=== PATIENT | male | born 1965 | race Hispanic/Latino ===

== ENCOUNTER 2019-01-16 21:56 | Emergency (ER) | payer OTHER, SELFPAY ==
[2019-01-16] MEDS ORDERED: SUCCINYLCHOLINE 20 MG/ML (10 ML) IV ONE (21:57)
[2019-01-16] MEDS ORDERED: ETOMIDATE 20 MG/10 ML VIAL IV ONE (21:57)
[2019-01-16] MEDS ORDERED: LIDOCAINE 1% MPF 5 ML VIAL IJ ONE (21:57)
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
--- OUTSIDE RECORDS SUMMARY | 2019-01-16 22:00 | XMS REPORT ---
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
--- OUTSIDE RECORDS SUMMARY | 2019-01-16 22:00 | XMS REPORT | Summary of Care ---
:1965 Author Organization [facility] Address [address] [place] [address]- Encounter HQ Encntr_alias(FIN) [id number] Date(s): 10/31/16 - 11/29/16 [facility] [address] [place] [address]. [address] [place] [address]- [phone] Discharge Disposition: Home or Self Care Attending Physician: Sergei Duke MD Referring Physician: Sergei Duke MD Vital Signs No data available for this section Problem List Condition Effective Dates Status Health Status Informant Chronic Drug Abuse(Confirmed) Active Dysphagia(Confirmed) Active Impaired cognition(Confirmed) Active Impaired mobility(Confirmed) Active Leukoencephalopathy(Confirmed) Active Allergies, Adverse Reactions, Alerts Substance Reaction Severity Status NKDA Active Medications No data available for this section Results No data available for this section Immunizations Not Given Vaccine Date Status Refusal Reason pneumococcal 23-valent vaccine1 08/28/16 Not Given Patient Refuses 1Result Comment: Family states patient received both flu and pneumococcal vaccine at previous facility. Procedures Procedure Date Related Diagnosis Body Site Hernia repair 11/27/01 Biopsy of vocal cord 11/27/97 Social History Social History Type Response Smoking Status Smoker, current status unknown; Type: Cigarettes; Number of years: 17; Started at age: 35.0; Previous treatment: None; Ready to change: No; Concerns about tobacco use in household: No; Exposure to Tobacco Smoke Unable to obtain; Cigarette Smoking Last 365 Days Yes; Reg Smoking Cessation Counseling No Assessment and Plan No data available for this section
--- OUTSIDE RECORDS SUMMARY | 2019-01-16 22:00 | XMS REPORT ---
:1965 [facility] Team Providers Name Role Phone MARMOLEJO, KAYY Provider Role Unavailable Allergies, Adverse Reactions, Alerts Substance Reaction Event Type N.K.D.A. 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 Active Medications Medication Code Code Instructions Start End Status Dosage System Date Date Carvedilol ND 33922910991 25 MG Orally Active 1 tablet twice a day (bid) Aspirin ND 21107967625 81 MG Orally Nov 08, Active 1 tablet Once a day 2015 Simvastatin ND 51328791662 10 MG Orally Active 1 tablet Once a day in the evening Senna NDC 0 8.6 MG Orally April Active 2 tablets Concentrate Once a day , at 2017 bedtime as needed Ritalin ND 31225141554 10 MG Orally January Active 1 tablet three times a , day (tid) 2016 ASA NDC 0 Oral Inactive 1 tab Docusate Sodium ND 07596938773 100 MG Orally April Active 1 capsule twice a day 11, as needed (bid) 2016 Thiamine HCl ND 84605581413 100 MG Orally April Active 1 tablet Once a day 2016 Fenofibrate ND 79205480944 48 MG Orally Active 1 tablet Once a day Clopidogrel ND 03423574538 75 MG Orally Active 1 tablet Bisulfate Once a day Donepezil ND 25474666711 5 MG Orally Active 1 tablet Hydrochloride Once a day at bedtime Vital Signs Date/Time: Nov 08, 2016 Blood Pressure Diastolic 80 mm Hg Blood Pressure Systolic 120 mm Hg Temperature 98.5 F BMI 23.49 Index Weight 150 lbs Height 67 in Results No Known Results Summary Purpose eClinicalWorks Submission
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
--- OUTSIDE RECORDS SUMMARY | 2019-01-16 22:00 | XMS REPORT ---
:1965 Author Organization [facility] Address [address] [place] [address] Care Team Providers Name Role Phone UNKNOWN, REFFERING Primary Care Provider Unavailable MARIA DOLORES GUILLEN M.D. Unavailable Unavailable Problems This patient has no known problems. Allergies, Adverse Reactions, Alerts This patient has no known allergies or adverse reactions. Medications This patient has no known medications. Encounters Start End Encounter Admission Attending Care Care Encounter Date/Time Date/Time Type Type Clinicians Facility Department ID 2018-01-03 2018-01-07 Inpatient C MARIA DOLORES GUILLEN [facility] [id number] 14:29:00 09:32:00 Daniel 2018-01-01 2018-01-01 Inpatient MARIA DOLORES GUILLEN [facility] [id number] 11:16:00 11:16:00 Daniel Results Test Description Test Time Test Comments Text Results Atomic Results Result Comments POC Glucose, Blood 2018-01-07 08:58:00 Test Item Value Reference Range Comments POC Glucose (test code=POCGLUC) 146 mg/dL 70-115 If you consider your patient critically ill, the [facility] Accu-Chek InformII metershould not be used for Glucose determinations.Draw a venous Glucose and send to the Main Lab for Analysis. POC Glucose, [id number] 20:29:00 Test Item Value Reference Range Comments POC Glucose (test 146 mg/dL 70-115 If you consider your patient code=POCGLUC) critically ill, the [facility] Accu-Chek InformII metershould not be used for Glucose determinations.Draw a venous Glucose and send to the Main Lab for Analysis. POC Glucose, [id number] 15:23:00 Test Item Value Reference Range Comments POC Glucose (test 135 mg/dL 70-115 If you consider your patient code=POCGLUC) critically ill, the [facility] Accu-Chek InformII metershould not be used for Glucose determinations.Draw a venous Glucose and send to the Main Lab for Analysis. POC Glucose, [id number] 11:52:00 Test Item Value Reference Range Comments POC Glucose (test 123 mg/dL 70-115 If you consider your patient code=POCGLUC) critically ill, the [facility] Accu-Chek InformII metershould not be used for Glucose determinations.Draw a venous Glucose and send to the Main Lab for Analysis. POC Glucose, [id number] 08:01:00 Test Item Value Reference Range Comments POC Glucose (test 121 mg/dL 70-115 If you consider your patient code=POCGLUC) critically ill, the [facility] Accu-Chek InformII metershould not be used for Glucose determinations.Draw a venous Glucose and send to the Main Lab for Analysis. POC Glucose, [id number] 21:22:00 Test Item Value Reference Range Comments POC Glucose (test 112 mg/dL 70-115 If you consider your patient code=POCGLUC) critically ill, the [facility] Accu-Chek InformII metershould not be used for Glucose determinations.Draw a venous Glucose and send to the Main Lab for Analysis. POC Glucose, [id number] 17:06:00 Test Item Value Reference Range Comments POC Glucose (test 148 mg/dL 70-115 If you consider your patient code=POCGLUC) critically ill, the [facility] Accu-Chek InformII metershould not be used for Glucose determinations.Draw a venous Glucose and send to the Main Lab for Analysis. POC Glucose, [id number] 11:21:00 Test Item Value Reference Range Comments POC Glucose (test 108 mg/dL 70-115 If you consider your patient code=POCGLUC) critically ill, the [facility] Accu-Chek InformII metershould not be used for Glucose determinations.Draw a venous Glucose and send to the Main Lab for Analysis. POC Glucose, [id number] 08:13:00 Test Item Value Reference Range Comments POC Glucose (test 170 mg/dL 70-115 If you consider your patient code=POCGLUC) critically ill, the [facility] Accu-Chek InformII metershould not be used for Glucose determinations.Draw a venous Glucose and send to the Main Lab for Analysis. POC Glucose, [id number] 21:10:00 Test Item Value Reference Range Comments POC Glucose (test 169 mg/dL 70-115 If you consider your patient code=POCGLUC) critically ill, the [facility] Accu-Chek InformII metershould not be used for Glucose determinations.Draw a venous Glucose and send to the Main Lab for Analysis. POC Glucose, [id number] 16:25:00 Test Item Value Reference Range Comments POC Glucose (test 115 mg/dL 70-115 If you consider your patient code=POCGLUC) critically ill, the [facility] Accu-Chek InformII metershould not be used for Glucose determinations.Draw a venous Glucose and send to the Main Lab for Analysis. POC Glucose, [id number] 12:41:00 Test Item Value Reference Range Comments POC Glucose (test 117 mg/dL 70-115 If you consider your patient code=POCGLUC) critically ill, the [facility] Accu-Chek InformII metershould not be used for Glucose determinations.Draw a venous Glucose and send to the Main Lab for Analysis. POC Glucose, [id number] 09:32:00 Test Item Value Reference Range Comments POC Glucose (test 115 mg/dL 70-115 If you consider your patient code=POCGLUC) critically ill, the [facility] Accu-Chek InformII metershould not be used for Glucose determinations.Draw a venous Glucose and send to the Main Lab for Analysis. POC Glucose, [id number] 05:20:00 Test Item Value Reference Range Comments POC Glucose (test 106 mg/dL 70-115 If you consider your patient code=POCGLUC) critically ill, the [facility] Accu-Chek InformII metershould not be used for Glucose determinations.Draw a venous Glucose and send to the Main Lab for Analysis. POC Glucose, [id number] 15:32:00 Test Item Value Reference Range Comments POC Glucose (test 83 mg/dL 70-115 If you consider your patient code=POCGLUC) critically ill, the [facility] Accu-Chek InformII metershould not be used for Glucose determinations.Draw a venous Glucose and send to the Main Lab for Analysis.
[2019-01-16] MEDS ORDERED: LORazepam 2 MG/ML VIAL ONE (22:11)
[2019-01-16 22:42] LABS: Protime INR 1.03
[2019-01-16] MEDS ORDERED: PROPOFOL 1,000 MG/100 ML VIAL IV ONE (22:48)
[2019-01-16] MEDS ORDERED: RSI MEDICATION KIT IV ONE (22:48)
[2019-01-16] MEDS ORDERED: NA CHLORIDE 0.9% 1,000 ML ONE (22:48)
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
[2019-01-16] MEDS ORDERED: ALTEPLASE 100 ML IV ONE (22:50)
[2019-01-16] MEDS ORDERED: HEPARIN 5000 UNIT/ML 1 ML VIAL ONE (22:51)
[2019-01-16] MEDS ORDERED: HEPARIN/D5W 25,000 UNIT/500 ML BAG IV ONE (22:51)
[2019-01-16 22:52] LABS: Absolute Lymphocytes (CBC) 5.2 K/uL (0.7-4.9); Absolute Monocytes 0.8 K/uL (0.1-1.3); Absolute Neutrophil 13.3 K/uL (1.8-8.0); Basophils % 0.4 % (0-1.3); Eosinophils % 1.6 % (0-4.4); Hematocrit 46.5 % (39.6-49.0); Lymphocytes % 26.4 % (15.3-44.8); MPV 9.6 fL (7.6-11.3); Monocytes % 4.3 % (3.3-12.3); RBC Red Blood Cell Count 5.06 M/uL (4.33-5.43)
[2019-01-16] MEDS ORDERED: LABETALOL 20 MG/4ML SYRINGE IV ONE (23:04)
[2019-01-16 23:05] LABS: Albumin 3.8 g/dL (3.4-5.0); Bilirubin Direct 0.2 mg/dL (0-0.2); Bilirubin Total 0.5 mg/dL (0.2-1.0); Potassium 3.6 mmol/L (3.5-5.1); Protein, Total 6.7 g/dL (6.4-8.2); Troponin (Emerg Dept Use Only) 0.12 ng/mL (0.0-0.045)
[2019-01-16] MEDS ORDERED: MIDAZOLAM HCL 2 MG/2 ML INJ ONE ×2 (23:09→23:10)
[2019-01-16 23:35] LABS: Urine Blood 2+ (NEG); Urine Glucose 1+ (NEG); Urine Protein 3+ (NEG); Urine Specific Gravity >1.030 (1.005-1.030); Urine pH 5.5 (5.0-7.0)
--- NOTE | 2019-01-17 08:16 | RAD REPORT ---
EXAM DESCRIPTION: RAD - Chest Single View - 01/16/2019 10:34 pm CLINICAL HISTORY: post CPR Chest pain. COMPARISON: Chest Single View dated 07/17/2016; CHEST SINGLE VIEW dated 09/24/2015; CHEST PA AND LAT 2 VIEW dated 04/08/2015; CHEST PA AND LAT 2 VIEW dated 09/20/2013 FINDINGS: Portable technique limits examination quality. Tip of the ET tube is above the bud. Nasogastric tube descends into the stomach. Lungs are grossly clear. Heart is normal in size.
--- NOTE | 2019-01-17 14:04 | RAD REPORT ---
EXAM DESCRIPTION: Head brain Wo Cont CLINICAL HISTORY: Unresponsive. COMPARISON: None. TECHNIQUE: Axial scans of the brain without contrast including multiplanar computer-generated reform ations. Total Dose Length Product 928. This exam was performed using one or more of the following dos e reduction techniques: automated exposure control, adjustment of the mA and/or kV according to patie nt size and/or less of iterative reconstruction technique. FINDINGS: Scalp: Cutaneous calcifications noted mainly in the frontal scalp. Intracranial mass: None. Intracranial density: There are low density areas in the cerebral white matter without mass effect. M ost pronounced in the frontal lobes. Nonspecific. Possible microvascular ischemia but recommend MRI a nd diffusion Weighting for further evaluation and to exclude acute infarct. Intracranial hemorrhage: No intracranial hemorrhage. Extra-axial fluid collection: None. Midline shift: None Ventricles:, subarachnoid spaces and sulci: Within normal limits. Calvarium: Unremarkable. Orbits: Unremarkable. Paranasal sinuses: Aerated. IMPRESSION: 1. White matter hypoattenuating densities as discussed. Correlate with MRI as indicated. Electronically signed by Regino Chen MD 01/16/2019 10:37 PM [employer]PATCH SUPERVISOR Due to temporary technical issues with the PACS/Fluency reporting system, reports are being signed by the in house radiologist as a courtesy to ensure prompt reporting. The interpreting radiologist is f ully responsible for the content of the report.
== END 2019-01-16 23:35 | disposition short-term general hospital (02) ==
LOC: ER 21:56
PROC: 0BH17EZ Insertion of Endotracheal Airway into Trachea, Via Natural or Artificial Opening (ICD-10-PCS; principal; 2019-01-16)
PROC: 3E03317 Introduction of Other Thrombolytic into Peripheral Vein, Percutaneous Approach (ICD-10-PCS; 2019-01-16)
DX: I21.09 ST elevation (STEMI) myocardial infarction involving other coronary artery of anterior wall (principal); I10 Essential (primary) hypertension; Z87.820 Personal history of traumatic brain injury
CPT/HCPCS: 31500; 36415; 51702; 70450; 71045; 80048; 80076; 81003; 82962; 83735; 83880; 84484; 85025; 85610; 92977; 94002; 99291; J0330; J1644; J2250; J2704; J2997; J7030

== ENCOUNTER 2019-05-16 09:56 | Emergency (ER) | payer SELFPAY ==
--- OUTSIDE RECORDS SUMMARY | 2019-05-16 09:59 | XMS REPORT | Continuity of Care Document ---
[...] unspecified Constipation, Active Problem 10/19/2018 2.16.840 unspecified .1.21791 constipation type 3.4.391. 11.82856 History of myocardial Active Problem 10/19/2018 2.16.840 infarction .1.39348 3.4.391. 11.54672 Mixed hyperlipidemia Active Problem 10/19/2018 2.16.840 .1.86575 3.4.391. 11.84235 Brain damage Active Problem 10/19/2018 2.16.840 .1.36151 3.4.391. 11.48591 Thiamine deficiency, Active Diagnosis 10/10/2018 2.16.840 unspecified .1.89410 3.4.391. 11.73908 ENCEPHALOPATHY, Active [facility] UNSPECIFIED Medications Medication Details Route Status Patient Ordering Order Source Instructions Provider Date Senna Concentrate 2 tablets at Orally Active 8.6 MG Orally MARMOLEJO 01.12. bedtime as Once a day 2016 0.1.113 [...] carvedilol 25 mg 25 mg=1 tab, Active [facility] oral tablet PO, BID, # 60 2016 tab, 1 Refill(s) Aspirin 81 MG 81 mg=1 tab, Active [facility] Chewable Tablet PO, Daily, # [...] [facility] Oral Tablet PO, Dinner, # 2015 30 tab, 1 Refill(s) donepezil 5 mg [...] day, Stop date: 10/04/16 12:33:00 CSTNotes: Chloraseptic [place] (Same as: Chloraseptic, Sore Throat [place]) WASTE: F/P - Black; E - Municipal Trash [employer] Ativan 1 mg, 1 tab, [...] Duration: 30 day, Stop date: 10/03/16 8:01:00 MANAGER KNOWLEDGE, SBP > 170Notes: (Same as: Apresoline) May [...] Stop date: 08/27/16 17:00:00 CDTNotes: (Same as: Prinivsarah, Sammyril) sennosides, [facility] 17.2 mg, 2 No Longer [facility] tab, [...] Duration: 60 day, Stop date: 10/25/16 21:00:00 MANAGER KNOWLEDGE Tylenol 650 mg, 2 tab, No Longer [...] mg, 1 supp, No Longer [facility] Route: [place], Active 2015 Drug form: SUPP, Bedtime, Dosing [...] mg, PO, No Longer [facility] Q6H, 0 Active 2015 Refill(s) Aspirin 81 mg, PO, No [...] 46 second(s). 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 views of the neck demonstrate a normal [...] wo EXAM: CT HEAD WITHOUT CONTRAST 08/[address] [facility] contrast CT /2015 - [...] [facility] STOOL mg/dL mg/dL URINE AND UA pH 5.5 5.0 - 8.0 08/27 [facility] STOOL URINE AND UA Turbidity Clear Clear 08/27 [facility] STOOL (08/27/16 5:16 PM) URINE AND UA Color Yellow Yellow 08/27 [facility] STOOL *NA* (08/27/16 5:16 PM) URINE AND UA Spec Grav 1.022 <=1.030 08/27 [facility] STOOL Abdomen AP Abdomen AP DX EXAM: XR ABDOMEN 1 VIEW 08/27 - [facility] DX - DATE: 08/27/2016 at 1043 [...] CHEST 1 VIEW 08/27 - [facility] DX - DATE: 08/26/2016 11:29 PM CDT [...] A/G Ratio 1.1 0.7 - 1.6 08/27 [facility] CHEM PANEL B/C Ratio 20 6 - [...] eGFR of 60-89 may be normal in [facility] mL/min/1.73 /2015 some populations, particularly the elderly, [...] Phos 92 unit/L 39 - 136 08/27 [facility] CHEM PANEL Bili Total 0.5 mg/dL 0.2 - 1.3 08/27 [facility] CHEM PANEL Creatinine 1.20 mg/dL 0.50 - 08/27 [facility] Lvl 1.40 CHEM PANEL BUN 24 mg/dL 7 - 22 08/27 [facility] CHEM PANEL Glucose Lvl 105 mg/dL 70 - 99 08/27 [facility] CHEM PANEL Potassium Lvl 3.7 meq/L 3.5 - 5.1 08/27 CHEM PANEL Sodium Lvl 142 meq/L 135 - 145 08/27 [facility] CHEM PANEL Chloride Lvl 106 meq/L 95 - 109 08/27 [facility] CHEM PANEL CO2 26 meq/L 24 - 32 08/27 CHEM PANEL ALT 32 unit/L 0 - 65 08/27 [facility] CHEM PANEL Albumin Lvl 3.9 g/dL 3.5 - 5.0 08/27 [facility] CHEM PANEL Total Protein 7.5 g/dL 6.4 - 8.4 08/27 [facility] CHEM PANEL Calcium Lvl 8.9 mg/dL 8.5 [...] Basophils 0.7 % 0.0 - 1.0 08/27 [facility] HEMATOLOGY Eosinophils 2.4 % 0.0 - 4.0 08/27 [facility] HEMATOLOGY Monocytes 5.8 % 2.0 - 12.0 [...] /2015 HEMATOLOGY RDW 13.6 % 11.5 - 10 [facility] 14.5 HEMATOLOGY Platelet 322 K/CMM 133 [...] 12.4 g/dL 14.0 - 08/27 [facility] 18.0 /2015 IMMUNOLOGY Prealbumin 35.6 mg/dL 18.0 - 08/27 [...] Comments Source Diastolic (mm Hg) 80 11/08/2016 2.16.840.1.39804 3.4.391.11.87799 Systolic (mm Hg) 120 11/08/2016 2.16.840.1.10437 3.4.391.11.72045 Temperature Oral (F) 98.5 F 11/08/2016 2.16.840.1.05233 3.4.391.11.23757 Weight 150 11/08/2016 2.16.840.1.87505 3.4.391.11.53331 Height 67 11/08/2016 2.16.840.1.71042 3.4.391.11.13859 Heart Rate 57 09/08/2016 [facility] Respitory Rate [...] For Provider Date Date Visit [facility] Inpatient [id number] Ethan Noyola 08/27 09/08 [facility] /2015 [facility] OP Therapy [id number] Sergei 10/31 11/30 [facility] Procedures Procedure Code Date Perfomer Comments Source Hernia repair [id number] 11/27/2001 [facility] Hernia repair [id number] 11/27/2001 [facility] Biopsy of vocal [id number] 11/27/1997 [facility] Biopsy of vocal [id number] 11/27/1997 [facility]
--- OUTSIDE RECORDS SUMMARY | 2019-05-16 10:00 | XMS REPORT ---
:1965 [facility] Providers Name Role Phone [...] Status Dosage System Date Date Carvedilol ND 03678755763 25 MG Orally Active 1 tablet twice a day (bid) Aspirin ND 37626521052 81 MG Orally Nov 08, Active 1 tablet Once a day 2015 Simvastatin ND 72271662699 10 MG Orally Active 1 tablet Once a day in the evening Senna NDC 0 8.6 MG Orally April Active 2 tablets Concentrate Once a day , at 2016 bedtime as needed Ritalin ND 29611792725 10 MG Orally January Active 1 tablet three times a , day (tid) 2016 ASA NDC 0 Oral Inactive 1 tab Docusate Sodium NDC 39129110499 100 MG Orally April Active 1 capsule twice a day 11, as needed (bid) 2016 Thiamine HCl ND 39219824475 100 MG Orally April Active 1 tablet Once a day 2016 Fenofibrate ND 54557301980 48 MG Orally Active 1 tablet Once a day Clopidogrel ND 73172532646 75 MG Orally Active 1 tablet Bisulfate Once a day Donepezil ND 66890522028 5 MG Orally Active 1 tablet Hydrochloride Once a day at bedtime Vital Signs Date/Time: Nov 08, 2016 Blood Pressure Diastolic 80 mm Hg Blood Pressure Systolic 120 mm Hg Temperature 98.5 F BMI 23.49 Index Weight 150 lbs Height 67 in Results No Known Results Summary Purpose eClinicalWorks Submission
--- NOTE | 2019-05-16 11:00 | RAD REPORT ---
EXAM DESCRIPTION: RAD - Foot Right 3 View - 05/16/2019 10:45 am CLINICAL HISTORY: PAIN Trauma COMPARISON: No comparisons FINDINGS: Comminuted fracture involves the distal phalanx of the fifth toe with surrounding soft tis raman swelling. A large plantar calcaneal spur seen.
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
== END 2019-05-16 11:29 | disposition home or self-care (01) ==
LOC: ER 09:56
DX: S92.531A Displaced fracture of distal phalanx of right lesser toe(s), initial encounter for closed fracture (principal); X58.XXXA Exposure to other specified factors, initial encounter; Y93.89 Activity, other specified; Y92.89 Other specified places as the place of occurrence of the external cause; Y99.8 Other external cause status; I10 Essential (primary) hypertension; I25.2 Old myocardial infarction; F17.210 Nicotine dependence, cigarettes, uncomplicated
CPT/HCPCS: 99283

== ENCOUNTER 2020-10-23 16:59 | Emergency (ER) | payer OTHER ==
--- OUTSIDE RECORDS SUMMARY | 2020-10-23 17:01 | XMS REPORT | Clinical Summary ---
:1965 Author Organization [facility] Address [address] [place] [address] Care Team Providers Name Role Phone Unavailable Primary Care Provider Unavailable Allergies No Known Allergies Medications Medication Sig Dispensed Refills Start Date End Date Status aspirin 81 MG Take 1 tablet 90 tablet 3 01/23/2019 01/23/2020 chewable tablet (81 mg total) by mouth daily. atorvastatin Take 1 tablet 90 tablet 3 01/23/2019 01/23/2020 E xpired (LIPITOR) 80 MG (80 mg total) tablet by mouth daily. clopidogrel (PLAVIX) Take 1 tablet 90 tablet 3 01/23/201912/29 75 mg tablet (75 mg total) by mouth daily. lisinopril Take 1 tablet 90 tablet 3 01/23/2019 01/23/2020 Exp ired (PRINIVIL,ZESTRIL) (2.5 mg total) 2.5 MG tablet by mouth daily. metoprolol Take 1 tablet 180 tablet 3 01/22/2019 01/22/2020 Ex pired (LOPRESSOR) 25 MG (25 mg total) tablet by mouth 2 (two) times daily. Active Problems Problem Noted Date STEMI (ST elevation myocardial infarction) 01/17/2019 Cardiac arrest 01/17/2019 Social History Tobacco Use Types Packs/Day Years Used Date Never Assessed Sex Assigned at Date Recorded Not on file Last Filed Vital Signs Not on file Plan of Treatment Health Maintenance Due Date Last Done Comments COLON CANCER SCREENING COLONOSCOPY 1965 INFLUENZA VACCINE (#1) 2020 08/26/2016 LIPID PANEL 01/17/2022 01/17/2019 Implants Implanted Type Area Labor Representative Device Shelf Model / Identifier Expiration Serial / Date Lot Device Angio-Seal Evolu 6fr - [id number] Cardiovascular Right: ST RENETTA 09/26/2019 [id number] / Implanted: Qty: 1 on 01/17/2019 by Joshua Billy MD at [facility] / [id number] Synergy Rx Everolimus Eluting Coronary Stent Stents-Coronary Left: [place] 10/21/2020 [id number] / Implanted: Qty: 1 on 01/17/2019 by Joshua Billy MD at [facility] Coronary [employer] / [id number] Results Not on fileafter 10/23/2019 Advance Directives For more information, please contact: [phone] Code Status Date Activated Date Inactivated Comments Full Code 01/17/2019 1:13 AM 01/22/2019 7:41 PM This code status was determined by: Patient
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
--- OUTSIDE RECORDS SUMMARY | 2020-10-23 17:05 | XMS REPORT | Continuity of Care Document ---
:1965 Author Organization [facility] t Address [address] [place] [address] Care Team Providers Name Role Phone Lab, Covid Attending Clinician Unavailable Lab, Fam Pob I Attending Clinician Unavailable Brandon KURTZ Attending Clinician Doctor Unassigned, Name Attending Clinician Unavailable Jose Eduardo JARVIS Attending Clinician Unavailable Amalia Duke Attending Clinician [phone] Gilbert Wellington Attending Clinician Jose Eduardo JARVIS Admitting Clinician Unavailable Gilbert Wellington Admitting Clinician Problems Condition Condition Condition Status Onset Resolution Last Treating Co mments Source Name Details Category Date Date Treatment Clinician Date STEMI (ST STEMI (ST Disease Active [facility]- [facility] - myocardial myocardial 00:00: Me dical infarction infarction 00 Ce nter ) ) Cardiac Cardiac Disease Active [facility] ENCEPHALOP Diagnosis Active 2015-112016-11-02 Memoria ATHY 2- 12:35:00 l 00:00: [place] ENCEPHALOP 00 ATHY Active 10/28/2016 [facility] D/C FOLLOW Diagnosis Active 2015-112016-10-28 Memoria UP 0-12 10:29:00 l D/C 00:00: [place] FOLLOW UP 00 Active 09/07/2016 [facility] LEUKOENCEP Diagnosis Active 2016-08-26 Memoria HALOPATHY 9-28 20:06:00 l 00:00: Chase LEUKOENCEP 00 HALOPATHY Active 08/24/2016 [facility] Final: Problem 2016-09-11 Memor ia Encephalop 00:40:18 l athy, Final: Chase unspecifie Encephalop d athy, unspecifie d 09/11/2016 [facility] Constipati Problem Active 2018-10-19 M emoria on, 05:37:01 l unspecifie Tommy n d Constipati constipati on, on type unspecifie d constipati on type Active Problem 10/19/2018 eCW: Denise Birch MD, PA History of Problem Active 2018-10-19 M emoria myocardial 05:37:01 l infarction History Her zhu of myocardial infarction Active Problem 10/19/2018 eCW: Denise Birch MD, PA Mixed Problem Active 2018-10-19 Memor ia hyperlipid 05:37:01 l emia Mixed Chase hyperlipid emia Active Problem 10/19/2018 eCW: Denise Birch MD, PA Brain Problem Active 2018-10-19 Memor ia damage 05:37:01 l Brain Cheng damage Active Problem 10/19/2018 eCW: Denise Birch MD, PA Thiamine Diagnosis Active 2018-10-10 M emoria deficiency 05:11:04 l , Thiamine Tommy n unspecifie deficiency d , unspecifie d Active Diagnosis 10/10/2018 eCW: Denise Birch MD, PA Chronic Problem Active 2016-12-02 Hasmukh shereen drug abuse 01:26:03 l (disorder) Chronic Her zhu drug abuse (disorder) Active Problem 12/02/2016 [facility] Dysphagia Problem Active 2016-12-02 Me moria (disorder) 01:26:03 l Chase Dysphagia (disorder) Active Problem 12/02/2016 [facility] Impaired Problem Active 2016-12-02 Mem oria cognition 01:26:03 l (finding) Impaired Her zhu cognition (finding) Active Problem 12/02/2016 [facility] Impaired Problem Active 2016-12-02 Mem oria mobility 01:26:03 l (finding) Impaired Her zhu mobility (finding) Active Problem 12/02/2016 [facility] Leukoencep Problem Active 2016-12-02 M emoria halopathy 01:26:03 l (disorder) Tommy n Leukoencep halopathy (disorder) Active Problem 12/02/2016 [facility] ENCEPHALOP Diagnosis Active 2016-08-26 Memoria ATHY, 20:06:00 l UNSPECIFIE Tommy n D ENCEPHALOP ATHY, UNSPECIFIE D Active [facility] Allergies, Adverse Reactions, Alerts Allergy Allergy Status Severity Reaction(s) Onset Inactive Treating Comm ents Source Name Type Date Date Clinician N.KReginoA. N.KReginoA. Active Info Not 2015-11 Hasmukh shereen Available 2-13 l 00:00: Chase 00 Social History Social Habit Start Date Stop Date Quantity Comments Source Sex Assigned At [facility] Smoking Status Start Date Stop Date Source Social History 2016-08-27 02:08:37 [facility] Medications Ordered Filled Start Stop Current Ordering Indication Dosage Frequency Signature Comments Components Source Medication Medication Date Date Medication? Clinician (SIG) Name Name aspirin 81 2020- No 81mg QD Take [address] [facility] MG chewable -23 01- tablet (81 L ukes - tablet 00:00: 23:59 mg total) Medic al 00 :00 by mouth Center daily. atorvastati 2020- No 80mg QD Take [address] [facility] n (LIPITOR) 2-23 01- tablet (80 L ukes - 80 MG 00:00: 23:59 mg total) Medica l tablet 00 :00 by mouth Center daily. clopidogrel 2020- No 75mg QD Take [address] [facility] (PLAVIX) 75 -23 01- tablet (75 L ukes - mg tablet 00:00: 23:59 mg total) Me dical 00 :00 by mouth Center daily. lisinopril 2020- No 2.5mg QD Take [address] [facility] (PRINIVIL,Z -23 01- tablet [facility] - ESTRIL) 2.5 00:00: 23:59 (2.5 mg Me dical MG tablet 00 :00 total) by Cente r mouth daily. metoprolol 2020- No 25mg Q.5D Take [address] [facility] (LOPRESSOR) 2-26 -26 tablet (25 L ukes - 25 MG 00:00: 23:59 mg total) Medica l tablet 00 :00 by mouth 2 Center (two) times daily. Carvedilol 2017-11 Yes KAYY 1 tablet Memoria 1-14 MARMOLEJO l 05:11: Simvastatin 2017-11 Yes KAYY 1 tablet Memoria 1-14 MARMOLEJO in the l 05:11: evening ASA 2017-11 Yes KAYY 1 tab Memoria 1-14 MARMOLEJO l 05:11: Fenofibrate 2017-11 Yes KAYY 1 tablet Memoria 1-14 MARMOLEJO l 05:11: Clopidogrel 2017-11 Yes KAYY 1 tablet Memoria Bisulfate 1-14 MARMOLEJO l 05:11: Donepezil 2017-11 Yes KAYY 1 tablet M emoria Hydrochlori 1-14 MARMOLEJO at bedtime l de 05:11: Senna 20170 Yes KAYY 2 tablets Hasmukh shereen Concentrate 6-11 MARMOLEJO at bedtime l 00:00: as needed Docusate 20170 Yes KAYY 1 capsule M emoria Sodium 6-11 MARMOLEJO as needed l 00:00: Thiamine 0 Yes KAYY 1 tablet Me moria HCl 6-11 MARMOLEJO l 00:00: Ritalin 0 Yes KAYY 1 tablet Mem oria 3-13 MARMOLEJO l 00:00: Aspirin 2015-11 Yes KAYY 1 tablet Mem oria 2-13 MARMOLEJO l 00:00: thiamine 2015-11 Yes 100 mg = 1 Mem oria 100 mg oral 0-12 tab, PO, l tablet 21:26: Daily, X Cheng 00 30 day, # 30 tab, 1 Refill(s) clopidogrel 2015-11 Yes 75 mg = 1 M emoria 75 mg oral 0-12 tab, PO, l tablet 21:26: Daily, # Chase 00 30 tab, 1 Refill(s) carvedilol 2015-11 Yes 25 mg = 1 Me moria 25 mg oral 0-12 tab, PO, l tablet 21:26: BID, # 60 Tommy n 00 tab, 1 Refill(s) Aspirin 81 2015-11 Yes 81 mg = 1 Me moria MG Chewable 0-12 tab, PO, l Tablet 21:26: Daily, # Chase 00 30 tab, 1 Refill(s) simvastatin 2015-11 Yes 10 mg = 1 M emoria 10 mg oral 0-12 tab, PO, l tablet 21:26: Bedtime, # Kirstin nn 00 30 tab, 1 Refill(s) senna 8.6 2015-11 Yes 17.2 mg = Mem oria mg oral 0-12 2 tab, PO, l tablet 21:26: QNoon, X Cheng 00 30 day, # 60 tab, 1 Refill(s) methylpheni 2015-11 Yes 15 mg = 3 M emoria date 5 mg 0-12 tab, PO, l oral tablet 21:26: BID-07-09, # 180 tab, 0 Refill(s) melatonin 3 2015-11 Yes 3 mg = 1 Me moria mg oral 0-12 tab, PO, l tablet 21:26: After Dinner, X 14 day, # 14 tab, 1 Refill(s) Fenofibrate 2015-11 Yes 48 mg = 1 M emoria 48 MG Oral 0-12 tab, PO, l Tablet 21:26: Dinner, # Tommy n 00 30 tab, 1 Refill(s) donepezil 5 2015-11 Yes 5 mg = 1 Me moria mg oral 0-12 tab, PO, l tablet 21:26: Daily, # Cheng 00 30 tab, 1 Refill(s) Docusate 2015-11 Yes 100 mg = 1 Mem oria Sodium 100 0-12 cap, PO, l MG Oral 21:26: BID, # 60 Kirstin nn Capsule 00 cap, 1 Refill(s) donepezil 2015-11 No Notes: Memori a 0-11 (Same as: l 13:30: Aricept) phenol 2015-11 No Notes: Memoria 0-09 Chlorasept l 17:34: ic [place] (Same as: Chlorasept ic, Sore Throat [place]) WASTE: F/P - Black; E - [employer] Ativan 2015-11 No Notes: Memoria 0-08 (Same as: l 14:00: Ativan) Hydralazine 2015-11 No Notes: Hasmukh shereen Hydrochlori 0-08 (Same as: l de 10 MG 13:02: Apresoline Her zhu Oral Tablet 00 ) May interfere w/enteral feedings. Take With Food Ativan 2015-11 No Notes: Memoria 0-08 (Same as: l 13:00: Ativan) Methylpheni 2015-11 No Notes: Hasmukh shereen date 0-07 (Same l 13:00: as:Ritalin ) Flonase 2015-11 No Notes: Memoria 0.05 mg/inh 0-06 (Same as: l nasal spray 20:55: Flonase) He rm Flonase 2015-11 No 2 spray, Memori a 0.05 mg/inh 0-06 Route: l nasal spray 20:45: Each Tommy n 00 Affected Nostril, Drug Form: SPRY, Dosing Weight 60.227, kg, Daily, PRN Secretions , Start date: 09/01/16 15:45:00 CDT, Duration: 30 day, Stop date: 10/01/16 15:44:00 CDT Thiamine 2015-11 No Notes: Memoria 0-05 (Same As: l 13:30: Vitamin Chase 00 B1) Lovenox 2015-11 No Notes: Memoria 0-05 (Same as: l 02:00: Lovenox) Zocor 2015-11 No Notes: Memoria 0-05 (Same as: l 02:00: Zocor) Melatonin 2015-11 No Notes: Memori a 0-04 (Same as: l 22:00: Melatonin) Tylenol 2015-11 No Notes: Do Memor ia 0-04 not exceed l 14:19: 4 gm/day. Cheng (Same as: Tylenol) Methylpheni 2015-11 No Notes: Hasmukh shereen date 0-04 (Same l 13:00: as:Ritalin ) Tricor 2015-11 No Notes: Memoria 0-03 (Same as: l 22:00: Tricor) Prinivil 2015-11 No Notes: Memoria 0-02 (Same as: l 02:00: Prinivil, Zestril) Lisinopril 2015-11 No Notes: Memor ia 0-01 (Same as: l 22:00: Prinivil, Cheng 00 Zestril) sennosides, 2015-11 No Notes: Hasmukh shereen HALF-WAY 0-01 (Same as: l 17:00: Senokot) Cheng 00 Furosemide 2015-11 No 80 mg = 1 Me moria 80 MG Oral 0-01 tab, PO, l Tablet 14:15: Daily, 0 Cheng [Lasix] 00 Refill(s) heparin 2015-11 No 5,000 Memoria 0-01 unit, l 14:00: Route: Cheng 00 SUB-Q, Q12H, Dosing Weight 60.227, kg, Start date: 08/27/16 9:00:00 CDT, Duration: 30 day, Stop date: 09/25/16 21:00:00 CDT clopidogrel 2015-11 No 75 mg = 1 M emoria 75 MG Oral 0-01 tab, PO, l Tablet 14:00: Daily, 0 Chase [Plavix] 00 Refill(s) Thiamine 2015-11 No Notes: Memoria 0-01 (Same As: l 13:30: Vitamin Cheng 00 B1) Docusate 2015-11 No Notes: Memoria 0-01 (Same as: l 13:30: Colace) Chase 00 (Do Not Crush) SENOKOT-S 2015-11 No Notes: Memori a 0-01 (Same as l 13:30: Senokot-S) Chase 00 Equiv. to Deepika-Colac e. Plavix 2015-11 No Notes: Memoria 0-01 (Same As: l 13:30: Plavix) Chase 00 Aspirin 2015-11 No Notes: Memoria 0-01 Take with l 13:30: food. Chase 00 Coreg 2015-11 No Notes: Memoria 0-01 Give with l 13:30: food. Chase 00 (Same As: Coreg) Bacitracin 2015-11 No Route: Memor ia 0-01 TOP, BID, l 13:30: Dosing Cheng 00 Weight 60.227, kg, Start date: 08/27/16 8:30:00 CDT, Duration: 30 day, Stop date: 09/25/16 21:00:00 CDT bacitracin 2015-11 No 1 appl, Hasmukh shereen topical 0-01 Route: l 13:30: TOP, BID, Cheng 00 Drug form: OINT, Start date: 08/27/16 8:30:00 CDT, Duration: 60 day, Stop date: 10/25/16 21:00:00 [employer] Tylenol 2015-11 No Notes: Do Memor ia 0- not exceed l 05:00: 4 gm/day. (Same as: Tylenol) Midazolam 2015-11 No 40 kg Memori a 0-01 l 04:29: Cheng 00 Levetiracet 2015-11 No Notes: Hasmukh shereen am 0-01 Same as l 04:29: Keppra Mix with 100 mL NS, LR or D5W MEDICATION WASTE Product Size: 500 mg Product Wasted: __0_ mg Bisacodyl 2015-11 No Notes: Memori a 0-01 (Same As: l 04:29: Dulcolax, Bisco-Lax) Milk of 2015-11 No Notes: Memoria Magnesia 0- (Same as: l 04:29: Milk of Magnesia, MOM) Saline 2015-11 No Notes: Memoria Flush 0.9% 0- (Same as: l 04:29: BD Posiflush) carvedilol No 25 mg = 1 Me moria 25 MG Oral 9-30 tab, PO, l Tablet 21:08: BID, # 60 Tommy n [Coreg] 00 tab, 0 Refill(s) Bacitracin No 500 units, M emoria 9-30 TOP, BID, l 21:08: 0 Refill(s) SENOKOT-S No 1 tab, PO, Me moria 9-30 Daily, 0 l 21:08: Refill(s) Chase 00 heparin No 5,000 Memoria 9-30 unit, l 21:08: SUB-Q, Chase Q12H, 0 Refill(s) Tylenol No 650 mg, Memoria 9-30 PO, Q6H, 0 l 21:08: Refill(s) Chase 00 Aspirin No 81 mg, PO, Hasmukh shereen 9-30 Daily, 0 l 21:08: Refill(s) Chase 00 Thiamine No 250 mg, Memori a 9-30 IV, Daily, l 21:08: 0 Cheng 00 Refill(s) Vital Signs Vital Name Observation Time Observation Value Comments Source Diastolic (mm Hg) 2016-11-08 20:30:00 Mem orial [place] Systolic (mm Hg) 2016-11-08 20:30:00 Hasmukh rial Cheng Temperature Oral (F) 2016-11-08 20:30:00 98.5 F [facility] Weight 2016-11-08 20:30:00 [facility] Height 2016-11-08 20:30:00 [facility] Heart Rate 2016-09-08 12:30:00 [facility] Respitory Rate 2016-09-08 12:30:00 Memori al [place] Diastolic (mm Hg) 2016-09-08 12:30:00 Mem orial Cheng Systolic (mm Hg) 2016-09-08 12:30:00 Hasmukh rial Cheng Systolic (mm Hg) 2016-09-08 00:30:00 Hasmukh rial [place] Diastolic (mm Hg) 2016-09-08 00:30:00 Mem orial Cheng Respitory Rate 2016-09-08 00:30:00 Memori al Cheng Heart Rate 2016-09-08 00:30:00 [facility] Heart Rate 2016-09-07 18:30:00 [facility] Systolic (mm Hg) 2016-09-07 18:30:00 Hasmukh rial [place] Diastolic (mm Hg) 2016-09-07 18:30:00 Mem orial Cheng Respitory Rate 2016-09-07 18:30:00 Memori al Cheng Weight 2016-09-02 20:37:00 [facility] Cheng Height 2016-08-27 05:00:[address] [facility] BMI Calculated 2016-08-27 01:16:00 Memori al [place] Weight 2016-08-27 01:16:00 [facility] Height 2016-08-27 01:16:[address] [facility] Procedures Procedure Date / Time Performed Performing Clinician [facility] Hernia repair 2001-11-27 06:00:00 [facility] Biopsy of vocal cord 1997-11-27 06:00:00 Susan Anand Plan of Care Planned Activity Planned Date Details Comments Source Future Scheduled 2022-01-[address] [facility] Test 00:00:00 (procedure) [code = [facility] 26513194] Future Scheduled 2020-07-[address] [facility] - Test 00:00:00 (#1) [code = [facility] INFLUENZA VACCINE (#1)] Future Scheduled [address] [facility] malignant neoplasm Medical C enter of colon (procedure) [code = 217230910] Encounters Start End Encounter Admission Attending Care Care Encounter Source Date/Time Date/Time Type Type Clinicians Facility Department ID 2020-06-08 2020-06-08 Letter Lab, Pcp [facility] [id number] 00:00:00 00:00:00 (Out) Covid Health [id number] Bud [id number] Professio [phone] nal [address] 2020-06-04 2020-06-04 Laboratory Lab, Adc [facility] [id number] 11:06:05 11:26:05 Only Fam Pob I Health [id number] Bud [id number] Professio [id number] nal 044 [address] 2020-02-17 2020-02-17 Telemedici Brandon, [facility] [id number] 09:00:00 09:20:00 ne Visit Lolis Bud [id number] [place] [id number] Professio [phone] nal 059 [facility] 2019-08-16 2019-08-16 Orders Doctor FILIBERTO [id number] 00:00:00 00:00:00 Only Unassigned, JENNIFER [id number] [place] [facility] [id number] 2018-01-04 2018-01-04 Outpatient Denise Denise [id number] eClinic 14:10:00 14:10:00 Queta Villasenor MD 2016-12-07 2016-12-07 Outpatient Denise Denise [id number] eClinic 14:15:00 14:15:00 Queta Villasenor MD 2016-10-31 2016-11-29 Outpatient Leilani, [id number] 13:03:00 23:59:00 Sergei Holland [id number] 2016-11-08 2016-11-08 Outpatient Denise Denise [id number] eClinic 14:30:00 14:30:00 Queta Villasenor MD 2016-08-26 2016-09-08 Outpatient Mas [facility] [id number] 20:04:00 10:44:00 Christian Saez Results Test Description Test Time Test Comments Results Result Comments Source POCT-GLUCOSE METER 2019-01-22 11:26:00 Test Item Value Reference Range Interpretation Comme nts POC-GLUCOSE METER (BEAKER) (test 127 mg/dL 70-110 H TESTED AT [facility] [address] [facility] code = 1538) [facility] 7703 0 BLOOD [id number] 11:01:00 Test Item Value Reference Range Interpretation Comments CULTURE (BEAKER) (test No growth in 5 days code = 1095) BLOOD [id number] 11:01:00 Test Item Value Reference Range Interpretation Comments CULTURE (BEAKER) (test No growth in 5 days code = 1095) RAD, CHEST, 1 VIEW, NON [id number] 09:30:00Reason for exam:- >vetned/stemiShould this be performed at the bedside?->YesFINAL REPORT Clinical History: vetned/stemi Comparison Study: January 21, 2019 Findings: The heart and lungs are within normal limits. The pleural spaces are clear. No significant bony or soft tissue abnormalities are seen. Impression: No active cardiopulmonary disease. Signed: Endy Wlison Verified Date/Time: 01/22/2019 09:30:48 Reading Location: [facility] Radiology Reading Room POCT-GLUCOSE [id number] 08:44:00 Test Item Value Reference Range Interpretation Comments POC-GLUCOSE METER 157 mg/dL 70-110 H TESTED AT [facility] [address] (BEAKER) (test code = [place] 1534) [id number] BASIC METABOLIC [id number] 05:27:00 Test Item Value Reference Range Interpretation Comments SODIUM (BEAKER) 141 meq/L 136-145 (test code = 381) POTASSIUM (BEAKER) 3.8 meq/L 3.5-5.1 (test code = 379) CHLORIDE (BEAKER) 107 meq/L 98-107 (test code = 382) CO2 (BEAKER) (test 23 meq/L 22-29 code = 355) BLOOD UREA NITROGEN 10 mg/dL 7-21 (BEAKER) (test code = 354) CREATININE (BEAKER) 0.73 mg/dL 0.57-1.25 (test code = 358) GLUCOSE RANDOM 115 mg/dL 70-105 H (BEAKER) (test code = 652) CALCIUM (BEAKER) 9.0 mg/dL 8.4-10.2 (test code = 697) EGFR (BEAKER) (test mL/min/1.73 INSUFFIC IENT CLINICAL code = 1092) sq m DATA TO CALCULA TE ESTIMATED GFR. [id number] 05:24:00 Test Item Value Reference Range Interpretation Comments MAGNESIUM (BEAKER) (test code = 1.7 mg/dL 1.6-2.6 627) CBC W/PLT COUNT & AUTO [id number] 04:53:00 Test Item Value Reference Range Interpretation Comments WHITE BLOOD CELL COUNT (BEAKER) 6.5 K/ L 3.5-10.5 (test code = 775) RED BLOOD CELL COUNT (BEAKER) 4.43 M/ L 4.63-6.08 L (test code = 761) HEMOGLOBIN (BEAKER) (test code = 13.5 GM/DL 13.7-17.5 L 410) HEMATOCRIT (BEAKER) (test code = 40.3 % 40.1-51.0 411) MEAN CORPUSCULAR VOLUME (BEAKER) 91.0 fL 79.0-92.2 (test code = 753) MEAN CORPUSCULAR HEMOGLOBIN 30.5 pg 25.7-32.2 (BEAKER) (test code = 751) MEAN CORPUSCULAR HEMOGLOBIN CONC 33.5 GM/DL 32.3-36.5 (BEAKER) (test code = 752) RED CELL DISTRIBUTION WIDTH 13.0 % 11.6-14.4 (BEAKER) (test code = 412) PLATELET COUNT (BEAKER) (test 243 K/CU MM 150-450 code = 756) MEAN PLATELET VOLUME (BEAKER) 10.6 fL 9.4-12.4 (test code = 754) NUCLEATED RED BLOOD CELLS 0 /100 WBC 0-0 (BEAKER) (test code = 413) NEUTROPHILS RELATIVE PERCENT 52 % (BEAKER) (test code = 429) LYMPHOCYTES RELATIVE PERCENT 34 % (BEAKER) (test code = 430) MONOCYTES RELATIVE PERCENT 6 % (BEAKER) (test code = 431) EOSINOPHILS RELATIVE PERCENT 7 % (BEAKER) (test code = 432) BASOPHILS RELATIVE PERCENT 1 % (BEAKER) (test code = 437) NEUTROPHILS ABSOLUTE COUNT 3.36 K/ L 1.78-5.38 (BEAKER) (test code = 670) LYMPHOCYTES ABSOLUTE COUNT 2.22 K/ L 1.32-3.57 (BEAKER) (test code = 414) MONOCYTES ABSOLUTE COUNT (BEAKER) 0.41 K/ L 0.30-0.82 (test code = 415) EOSINOPHILS ABSOLUTE COUNT 0.47 K/ L 0.04-0.54 (BEAKER) (test code = 416) BASOPHILS ABSOLUTE COUNT (BEAKER) 0.03 K/ L 0.01-0.08 (test code = 417) IMMATURE GRANULOCYTES-RELATIVE 1 % 0-1 PERCENT (BEAKER) (test code = 2801) POCT-GLUCOSE [id number] 21:23:00 Test Item Value Reference Range Interpretation Comments POC-GLUCOSE METER 172 mg/dL 70-110 H TESTED AT [facility] [address] (BEBANNER) (test code = [address] [place] 1538) [id number] POCT-GLUCOSE [id number] 17:36:00 Test Item Value Reference Range Interpretation Comments POC-GLUCOSE METER 124 mg/dL 70-110 H TESTED AT [facility] [address] (BEAKER) (test code = MARCEL [address] [place] 1538) [id number] POCT-GLUCOSE [id number] 11:45:00 Test Item Value Reference Range Interpretation Comments POC-GLUCOSE METER 137 mg/dL 70-110 H TESTED AT [facility] [address] ([facility]) (test code = MARCEL Marcial [facility] 1538) [address] RAD, CHEST, 1 VIEW, NON [id number] 08:00:00Reason for exam:- >vetned/stemiShould this be performed at the bedside?->YesFINAL REPORT TECHNIQUE: Frontal view of the chest. INDICATION: 53-year-old man with ST elevation myocardial infarction. COMPARISON: 01/20/2019. FINDINGS: LINES/TUBES: None. LUNGS: Mild linear atelectasis in the left upper and lower lung zones. PLEURA: No pneumothorax or significant pleural effusion. HEART AND MEDIASTINUM: The cardiomediastinal silhouette is within normal limits. Coronary artery stent. SOFT TISSUES AND BONES: Unremarkable. IMPRESSION:No acute cardiopulmonary abnormalities. Signed: Leigh Lars[place]port Verified Date/Time: 01/21/2019 08:00:55 Reading Location: [facility] Radiology Reading Room POCT-GLUCOSE [id number] 07:12:00 Test Item Value Reference Range Interpretation Comments POC-GLUCOSE METER 142 mg/dL 70-110 H TESTED AT [facility] [address] ([facility]) (test code = MARCEL Marcial [facility] 1538) [id number] BASIC METABOLIC [id number] 06:18:00 Test Item Value Reference Range Interpretation Comments SODIUM (BEAKER) 139 meq/L 136-145 (test code = 381) POTASSIUM (BEAKER) 3.4 meq/L 3.5-5.1 L (test code = 379) CHLORIDE (BEAKER) 105 meq/L 98-107 (test code = 382) CO2 (BEAKER) (test 24 meq/L 22-29 code = 355) BLOOD UREA NITROGEN 12 mg/dL 7-21 (BEAKER) (test code = 354) CREATININE (BEAKER) 0.72 mg/dL 0.57-1.25 (test code = 358) GLUCOSE RANDOM 129 mg/dL 70-105 H (BEAKER) (test code = 652) CALCIUM (BEAKER) 8.2 mg/dL 8.4-10.2 L (test code = 697) EGFR (BEAKER) (test mL/min/1.73 INSUFFIC IENT CLINICAL code = 1092) sq m DATA TO CALCULA TE ESTIMATED GFR. [id number] 06:14:00 Test Item Value Reference Range Interpretation Comments MAGNESIUM (BEAKER) (test code = 1.5 mg/dL 1.6-2.6 L 627) CBC W/PLT COUNT & AUTO [id number] 05:24:00 Test Item Value Reference Range Interpretation Comments WHITE BLOOD CELL COUNT (BEAKER) 8.0 K/ L 3.5-10.5 (test code = 775) RED BLOOD CELL COUNT (BEAKER) 4.51 M/ L 4.63-6.08 L (test code = 761) HEMOGLOBIN (BEAKER) (test code = 13.6 GM/DL 13.7-17.5 L 410) HEMATOCRIT (BEAKER) (test code = 41.3 % 40.1-51.0 411) MEAN CORPUSCULAR VOLUME (BEAKER) 91.6 fL 79.0-92.2 (test code = 753) MEAN CORPUSCULAR HEMOGLOBIN 30.2 pg 25.7-32.2 (BEAKER) (test code = 751) MEAN CORPUSCULAR HEMOGLOBIN CONC 32.9 GM/DL 32.3-36.5 (BEAKER) (test code = 752) RED CELL DISTRIBUTION WIDTH 13.3 % 11.6-14.4 (BEAKER) (test code = 412) PLATELET COUNT (BEAKER) (test 244 K/CU MM 150-450 code = 756) MEAN PLATELET VOLUME (BEAKER) 10.7 fL 9.4-12.4 (test code = 754) NUCLEATED RED BLOOD CELLS 0 /100 WBC 0-0 (BEAKER) (test code = 413) NEUTROPHILS RELATIVE PERCENT 61 % (BEAKER) (test code = 429) LYMPHOCYTES RELATIVE PERCENT 26 % (BEAKER) (test code = 430) MONOCYTES RELATIVE PERCENT 6 % (BEAKER) (test code = 431) EOSINOPHILS RELATIVE PERCENT 6 % (BEAKER) (test code = 432) BASOPHILS RELATIVE PERCENT 1 % (BEAKER) (test code = 437) NEUTROPHILS ABSOLUTE COUNT 4.86 K/ L 1.78-5.38 (BEAKER) (test code = 670) LYMPHOCYTES ABSOLUTE COUNT 2.05 K/ L 1.32-3.57 (BEAKER) (test code = 414) MONOCYTES ABSOLUTE COUNT (BEAKER) 0.48 K/ L 0.30-0.82 (test code = 415) EOSINOPHILS ABSOLUTE COUNT 0.47 K/ L 0.04-0.54 (BEAKER) (test code = 416) BASOPHILS ABSOLUTE COUNT (BEAKER) 0.05 K/ L 0.01-0.08 (test code = 417) IMMATURE GRANULOCYTES-RELATIVE 1 % 0-1 PERCENT (BEAKER) (test code = 2801) POCT-GLUCOSE [id number] 22:46:00 Test Item Value Reference Range Interpretation Comments POC-GLUCOSE METER 123 mg/dL 70-110 H TESTED AT [place] [address] ([facility]) (test code = [facility] 1538) [id number] SPUTUM CULTURE + GRAM [id number] 20:40:00 Test Item Value Reference Range Interpretation Comments CULTURE (BEAKER) 4+ Normal respiratory (test code = 1095) stevie present GRAM STAIN RESULT 4+ WBCs (BEAKER) (test code = 1123) GRAM STAIN RESULT 0-5 epithelial cells (BEAKER) (test code = 02609) GRAM STAIN RESULT 1+ gram positive cocci (BEAKER) (test code = in pairs 27816) GRAM STAIN RESULT 4+ gram positive cocci (BEAKER) (test code = in chains [id number]) GRAM STAIN RESULT 2+ gram positive cocci (BEAKER) (test code = in clusters [id number]) POCT-GLUCOSE [id number] 18:11:00 Test Item Value Reference Range Interpretation Comments POC-GLUCOSE METER 217 mg/dL 70-110 H TESTED AT [place] [address] ([facility]) (test code = [facility] 1538) [id number] POCT-GLUCOSE [id number] 13:04:00 Test Item Value Reference Range Interpretation Comments POC-GLUCOSE METER 140 mg/dL 70-110 H TESTED AT [place] [address] ([facility]) (test code = [facility] 1538) [id number] POCT-GLUCOSE [id number] 08:23:00 Test Item Value Reference Range Interpretation Comments POC-GLUCOSE METER 176 mg/dL 70-110 H TESTED AT [place] [address] (BEBANNER) (test code = [facility] 1538) [address] BASIC METABOLIC [id number] 05:41:00 Test Item Value Reference Range Interpretation Comments SODIUM (BEAKER) 141 meq/L 136-145 (test code = 381) POTASSIUM (BEAKER) 3.4 meq/L 3.5-5.1 L (test code = 379) CHLORIDE (BEAKER) 108 meq/L 98-107 H (test code = 382) CO2 (BEAKER) (test 26 meq/L 22-29 code = 355) BLOOD UREA NITROGEN 12 mg/dL 7-21 (BEAKER) (test code = 354) CREATININE (BEAKER) 0.76 mg/dL 0.57-1.25 (test code = 358) GLUCOSE RANDOM 150 mg/dL 70-105 H (BEAKER) (test code = 652) CALCIUM (BEAKER) 9.2 mg/dL 8.4-10.2 (test code = 697) EGFR (BEAKER) (test mL/min/1.73 INSUFFIC IENT CLINICAL code = 1092) sq m DATA TO CALCULA TE ESTIMATED GFR. [id number] 05:40:00 Test Item Value Reference Range Interpretation Comments MAGNESIUM (BEAKER) (test code = 1.7 mg/dL 1.6-2.6 627) HEPATIC FUNCTION [id number] 05:40:00 Test Item Value Reference Range Interpretation Comments TOTAL PROTEIN (BEAKER) (test code = 6.3 gm/dL 6.0-8.3 770) ALBUMIN (BEAKER) (test code = 1145) 3.7 g/dL 3.5-5.0 BILIRUBIN TOTAL (BEAKER) (test code 0.8 mg/dL 0.2-1.2 = 377) BILIRUBIN DIRECT (BEAKER) (test 0.3 mg/dL 0.1-0.5 code = 706) ALKALINE PHOSPHATASE (BEAKER) (test 78 U/L 40-150 code = 346) AST (SGOT) (BEAKER) (test code = 69 U/L 5-34 H 353) ALT (SGPT) (BEAKER) (test code = 130 U/L 6-55 H 347) RAD, CHEST, 1 VIEW, NON [id number] 05:37:00Reason for exam:- >vetned/stemiShould this be performed at the bedside?->YesFINAL REPORT RAD, CHEST, 1 VIEW, NON DEPT INDICATION: vetned/stemi COMPARISON: Prior day's exam FINDINGS: Portable frontal view of the chest. IMPRESSION: Lungs and pleura: Unchanged airspace and pleural opacities. No pneumothorax.Heart and mediastinum: Stable contours. Additional findings: None. Signed: Beck Odonnell Verified Date/Time: 01/20/2019 05:37:46 Reading Location: [address] Transitional Reading Room CBC W/PLT COUNT & AUTO [id number] 05:06:00 Test Item Value Reference Range Interpretation Comments WHITE BLOOD CELL COUNT (BEAKER) 9.3 K/ L 3.5-10.5 (test code = 775) RED BLOOD CELL COUNT (BEAKER) 4.56 M/ L 4.63-6.08 L (test code = 761) HEMOGLOBIN (BEAKER) (test code = 13.6 GM/DL 13.7-17.5 L 410) HEMATOCRIT (BEAKER) (test code = 42.4 % 40.1-51.0 411) MEAN CORPUSCULAR VOLUME (BEAKER) 93.0 fL 79.0-92.2 H (test code = 753) MEAN CORPUSCULAR HEMOGLOBIN 29.8 pg 25.7-32.2 (BEAKER) (test code = 751) MEAN CORPUSCULAR HEMOGLOBIN CONC 32.1 GM/DL 32.3-36.5 L (BEAKER) (test code = 752) RED CELL DISTRIBUTION WIDTH 13.4 % 11.6-14.4 (BEAKER) (test code = 412) PLATELET COUNT (BEAKER) (test 210 K/CU MM 150-450 code = 756) MEAN PLATELET VOLUME (BEAKER) 10.8 fL 9.4-12.4 (test code = 754) NUCLEATED RED BLOOD CELLS 0 /100 WBC 0-0 (BEAKER) (test code = 413) NEUTROPHILS RELATIVE PERCENT 74 % (BEAKER) (test code = 429) LYMPHOCYTES RELATIVE PERCENT 16 % (BEAKER) (test code = 430) MONOCYTES RELATIVE PERCENT 7 % (BEAKER) (test code = 431) EOSINOPHILS RELATIVE PERCENT 3 % (BEAKER) (test code = 432) BASOPHILS RELATIVE PERCENT 1 % (BEAKER) (test code = 437) NEUTROPHILS ABSOLUTE COUNT 6.85 K/ L 1.78-5.38 H (BEAKER) (test code = 670) LYMPHOCYTES ABSOLUTE COUNT 1.45 K/ L 1.32-3.57 (BEAKER) (test code = 414) MONOCYTES ABSOLUTE COUNT (BEAKER) 0.63 K/ L 0.30-0.82 (test code = 415) EOSINOPHILS ABSOLUTE COUNT 0.25 K/ L 0.04-0.54 (BEAKER) (test code = 416) BASOPHILS ABSOLUTE COUNT (BEAKER) 0.05 K/ L 0.01-0.08 (test code = 417) IMMATURE GRANULOCYTES-RELATIVE 1 % 0-1 PERCENT (BEAKER) (test code = 2801) POCT-GLUCOSE [id number] 22:24:00 Test Item Value Reference Range Interpretation Comments POC-GLUCOSE METER 127 mg/dL 70-110 H TESTED AT [place] [address] ([facility]) (test code = MARCEL Marcial [facility] 1538) [address] POCT-GLUCOSE [id number] 16:58:00 Test Item Value Reference Range Interpretation Comments POC-GLUCOSE METER 130 mg/dL 70-110 H TESTED AT [place] [address] ([facility]) (test code = [facility] Aggie [facility] 1538) [address] [id number] 15:24:00 Test Item Value Reference Range Interpretation Comments MAGNESIUM (BEBANNER) 1.7 mg/dL 1.6-2.6 Specimen slightly (test code = 627) hemolyzed RAD, CHEST, 1 VIEW, NON [id number] 12:40:00Reason for exam:- >vetned/stemiShould this be performed at the bedside?->YesFINAL REPORT Comparison: 01/18/2019 TECHNIQUE: Single view of the chest FINDINGS: Lung volumes are low. Cardiac silhouette is prominent. Soft tissues and bones are unremarkable. Signed: Kelby Ball Verified Date/Time: 01/19/2019 12:40:50 Reading Location: [address] Reading Room POCT-GLUCOSE [id number] 12:33:00 Test Item Value Reference Range Interpretation Comments POC-GLUCOSE METER 120 mg/dL 70-110 H TESTED AT [facility] 6720 (BEAKER) (test code = [place] 1538) [address] EEG MONITORING WITH VIDEO RECORDING EACH 24 [id number] 10:46:00morning read for REPORT: [facility] Date of EEDate of report: start time: 09:33EEG end time: 20:55EEG #: [id number] No: [id number] ICD Code: #: R41.82 Altered mental status, unspecified (ICD 9: 780.97)CPT Code: #: 41107: Monitoring for localization of seizure focPROCEDURE: EEG HISTORY: unresponsive s/p arrestTECHNICAL SUMMARY: This is a digital EEG performed using disc electrodes placed according to the International 10-20 system of electrode placement. Scalp to scalp and scalp to ear montages were used. DESCRIPTION OF RECORD: In the best awake state, a Posterior Dominant Rhythm (PDR) was present at 6 cycles/ second.Excessive amounts of bilateral 5-6 cycles/second theta activity was present intermixed with the background rhythm. There was no focal asymmetry in the background. No epileptiform discharges were noted.No clinical or electrographic seizures were noted. SLEEP Stage II sleep was not recorded. IMPRESSION: The EEG was abnormal due to mild diffuse slowing of the background rhythm. No seizures or epileptiform discharges were seen. COMMENT: Mild diffuse slowing is a nonspecific finding indicative of mild global cerebral dysfunction of metabolic, toxic, drug-induced or other etiology. Please correlate clini kd.Clinical Fellow: Alan Milnerurophysiologist: Melinda Tan BASIC METABOLIC [id number] 05:51:00 Test Item Value Reference Range Interpretation Comments SODIUM (BEAKER) 143 meq/L 136-145 (test code = 381) POTASSIUM (BEAKER) 3.8 meq/L 3.5-5.1 Specimen slightly (test code = 379) hemolyzed CHLORIDE (BEAKER) 111 meq/L 98-107 H (test code = 382) CO2 (BEAKER) (test 18 meq/L 22-29 L code = 355) BLOOD UREA NITROGEN 13 mg/dL 7-21 (BEAKER) (test code = 354) CREATININE (BEAKER) 0.94 mg/dL 0.57-1.25 Specimen slightly (test code = 358) hemolyzed GLUCOSE RANDOM 122 mg/dL 70-105 H (BEAKER) (test code = 652) CALCIUM (BEAKER) 8.9 mg/dL 8.4-10.2 (test code = 697) EGFR (BEAKER) (test mL/min/1.73 INSUFFIC IENT CLINICAL code = 1092) sq m DATA TO CALCULA TE ESTIMATED GFR. CBC (HEMOGRAM ONLY)2019-01-19 04:59:00 Test Item Value Reference Range Interpretation Comments WHITE BLOOD CELL COUNT (BEAKER) 12.1 K/ L 3.5-10.5 H (test code = 775) RED BLOOD CELL COUNT (BEAKER) 4.35 M/ L 4.63-6.08 L (test code = 761) HEMOGLOBIN (BEAKER) (test code = 12.8 GM/DL 13.7-17.5 L 410) HEMATOCRIT (BEAKER) (test code = 41.2 % 40.1-51.0 411) MEAN CORPUSCULAR VOLUME (BEAKER) 94.7 fL 79.0-92.2 H (test code = 753) MEAN CORPUSCULAR HEMOGLOBIN 29.4 pg 25.7-32.2 (BEAKER) (test code = 751) MEAN CORPUSCULAR HEMOGLOBIN CONC 31.1 GM/DL 32.3-36.5 L (BEAKER) (test code = 752) RED CELL DISTRIBUTION WIDTH 13.8 % 11.6-14.4 (BEAKER) (test code = 412) PLATELET COUNT (BEAKER) (test 248 K/CU MM 150-450 code = 756) MEAN PLATELET VOLUME (BEAKER) 10.8 fL 9.4-12.4 (test code = 754) NUCLEATED RED BLOOD CELLS 0 /100 WBC 0-0 (BEAKER) (test code = 413) POCT-GLUCOSE [id number] 23:44:00 Test Item Value Reference Range Interpretation Comments POC-GLUCOSE METER 119 mg/dL 70-110 H TESTED AT [facility] 6720 ([facility]) (test code = MARCEL Marcial [facility] 1538) [address] POCT-GLUCOSE [id number] 16:16:00 Test Item Value Reference Range Interpretation Comments POC-GLUCOSE METER 123 mg/dL 70-110 H TESTED AT [facility] 6720 ([facility]) (test code = MARCEL Marcial [facility] 1538) [address] EEG MONITORING WITH VIDEO RECORDING EACH 24 [id number] 11:47:00For STAT EEG- after 5 PM weekdays, weekends and holidays, 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 Reason for exam:->for 24 hrs while on euthermia protocol, unjresponsive post arrestEEG REPORT: Melita Lopez, [facility] Date of EEDate of report: Test location: Inpatient - ICUEEG start time: 01/17 at 9:33amEEG end time:01/18 at 9:33amEEG #: [id number] No: [id number] ICD Code: #: R41.82 Altered mental status, unsp ecified (ICD 9: 780.97)CPT Code: #: 45484: Monitoring for localization of seizure focPROCEDURE: EEG HISTORY: unresponsive s/p arrestMEDICATIONS AFFECTING EEG: MidazolamTECHNICAL SUMMARY: This is a digital EEG performed using disc electrodes placed according to the International 10-20 system of electrode placement. Scalp to scalp and scalp to ear montages were used. DESCRIPTION OF RECORD: In the best awake state, a Posterior Dominant Rhythm (PDR) was present at 6 cycles/ second. Excessive amounts of bilateral 5-6 cycles/second theta activity was present intermixed with the background rhythm. There was no focal asymmetry in the background. No epileptiform discharges were noted. No clinical or electrographic seizures were noted. SLEEP Stage II sleep was indicated by the presence of sleep spindles. IMPRESSION: The EEG was abnormal due to mild diffuse slowing of the background rhythm. No seizures or epileptiform discharges were seen. COMMENT: Mild diffuse slowing is a nonspecific finding indicative of mild global cerebral dysfunction of metabolic, toxic, drug-induced or other etiology. Please correlate clinically.Clinical Fellow: Nilsa Vargasrophysiologist: Melinda Tan RIDE, RANDOM [id number] 11:39:00 Test Item Value Reference Range Interpretation Comments CHLORIDE URINE (BEAKER) (test code = 49 meq/L 682) Reference Range: No NormalsPOTASSIUM, RANDOM [id number] 11:39:00 Test Item Value Reference Range Interpretation Comments POTASSIUM URINE (BEAKER) (test 43.9 meq/L code = 195) Reference Range: No NormalsSODIUM, RANDOM [id number] 11:39:00 Test Item Value Reference Range Interpretation Comments SODIUM URINE (BEAKER) (test code = 141 meq/L 243) Reference Range: No NormalsLACTIC ACID, ARTERIAL, WHOLE [id number] 11:08:00 Test Item Value Reference Range Interpretation Comments LACTATE BLOOD ARTERIAL (2) 0.8 mmol/L 0.5-2.2 (BEAKER) (test code = 2874) KETONE, [id number] 10:50:00 Test Item Value Reference Range Interpretation Comments KETONES, BLOOD (BEAKER) (test code 4.4 mmol/L <0.4 H = 1103) RAD, CHEST, 1 VIEW, NON [id number] 10:41:00Reason for exam:- >vented/stemiShould this be performed at the bedside?->YesFINAL REPORT Chest one view. Clinical history: vented/stemi Comparison: 01/17/2019 Discussion: A frontal chest is provided. Cardiomediastinal contours are unchanged. Lines and tubes are in stable position. Low lung volume. No definite consolidation is identified. There is stable blunting of the left costophrenic angle. No pneumothorax. Question mild interstitial edema. Signed: Tianna Chaneport Verified Date/Time: 01/18/2019 10:41:02 Reading Location: [facility] Radiology Reading Room POCT-GLUCOSE [id number] 10:11:00 Test Item Value Reference Range Interpretation Comments POC-GLUCOSE METER 80 mg/dL 70-110 TESTED AT [facility] 6720 (BEAKER) (test code = [place] [address] 1538) [id number] 07:36:00 Test Item Value Reference Range Interpretation Comments MAGNESIUM (BEAKER) 2.0 mg/dL 1.6-2.6 Specimen slightly (test code = 627) hemolyzed BLOOD GAS, [id number] 04:48:00 Test Item Value Reference Range Interpretation Comments PH ARTERIAL (BEAKER) (test code = 7.35 7.35-7.45 383) PCO2 ARTERIAL (BEAKER) (test code 35 mmHg 35-45 = 384) PO2 ARTERIAL (BEAKER) (test code 114 mmHg 80-90 H = 385) O2 SATURATION ARTERIAL (BEAKER) 97.9 % 96.0-97.0 H (test code = 386) HCO3 ARTERIAL (BEAKER) (test code 19 mmol/L 21-29 L = 388) BASE EXCESS ARTERIAL (BEAKER) -5.7 mmol/L -2.0-3.0 L (test code = 387) PATIENT TEMPERATURE (BEAKER) 37.7 C (test code = 1818) FIO2 (BEAKER) (test code = 1819) 40.0 % TROPONIN [id number] 04:32:00 Test Item Value Reference Range Interpretation Comments TROPONIN I (BEAKER) (test code = 34.31 ng/mL 0.00-0.03 HH 397) Troponin I (TnI) levels must be interpreted in the context of the presenting symptoms and the clinical findings. Elevated TnI levels indicate myocardial damage, but are not specific for ischemic heart disease. Elevated TnI levels are seen in patients with other cardiac conditions (including myocarditis and congestive heart failure), and slight TnI elevations occur in patients with other conditions, including sepsis, renal failure, acidosis, acute neurological disease, and persistent tachyarrhythmia.BASIC METABOLIC [id number] 04:31:00 Test Item Value Reference Range Interpretation Comments SODIUM (BEAKER) 142 meq/L 136-145 (test code = 381) POTASSIUM (BEAKER) 4.1 meq/L 3.5-5.1 Specimen slightly (test code = 379) hemolyzed CHLORIDE (BEAKER) 111 meq/L 98-107 H (test code = 382) CO2 (BEAKER) (test 18 meq/L 22-29 L code = 355) BLOOD UREA NITROGEN 15 mg/dL 7-21 (BEAKER) (test code = 354) CREATININE (BEAKER) 0.79 mg/dL 0.57-1.25 Specimen slightly (test code = 358) hemolyzed GLUCOSE RANDOM 98 mg/dL 70-105 (BEAKER) (test code = 652) CALCIUM (BEAKER) 8.7 mg/dL 8.4-10.2 (test code = 697) EGFR (BEAKER) (test mL/min/1.73 INSUFFIC IENT CLINICAL code = 1092) sq m DATA TO CALCULA TE ESTIMATED GFR. CBC (HEMOGRAM ONLY)2019-01-18 03:59:00 Test Item Value Reference Range Interpretation Comments WHITE BLOOD CELL COUNT (BEAKER) 14.6 K/ L 3.5-10.5 H (test code = 775) RED BLOOD CELL COUNT (BEAKER) 4.70 M/ L 4.63-6.08 (test code = 761) HEMOGLOBIN (BEAKER) (test code = 14.1 GM/DL 13.7-17.5 410) HEMATOCRIT (BEAKER) (test code = 43.3 % 40.1-51.0 411) MEAN CORPUSCULAR VOLUME (BEAKER) 92.1 fL 79.0-92.2 (test code = 753) MEAN CORPUSCULAR HEMOGLOBIN 30.0 pg 25.7-32.2 (BEAKER) (test code = 751) MEAN CORPUSCULAR HEMOGLOBIN CONC 32.6 GM/DL 32.3-36.5 (BEAKER) (test code = 752) RED CELL DISTRIBUTION WIDTH 13.9 % 11.6-14.4 (BEAKER) (test code = 412) PLATELET COUNT (BEAKER) (test 215 K/CU MM 150-450 code = 756) MEAN PLATELET VOLUME (BEAKER) 10.7 fL 9.4-12.4 (test code = 754) NUCLEATED RED BLOOD CELLS 0 /100 WBC 0-0 (BEAKER) (test code = 413) POCT-GLUCOSE [id number] 00:18:00 Test Item Value Reference Range Interpretation Comments POC-GLUCOSE METER 117 mg/dL 70-110 H TESTED AT [facility] 6720 ([facility]) (test code = MARCEL [place] 1538) [id number] POCT-GLUCOSE [id number] 21:48:00 Test Item Value Reference Range Interpretation Comments POC-GLUCOSE METER 89 mg/dL 70-110 TESTED AT [facility] 6720 (BEAKER) ([facility] [address] 1538) [id number] 21:02:00 Test Item Value Reference Range Interpretation Comments POTASSIUM (BEAKER) (test code = 4.5 meq/L 3.5-5.1 379) [id number] 21:02:00 Test Item Value Reference Range Interpretation Comments MAGNESIUM (BEAKER) (test code = 2.1 mg/dL 1.6-2.6 627) POCT-GLUCOSE [id number] 15:54:00 Test Item Value Reference Range Interpretation Comments POC-GLUCOSE METER 107 mg/dL 70-110 TESTED AT [place] [address] (BEAKER) (test code = [facility] 1538) [id number] COMPREHENSIVE METABOLIC [id number] 15:24:00 Test Item Value Reference Range Interpretation Comments TOTAL PROTEIN 6.6 gm/dL 6.0-8.3 (BEAKER) (test code = 770) ALBUMIN (BEAKER) 4.0 g/dL 3.5-5.0 (test code = 1145) ALKALINE PHOSPHATASE 87 U/L 40-150 (BEAKER) (test code = 346) BILIRUBIN TOTAL 0.8 mg/dL 0.2-1.2 (BEAKER) (test code = 377) SODIUM (BEAKER) 142 meq/L 136-145 (test code = 381) POTASSIUM (BEAKER) 4.6 meq/L 3.5-5.1 (test code = 379) CHLORIDE (BEAKER) 112 meq/L 98-107 H (test code = 382) CO2 (BEAKER) (test 20 meq/L 22-29 L code = 355) BLOOD UREA NITROGEN 14 mg/dL 7-21 (BEAKER) (test code = 354) CREATININE (BEAKER) 0.80 mg/dL 0.57-1.25 (test code = 358) GLUCOSE RANDOM 112 mg/dL 70-105 H (BEAKER) (test code = 652) CALCIUM (BEAKER) 8.5 mg/dL 8.4-10.2 (test code = 697) AST (SGOT) (BEAKER) 353 U/L 5-34 H (test code = 353) ALT (SGPT) (BEAKER) 408 U/L 6-55 H (test code = 347) EGFR (BEAKER) (test mL/min/1.73 INSUFFIC IENT code = 1092) sq m CLINICAL DATA T O CALCULATE ESTIM ATED GFR. EEG AWAKE AND [id number] 14:53:00Reason for exam:->unresponsive post arrestEEG REPORT: [facility] Date of EEDate of report: Test location: Inpatient - ICUEEG start time: 8:46EEG end time: 9:08EEG #: [id number] No: [id number] ICD Code: #: R41.82 Altered mental status, unspecified (ICD 9: 780.97)CPT Code: #: 17219: 01. EEG awake and drowsy; 20-40 minPROCEDURE: EEG HISTORY: unresponsive s/p arrestMEDICATIONS AFFECTING EEG: MidazolamTECHNICAL SUMMARY: This is a digital EEG performed using disc electrodes placed according to the International 10-20 system of electrode placement. Scalp to scalp and scalp to ear montages were used. DESCRIPTION OF RECORD: In the best awake state, a Posterior Dominant Rhythm (PDR) was present at 6 cycles/ second. Excessive amounts of bilateral 5-6 cycles/second theta activity was present intermixed with the background rhythm. There was no focal asymmetry in the background. No epileptiform discharges were noted. No clinical or electrographic seizures werenoted. SLEEP Sleep stages were not seen.HYPERVENTILATION: Hyperventilation was not performed.PHOTIC STIMULATION: Photic stimulation did not result in any photoparoxysmal responses. EKG: The heart rate was 90/ min.IMPRESSION: The EEG was abnormal due to mild diffuse slowing of the background rhythm. Noseizures or epileptiform discharges were seen. COMMENT: Mild diffuse slowing is a nonspecific finding indicative of mild global cerebral dysfunction of metabolic, toxic, drug-induced or other etiology.Please correlate clinically.Clinical Fellow: Nilsa Vargasrophysiologist: Melinda Tan CBC W/PLT COUNT & AUTO [id number] 14:52:00 Test Item Value Reference Range Interpretation Comments WHITE BLOOD CELL COUNT (BEAKER) 16.2 K/ L 3.5-10.5 H (test code = 775) RED BLOOD CELL COUNT (BEAKER) 5.09 M/ L 4.63-6.08 (test code = 761) HEMOGLOBIN (BEAKER) (test code = 15.3 GM/DL 13.7-17.5 410) HEMATOCRIT (BEAKER) (test code = 47.0 % 40.1-51.0 411) MEAN CORPUSCULAR VOLUME (BEAKER) 92.3 fL 79.0-92.2 H (test code = 753) MEAN CORPUSCULAR HEMOGLOBIN 30.1 pg 25.7-32.2 (BEAKER) (test code = 751) MEAN CORPUSCULAR HEMOGLOBIN CONC 32.6 GM/DL 32.3-36.5 (BEAKER) (test code = 752) RED CELL DISTRIBUTION WIDTH 13.9 % 11.6-14.4 (BEAKER) (test code = 412) PLATELET COUNT (BEAKER) (test 262 K/CU MM 150-450 code = 756) MEAN PLATELET VOLUME (BEAKER) 10.6 fL 9.4-12.4 (test code = 754) NUCLEATED RED BLOOD CELLS 0 /100 WBC 0-0 (BEAKER) (test code = 413) NEUTROPHILS RELATIVE PERCENT 85 % (BEAKER) (test code = 429) LYMPHOCYTES RELATIVE PERCENT 8 % (BEAKER) (test code = 430) MONOCYTES RELATIVE PERCENT 6 % (BEAKER) (test code = 431) EOSINOPHILS RELATIVE PERCENT 0 % (BEAKER) (test code = 432) BASOPHILS RELATIVE PERCENT 0 % (BEAKER) (test code = 437) NEUTROPHILS ABSOLUTE COUNT 13.79 K/ L 1.78-5.38 H (BEAKER) (test code = 670) LYMPHOCYTES ABSOLUTE COUNT 1.21 K/ L 1.32-3.57 L (BEAKER) (test code = 414) MONOCYTES ABSOLUTE COUNT (BEAKER) 1.04 K/ L 0.30-0.82 H (test code = 415) EOSINOPHILS ABSOLUTE COUNT 0.01 K/ L 0.04-0.54 L (BEAKER) (test code = 416) BASOPHILS ABSOLUTE COUNT (BEAKER) 0.02 K/ L 0.01-0.08 (test code = 417) IMMATURE GRANULOCYTES-RELATIVE 1 % 0-1 PERCENT (BEAKER) (test code = 2801) URINALYSIS W/ REFLEX URINE [id number] 10:28:00 Test Item Value Reference Range Interpretation Comments COLOR (BEAKER) (test code = 470) Light Yellow CLARITY (BEAKER) (test code = Clear 469) SPECIFIC GRAVITY UA (BEAKER) 1.024 1.001-1.035 (test code = 468) PH UA (BEAKER) (test code = 467) 5.0 5.0-8.0 PROTEIN UA (BEAKER) (test code = Negative Negative 464) GLUCOSE UA (BEAKER) (test code = Negative Negative 365) KETONES UA (BEAKER) (test code = Trace Negative A 371) BILIRUBIN UA (BEAKER) (test code Negative Negative = 462) BLOOD UA (BEAKER) (test code = Trace Negative A 461) NITRITE UA (BEAKER) (test code = Negative Negative 465) LEUKOCYTE ESTERASE UA (BEAKER) Negative Negative (test code = 466) UROBILINOGEN UA (BEAKER) (test 0.2 mg/dL 0.2-1.0 code = 463) RBC UA (BEAKER) (test code = 1 /HPF 519) WBC UA (BEAKER) (test code = 2 /HPF 520) MUCUS (BEAKER) (test code = Few 1574) GRANULAR CASTS (BEAKER) (test 24 /LPF code = 515) AMORPHOUS CRYSTALS (BEAKER) Rare (test code = 1584) SOURCE(BEAKER) (test code = 2794) [id number] 10:23:00 Test Item Value Reference Range Interpretation Comments PROTIME (BEAKER) (test code = 16.1 seconds 11.7-14.7 H 759) INR (BEAKER) (test code = 370) 1.3 <=5.9 PARTIAL THROMBOPLASTIN TIME 31.3 seconds 22.5-36.0 (BEAKER) (test code = 760) RECOMMENDED COUMADIN/WARFARIN INR THERAPY RANGESSTANDARD DOSE: 2.0 - 3.0 Includes: PROPHYLAXIS forvenous thrombosis, systemic embolization; TREATMENT for venous thrombosis and/or pulmonary embolus.HIGH RISK: Target INR is 2.5-3.5 for patients with mechanical heart valves.HEMOGLOBIN [id number] 10:12:00 Test Item Value Reference Range Interpretation Comments HEMOGLOBIN A1C (RYANNE) (test code = 6.6 % 4.3-6.1 H 368) POCT-GLUCOSE [id number] 09:01:00 Test Item Value Reference Range Interpretation Comments POC-GLUCOSE METER 141 mg/dL 70-110 H TESTED AT [facility] 6720 (RYANNE) (test code = [place] 1538) [id number] TROPONIN [id number] 08:57:00 Test Item Value Reference Range Interpretation Comments TROPONIN I (RYANNE) (test code = 165.28 ng/mL 0.00-0.03 397) Troponin I (TnI) levels must be interpreted in the context of the presenting symptoms and the clinical findings. Elevated TnI levels indicate myocardial damage, but are not specific for ischemic heart disease. Elevated TnI levels are seen in patients with other cardiac conditions (including myocarditis and congestive heart failure), and slight TnI elevations occur in patients with other conditions, including sepsis, renal failure, acidosis, acute neurological disease, and persistent tachyarrhythmia.CT BRAIN WITHOUT IV CONTRAST - PORTABLE 2019-01-17 07:03:00Reason for exam:->ams s/p tPAFINAL REPORT CT Head without contrast CLINICAL HISTORY: ams s/p tPA TECHNIQUE: Contiguous axial images through the head without contrast on the portable CT unit. This exam was performed according to the departmental dose optimization program which includes automated exposure control, adjustment of the mA and/or kV according to the patient size, and/or use of an iterative reconstruction technique. COMPARISON: None FINDINGS:Examination limited by motion and streak artifact.The portable head CT technique does not reveal definitive evidence of large territory infarct or intracranial hemorrhage. Age indeterminate lucency within the right thalamus and bilateral periventricular frontal lobes. Limited evaluation of the posterior fossa given aforementioned artifact. There is no hydrocephalus, midline shift, or apparent mass effect. There is generalized parenchymal volume loss . There are no extra-axial fluid collections. The skull is intact. The visualized paranasal sinuses are well-aerated. Endotracheal and enteric tubes are seen coursing inferiorly. Esophageal temperature probe is seen coiling within the oropharynx. IMPRESSION: Extremely limited examination secondary to patient motion. No definitive evidence of large territory infarct or intracranial hemorrhage. Age indeterminate lucencies within the right thalamus and bilateral periventricular frontal lobes possibly related to chronic microvascular ischemic changes. Recommend repeat examination is MRI brain when patient better able to tolerate for further evaluation.. Signed: Beck Odonnellort Verified Date/Time: 01/17/2019 07:03:53 Reading Location: [address] Reading Room RAD, CHEST, 1 VIEW, NON [id number] 03:53:00Reason for exam:->s/p intubationShould this be performed at the bedside?->YesFINAL REPORT EXAMINATION: AP PORTABLE CHEST RADIOGRAPH CLINICAL INDICATION: Intubation IMPRESSION: No comparison studies are available. The tip of the endotracheal tube projectsover the midline approximately 5 cm superior to the bud. The tip of the nasogastric tube extends below the level of the diaphragm and the inferior margin of today's study. A temperature probe is suspected with the tip projecting just superior to the thoracic inlet. Lung volumes are relatively low. Curvilinear and more confluent patchy opacities are noted in both lungs. Although a component may reflect atelectasis, pulmonary edema, pneumonia and/or sequela from aspiration should also be considered. Bilateral pleural effusions are also suspected, small to moderate size. The heart is enlarged. No definite evidence of a pneumothorax or acute osseous abnormality. There is nonspecific gaseous distention of the visualized stomach and segments of bowel in the upper abdomen. Dedicated abdominal imaging could be performed for further evaluation if clinically warranted. Signed: Josias Wilson Verified Date/Time: 01/17/2019 03:53:21 Reading Location: [address] Reading Room Julia ctronically signed by: JOSIAS WILSON M.D. on 01/17/2019 03:53 AMBLOOD GAS, [id number] 03:13:00 Test Item Value Reference Range Interpretation Comments PH ARTERIAL (BEAKER) (test code = 7.38 7.35-7.45 383) PCO2 ARTERIAL (BEAKER) (test code 33 mmHg 35-45 L = 384) PO2 ARTERIAL (BEAKER) (test code 236 mmHg 80-90 H = 385) O2 SATURATION ARTERIAL (BEAKER) 99.5 % 96.0-97.0 H (test code = 386) HCO3 ARTERIAL (BEAKER) (test code 19 mmol/L 21-29 L = 388) BASE EXCESS ARTERIAL (BEAKER) -5.0 mmol/L -2.0-3.0 L (test code = 387) PATIENT TEMPERATURE (BEAKER) 37.8 C (test code = 1818) FIO2 (BEAKER) (test code = 1819) 60.0 % TROPONIN [id number] 03:13:00 Test Item Value Reference Range Interpretation Comments TROPONIN I (BEAKER) (test code = 272.87 ng/mL 0.00-0.03 HH 397) Troponin I (TnI) levels must be interpreted in the context of the presenting symptoms and the clinical findings. Elevated TnI levels indicate myocardial damage, but are not specific for ischemic heart disease. Elevated TnI levels are seen in patients with other cardiac conditions (including myocarditis and congestive heart failure), and slight TnI elevations occur in patients with other conditions, including sepsis, renal failure, acidosis, acute neurological disease, and persistent tachyarrhythmia.[id number] 02:59:00 Test Item Value Reference Range Interpretation Comments PROTIME (BEAKER) (test code = 17.7 seconds 11.7-14.7 H 759) INR (BEAKER) (test code = 370) 1.5 <=5.9 PARTIAL THROMBOPLASTIN TIME > seconds 22.5-36.0 HH (BEAKER) (test code = 760) RECOMMENDED COUMADIN/WARFARIN INR THERAPY RANGESSTANDARD DOSE: 2.0 - 3.0 Includes: PROPHYLAXIS forvenous thrombosis, systemic embolization; TREATMENT for venous thrombosis and/or pulmonary embolus.HIGH RISK: Target INR is 2.5-3.5 for patients with mechanical heart valves.BASIC METABOLIC [id number] 02:52:00 Test Item Value Reference Range Interpretation Comments SODIUM (BEAKER) 141 meq/L 136-145 (test code = 381) POTASSIUM (BEAKER) 4.1 meq/L 3.5-5.1 Specimen slightly (test code = 379) hemolyzed CHLORIDE (BEAKER) 108 meq/L 98-107 H (test code = 382) CO2 (BEAKER) (test 21 meq/L 22-29 L code = 355) BLOOD UREA NITROGEN 17 mg/dL 7-21 (BEAKER) (test code = 354) CREATININE (BEAKER) 1.19 mg/dL 0.57-1.25 Specimen slightly (test code = 358) hemolyzed GLUCOSE RANDOM 251 mg/dL 70-105 H (BEAKER) (test code = 652) CALCIUM (BEAKER) 8.7 mg/dL 8.4-10.2 (test code = 697) EGFR (BEAKER) (test mL/min/1.73 INSUFFIC IENT CLINICAL code = 1092) sq m DATA TO CALCULA TE ESTIMATED GFR. COMPREHENSIVE METABOLIC [id number] 02:52:00 Test Item Value Reference Range Interpretation Comments TOTAL PROTEIN 6.6 gm/dL 6.0-8.3 Specimen sligh tly (BEAKER) (test code hemolyze d = 770) ALBUMIN (BEAKER) 4.0 g/dL 3.5-5.0 Specimen sl ightly (test code = 1145) hemolyzed ALKALINE PHOSPHATASE 96 U/L 40-150 (BEAKER) (test code = 346) BILIRUBIN TOTAL 0.7 mg/dL 0.2-1.2 Specimen sli ghtly (BEAKER) (test code hemolyze d = 377) SODIUM (BEAKER) 141 meq/L 136-145 (test code = 381) POTASSIUM (BEAKER) 4.1 meq/L 3.5-5.1 Specimen slightly (test code = 379) hemolyzed CHLORIDE (BEAKER) 108 meq/L 98-107 H (test code = 382) CO2 (BEAKER) (test 21 meq/L 22-29 L code = 355) BLOOD UREA NITROGEN 17 mg/dL 7-21 (BEAKER) (test code = 354) CREATININE (BEAKER) 1.19 mg/dL 0.57-1.25 Specimen slightly (test code = 358) hemolyzed GLUCOSE RANDOM 251 mg/dL 70-105 H (BEAKER) (test code = 652) CALCIUM (BEAKER) 8.7 mg/dL 8.4-10.2 (test code = 697) AST (SGOT) (BEAKER) 631 U/L 5-34 H Specimen slightly (test code = 353) hemolyzed ALT (SGPT) (BEAKER) 539 U/L 6-55 H Specimen slightly (test code = 347) hemolyzed EGFR (BEAKER) (test mL/min/1.73 INSUFFIC IENT code = 1092) sq m CLINICAL DATA T O CALCULATE ESTIM ATED GFR. B-TYPE NATRIURETIC FACTOR (BNP)2019-01-17 02:52:00 Test Item Value Reference Range Interpretation Comments B-TYPE NATRIURETIC PEPTIDE (BEAKER) < pg/mL 0-100 (test code = 700) [id number] 02:45:00 Test Item Value Reference Range Interpretation Comments MAGNESIUM (BEAKER) 2.0 mg/dL 1.6-2.6 Specimen slightly (test code = 627) hemolyzed LIPID [id number] 02:45:00 Test Item Value Reference Range Interpretation Comments TRIGLYCERIDES (BEAKER) 154 mg/dL Speci men slightly (test code = 540) hemolyzed CHOLESTEROL (BEAKER) 204 mg/dL Specime n slightly (test code = 631) hemolyzed HDL CHOLESTEROL (BEAKER) 38 mg/dL (test code = 976) LDL CHOLESTEROL 135 mg/dL CALCULATED (BEAKER) (test code = 633) Triglyceride Reference Range: Low Risk <150 Borderline 150-199 High Risk 200-499 Very High Risk >=500Cholesterol Reference Range: Low Risk <200 Borderline 200-239 High Risk >240HDL Cholesterol Reference Range: Low Risk >=60 High Risk <40LDL Cholesterol Reference Range: Optimal <100 Near Optimal 100-129 Borderline 130-159 High 160-189 Very High >=190PROTHROMBIN [id number] 02:40:00 Test Item Value Reference Range Interpretation Comments PROTIME (BEAKER) (test code = 17.7 seconds 11.7-14.7 H 759) INR (BEAKER) (test code = 370) 1.5 <=5.9 RECOMMENDED COUMADIN/WARFARIN INR THERAPY RANGESSTANDARD DOSE: 2.0 - 3.0 Includes: PROPHYLAXIS forvenous thrombosis, systemic embolization; TREATMENT for venous thrombosis and/or pulmonary embolus.HIGH RISK: Target INR is 2.5-3.5 for patients with mechanical heart valves.CBC W/PLT COUNT & AUTO DIFFERENTIAL 2019-01-17 02:32:00 Test Item Value Reference Range Interpretation Comments WHITE BLOOD CELL COUNT (BEAKER) 18.5 K/ L 3.5-10.5 H (test code = 775) RED BLOOD CELL COUNT (BEAKER) 4.82 M/ L 4.63-6.08 (test code = 761) HEMOGLOBIN (BEAKER) (test code = 14.7 GM/DL 13.7-17.5 410) HEMATOCRIT (BEAKER) (test code = 44.6 % 40.1-51.0 411) MEAN CORPUSCULAR VOLUME (BEAKER) 92.5 fL 79.0-92.2 H (test code = 753) MEAN CORPUSCULAR HEMOGLOBIN 30.5 pg 25.7-32.2 (BEAKER) (test code = 751) MEAN CORPUSCULAR HEMOGLOBIN CONC 33.0 GM/DL 32.3-36.5 (BEAKER) (test code = 752) RED CELL DISTRIBUTION WIDTH 13.4 % 11.6-14.4 (BEAKER) (test code = 412) PLATELET COUNT (BEAKER) (test 272 K/CU MM 150-450 code = 756) MEAN PLATELET VOLUME (BEAKER) 10.4 fL 9.4-12.4 (test code = 754) NUCLEATED RED BLOOD CELLS 0 /100 WBC 0-0 (BEAKER) (test code = 413) NEUTROPHILS RELATIVE PERCENT 87 % (BEAKER) (test code = 429) LYMPHOCYTES RELATIVE PERCENT 5 % (BEAKER) (test code = 430) MONOCYTES RELATIVE PERCENT 6 % (BEAKER) (test code = 431) EOSINOPHILS RELATIVE PERCENT 0 % (BEAKER) (test code = 432) BASOPHILS RELATIVE PERCENT 0 % (BEAKER) (test code = 437) NEUTROPHILS ABSOLUTE COUNT 16.17 K/ L 1.78-5.38 H (BEAKER) (test code = 670) LYMPHOCYTES ABSOLUTE COUNT 1.00 K/ L 1.32-3.57 L (BEAKER) (test code = 414) MONOCYTES ABSOLUTE COUNT (BEAKER) 1.10 K/ L 0.30-0.82 H (test code = 415) EOSINOPHILS ABSOLUTE COUNT 0.02 K/ L 0.04-0.54 L (BEAKER) (test code = 416) BASOPHILS ABSOLUTE COUNT (BEAKER) 0.03 K/ L 0.01-0.08 (test code = 417) IMMATURE GRANULOCYTES-RELATIVE 1 % 0-1 PERCENT (BEAKER) (test code = 2801) CBC (HEMOGRAM ONLY)2019-01-17 02:28:00 Test Item Value Reference Range Interpretation Comments WHITE BLOOD CELL COUNT (BEAKER) 18.5 K/ L 3.5-10.5 H (test code = 775) RED BLOOD CELL COUNT (BEAKER) 4.82 M/ L 4.63-6.08 (test code = 761) HEMOGLOBIN (BEAKER) (test code = 14.7 GM/DL 13.7-17.5 410) HEMATOCRIT (BEAKER) (test code = 44.6 % 40.1-51.0 411) MEAN CORPUSCULAR VOLUME (BEAKER) 92.5 fL 79.0-92.2 H (test code = 753) MEAN CORPUSCULAR HEMOGLOBIN 30.5 pg 25.7-32.2 (BEAKER) (test code = 751) MEAN CORPUSCULAR HEMOGLOBIN CONC 33.0 GM/DL 32.3-36.5 (BEAKER) (test code = 752) RED CELL DISTRIBUTION WIDTH 13.4 % 11.6-14.4 (BEAKER) (test code = 412) PLATELET COUNT (BEAKER) (test 272 K/CU MM 150-450 code = 756) MEAN PLATELET VOLUME (BEAKER) 10.4 fL 9.4-12.4 (test code = 754) NUCLEATED RED BLOOD CELLS 0 /100 WBC 0-0 (BEAKER) (test code = 413) [id number] 01:16:00 Test Item Value Reference Range Interpretation Comments ACTIVATED CLOTTING TIME 301 sec TEST ED AT [place] [address] ([facility]) (test code = MARCEL Marcial [place] [address]) [id number] 01:16:00 Test Item Value Reference Range Interpretation Comments ACTIVATED CLOTTING TIME 131 sec TEST ED AT [place] [address] ([facility]) (test code = MARCEL Marcial [place] [address]) [address] BLOOD GAS, [id number] 00:54:00 Test Item Value Reference Range Interpretation Comments PH ARTERIAL (BEAKER) (test code 7.24 7.35-7.45 L = 383) PCO2 ARTERIAL (BEAKER) (test 37 mmHg 35-45 code = 384) PO2 ARTERIAL (BEAKER) (test code 395 mmHg 80-90 H = 385) O2 SATURATION ARTERIAL (BEAKER) 99.8 % 96.0-97.0 H (test code = 386) HCO3 ARTERIAL (BEAKER) (test 16 mmol/L 21-29 L code = 388) BASE EXCESS ARTERIAL (BEAKER) -10.8 mmol/L -2.0-3.0 L (test code = 387) PATIENT TEMPERATURE (BEAKER) 37.0 C (test code = 1818) FIO2 (BEAKER) (test code = 1819) 100.0 % URINE AND [id number] [facility]002[facility] [id number] 22:16:00Negative (08/27/16 5:16 PM)[facility] [id number] 22:16:00Negative (08/27/16 5:16 PM)[facility] [id number] 22:16:00Negative (08/27/16 5:16 PM)[facility] [id number] 22:16:00Negative *NA*(08/27/16 5:16 PM)[facility] [id number] 22:16:005.5[facility] [id number] 22:16:00Clear (08/27/16 5:16 PM)[facility] [id number] 22:16:00Yellow *NA*(08/27/16 5:16 PM)[facility] [id number] 22:16:001.022[facility]annCHEM [id number] 09:53:001.1[facility]annCHE[facility] WHHJU8967-07-16 09:53:0020 [facility] [id number] 09:53:0013.7[facility]annCHE[facility] PANEL 2016-08-27 09:53:003.6[facility] GWPYJ2862-03-18 09:53:0071[facility] [id number] 09:53:0092[facility] [id number] 09:53:000.5[facility] [id number] 09:53:001.20[facility]ann[facility] DFZUV7022-21-23 09:53:0024[facility]annCHE[facility] MYOCY1397-21-03 09:53:26042 [facility] KWWZY0243-86-45 09:53:003.7[facility]annCHEM PANEL 2016-08-27 09:53:68268Dlplichv HermannCHEM [id number] 09:53:86741Wnspwueb HermannCHEM KPPWF4400-59-62 09:53:0026[facility] [id number] 09:53:0032[facility] [id number] 09:53:003.9[facility] [id number] 09:53:007.5[facility]CHE[facility] [id number] 09:53:008.9 [facility] [id number] 09:53:0012[facility]annCHE[facility] PANEL 2016-08-27 09:53:002.0[facility]annCHE[facility] [id number] 09:53:003.7[facility] JurbqwkQYAFNHCSNP8365-36-54 09:53:000.1[facility] KbpdxzqDQWEEOORJS6457-64-16 09:53:000.2[facility] JsgwlydKBSGPAPVZS5807-23-82 09:53:000.5[facility] DUTCCPWHNS8384-78-46 09:53:002.2[facility] VpvgzbaLXZPCFGHYL3120-81-11 09:53:005.4 [facility] AqnqzsuTUXRRWHZIK2673-49-88 09:53:000.7[facility]annHEMATOLOGY 2016-08-27 09:53:002.4[facility] QhccoesJNSQGGLEGZ9544-58-59 09:53:005.8[facility] JwrdateWKLYCTNZUW7229-78-67 09:53:0026.0[facility] RozfgksZVQWSLAXHG0297-85-30 09:53:0065.1[facility] WgymaxaBQGBILSBHH9437-86-17 09:53:001.04[facility] [id number] 09:53:00 Test Item Value Reference Range Interpretation Comments PTT (test code = PTT) 27.3 s 22.9-35.8 [facility] VgrkuyeSRWSZORJLP4108-66-79 09:53:00 Test Item Value Reference Range Interpretation Comments PT (test code = PT) 13.8 s 12.0-14.7 [facility] NmedqaoLWSJTSGFOE0530-03-81 09:53:0034.2[facility]annHEMATOLOGY 2016-08-27 09:53:0013.6[facility] DwudxumHIZAGCESHI3783-05-55 09:53:98557Vdthdvsq FkrstsqAXUORWTHYU7466-94-08 09:53:009.1[facility] ZjtcvgbXZAYSOWRXA4284-70-88 09:53:00 Test Item Value Reference Range Interpretation Comments MCH (test code = MCH) 30.3 pg 27.0-31.0 [facility] UgtrhvyLNVORVHFBI1431-36-54 09:53:008.3[facility]annHEMATOLOGY 2016-08-27 09:53:0036.3[facility] QhbhmigGZDWZYMKTL8484-03-36 09:53:0088.8[facility] HsrjziqVQLWLXWNXH1717-71-30 09:53:004.09[facility] LduhdpbOZDEAVJUDR8388-11-69 09:53:0012.4[facility] GrhhcidORZFKKAVIV2697-49-17 09:53:0035.6[facility] PGLSNV0484-90-22 09:53:0055[facility] TzzbmsaUWFEZY9803-28-80 09:53:0035[facility] SrvqbvdLQEGRQ9160-69-46 09:53:83254Sapremey DtnxzliPDMLKK3759-21-38 09:53:58701 [facility] RydfztgKUMTAW0154-62-51 09:53:0033[facility] ZplgkokJESPVT5046-40-38 09:53:003.73[facility] HermannSPECIAL TQZQHJMNQ0928-33-79 09:53:005.3[facility]
[2020-10-23] MEDS ORDERED: HYDROCODONE/APAP 10/325 TAB ONE (17:52)
--- NOTE | 2020-10-23 18:57 | RAD REPORT ---
EXAM DESCRIPTION: US - Scrotum Testicles - 10/23/2020 6:21 pm CLINICAL HISTORY: Testicular pain and swelling COMPARISON: None FINDINGS: Right testicle measures 4.2 x 2.9 x 3 centimeters. Echotexture is homogeneous. Normal bloo d flow Left testicle measures 4.5 x 2 x 3 centimeters. Echotexture is homogeneous. Normal blood flow The epididymides are normal in size and echotexture. Normal blood flow is seen. Mild left varicocele Mild soft tissue prominence within the upper scrotum bilaterally. Patient has had prior inguinal ashly ia repair which may account for this IMPRESSION: Mild left varicocele
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
[2020-10-23 21:57] VITALS: TEMP 98.9
[2020-10-23 21:59] VITALS: BP 125/89; O2SAT 99
== END 2020-10-23 19:23 | disposition home or self-care (01) ==
LOC: ER 16:59
DX: I86.1 Scrotal varices (principal); I10 Essential (primary) hypertension; Z87.820 Personal history of traumatic brain injury
CPT/HCPCS: 76870; 99284

== ENCOUNTER 2021-05-04 15:12 | Emergency (ER) | payer OTHER ==
--- OUTSIDE RECORDS SUMMARY | 2021-05-04 15:17 | XMS REPORT | Continuity of Care Document ---
:1965 Author Organization [facility] t Address [address] [place] [address] Care Team Providers Name Role Phone UNKNOWN Primary Care Physician Unavailable Lab, Fam Pob I Attending Clinician Unavailable Doctor Unassigned, Name Attending Clinician Unavailable Lab, Covid Attending Clinician Unavailable Brandon KURTZ Attending Clinician Jose Eduardo JARVIS Attending Clinician Unavailable MARIA DOLORES GUILLEN M.D. Attending Clinician Unavailable Amalia Duke Attending Clinician [phone] Gilbert Wellington Attending Clinician Jose Eduardo JARVIS Admitting Clinician Unavailable MARIA DOLORES GUILLEN M.D. Admitting Clinician Unavailable Gilbert Wellington Admitting Clinician Problems Condition Condition Condition Status Onset Resolution Last Treating Co mments Source Name Details Category Date Date Treatment Clinician Date STEMI (ST STEMI (ST Disease Active [facility] elevation elevation 01-17 Luke s - myocardial myocardial 00:00: Me dical infarction infarction 00 Ce nter ) ) Cardiac Cardiac Disease Active [facility] arrest arrest 01-17 Lu - 00:00: [address] ENCEPHALOP Diagnosis Active 2015-112016-11-02 Memoria ATHY 2 12:35:00 l 00:00: Cheng ENCEPHALOP 00 ATHY Active 10/28/2016 [facility] D/C FOLLOW Diagnosis Active 2015-112016-10-28 Memoria UP 012 10:29:00 l D/C 00:00: Cheng FOLLOW UP 00 Active 09/07/2016 [facility] LEUKOENCEP Diagnosis Active 2016-08-26 Memoria HALOPATHY 08-24 20:06:00 l 00:00: [place] LEUKOENCEP 00 HALOPATHY Active 08/24/2016 [facility] Constipati Problem Active 2018-10-19 M [...] Memor ia hyperlipid 05:37:01 l emia Mixed Cheng hyperlipid emia Active Problem 10/19/2018 eCW: Denise [...] zhu drug abuse (disorder) Active Problem 12/02/2016 [facility] Dysphagia Problem Active 2016-12-02 Me moria (disorder) 01:26:03 l Cheng Dysphagia (disorder) Active Problem 12/02/2016 [facility] Impaired Problem Active 2016-12-02 Mem oria cognition 01:26:03 l (finding) Impaired Her zhu cognition (finding) Active Problem 12/02/2016 [facility], [...] D ENCEPHALOP ATHY, UNSPECIFIE D Active [facility] Final: Problem 2016-09-11 Memor ia Encephalop 00:40:18 l athy, Final: [place] unspecifie Encephalop d athy, unspecifie d 09/11/2016 [facility] Allergies, Adverse Reactions, Alerts Allergy Allergy Status Severity Reaction(s) Onset Inactive Treating Comm ents Source Name Type Date Date Clinician Yari Greenberg Active Info Not 2015-11 Hasmukh shereen Available 2-13 l 00:00: Social History Social Habit Start Date Stop Date Quantity Comments Source Sex Assigned At [facility] Smoking Status Start Date Stop Date Source Social History 2016-08-27 02:08:37 [facility] Medications Ordered Filled Start Stop Current Ordering Indication Dosage Frequency Signature Comments Components Source Medication Medication Date Date Medication? Clinician (SIG) Name Name Carvedilol 2017-11 Yes KAYY 1 tablet Memoria 1-14 MARMOLEJO l 05:11: Simvastatin 2017-11 Yes KAYY 1 tablet Memoria 1-14 MARMOLEJO in the l 05:11: evening ASA 2017- Yes KAYY 1 tab Memoria 1-14 MARMOLEJO l 05:11: Fenofibrate 2017-11 Yes KAYY 1 tablet Memoria 1-14 MARMOLEJO l 05:11: Clopidogrel 2017- Yes KAYY 1 tablet Memoria Bisulfate 1-14 MARMOLEJO l 05:11: Donepezil 2017-11 Yes KAYY 1 tablet M emoria Hydrochlori 1-14 MARMOLEJO at bedtime l de 05:11: Senna Yes KAYY 2 tablets Hasmukh shereen Concentrate 6-11 MARMOLEJO at bedtime l 00:00: as needed Docusate Yes KAYY 1 capsule M emoria Sodium 6-11 MARMOLEJO as needed l 00:00: Thiamine 2017-0 Yes KAYY 1 tablet Me moria HCl 6-11 MARMOLEJO l 00:00: Ritalin 2016- Yes KAYY 1 tablet Mem oria 3-13 MARMOLEJO l 00:00: Aspirin 2015-11 Yes KAYY 1 tablet Mem oria 2-13 MARMOLEJO l 00:00: thiamine 2015-11 Yes 100 mg = 1 Mem oria 100 mg oral 0-12 tab, PO, l tablet 21:26: Daily, X 30 day, # 30 tab, 1 Refill(s) clopidogrel 2015-11 Yes 75 mg = 1 M emoria 75 mg oral 0-12 tab, PO, l tablet 21:26: Daily, # 30 tab, 1 Refill(s) carvedilol 2015-11 Yes 25 mg = 1 Me moria 25 mg oral 0-12 tab, PO, l tablet 21:26: BID, # 60 Tommy n 00 tab, 1 Refill(s) Aspirin 81 2015-11 Yes 81 mg = 1 Me moria MG Chewable 0-12 tab, PO, l Tablet 21:26: Daily, # Cheng 00 30 tab, 1 Refill(s) simvastatin 2015-11 Yes 10 mg = 1 M emoria 10 mg oral 0-12 tab, PO, l tablet 21:26: Bedtime, # Kirstin nn 00 30 tab, 1 Refill(s) senna 8.6 2015-11 Yes 17.2 mg = Mem oria mg oral 0-12 2 tab, PO, l tablet 21:26: QNoon, X 30 day, # 60 tab, [...] tab, PO, l tablet 21:26: Daily, # [place] 00 30 tab, 1 Refill(s) Docusate 2015-11 Yes 100 mg = 1 Mem oria Sodium 100 0-12 cap, PO, l MG Oral 21:26: BID, # 60 Kirstin nn Capsule 00 cap, 1 Refill(s) donepezil 2015-11 No Notes: Memori a 0-11 (Same as: l 13:30: Aricept) [place] 00 phenol 2015-11 No Notes: Memoria 0-09 Chlorasept l 17:34: ic [place] (Same as: Chlorasept ic, Sore Throat [place]) WASTE: F/P - Black; E - Municipal [...] shereen date 0-07 (Same l 13:00: as:Ritalin Cheng 00 ) Flonase 2015-11 No Notes: Memoria 0.05 [...] Memoria 0-05 (Same As: l 13:30: Vitamin Cheng 00 B1) Lovenox 2015-11 No Notes: Memoria 0-05 (Same as: l 02:00: Lovenox) [place] 00 Zocor 2015-11 No Notes: Memoria 0-05 (Same as: l 02:00: Zocor) Cheng Melatonin 2015-11 No Notes: Memori a 0-04 (Same as: l 22:00: Melatonin) [place] 00 Tylenol 2015-11 No Notes: Do Memor ia 0-04 not exceed l 14:19: 4 gm/day. [place] 00 (Same as: Tylenol) Methylpheni 2015-11 No Notes: Hasmukh shereen date 0-04 (Same l 13:00: as:Ritalin [place] 00 ) Tricor 2015-11 No Notes: Memoria 0-03 (Same as: l 22:00: Tricor) [place] 00 Prinivil 2015-11 No Notes: Memoria 0-02 (Same as: l 02:00: Prinivil, [place] 00 Zestril) Lisinopril 2015-11 No Notes: Memor ia 0-01 (Same as: l 22:00: Prinivil, [place] 00 Zestril) sennosides, 2015-11 No Notes: Hasmukh shereen FDC 0-01 (Same as: l 17:00: Senokot) Cheng [...] tab, PO, l Tablet 14:00: Daily, 0 [place] [Plavix] 00 Refill(s) Thiamine 2015-11 No Notes: Memoria 0-01 (Same As: l 13:30: Vitamin Cheng 00 B1) Docusate 2015-11 No Notes: Memoria 0-01 (Same as: l 13:30: Colace) (Do Not Crush) SENOKOT-S 2015-11 No Notes: Memori a 0-01 (Same as l 13:30: Senokot-S) Equiv. to Deepika-Colac e. Plavix 2015-11 No Notes: Memoria 0-01 (Same As: l 13:30: Plavix) Aspirin 2015-11 No Notes: Memoria 0-01 Take with l 13:30: food. Coreg 2015-11 No Notes: Memoria 0-01 Give with l 13:30: food. (Same As: Coreg) Bacitracin 2015-11 No Route: Memor ia 0-01 TOP, BID, l 13:30: Dosing Weight 60.227, kg, Start date: 08/27/16 8:30:00 CDT, Duration: 30 day, Stop date: 09/25/16 21:00:00 CDT bacitracin 2015-11 No 1 appl, Hasmukh shereen topical 0-01 Route: l 13:30: TOP, BID, Drug form: OINT, Start date: 08/27/16 8:30:00 CDT, Duration: 60 day, Stop date: 10/25/16 21:00:00 [employer] Tylenol 2015-11 No Notes: Do Memor ia 0-01 not exceed l 05:00: 4 gm/day. (Same as: Tylenol) Midazolam 2015-11 No 40 kg Memori a 0-01 l 04:29: Levetiracet 2015-11 No Notes: Hasmukh shereen am 0-01 Same as l 04:29: Keppra Mix with 100 mL NS, LR or D5W MEDICATION WASTE Product Size: 500 mg Product Wasted: __0_ mg Bisacodyl 2015-11 No Notes: Memori a 0-01 (Same As: l 04:29: Dulcolax, Bisco-Lax) Milk of 2015-11 No Notes: Memoria Magnesia 0-01 (Same as: l 04:29: Milk of Magnesia, MOM) Saline 2015-11 No Notes: Memoria Flush 0.9% 0-01 (Same as: l 04:29: BD [place] 00 Posiflush) carvedilol No 25 mg = 1 Me moria 25 MG Oral 30 tab, PO, l Tablet 21:08: BID, # 60 Tommy n [Coreg] 00 tab, 0 Refill(s) Bacitracin No 500 units, M emoria 30 TOP, BID, l 21:08: 0 Cheng 00 Refill(s) SENOKOT-S No 1 tab, PO, Me moria 30 Daily, 0 l 21:08: Refill(s) Cheng heparin No 5,000 Memoria 08-26 unit, l 21:08: SUB-Q, [place] 00 Q12H, 0 Refill(s) Tylenol No 650 mg, Memoria 08-26 PO, Q6H, 0 l 21:08: Refill(s) [place] Aspirin No 81 mg, PO, Hasmukh shereen 30 Daily, 0 l 21:08: Refill(s) [place] Thiamine No 250 mg, Memori a 08-26 IV, Daily, l 21:08: 0 Cheng 00 Refill(s) Vital Signs Vital Name Observation Time Observation Value Comments Source Diastolic (mm Hg) 2016-11-08 20:30:00 Mem orial [place] Systolic (mm Hg) 2016-11-08 20:30:00 Hasmukh rial Cheng Temperature Oral (F) 2016-11-08 20:30:00 98.5 F [facility] [place] Weight 2016-11-08 20:30:00 [facility] [place] Height 2016-11-08 20:30:00 [facility] [place] Heart Rate 2016-09-08 12:30:00 [facility] Cheng Respitory Rate 2016-09-08 12:30:00 Memori al [place] Diastolic (mm Hg) 2016-09-08 12:30:00 Mem orial [place] Systolic (mm Hg) 2016-09-08 12:30:00 Hasmukh rial [place] Systolic (mm Hg) 2016-09-08 00:30:00 Hasmukh rial [place] Diastolic (mm Hg) 2016-09-08 00:30:00 Mem orial Cheng Respitory Rate 2016-09-08 00:30:00 Memori al Cheng Heart Rate 2016-09-08 00:30:00 [facility] Cheng Heart Rate 2016-09-07 18:30:00 Denise [place] Systolic (mm Hg) 2016-09-07 18:30:00 Hasmukh judge Cheng Diastolic (mm Hg) 2016-09-07 18:30:00 Jose Daniel dejesus [place] Respitory Rate 2016-09-07 18:30:00 Vadim coffman Cheng Weight 2016-09-02 20:37:00 [facility] Cheng Height 2016-08-27 05:00:00 170.18 cm [facility] [place] BMI Calculated 2016-08-27 01:16:00 Vadim coffman [place] Weight 2016-08-27 01:16:00 [facility] [place] Height 2016-08-27 01:16:00 170.18 cm [facility] [place] Procedures Procedure Date / Time Performed Performing Clinician Travon abdi Hernia repair 2001-11-27 06:00:00 Denise zhu Biopsy of vocal cord 1997-11-27 06:00:00 Susan Anand Plan of Care Planned Activity Planned Date Details Comments Source Future Scheduled 2022-01-[address] [facility] - Test 00:00:00 (procedure) [code = [facility] 42885123] Future Scheduled 2020-07-[address] [facility] - Test 00:00:00 (#1) [code = [facility] INFLUENZA VACCINE (#1)] Future Scheduled [address] [facility] 00:[facility]:00 malignant neoplasm Medical C enter of colon (procedure) [code = 001488101] Encounters Start End Encounter Admission Attending Care Care Encounter Source Date/Time Date/Time Type Type Clinicians Facility Department ID 2021-01-01 2021-01-01 Laboratory Lab, Adc [facility] [id number] 14:02:43 14:22:43 Only Fam Pob I Health [id number] [place] [id number] Professio [phone] nal 044 [address] One 2021-01-01 2021-01-01 Letter Doctor FILIBERTO [id number] 00:00:00 00:00:00 (Out) Unassigned, JENNIFER [id number] [place] [facility] [id number] 2021-01-01 2021-01-01 Letter Lab, Pcp [facility] [id number] 00:00:00 00:00:00 (Out) Covid Health [id number] [place] [id number] Professio [phone] nal 044 [address] [facility] 2020-06-08 2020-06-08 Letter Lab, Pcp [facility] [id number] 00:00:00 00:00:00 (Out) Covid Health [id number] [place] [id number] Professio [phone] nal 044 [facility] 2020-06-04 2020-06-04 Laboratory Lab, Adc [facility] [id number] 11:06:05 11:26:05 Only Fam Pob I Health [id number] [place] [id number] Professio [phone] nal [facility] 2020-02-17 2020-02-17 Telemedici Brandon, [facility] [id number] 09:00:00 09:20:00 ne Visit Lolis Courtney [id number] [place] [id number] Professio [phone] nal 059 [facility] 2019-08-16 2019-08-16 Orders Doctor FILIBERTO [id number] 00:00:00 00:00:00 Only Unassigned, JENNIFER [id number] [facility] [id number] 2018-01-03 2018-01-07 Inpatient MARIA DOLORES BARRERA [facility] [id number] 14:29:00 09:32:00 Daniel [facility] 2018-01-04 2018-01-04 Outpatient Denise Walker [id number] eClinic 14:10:00 14:10:00 Queta Villasenor MD 2018-01-01 2018-01-01 Inpatient MARIA DOLORES GUILLEN [facility] [id number] 11:16:00 11:16:00 aDniel [facility] 2016-12-07 2016-12-07 Outpatient Denise Denise [id number] eClinic 14:15:00 14:15:00 Queta Villasenor MD 2016-10-31 2016-11-29 Outpatient Leilani, [id number]. [id number] 13:03:00 23:59:00 Sergei Amalia [id number] 5.15 2016-11-08 2016-11-08 Outpatient Denise Denise [id number] eClinic 14:30:00 14:30:00 Queta Villasenor MD 2016-08-26 2016-09-08 Outpatient Mas [facility] [id number] 20:04:00 10:44:00 Christian Saez Results Test Description Test Time Test Comments Results Result Comments Source POCT-GLUCOSE METER 2019-01-22 11:26:00 Test Item Value Reference Range Interpretation Comme nts POC-GLUCOSE METER (BEAKER) (test 127 mg/dL 70-110 H TESTED AT [facility] [address] [facility] code = 1538) [facility] 7703 0 BLOOD [id number] 11:01:00 Test Item Value Reference Range Interpretation Comments CULTURE (BEAKER) (test No growth in 5 days code = 1095) BLOOD [id number] 11:01:00 Test Item Value Reference Range Interpretation Comments CULTURE (BEAKER) (test No growth in 5 days code = 1095) RAD, CHEST, 1 VIEW, NON [id number] 09:30:00Reason for exam:- >vetned/stemiShould this be performed at the bedside?->YesFINAL REPORT Clinical History: vetned/stemi Comparison Study: January 21, 2019 Findings: The heart and lungs are within normal limits. The pleural spaces are clear. No significant bony or soft tissue abnormalities are seen. Impression: No active cardiopulmonary disease. Signed: Endy Wilson Verified Date/Time: 01/22/2019 09:30:48 Reading Location: [facility] Reading Room POCT-GLUCOSE [id number] 08:44:00 Test Item Value Reference Range Interpretation Comments POC-GLUCOSE METER 157 mg/dL 70-110 H TESTED AT [facility] 67[address] (BEAKER) (test code = [place] 1538) [address] BASIC METABOLIC [id number] 05:27:00 Test Item Value Reference Range Interpretation [...] m DATA TO CALCULA TE ESTIMATED GFR. [id number] 05:24:00 Test Item Value Reference Range Interpretation Comments MAGNESIUM (BEAKER) (test code = 1.7 mg/dL 1.6-2.6 627) CBC W/PLT COUNT & AUTO [id number] 04:53:00 Test Item Value Reference Range Interpretation [...] PERCENT (BEAKER) (test code = 2801) POCT-GLUCOSE [id number] 21:23:00 Test Item Value Reference Range Interpretation Comments POC-GLUCOSE METER 172 mg/dL 70-110 H TESTED AT [facility] (test code = [place]EL [place] 1538) [address] POCT-GLUCOSE [id number] 17:36:00 Test Item Value Reference Range Interpretation Comments POC-GLUCOSE METER 124 mg/dL 70-110 H TESTED AT [place] [address] (BEAKER) (test code = MARCEL Marcial [facility] 1538) [address] POCT-GLUCOSE [id number] 11:45:00 Test Item Value Reference Range Interpretation Comments POC-GLUCOSE METER 137 mg/dL 70-110 H TESTED AT [place] [id number] ([facility]) (test code = MARCEL Marcial [facility] 1538) [address] RAD, CHEST, 1 VIEW, NON [id number] 08:00:00Reason for exam:- >vetned/stemiShould this be performed [...] Unremarkable. IMPRESSION:No acute cardiopulmonary abnormalities. Signed: Leigh Larson MDReport Verified Date/Time: 01/21/2019 08:00:55 Reading Location: [facility] Radiology Reading Room POCT-GLUCOSE [id number] 07:12:00 Test Item Value Reference Range Interpretation Comments POC-GLUCOSE METER 142 mg/dL 70-110 H TESTED AT [place] [address] ([facility]) (test code = MARCEL Marcial [facility] 1538) [address] BASIC METABOLIC [id number] 06:18:00 Test Item Value Reference Range Interpretation [...] m DATA TO CALCULA TE ESTIMATED GFR. [id number] 06:14:00 Test Item Value Reference Range Interpretation Comments MAGNESIUM (BEAKER) (test code = 1.5 mg/dL 1.6-2.6 L 627) CBC W/PLT COUNT & AUTO [id number] 05:24:00 Test Item Value Reference Range Interpretation [...] PERCENT (BEAKER) (test code = 2801) POCT-GLUCOSE [id number] 22:46:00 Test Item Value Reference Range Interpretation Comments POC-GLUCOSE METER 123 mg/dL 70-110 H TESTED AT [facility] 67 (BEAKER) (test code = [facility] 1538) [address] SPUTUM CULTURE + GRAM [id number] 20:40:00 Test Item Value Reference Range Interpretation Comments CULTURE (BEAKER) 4+ Normal respiratory (test code = 1095) stevie present GRAM STAIN RESULT 4+ WBCs (BEAKER) (test code = 1123) GRAM STAIN RESULT 0-5 epithelial cells (BEAKER) (test code = 70713) GRAM STAIN RESULT 1+ gram positive cocci (BEAKER) (test code = in pairs 54002) GRAM STAIN RESULT 4+ gram positive cocci (BEAKER) (test code = in chains 226637) GRAM STAIN RESULT 2+ gram positive cocci (BEAKER) (test code = in clusters 254294) POCT-GLUCOSE [id number] 18:11:00 Test Item Value Reference Range Interpretation Comments POC-GLUCOSE METER 217 mg/dL 70-110 H TESTED AT [facility] 6720 (BEAKER) (test code = [facility] 1538) [address] POCT-GLUCOSE [id number] 13:04:00 Test Item Value Reference Range Interpretation Comments POC-GLUCOSE METER 140 mg/dL 70-110 H TESTED AT [place] [address] [facility] (test code = [facility] 1538) [address] POCT-GLUCOSE [id number] 08:23:00 Test Item Value Reference Range Interpretation Comments POC-GLUCOSE METER 176 mg/dL 70-110 H TESTED AT [facility] 6720 (BEAKER) (test code = [place] 1538) [address] BASIC METABOLIC [id number] 05:41:00 Test Item Value Reference Range Interpretation [...] m DATA TO CALCULA TE ESTIMATED GFR. [id number] 05:40:00 Test Item Value Reference Range Interpretation Comments MAGNESIUM (BEAKER) (test code = 1.7 mg/dL 1.6-2.6 627) HEPATIC FUNCTION [id number] 05:40:00 Test Item Value Reference Range Interpretation [...] H 347) RAD, CHEST, 1 VIEW, NON [id number] 05:37:00Reason for exam:- >vetned/stemiShould this be performed at the bedside?->YesFINAL REPORT RAD, CHEST, 1 VIEW, NON DEPT INDICATION: vetned/stemi COMPARISON: Prior day's exam FINDINGS: Portable frontal view of the chest. IMPRESSION: Lungs and pleura: Unchanged airspace and pleural opacities. No pneumothorax.Heart and mediastinum: Stable contours. Additional findings: None. Signed: Beck Odonnell Verified Date/Time: 01/20/2019 05:37:46 Reading Location: [address] Transitional Reading Room CBC W/PLT COUNT & AUTO [id number] 05:06:00 Test Item Value Reference Range Interpretation [...] PERCENT (BEAKER) (test code = 2801) POCT-GLUCOSE [id number] 22:24:00 Test Item Value Reference Range Interpretation Comments POC-GLUCOSE METER 127 mg/dL 70-110 H TESTED AT [facility] 67 ([facility]) (test code = [facility] 1538) [address] POCT-GLUCOSE [id number] 16:58:00 Test Item Value Reference Range Interpretation Comments POC-GLUCOSE METER 130 mg/dL 70-110 H TESTED AT [facility] 6720 ([facility]) (test code = [facility] 1538) [address] [id number] 15:24:00 Test Item Value Reference Range Interpretation Comments MAGNESIUM (BEAKER) 1.7 mg/dL 1.6-2.6 Specimen slightly (test code = 627) hemolyzed RAD, CHEST, 1 VIEW, NON [id number] 12:40:00Reason for exam:- >vetned/stemiShould this be performed at the bedside?->YesFINAL REPORT Comparison: 01/18/2019 TECHNIQUE: Single view of the chest FINDINGS: Lung volumes are low. Cardiac silhouette is prominent. Soft tissues and bones are unremarkable. Signed: Delmy, Kelby MDReport Verified Date/Time: 01/19/2019 12:40:50 Reading Location: [address] Reading Room POCT-GLUCOSE [id number] 12:33:00 Test Item Value Reference Range Interpretation Comments POC-GLUCOSE METER 120 mg/dL 70-110 H TESTED AT [place] [address] [facility] (test code = [place] 1538) [address] EEG MONITORING WITH VIDEO RECORDING EACH 24 [id number] 10:46:00morning read for REPORT: [facility] Date of EEDate of report: EEG start time: 09:33EEG end time: 20:55EEG #: [id number] No: [id number] ICD Code: #: R41.82 Altered mental status, unspecified (ICD 9: 780.97)CPT Code: #: 79210: Monitoring for localization of seizure focPROCEDURE: EEG [...] etiology. Please correlate clini kd.Clinical Fellow: Alan RojoaNeurophysiologist: Melinda Tan BASIC METABOLIC [id number] 05:51:00 Test Item Value Reference Range Interpretation [...] RED BLOOD CELLS 0 /100 WBC 0-0 ([facility]) (test code = 413) POCT-GLUCOSE [id number] 23:44:00 Test Item Value Reference Range Interpretation Comments POC-GLUCOSE METER 119 mg/dL 70-110 H TESTED AT [facility] 6720 ([facility]) (test code = MARCEL Marcial [place] 1538) [address] POCT-GLUCOSE [id number] 16:16:00 Test Item Value Reference Range Interpretation Comments POC-GLUCOSE METER 123 mg/dL 70-110 H TESTED AT [facility] 6720 ([facility]) (test code = MARCEL Marcial [facility] 1538) [address] EEG MONITORING WITH VIDEO RECORDING EACH 24 [id number] 11:47:00For STAT EEG- after 5 PM weekdays, weekends and holidays, page the on-call bobbin presser Reason for exam:->for 24 hrs while on euthermia protocol, unjresponsive post arrestEEG REPORT: Melita Lopez[facility] Date of EEDate of report: Test location: Inpatient - ICUEEG start time: 01/17 at 9:33amEEG end time:01/18 at 9:33amEEG #: [id number] No: [id number] ICD Code: #: R41.82 Altered mental status, unsp ecified (ICD 9: 780.97)CPT Code: #: 28879: Monitoring for localization of seizure focPROCEDURE: EEG [...] Fellow: Nilsa Vargasrophysiologist: Melinda Tan RIDE, RANDOM [id number] 11:39:00 Test Item Value Reference Range Interpretation Comments CHLORIDE URINE (BEAKER) (test code = 49 meq/L 682) Reference Range: No NormalsPOTASSIUM, RANDOM [id number] 11:39:00 Test Item Value Reference Range Interpretation Comments POTASSIUM URINE (BEAKER) (test 43.9 meq/L code = 195) Reference Range: No NormalsSODIUM, RANDOM [id number] 11:39:00 Test Item Value Reference Range Interpretation Comments SODIUM URINE (BEAKER) (test code = 141 meq/L 243) Reference Range: No NormalsLACTIC ACID, ARTERIAL, WHOLE [id number] 11:08:00 Test Item Value Reference Range Interpretation Comments LACTATE BLOOD ARTERIAL (2) 0.8 mmol/L 0.5-2.2 (BEAKER) (test code = 2874) KETONE, [id number] 10:50:00 Test Item Value Reference Range Interpretation Comments KETONES, BLOOD (BEAKER) (test code 4.4 mmol/L <0.4 H = 1103) RAD, CHEST, 1 VIEW, NON [id number] 10:41:00Reason for exam:- >vented/stemiShould this be performed at the bedside?->YesFINAL REPORT Chest one view. Clinical history: vented/stemi Comparison: 01/17/2019 Discussion: A frontal chest is provided. Cardiomediastinal contours are unchanged. Lines and tubes are in stable position. Low lung volume. No definite consolidation is identified. There is stable blunting of the left costophrenic angle. No pneumothorax. Question mild interstitial edema. Signed: Tianna Chan Verified Date/Time: 01/18/2019 10:41:02 Reading Location: [facility] Radiology Reading Room POCT-GLUCOSE [id number] 10:11:00 Test Item Value Reference Range Interpretation Comments POC-GLUCOSE METER 80 mg/dL 70-110 TESTED AT [facility] 6720 (BEAKER) (test code = [place] [address] 1538) [id number] 07:36:00 Test Item Value Reference Range Interpretation Comments MAGNESIUM (BEAKER) 2.0 mg/dL 1.6-2.6 Specimen slightly (test code = 627) hemolyzed BLOOD GAS, [id number] 04:48:00 Test Item Value Reference Range Interpretation [...] (test code = 1819) 40.0 % TROPONIN [id number] 04:32:00 Test Item Value Reference Range Interpretation Comments TROPONIN I (BEAKER) (test code = 34.31 ng/mL 0.00-0.03 397) Troponin I (TnI) levels [...] acute neurological disease, and persistent tachyarrhythmia.BASIC METABOLIC [id number] 04:31:00 Test Item Value Reference Range Interpretation [...] 0-0 (BEAKER) (test code = 413) POCT-GLUCOSE [id number] 00:18:00 Test Item Value Reference Range Interpretation Comments POC-GLUCOSE METER 117 mg/dL 70-110 H TESTED AT [place] [address] (BEAKER) (test code = MARCEL Marcial [facility] 1538) [address] POCT-GLUCOSE [id number] 21:48:00 Test Item Value Reference Range Interpretation Comments POC-GLUCOSE METER 89 mg/dL 70-110 TESTED AT [place] [address] [facility] (test code = BANNER Aggie [facility] [address] 1538) [id number] 21:02:00 Test Item Value Reference Range Interpretation Comments POTASSIUM (BEAKER) (test code = 4.5 meq/L 3.5-5.1 379) [id number] 21:02:00 Test Item Value Reference Range Interpretation Comments MAGNESIUM (BEAKER) (test code = 2.1 mg/dL 1.6-2.6 627) POCT-GLUCOSE [id number] 15:54:00 Test Item Value Reference Range Interpretation Comments POC-GLUCOSE METER 107 mg/dL 70-110 TESTED AT [place] [address] (BEAKER) (test code = [facility] 1538) [address] COMPREHENSIVE METABOLIC [id number] 15:24:00 Test Item Value Reference Range Interpretation [...] CALCULATE ESTIM ATED GFR. EEG AWAKE AND [id number] 14:53:00Reason for exam:->unresponsive post arrestEEG REPORT: [facility] Date of EEDate of report: Test location: Inpatient - ICUEEG start time: 8:46EEG end time: 9:08EEG #: [id number] No: [id number] ICD Code: #: R41.82 Altered mental status, unspecified (ICD 9: 780.97)CPT Code: #: 99189: 01. EEG awake and drowsy; 20-40 minPROCEDURE: [...] other etiology.Please correlate clinically.Clinical Fellow: Nilsa Vargasrophysiologist: eMlinda Tan CBC W/PLT COUNT & AUTO [id number] 14:52:00 Test Item Value Reference Range Interpretation [...] code = 2801) URINALYSIS W/ REFLEX URINE [id number] 10:28:00 Test Item Value Reference Range Interpretation [...] code = 1584) SOURCE(BEAKER) (test code = 6045) [id number] 10:23:00 Test Item Value Reference Range Interpretation Comments PROTIME (BEAKER) (test code = 16.1 seconds 11.7-14.7 H 759) INR (BEAKER) (test code = 370) 1.3 <=5.9 PARTIAL THROMBOPLASTIN TIME 31.3 seconds 22.5-36.0 (RYANNE) (test code = 760) RECOMMENDED COUMADIN/WARFARIN INR THERAPY RANGESSTANDARD DOSE: 2.0 - 3.0 Includes: PROPHYLAXIS forvenous thrombosis, systemic embolization; TREATMENT for venous thrombosis and/or pulmonary embolus.HIGH RISK: Target INR is 2.5-3.5 for patients with mechanical heart valves.HEMOGLOBIN [id number] 10:12:00 Test Item Value Reference Range Interpretation Comments HEMOGLOBIN A1C (RYANNE) (test code = 6.6 % 4.3-6.1 H 368) POCT-GLUCOSE [id number] 09:01:00 Test Item Value Reference Range Interpretation Comments POC-GLUCOSE METER 141 mg/dL 70-110 H TESTED AT [facility] 6720 (RYANNE) (test code = MARCEL Marcial [facility] 1538) [address] TROPONIN [id number] 08:57:00 Test Item Value Reference Range Interpretation [...] to tolerate for further evaluation.. Signed: Beck Odonnell Verified Date/Time: 01/17/2019 07:03:53 Reading Location: [address] Reading Room RAD, CHEST, 1 VIEW, NON [id number] 03:53:00Reason for exam:->s/p intubationShould this be performed [...] Wilson Verified Date/Time: 01/17/2019 03:53:21 Reading Location: [address] Reading Room Julia ctronically signed by: JOSIAS WILSON M.D. on 01/17/2019 03:53 AMBLOOD GAS, [id number] 03:13:00 Test Item Value Reference Range Interpretation [...] (test code = 1819) 60.0 % TROPONIN [id number] 03:13:00 Test Item Value Reference Range Interpretation [...] failure, acidosis, acute neurological disease, and persistent tachyarrhythmia.[id number] 02:59:00 Test Item Value Reference Range Interpretation [...] for patients with mechanical heart valves.BASIC METABOLIC [id number] 02:52:00 Test Item Value Reference Range Interpretation [...] TO CALCULA TE ESTIMATED GFR. COMPREHENSIVE METABOLIC [id number] 02:52:00 Test Item Value Reference Range Interpretation [...] < pg/mL 0-100 (test code = 700) [id number] 02:45:00 Test Item Value Reference Range Interpretation Comments MAGNESIUM (BEAKER) 2.0 mg/dL 1.6-2.6 Specimen slightly (test code = 627) hemolyzed LIPID [id number] 02:45:00 Test Item Value Reference Range Interpretation [...] Borderline 130-159 High 160-189 Very High >=190PROTHROMBIN [id number] 02:40:00 Test Item Value Reference Range Interpretation [...] WBC 0-0 (BEAKER) (test code = 413) [id number] 01:16:00 Test Item Value Reference Range Interpretation Comments ACTIVATED CLOTTING TIME 301 sec TEST ED AT [place] [address] ([facility]) (test code = [place]ARCEL [place] [address]) [address] [id number] 01:16:00 Test Item Value Reference Range Interpretation Comments ACTIVATED CLOTTING TIME 131 sec TEST ED AT [place] [address] ([facility]) (test code = MARCEL [place] [address]) [address] BLOOD GAS, [id number] 00:54:00 Test Item Value Reference Range Interpretation [...] (BEAKER) (test code = 1819) 100.0 % POC Glucose, [id number] 08:58:00 Test Item Value Reference Range Interpretation Comments POC Glucose (test 146 mg/dL 70-115 H If you con land mobile radio technician your code = POCGLUC) patient crit ically ill, the Magdalene Accu- Chek InformII meters hould not be used for Glu cose determinations. Draw a venous Glucose and send to the Main Lab for Analysis. POC Glucose, [id number] 20:29:00 Test Item Value Reference Range Interpretation Comments POC Glucose (test 146 mg/dL 70-115 H If you con land mobile radio technician your code = POCGLUC) patient crit ically ill, the Magdalene Accu- Chek InformII meters hould not be used for Glu cose determinations. Draw a venous Glucose and send to the Main Lab for Analysis. POC Glucose, [id number] 15:23:00 Test Item Value Reference Range Interpretation Comments POC Glucose (test 135 mg/dL 70-115 H If you con land mobile radio technician your code = POCGLUC) patient crit ically ill, the Magdalene Accu- Chek InformII meters hould not be used for Glu cose determinations. Draw a venous Glucose and send to the Main Lab for Analysis. POC Glucose, [id number] 11:52:00 Test Item Value Reference Range Interpretation Comments POC Glucose (test 123 mg/dL 70-115 H If you con land mobile radio technician your code = POCGLUC) patient crit ically ill, the Mag[place]en Accu- Chek InformII meters hould not be used for Glu cose determinations. Draw a venous Glucose and send to the Main Lab for Analysis. POC Glucose, [id number] 08:01:00 Test Item Value Reference Range Interpretation Comments POC Glucose (test 121 mg/dL 70-115 H If you con land mobile radio technician your code = POCGLUC) patient crit ically ill, the Magdalene Accu- Chek InformII meters hould not be used for Glu cose determinations. Draw a venous Glucose and send to the Main Lab for Analysis. POC Glucose, [id number] 21:22:00 Test Item Value Reference Range Interpretation Comments POC Glucose (test 112 mg/dL 70-115 N If you con land mobile radio technician your code = POCGLUC) patient crit ically ill, the Magdalene Accu- Chek InformII meters hould not be used for Glu cose determinations. Draw a venous Glucose and send to the Main Lab for Analysis. POC Glucose, [id number] 17:06:00 Test Item Value Reference Range Interpretation Comments POC Glucose (test 148 mg/dL 70-115 H If you con land mobile radio technician your code = POCGLUC) patient crit ically ill, the Magdalene Accu- Chek InformII meters hould not be used for Glu cose determinations. Draw a venous Glucose and send to the Main Lab for Analysis. POC Glucose, [id number] 11:21:00 Test Item Value Reference Range Interpretation Comments POC Glucose (test 108 mg/dL 70-115 N If you con land mobile radio technician your code = POCGLUC) patient crit ically ill, the Magdalene Accu- Chek InformII meters hould not be used for Glu cose determinations. Draw a venous Glucose and send to the Main Lab for Analysis. POC Glucose, [id number] 08:13:00 Test Item Value Reference Range Interpretation Comments POC Glucose (test 170 mg/dL 70-115 H If you con land mobile radio technician your code = POCGLUC) patient crit ically ill, the Magdalene Accu- Chek InformII meters hould not be used for Glu cose determinations. Draw a venous Glucose and send to the Main Lab for Analysis. POC Glucose, [id number] 21:10:00 Test Item Value Reference Range Interpretation Comments POC Glucose (test 169 mg/dL 70-115 H If you con land mobile radio technician your code = POCGLUC) patient crit ically ill, the Magdalene Accu- Chek InformII meters hould not be used for Glu cose determinations. Draw a venous Glucose and send to the Main Lab for Analysis. POC Glucose, [id number] 16:25:00 Test Item Value Reference Range Interpretation Comments POC Glucose (test 115 mg/dL 70-115 N If you con land mobile radio technician your code = POCGLUC) patient crit ically ill, the Magdalene Accu- Chek InformII meters hould not be used for Glu cose determinations. Draw a venous Glucose and send to the Main Lab for Analysis. POC Glucose, [id number] 12:41:00 Test Item Value Reference Range Interpretation Comments POC Glucose (test 117 mg/dL 70-115 H If you con land mobile radio technician your code = POCGLUC) patient crit ically ill, the Magdalene Accu- Chek InformII meters hould not be used for Glu cose determinations. Draw a venous Glucose and send to the Main Lab for Analysis. POC Glucose, [id number] 09:32:00 Test Item Value Reference Range Interpretation Comments POC Glucose (test 115 mg/dL 70-115 N If you con land mobile radio technician your code = POCGLUC) patient crit ically ill, the Magdalene Accu- Chek InformII meters hould not be used for Glu cose determinations. Draw a venous Glucose and send to the Main Lab for Analysis. POC Glucose, [id number] 05:20:00 Test Item Value Reference Range Interpretation Comments POC Glucose (test 106 mg/dL 70-115 N If you con land mobile radio technician your code = POCGLUC) patient crit ically ill, the Magdalene Accu- Chek InformII meters hould not be used for Glu cose determinations. Draw a venous Glucose and send to the Main Lab for Analysis. POC Glucose, [id number] 15:32:00 Test Item Value Reference Range Interpretation Comments POC Glucose (test 83 mg/dL 70-115 N If you con land mobile radio technician your code = POCGLUC) patient crit ically ill, the Magdalene Accu- Chek InformII meters hould not be used for Glu cose determinations. Draw a venous Glucose and send to the Main Lab for Analysis. URINE AND [id number] 22:16:001.022[facility] [id number] 22:16:002[facility] [id number] 22:16:00Negative (08/27/16 5:16 PM)[facility] [id number] 22:16:00Negative (08/27/16 5:16 PM)[facility] [id number] 22:16:00Negative (08/27/16 5:16 PM) [facility] [id number] 22:16:00Negative *NA*(08/27/16 5:16 PM) [facility] [id number] 22:16:005.5[facility] [id number] 22:16:00Clear (08/27/16 5:16 PM)[facility] STOOL 2016-08-27 22:16:00Yellow *NA*(08/27/16 5:16 PM)[facility]ann[facility]M PANEL 2016-08-27 09:53:001.1[facility]annCHEM [id number] 09:53:0020[facility]annCHE[facility] [id number] 09:53:0013.7[facility]annCHEM [id number] 09:53:003.6[facility]annCHEM [id number] 09:53:0071[facility]annCHE[facility] [id number] 09:53:0092[facility]annCHE[facility] [id number] 09:53:000.5 [facility] [id number] 09:53:001.20[facility]annCHEM PANEL 2016-08-27 09:53:0024[facility]annCHEM [id number] 09:53:27553Hzyqggwv HermannCHEM [id number] 09:53:003.7[facility]annCHEM [id number] 09:53:29973Iawhnbri HermannCHEM [id number] 09:53:24692Azmrtjcu HermannCHEM [id number] 09:53:0026[facility]annCHEM [id number] 09:53:0032 [facility]CHE[facility] [id number] 09:53:003.9[facility]annCHEM PANEL 2016-08-27 09:53:007.5[facility]annCHEM [id number] 09:53:008.9[facility]annCHEM [id number] 09:53:0012[facility]annCHEM [id number] 09:53:002.0[facility]annCHEM [id number] 09:53:003.7[facility] [place] MQVXQEPGKF0931-18-68 09:53:000.1[facility] ChgvdsgFMTGCIIVKR7170-52-42 09:53:000.2 [facility] UhvzmbzCSOEOXJQPJ7283-10-22 09:53:000.5[facility]annHEMATOLOGY 2016-08-27 09:53:002.2[facility] XilnhovKIOCNNJTAW9428-14-86 09:53:005.4[facility] QxcaageHCSAUJLQSA2720-27-86 09:53:000.7[facility] ZrtjrfjCQISUTVHNO9488-10-26 09:53:002.4[facility] RurbiusTQSDIVCWDW6599-70-07 09:53:005.8[facility] [place] IFUKWGPWDV0317-09-91 09:53:0026.0[facility] YmnavmbASGCABWYAN9460-04-02 09:53:00 65.1[facility] LczjkhgIMIOJYFWEM8154-30-66 09:53:001.04[facility]annHEMATOLOGY 2016-08-27 09:53:00 Test Item Value Reference Range Interpretation Comments PTT (test code = PTT) 27.3 s 22.9-35.8 [facility] [id number] 09:53:00 Test Item Value Reference Range Interpretation Comments PT (test code = PT) 13.8 s 12.0-14.7 [facility] TzdugkySQMHKNTEKO6452-51-72 09:53:0034.2[facility]annHEMATOLOGY 2016-08-27 09:53:0013.6[facility] ZkonpnkNRBODOKSAX9801-48-88 09:53:75921Yvpjqrku VqxnieyCPMBGGIWFV9464-40-91 09:53:009.1[facility] WadkjvjBTTZDYFZPJ7450-63-19 09:53:00 Test Item Value Reference Range Interpretation Comments MCH (test code = MCH) 30.3 pg 27.0-31.0 [facility] [id number] 09:53:008.3[facility]annHEMATOLOGY 2016-08-27 09:53:0036.3[facility] GpxvgupVTQANRAQCS8483-59-37 09:53:0088.8[facility]orial IjwwlbpIRGFBWISZW9176-28-01 09:53:004.09[facility] SdelofpKXLGCGGGFV1474-50-27 09:53:0012.4[facility] MapdjelWAQLARXNMJ1707-05-34 09:53:0035.6[facility] [place] [id number] 09:53:0055[facility] RnuqhjvHTNKUT4406-08-76 09:53:0035[facility] NanwcmcMMAMHL4614-39-24 09:53:89235Olcaqdsc MtgozkmJFPUSF0675-85-62 09:53:96728 [facility] QimniqfYFMAKJ0540-14-74 09:53:0033[facility] XzwzadfVVNTGZ2443-93-92 09:53:003.73[facility] HermannSPECIAL [id number] 09:53:005.3[facility] [place]
[2021-05-04 17:28] LABS: Absolute Lymphocytes (CBC) 2.6 K/uL (0.7-4.9); Basophils % 1.3 % (0-1.3); Hematocrit 48.1 % (39.6-49.0); Lymphocytes % 25.8 % (15.3-44.8); MPV 9.5 fL (7.6-11.3)
[2021-05-04 17:47] LABS: BUN Blood Urea Nitrogen 16 mg/dL (7-18); Bicarbonate 27 mmol/L (21-32); Glucose Level 150 mg/dL (74-106); Sodium Level 141 mmol/L (136-145)
--- NOTE | 2021-05-04 18:31 | RAD REPORT ---
EXAM DESCRIPTION: CT - Chest Abdomen Pelvis W Cont - 05/04/2021 6:09 pm CLINICAL HISTORY: Chest and abdominal pain status post fall COMPARISON: CT abdomen 2014 TECHNIQUE: Computed axial tomography of the chest, abdomen and pelvis was obtained. 100 cc Isovue-30 0 was administered intravenously. Oral contrast was not requested. This limits evaluation of bowel. All CT scans are performed using dose optimization technique as appropriate and may include automated exposure control or mA/KV adjustment according to patient size. FINDINGS: A pleural effusion is not present. No pericardial effusion A pulmonary contusion is not seen. A mediastinal hematoma is not present. The liver, spleen, pancreas, adrenals, kidneys and bladder do not demonstrate a traumatic injury. Cholelithiasis Spondylolysis L5 IMPRESSION: No traumatic injury involving the chest, abdomen nor pelvis is seen.
[2021-05-04] MEDS ORDERED: KETOROLAC 30 MG/ML INJ ONE (19:18)
[2021-05-04] MEDS ORDERED: HYDROCODONE/APAP 5/325 MG TAB ONE (19:18)
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
[2021-05-04 19:50] VITALS: TEMP 97.8
[2021-05-04 19:53] VITALS: BP 126/95; O2SAT 100
== END 2021-05-04 19:42 | disposition home or self-care (01) ==
LOC: ER 15:12
DX: S20.221A Contusion of right back wall of thorax, initial encounter (principal); W10.9XXA Fall (on) (from) unspecified stairs and steps, initial encounter; I10 Essential (primary) hypertension; F41.9 Anxiety disorder, unspecified; Z87.820 Personal history of traumatic brain injury
CPT/HCPCS: 85025; 80048; 36415; 71260; 74177; Q9967; 96374; 99284

== ENCOUNTER 2022-03-12 14:05 | Emergency (ER) | payer OTHER ==
--- OUTSIDE RECORDS SUMMARY | 2022-03-12 14:11 | XMS REPORT | Continuity of Care Document ---
:1965 Author Organization [facility] t Address [address] [place] [address] Dr. [address] [place] [address] Care Team Providers Name Role Phone UNKNOWN Primary Care Physician Unavailable Hector LO, Cherrie Attending Clinician Unavailable Pcp, Does Not Have A Attending Clinician BERE Attending Clinician Unavailable Doctor Unassigned, Name Attending Clinician Unavailable Lab, Fam Pob I Attending Clinician Unavailable Anene WINDOWS SUPPORT ENGINEER Attending Clinician ANENE Attending Clinician Unavailable Lab, Covid Attending Clinician Unavailable Darron KURTZ Attending Clinician DARRON Attending Clinician Unavailable Jose Eduardo JARVIS Attending Clinician Unavailable MARIA DOLORES GUILLEN M.D. Attending Clinician Unavailable Jose Eduardo JARVIS Admitting Clinician Unavailable MARIA DOLORES GUILLEN M.D. Admitting Clinician Unavailable Payers Payer Name Policy Type Policy Number Effective Date Expiration Date S ource Problems Condition Condition Condition Status Onset Resolution Last Treating Co mments Source Name Details Category Date Date Treatment Clinician Date S/P flap S/P flap Disease Active Unive rs graft graft 3-08 ity of 00:00: [place] 00 Medical Branch Decreased Decreased Disease Active Uni vers range of range of 3-08 [place] of motion of [place] of [place] finger 00 [place] Decreased Decreased Disease Active Uni vers range of range of 3-08 [place] of motion of [place] thumb thumb 00 [place] Edema, Edema, Disease Active Univers unspecifie unspecifie 3-08 it y of d type d type 00:00: [place] 00 Medical Branch Hand pain, Hand pain, Disease Active U nivers left left 3-08 ity of 00:00: [place] [facility] Altered Altered Disease Active Univers mental mental 9-26 ity of state state 00:00: Medical Branch Confusion Confusion Disease Active Uni vers 9-23 ity of 00:00: Medical Branch Obesity Obesity Disease Active Univers 9-02 ity of 00:00: Medical Branch Acute Acute Disease Active Univers kidney kidney 8-26 ity of injury injury 00:00: [place] 00 Medical Branch Non-trauma Non-trauma Disease Active U nivers tic tic 8-26 ity of rhabdomyol rhabdomyol [place] y[place] 00 [place] NSTEMI NSTEMI Disease Active Univers (non-ST (non-ST 8-26 ity of elevated elevated 00:00: [place] myocardial myocardial 00 Me dical infarction infarction Br anch ) ) Leukocytos Leukocytos Disease Active U nivers is is 8-26 ity of 00:00: [place] [facility] Hyponatrem Hyponatrem Disease Active U nivers ia ia 8-26 ity of 00:00: Medical Branch NSTEMI NSTEMI Disease Active Univers (non-ST (non-ST 8-26 ity of elevated elevated 00:00: [place] myocardial myocardial 00 Me dical infarction infarction Br anch ) ) Winter Winter Disease Active Univers classified classified 8-21 it y of according according 00:[place] to extent to extent 00 Medi bettye of body of body Branch surface surface involved involved Allergies, Adverse Reactions, Alerts Allergy Allergy Status Severity Reaction(s) Onset Inactive Treating Comm ents Source Name Type Date Date Clinician NO KNOWN Allergy Active [facility] NO KNOWN Drug Active [facility] ALLERGIE Class ity of S [facility] Social History Social Habit Start Date Stop Date Quantity Comments Source Exposure to Yes [facility] SARS-CoV-2 (event) [facility] Cigarettes smoked 2019-08-16 2019-08-16 Univers ity of current (pack per 00:00:00 00:00:00 ) - Reported Branch Alcohol intake 2019-08-16 2019-08-16 Current drinker Sadia rsity of 00:00:00 00:00:00 of alcohol [facility] (finding) [place] Tobacco use and 2019-08-16 2019-08-16 Never used Universit y of exposure 00:00:00 00:00:00 [facility] Tobacco Comment 2016-10-11 2016-10-11 ex states Sadia rsity of 00:00:00 00:00:00 pt is not [facility] smoking Branch Sex [birth year] At [birth year] Universit y of 00:00:00 00:00:00 [facility] Smoking Status Start Date Stop Date Source Current every day smoker 2019-08-16 00:00:00 Uni versity of [facility] Medications Ordered Filled Start Stop Current Ordering Indication Dosage Frequency Signature Comments Components Source Medication Medication Date Date Medication? Clinician (SIG) Name Name metoprolol Yes 25mg Take 25 mg U nivers succinate 9-20 by mouth ity of XL 25 mg 24 18:51: [place]. [place] tablet [address] [place] [address] Branch lisinopril Yes 2.5mg Take 2.5 Un rg 2.5 mg 9-20 mg by ity of tablet 18:51: mouth [place] daily. Medical Branch clopidogrel Yes 75mg Take 75 mg Univers 75 mg 9-20 by mouth ity of tablet 18:51: daily. [address] Branch metoprolol Yes 25mg Take 25 mg U nivers succinate 9-20 by mouth ity of XL 25 mg 24 18:51: [place]. [place] 41 Medical Branch lisinopril Yes 2.5mg Take 2.5 Un rg 2.5 mg 9-20 mg by ity of tablet 18:51: mouth [place] 41 daily. Medical Branch clopidogrel Yes 75mg Take 75 mg Univers 75 mg 9-20 by mouth ity of tablet 18:51: daily. [address] metoprolol 0 Yes 25mg Take 25 mg U nivers succinate 9-20 by mouth ity of XL 25 mg 24 18:51: [place]. [place] 41 Medical Branch lisinopril Yes 2.5mg Take 2.5 Un rg 2.5 mg 9-20 mg by ity of tablet 18:51: mouth [place] 41 daily. Medical Branch clopidogrel 20190 Yes 75mg Take 75 mg Univers 75 mg 9-20 by mouth ity of tablet 18:51: daily. [place] [address] Medical Branch metoprolol 2018-0 Yes 25mg Take 25 mg U nivers succinate 9-20 by mouth ity of XL 25 mg 24 18:51: [place]. [place] 41 [facility] lisinopril 0 Yes 2.5mg Take 2.5 Un rg 2.5 mg 9-20 mg by ity of tablet 18:51: mouth [place] 41 daily. Medical Branch clopidogrel 0 Yes 75mg Take 75 mg Univers 75 mg 9-20 by mouth ity of tablet 18:51: daily. [place] [address] Medical Branch metoprolol 0 Yes 25mg Take 25 mg U nivers succinate 9-20 by mouth ity of XL 25 mg 24 18:51: [place]. [place] 41 [facility] Branch lisinopril 0 Yes 2.5mg Take 2.5 Un rg 2.5 mg 9-20 mg by ity of tablet 18:51: mouth [place] 41 daily. Medical Branch clopidogrel 0 Yes 75mg Take 75 mg Univers 75 mg 9-20 by mouth ity of tablet 18:51: daily. [place] [address] Medical Branch metoprolol 0 Yes 25mg Take 25 mg U nivers succinate 9-20 by mouth ity of XL 25 mg 24 18:51: [place]. [place] 41 [facility] lisinopril 0 Yes 2.5mg Take 2.5 Un rg 2.5 mg 9-20 mg by ity of tablet 18:51: mouth [place] 41 daily. Medical Branch clopidogrel 0 Yes 75mg Take 75 mg Univers 75 mg 9-20 by mouth ity of tablet 18:51: daily. [place] [address] Medical Branch metoprolol 0 Yes 25mg Take 25 mg U nivers succinate 9-20 by mouth ity of XL 25 mg 24 18:51: [place]. [place] 41 [facility] lisinopril 0 Yes 2.5mg Take 2.5 Un rg 2.5 mg 9-20 mg by ity of tablet 18:51: mouth [place] 41 daily. Medical Branch clopidogrel 2018-0 Yes 75mg Take 75 mg Univers 75 mg 9-20 by mouth ity of tablet 18:51: daily. [place] [address] Medical Branch metoprolol Yes 25mg Take 25 mg U nivers succinate 9-20 by mouth ity of XL 25 mg 24 18:51: [place]. [place] 41 [place] Branch lisinopril Yes 2.5mg Take 2.5 Un rg 2.5 mg 9-20 mg by ity of tablet 18:51: mouth [place] [address] daily. Medical Branch clopidogrel Yes 75mg Take 75 mg Univers 75 mg 9-20 by mouth ity of tablet 18:51: daily. [place] [address] Medical Branch metoprolol Yes 25mg Take 25 mg U nivers succinate 9-20 by mouth ity of XL 25 mg 24 18:51: [place]. [place] 41 [facility] lisinopril Yes 2.5mg Take 2.5 Un rg 2.5 mg 9-20 mg by ity of tablet 18:51: mouth [place] [address] daily. Medical Branch clopidogrel Yes 75mg Take 75 mg Univers 75 mg 9-20 by mouth ity of tablet 18:51: daily. [place] [address] Medical Branch atorvastati Yes [id number] 80mg Take 1 Univers n 80 mg 9-20 tablet by ity of tablet 00:00: mouth at [place] [address] bedtime. Medical Branch atorvastati Yes [id number] 80mg Take 1 Univers n 80 mg 9-20 tablet by ity of tablet 00:00: mouth at [place] [address] bedtime. Medical Branch atorvastati Yes [id number] 80mg Take 1 Univers n 80 mg 9-20 tablet by ity of tablet 00:00: mouth at [place] [address] bedtime. Medical Branch atorvastati Yes [id number] 80mg Take 1 Univers n 80 mg 9-20 tablet by ity of tablet 00:00: mouth at [place] [address] bedtime. Medical Branch atorvastati Yes [id number] 80mg Take 1 Univers n 80 mg 9-20 07 tablet by ity of tablet 00:00: mouth at [place] [address] bedtime. Medical Branch atorvastati Yes [id number] 80mg Take 1 Univers n 80 mg 9-20 tablet by ity of tablet 00:00: mouth at [place] [address] bedtime. Medical Branch atorvastati Yes [id number] 80mg Take 1 Univers n 80 mg 9-20 tablet by ity of tablet 00:00: mouth at [place] [address] bedtime. Medical Branch atorvastati 2018-0 Yes [id number] 80mg Take 1 Univers n 80 mg 9-20 tablet by ity of tablet 00:00: mouth at [place] [address] bedtime. Medical Branch atorvastati Yes [id number] 80mg Take 1 Univers n 80 mg 9-20 tablet by ity of tablet 00:00: mouth at [place] [address] bedtime. Medical Branch metoprolol 2019-0 Yes 25mg Take 25 mg U nivers succinate 7-18 by mouth ity of XL 25 mg 24 13:33: [place]. [place] 12 [facility] lisinopril 2018- Yes 2.5mg Take 2.5 Un rg 2.5 mg 7-18 mg by ity of tablet 13:33: mouth [place] 12 daily. Medical Branch clopidogrel 2018- Yes 75mg Take 75 mg Univers 75 mg 7-18 by mouth ity of tablet 13:33: daily. [place] [address] Medical Branch atorvastati Yes 80mg Take 80 mg Univers n 80 mg 7-18 by mouth ity of tablet 13:33: at [place] [address] bedtime. Medical Branch metFORMIN Yes [id number] 500mg Take 1 U nivers 500 mg 7-02 tablet by ity of tablet 00:00: mouth 2 [place] [facility] Medical times Branch daily with meals. metFORMIN Yes [id number] 500mg Take 1 U nivers 500 mg 7-02 tablet by ity of tablet 00:00: mouth 2 [place] (two) Medical times Branch daily with meals. metFORMIN Yes [id number] 500mg Take 1 U nivers 500 mg 7-02 tablet by ity of tablet 00:00: mouth 2 [place] (two) Medical times Branch daily with meals. metFORMIN 2018-0 Yes [id number] 500mg Take 1 U nivers 500 mg 7-02 tablet by ity of tablet 00:00: mouth 2 [place] (two) Medical times Branch daily with meals. metFORMIN 2018-0 Yes [id number] 500mg Take 1 U nivers 500 mg 7-02 tablet by ity of tablet 00:00: mouth 2 [place] (two) Medical times Branch daily with meals. metFORMIN 2018-0 Yes [id number] 500mg Take 1 U nivers 500 mg 7-02 tablet by ity of tablet 00:00: mouth 2 [place] 00 (two) Medical times Branch daily with meals. metFORMIN Yes [id number] 500mg Take 1 U nivers 500 mg 7-02 tablet by ity of tablet 00:00: mouth 2 [place] 00 (two) Medical times Branch daily with meals. metFORMIN 2018- Yes [id number] 500mg Take 1 U nivers 500 mg 7-02 tablet by ity of tablet 00:00: mouth 2 [place] 00 (two) Medical times Branch daily with meals. metFORMIN Yes [id number] 500mg Take 1 U nivers 500 mg 7-02 tablet by ity of tablet 00:00: mouth 2 [place] 00 (two) Medical times Branch daily with meals. metFORMIN Yes [id number] 500mg Take 1 U nivers 500 mg 7-02 tablet by ity of tablet 00:00: mouth 2 [place] 00 (two) Medical times Branch daily with meals. thiamine 2015-11 Yes 100mg Take 1 Univer s (VITAMIN 0-01 tablet by ity of B1) 100 mg 00:00: mouth [place] tablet 00 daily. Medical Branch thiamine 2015-11 Yes 100mg Take 1 Univer s (VITAMIN 0-01 tablet by ity of B1) 100 mg 00:00: mouth [place] tablet 00 daily. Medical Branch thiamine 2015-11 Yes 100mg Take 1 Univer s (VITAMIN 0-01 tablet by ity of B1) 100 mg 00:00: mouth [place] tablet 00 daily. Medical Branch thiamine 2015-11 Yes 100mg Take 1 Univer s (VITAMIN 0-01 tablet by ity of B1) 100 mg 00:00: mouth [place] tablet 00 daily. Medical Branch thiamine 2015-11 Yes 100mg Take 1 Univer s (VITAMIN 0-01 tablet by ity of B1) 100 mg 00:00: mouth [place] tablet 00 daily. Medical Branch thiamine 2015-11 Yes 100mg Take 1 Univer s (VITAMIN 0-01 tablet by ity of B1) 100 mg 00:00: mouth [place] tablet 00 daily. Medical Branch thiamine 2015-11 Yes 100mg Take 1 Univer s (VITAMIN 0-01 tablet by ity of B1) 100 mg 00:00: mouth [place] tablet 00 daily. Medical Branch thiamine 2015-11 Yes 100mg Take 1 Univer s (VITAMIN 0-01 tablet by ity of B1) 100 mg 00:00: mouth [place] tablet 00 daily. Medical Branch thiamine 2015-11 Yes 100mg Take 1 Univer s (VITAMIN 0-01 tablet by ity of B1) 100 mg 00:00: mouth [place] tablet 00 daily. Medical Branch thiamine 2015-11 Yes 100mg Take 1 Univer s (VITAMIN 0-01 tablet by ity of B1) 100 mg 00:00: mouth [place] tablet 00 daily. [facility] Immunizations Ordered Filled Immunization Date Status Comments [facility] Immunization Name Name Pneumococcal 2016-08-26 Completed University o f Polysaccharide, 00:00:00 [place] Med ical PPSV23 (PNEUMOVAX) Branch Influenza Virus 2016-08-26 Completed Universit y of Vaccine Quad IM 3+ 00:00:00 [facility] Pneumococcal 2016-08-26 Completed University o f Polysaccharide, 00:00:00 [place] Med ical PPSV23 (PNEUMOVAX) Branch Influenza Virus 2016-08-26 Completed Universit y of Vaccine Quad IM 3+ 00:00:00 [facility] Pneumococcal 2016-08-26 Completed University o f Polysaccharide, 00:00:00 [place] Med ical PPSV23 (PNEUMOVAX) Branch Influenza Virus 2016-08-26 Completed Universit y of Vaccine Quad IM 3+ 00:00:00 [facility] Pneumococcal 2016-08-26 Completed University o f Polysaccharide, 00:00:00 [place] Med ical PPSV23 (PNEUMOVAX) Branch Influenza Virus 2016-08-26 Completed Universit y of Vaccine Quad IM 3+ 00:00:00 [facility] Pneumococcal 2016-08-26 Completed University o f Polysaccharide, 00:00:00 [place] Med ical PPSV23 (PNEUMOVAX) Branch Influenza Virus 2016-08-26 Completed Universit y of Vaccine Quad IM 3+ 00:00:00 [facility] Pneumococcal 2016-08-26 Completed University o f Polysaccharide, 00:00:00 [place] Med ical PPSV23 (PNEUMOVAX) Branch Influenza Virus 2016-08-26 Completed Universit y of Vaccine Quad IM 3+ 00:00:00 [facility] Pneumococcal 2016-08-26 Completed University o f Polysaccharide, 00:00:00 [place] Med ical PPSV23 (PNEUMOVAX) Branch Influenza Virus 2016-08-26 Completed Universit y of Vaccine Quad IM 3+ 00:00:00 [facility] Pneumococcal 2016-08-26 Completed University o f Polysaccharide, 00:00:00 [place] Med ical PPSV23 (PNEUMOVAX) Branch Influenza Virus 2016-08-26 Completed Universit y of Vaccine Quad IM 3+ 00:00:00 [facility] Pneumococcal 2016-08-26 Completed University o f Polysaccharide, 00:00:00 [place] Med ical PPSV23 (PNEUMOVAX) Branch Influenza Virus 2016-08-26 Completed Universit y of Vaccine Quad IM 3+ 00:00:00 [facility] Pneumococcal 2016-08-26 Completed University o f Polysaccharide, 00:00:00 [place] Med ical PPSV23 (PNEUMOVAX) [place] Influenza Virus 2016-08-26 Completed Universit y of Vaccine Quad IM 3+ 00:00:00 [facility] Procedures Procedure Date / Time Performing Clinician Source Performed ASSIGNMENT OF BENEFITS 2021-07-13 21:04:28 [facility] [place] NO SHOW OR MISSED 2019-08-16 18:25:32 Doctor Unassigned, [facility] APPOINTMENT POLICY [facility] h ACKNOWLEDGEMENT Encounters Start End Encounter Admission Attending Care Care Encounter Source Date/Time Date/Time Type Type Clinicians Facility Department ID 2021-07-15 2021-07-15 Telephone FILIBERTO Young [id number] [facility] 00:00:00 00:00:00 Cecille RODRIGUEZ [id number] i ty of [facility] 4.2.7.2.686 Manish as [phone] [address] 2021-07-15 2021-07-15 Telephone Pcp, [facility] [id number] Univers 00:00:00 00:00:00 Patient Health [id number] it y of Does Not Surgical 4.2.7.2.686 [place] Have A Specialti [phone] Va dical es [address] [facility] 2021-07-13 2021-07-13 Outpatient R [facility] [id number] Univers 16:00:00 16:00:00 [id number] ity [facility] 2021-07-13 2021-07-13 Outpatient R BERE [facility] [id number] Univers 16:00:00 16:00:00 CHAY ity [facility] 2021-07-13 2021-07-13 Orders Doctor FILIBERTO [id number] Univers 00:00:00 00:00:00 Only Unassigned, JENNIFER [id number] ity of [facility] 4.2.7.2.686 Manish as [phone] [address] 2021-07-12 2021-07-12 Outpatient [facility] [id number] Univers 12:00:00 12:00:00 [id number] ity [facility] 2021-07-09 2021-07-09 Outpatient [facility] [id number] Univers 12:00:00 12:00:00 [id number] [facility] 2021-01-01 2021-01-01 Laboratory Lab, [facility] [id number] 14:02:43 14:22:43 Only Fam Pob I Health 350.1.13.10 [place] 4.2.7.2.686 Professio [phone] [address] One 2021-01-01 2021-01-01 Laboratory Lab, [facility] Fam Pob I [facility] 1.2. [id number] Univers 14:02:43 14:22:43 Only Shalonda Cormier 350.1.13.10 ity [facility] 4.2.7.2.686 Manish as Professio [phone] Va dical [address] Office Building One 2021-01-01 2021-01-01 Outpatient [facility] [id number] Univers 13:20:00 13:20:00 [id number] y [facility] 2021-01-01 2021-01-01 Outpatient R ARLEEN [facility] [id number] Univers 13:20:00 13:20:00 SHALONDA ity [facility] 2021-01-01 2021-01-01 Letter Doctor FILIBERTO [id number] 00:00:00 00:00:00 (Out) Unassigned, JENNIFER [id number] [facility] 4.2.7.2.686 [id number] [facility] 2021-01-01 2021-01-01 Letter Lab, Pcp [facility] [id number] 00:00:00 00:00:00 (Out) Covid Health 350.1.13.10 [place] 4.2.7.2.686 Professio [phone] [place] [address] Office [address] One 2021-01-01 2021-01-01 Letter Lab, Pcp [facility] [id number] Univers 00:00:00 00:00:00 (Out) Covid Health 350.1.13.10 it y of [place] 4.2.7.2.686 Manish as Professio [phone] Va dical [address] Office Building One 2021-01-01 2021-01-01 Letter Doctor FILIBERTO [id number] Univers 00:00:00 00:00:00 (Out) Unassigned, JENNIFER 350.1.13.10 ity of [place] 4.2.7.2.686 Manish as [phone] [address] 2020-06-08 2020-06-08 Letter Lab, Pcp [facility] 1.2.840.114 [id number] 00:00:00 00:00:00 (Out) [facility] Health 350.1.13.10 [place] 4.2.7.2.686 Professio [phone] [place] [address] Office [address] One 2020-06-08 2020-06-08 Letter Lab, Pcp [facility] [id number] Univers 00:00:00 00:00:00 (Out) Covid Health 350.1.13.10 it y of [place] 4.2.7.2.686 Manish as Professio [phone] Va dical nal [address] [place] [address] Office Building One 2020-06-04 2020-06-04 Laboratory Lab, Adc [facility] 1.2.840.114 [id number] 11:06:05 11:26:05 Only Fam Pob I Health 350.1.13.10 [place] 4.2.7.2.686 Professio [phone] [place] [address] Office [address] One 2020-06-04 2020-06-04 Laboratory Lab, Adc Fam Pob I [facility] 1.2. 840.114 [id number] Univers 11:06:05 11:26:05 Only Shalonda Cormier 350.1.13.10 ity [facility] 4.2.7.2.686 Manish as Professio [phone] Va dical [address] [facility] One 2020-06-04 2020-06-04 Outpatient R [facility] [id number] Univers 11:00:00 11:00:00 [id number] ity [facility] 2020-06-04 2020-06-04 Outpatient R [facility] [id number] Univers 11:00:00 [facility]:00[facility] 2020[facility] [facility] [id number] 09:00:00 09:20:00 ne Visit [facility] 350.1.13.10 [place] 4.2.7.2.686 Professio [phone] [address] 2020-02-17 2020-02-17 [facility] 1.2.840.114 [id number] Univers 09:00:00 09:20:00 ne Visit [facility] 350.1.13.10 [facility] 4.2.7.2.686 [place] Profess[place] [phone] Va dical [address] 2020-02-17 2020-02-17 [facility] [id number] Univers 09:00:00 09:00:00 MIKAYLA [id number] cierra o f [facility] 2020-02-17 2020-02-17 [facility] [id number] Univers 09:00:00 09:00:00 MIKAYLA norotn o f [facility] 2019-08-16 2019-08-16 Orders Doctor DE [place] 1.2.840.114 [id number] 00:00:00 00:00:00 Only Unassigned, JENNIFER 350.1.13.10 [facility] 4.2.7.2.686 [id number] [id number] 2019-08-16 2019-08-16 Orders Doctor FILIBERTO 1.2.840.114 [id number] Univers 00:00:00 00:00:00 Only Unassigned, JENNIFER 350.1.13.10 ity of [facility] 4.2.7.2.686 [facility] as [phone] [place] [address] Branch 2018-01-03 2018-01-07 Inpatient MARIA DOLORES BARRERA [facility] [id number] 14:29:00 09:32:00 , Daniel [facility] 2018-01-01 2018-01-01 Inpatient MARIA DOLORES GUILLEN [facility] [id number] 11:16:00 11:16:00 , Regino [facility] Results Test Description Test Time Test Comments Results Result Comments Source POCT-GLUCOSE METER 2019-01-22 11:26:00 Test Item Value Reference Range Interpretation Comme nts POC-GLUCOSE METER (BEAKER) (test 127 mg/dL 70-110 H TESTED AT [facility] [address] [facility] code = 1538) [facility] 7703 0 BLOOD [id number] 11:01:00 Test Item Value Reference Range Interpretation Comments CULTURE (BEAKER) (test No growth in 5 days code = 1095) BLOOD [id number] 11:01:00 Test Item Value Reference Range Interpretation Comments CULTURE (BEAKER) (test No growth in 5 days code = 1095) RAD, CHEST, 1 VIEW, NON [id number] 09:30:00Reason for exam:- >vetned/stemiShould this be performed at the bedside?->YesFINAL REPORT Clinical History: vetned/stemi Comparison Study: January 21, 2019 Findings: The heart and lungs are within normal limits. The pleural spaces are clear. No significant bony or soft tissue abnormalities are seen. Impression: No active cardiopulmonary disease. Signed: Endy Wilson Verified Date/Time: 01/22/2019 09:30:48 Reading Location: [facility] Radiology Reading Room POCT-GLUCOSE [id number] 08:44:00 Test Item Value Reference Range Interpretation Comments POC-GLUCOSE METER 157 mg/dL 70-110 H TESTED AT [facility] 6720 (BEAKER) (test code = [place] 1538) [address] BASIC METABOLIC [id number] 05:27:00 Test Item Value Reference Range Interpretation [...] m DATA TO CALCULA TE ESTIMATED GFR. [id number] 05:24:00 Test Item Value Reference Range Interpretation Comments MAGNESIUM (BEAKER) (test code = 1.7 mg/dL 1.6-2.6 627) CBC W/PLT COUNT & AUTO [id number] 04:53:00 Test Item Value Reference Range Interpretation [...] PERCENT (BEAKER) (test code = 2801) POCT-GLUCOSE [id number] 21:23:00 Test Item Value Reference Range Interpretation Comments POC-GLUCOSE METER 172 mg/dL 70-110 H TESTED AT [place] [address] [facility] (test code = [place] 1538) [id number] POCT-GLUCOSE [id number] 17:36:00 Test Item Value Reference Range Interpretation Comments POC-GLUCOSE METER 124 mg/dL 70-110 H TESTED AT [place] [address] ([facility]) (test code = [place] 1538) [id number] POCT-GLUCOSE [id number] 11:45:00 Test Item Value Reference Range Interpretation Comments POC-GLUCOSE METER 137 mg/dL 70-110 H TESTED AT [place] [address] (BEAKER) (test code = MARCEL [place] [facility] 1538) [address] RAD, CHEST, 1 VIEW, NON [id number] 08:00:00Reason for exam:- >vetned/stemiShould this be performed [...] MDReport Verified Date/Time: 01/21/2019 08:00:55 Reading Location: [facility] Radiology Reading Room POCT-GLUCOSE [id number] 07:12:00 Test Item Value Reference Range Interpretation Comments POC-GLUCOSE METER 142 mg/dL 70-110 H TESTED AT [facility] 6720 ([facility]) (test code = [place] [facility] 1538) [address] BASIC METABOLIC [id number] 06:18:00 Test Item Value Reference Range Interpretation [...] m DATA TO CALCULA TE ESTIMATED GFR. [id number] 06:14:00 Test Item Value Reference Range Interpretation Comments MAGNESIUM (BEAKER) (test code = 1.5 mg/dL 1.6-2.6 L 627) CBC W/PLT COUNT & AUTO [id number] 05:24:00 Test Item Value Reference Range Interpretation [...] PERCENT (BEAKER) (test code = 2801) POCT-GLUCOSE [id number] 22:46:00 Test Item Value Reference Range Interpretation Comments POC-GLUCOSE METER 123 mg/dL 70-110 H TESTED AT [place] [address] (BEAKER) (test code = MARCEL Marcial [place] 1538) [address] SPUTUM CULTURE + GRAM [id number] 20:40:00 Test Item Value Reference Range Interpretation Comments CULTURE (BEAKER) 4+ Normal respiratory (test code = 1095) stevie present GRAM STAIN RESULT 4+ WBCs (BEAKER) (test code = 1123) GRAM STAIN RESULT 0-5 epithelial cells (BEAKER) (test code = 85070) GRAM STAIN RESULT 1+ gram positive cocci (BEAKER) (test code = in pairs 27986) GRAM STAIN RESULT 4+ gram positive cocci (BEAKER) (test code = in chains [id number]) GRAM STAIN RESULT 2+ gram positive cocci (BEAKER) (test code = in clusters [id number]) POCT-GLUCOSE [id number] 18:11:00 Test Item Value Reference Range Interpretation Comments POC-GLUCOSE METER 217 mg/dL 70-110 H TESTED AT [place] [id number] (BEAKER) ([facility] = [facility] [place] [address]) [address] POCT-GLUCOSE [id number] 13:04:00 Test Item Value Reference Range Interpretation Comments POC-GLUCOSE METER 140 mg/dL 70-110 H TESTED AT [place] [address] (BEAKER) (test code = [facility] [place] 1538) [address] POCT-GLUCOSE [id number] 08:23:00 Test Item Value Reference Range Interpretation Comments POC-GLUCOSE METER 176 mg/dL 70-110 H TESTED AT [place] [address] (BEAKER) (test code = MARCEL Marcial [place] 1538) [address] BASIC METABOLIC [id number] 05:41:00 Test Item Value Reference Range Interpretation [...] m DATA TO CALCULA TE ESTIMATED GFR. [id number] 05:40:00 Test Item Value Reference Range Interpretation Comments MAGNESIUM (BEAKER) (test code = 1.7 mg/dL 1.6-2.6 627) HEPATIC FUNCTION [id number] 05:40:00 Test Item Value Reference Range Interpretation [...] H 347) RAD, CHEST, 1 VIEW, NON [id number] 05:37:00Reason for exam:- >vetned/stemiShould this be performed at the bedside?->YesFINAL REPORT RAD, CHEST, 1 VIEW, NON DEPT INDICATION: vetned/stemi COMPARISON: Prior day's exam FINDINGS: Portable frontal view of the chest. IMPRESSION: Lungs and pleura: Unchanged airspace and pleural opacities. No pneumothorax.Heart and mediastinum: Stable contours. Additional findings: None. Signed: Beck Odonnell Verified Date/Time: 01/20/2019 05:37:46 Reading Location: [address] Transitional Reading Room CBC W/PLT COUNT & AUTO [id number] 05:06:00 Test Item Value Reference Range Interpretation [...] PERCENT (BEAKER) (test code = 2801) POCT-GLUCOSE [id number] 22:24:00 Test Item Value Reference Range Interpretation Comments POC-GLUCOSE METER 127 mg/dL 70-110 H TESTED AT [place] [address] ([facility]) (test code = [facility] 1538) [address] POCT-GLUCOSE [id number] 16:58:00 Test Item Value Reference Range Interpretation Comments POC-GLUCOSE METER 130 mg/dL 70-110 H TESTED AT [place] [address] ([facility]) (test code = [facility] 1538) [address] [id number] 15:24:00 Test Item Value Reference Range Interpretation Comments MAGNESIUM (BEAKER) 1.7 mg/dL 1.6-2.6 Specimen slightly (test code = 627) hemolyzed RAD, CHEST, 1 VIEW, NON [id number] 12:40:00Reason for exam:- >vetned/stemiShould this be performed at the bedside?->YesFINAL REPORT Comparison: 01/18/2019 TECHNIQUE: Single view of the chest FINDINGS: Lung volumes are low. Cardiac silhouette is prominent. Soft tissues and bones are unremarkable. Signed: Kelby Ball Verified Date/Time: 01/19/2019 12:40:50 Reading Location: [address] Reading Room POCT-GLUCOSE [id number] 12:33:00 Test Item Value Reference Range Interpretation Comments POC-GLUCOSE METER 120 mg/dL 70-110 H TESTED AT [facility] 67[address] (BEAKER) (test code = [place] 1538) [address] EEG MONITORING WITH VIDEO RECORDING EACH 24 [id number] 10:46:00morning read for REPORT: [facility] Date of EEDate of report: start time: 09:33EEG end time: 20:55EEG #: [id number] No: [id number] ICD Code: #: R41.82 Altered mental status, unspecified (ICD 9: 780.97)CPT Code: #: 80244: Monitoring for localization of seizure focPROCEDURE: EEG [...] Fellow: Alan RojoaNeurophysiologist: Melinda Tan BASIC METABOLIC [id number] 05:51:00 Test Item Value Reference Range Interpretation [...] 0-0 (BEAKER) (test code = 413) POCT-GLUCOSE [id number] 23:44:00 Test Item Value Reference Range Interpretation Comments POC-GLUCOSE METER 119 mg/dL 70-110 H TESTED AT [facility] 67[address] [facility] (test code = MARCEL Marcial [place] 1538) [address] POCT-GLUCOSE [id number] 16:16:00 Test Item Value Reference Range Interpretation Comments POC-GLUCOSE METER 123 mg/dL 70-110 H TESTED AT [facility] 67[address] ([facility]) (test code = MARCEL Marcial [place] 1538) [address] EEG MONITORING WITH VIDEO RECORDING EACH 24 [id number] 11:47:00For STAT EEG- after 5 PM weekdays, weekends and holidays, page 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 Please correlate clinically.Clinical Fellow: Nilsa Mercedessiologist: Melinda Tan RIDE, RANDOM [id number] 11:39:00 Test Item Value Reference Range Interpretation Comments CHLORIDE URINE (BEAKER) (test code = 49 meq/L 682) Reference Range: No NormalsPOTASSIUM, RANDOM [id number] 11:39:00 Test Item Value Reference Range Interpretation Comments POTASSIUM URINE (BEAKER) (test 43.9 meq/L code = 195) Reference Range: No NormalsSODIUM, RANDOM [id number] 11:39:00 Test Item Value Reference Range Interpretation Comments SODIUM URINE (BEAKER) (test code = 141 meq/L 243) Reference Range: No NormalsLACTIC ACID, ARTERIAL, WHOLE [id number] 11:08:00 Test Item Value Reference Range Interpretation Comments LACTATE BLOOD ARTERIAL (2) 0.8 mmol/L 0.5-2.2 (BEAKER) (test code = 2874) KETONE, [id number] 10:50:00 Test Item Value Reference Range Interpretation Comments KETONES, BLOOD (BEAKER) (test code 4.4 mmol/L <0.4 H = 1103) RAD, CHEST, 1 VIEW, NON [id number] 10:41:00Reason for exam:- >vented/stemiShould this be performed [...] Chan Verified Date/Time: 01/18/2019 10:41:02 Reading Location: [facility] Radiology Reading Room POCT-GLUCOSE [id number] 10:11:00 Test Item Value Reference Range Interpretation Comments POC-GLUCOSE METER 80 mg/dL 70-110 TESTED AT [facility] 6720 (BEAKER) (test code = [place] [address]38) [id number] 07:36:00 Test Item Value Reference Range Interpretation Comments MAGNESIUM (BEAKER) 2.0 mg/dL 1.6-2.6 Specimen slightly (test code = 627) hemolyzed BLOOD GAS, [id number] 04:48:00 Test Item Value Reference Range Interpretation [...] (test code = 1819) 40.0 % TROPONIN [id number] 04:32:00 Test Item Value Reference Range Interpretation [...] acute neurological disease, and persistent tachyarrhythmia.BASIC METABOLIC [id number] 04:31:00 Test Item Value Reference Range Interpretation [...] 0-0 (BEAKER) (test code = 413) POCT-GLUCOSE [id number] 00:18:00 Test Item Value Reference Range Interpretation Comments POC-GLUCOSE METER 117 mg/dL 70-110 H TESTED AT [facility] 67[address] ([facility]) (test code = [place] 1538) [address] POCT-GLUCOSE [id number] 21:48:00 Test Item Value Reference Range Interpretation Comments POC-GLUCOSE METER 89 mg/dL 70-110 TESTED AT [facility] 6720 (BEAKER) (test code = [facility] [address]38) [id number] 21:02:00 Test Item Value Reference Range Interpretation Comments POTASSIUM (BEAKER) (test code = 4.5 meq/L 3.5-5.1 379) [id number] 21:02:00 Test Item Value Reference Range Interpretation Comments MAGNESIUM (BEAKER) (test code = 2.1 mg/dL 1.6-2.6 627) POCT-GLUCOSE [id number] 15:54:00 Test Item Value Reference Range Interpretation Comments POC-GLUCOSE METER 107 mg/dL 70-110 TESTED AT [place] [address] (BEAKER) (test code = [facility] 1538) [address] COMPREHENSIVE METABOLIC [id number] 15:24:00 Test Item Value Reference Range Interpretation [...] CALCULATE ESTIM ATED GFR. EEG AWAKE AND [id number] 14:53:00Reason for exam:->unresponsive post arrestEEG REPORT: [facility]ita [facility] Date of EEDate of report: Test location: Inpatient - ICUEEG start time: 8:46EEG end time: 9:08EEG #: [id number] No: [id number] ICD Code: #: R41.82 Altered mental status, unspecified (ICD 9: 780.97)CPT Code: #: 36294: 01. EEG awake and drowsy; 20-40 minPROCEDURE: [...] Melinda Tan CBC W/PLT COUNT & AUTO [id number] 14:52:00 Test Item Value Reference Range Interpretation [...] code = 2801) URINALYSIS W/ REFLEX URINE [id number] 10:28:00 Test Item Value Reference Range Interpretation [...] code = 1584) SOURCE(BEAKER) (test code = 2795) [id number] 10:23:00 Test Item Value Reference Range Interpretation [...] 2.5-3.5 for patients with mechanical heart valves.HEMOGLOBIN [id number] 10:12:00 Test Item Value Reference Range Interpretation Comments HEMOGLOBIN A1C (RYANNE) (test code = 6.6 % 4.3-6.1 H 368) POCT-GLUCOSE [id number] 09:01:00 Test Item Value Reference Range Interpretation Comments POC-GLUCOSE METER 141 mg/dL 70-110 H TESTED AT [facility] 67[address] (RYANNE) (test code = [place] 1538) [address] TROPONIN [id number] 08:57:00 Test Item Value Reference Range Interpretation [...] Odonnellort Verified Date/Time: 01/17/2019 07:03:53 Reading Location: [address] Reading Room RAD, CHEST, 1 VIEW, NON [id number] 03:53:00Reason for exam:->s/p intubationShould this be performed [...] Wilson Verified Date/Time: 01/17/2019 03:53:21 Reading Location: [address] Reading Room Julia ctronically signed by: JOSIAS WILSON M.D. on 01/17/2019 03:53 AMBLOOD GAS, [id number] 03:13:00 Test Item Value Reference Range Interpretation [...] (test code = 1819) 60.0 % TROPONIN [id number] 03:13:00 Test Item Value Reference Range Interpretation [...] failure, acidosis, acute neurological disease, and persistent tachyarrhythmia.[id number] 02:59:00 Test Item Value Reference Range Interpretation [...] for patients with mechanical heart valves.BASIC METABOLIC [id number] 02:52:00 Test Item Value Reference Range Interpretation [...] TO CALCULA TE ESTIMATED GFR. COMPREHENSIVE METABOLIC [id number] 02:52:00 Test Item Value Reference Range Interpretation [...] < pg/mL 0-100 (test code = 700) [id number] 02:45:00 Test Item Value Reference Range Interpretation Comments MAGNESIUM (BEAKER) 2.0 mg/dL 1.6-2.6 Specimen slightly (test code = 627) hemolyzed LIPID [id number] 02:45:00 Test Item Value Reference Range Interpretation [...] Borderline 130-159 High 160-189 Very High >=190PROTHROMBIN [id number] 02:40:00 Test Item Value Reference Range Interpretation [...] WBC 0-0 (BEAKER) (test code = 413) [id number] 01:16:00 Test Item Value Reference Range Interpretation Comments ACTIVATED CLOTTING TIME 301 sec TEST ED AT [place] [address] (BEAKER) (test code = [place] 441) [address] [id number] 01:16:00 Test Item Value Reference Range Interpretation Comments ACTIVATED CLOTTING TIME 131 sec TEST ED AT [place] [address] ([facility]) (test code = [place] 441) [address] BLOOD GAS, [id number] 00:54:00 Test Item Value Reference Range Interpretation [...] code = 1819) 100.0 % POC Glucose, [id number] 08:58:00 Test Item Value Reference Range Interpretation Comments POC Glucose (test 146 mg/dL 70-115 H If you con organic section technical lead your code = POCGLUC) patient crit ically ill, the Magdalene Accu- Chek InformII meters hould not be used for Glu cose determinations. Draw a venous Glucose and send to the Main Lab for Analysis. POC Glucose, [id number] 20:29:00 Test Item Value Reference Range Interpretation Comments POC Glucose (test 146 mg/dL 70-115 H If you con organic section technical lead your code = POCGLUC) patient crit ically ill, the Magdalene Accu- Chek InformII meters hould not be used for Glu cose determinations. Draw a venous Glucose and send to the Main Lab for Analysis. POC Glucose, [id number] 15:23:00 Test Item Value Reference Range Interpretation Comments POC Glucose (test 135 mg/dL 70-115 H If you con organic section technical lead your code = POCGLUC) patient crit ically ill, the Magdalene Accu- Chek InformII meters hould not be used for Glu cose determinations. Draw a venous Glucose and send to the Main Lab for Analysis. POC Glucose, [id number] 11:52:00 Test Item Value Reference Range Interpretation Comments POC Glucose (test 123 mg/dL 70-115 H If you con organic section technical lead your code = POCGLUC) patient crit ically ill, the Magdalene Accu- Chek InformII meters hould not be used for Glu cose determinations. Draw a venous Glucose and send to the Main Lab for Analysis. POC Glucose, [id number] 08:01:00 Test Item Value Reference Range Interpretation Comments POC Glucose (test 121 mg/dL 70-115 H If you con organic section technical lead your code = POCGLUC) patient crit ically ill, the Magdalene Accu- Chek InformII meters hould not be used for Glu cose determinations. Draw a venous Glucose and send to the Main Lab for Analysis. POC Glucose, [id number] 21:22:00 Test Item Value Reference Range Interpretation Comments POC Glucose (test 112 mg/dL 70-115 N If you con organic section technical lead your code = POCGLUC) patient crit ically ill, the Magdalene Accu- Chek InformII meters hould not be used for Glu cose determinations. Draw a venous Glucose and send to the Main Lab for Analysis. POC Glucose, [id number] 17:06:00 Test Item Value Reference Range Interpretation Comments POC Glucose (test 148 mg/dL 70-115 H If you con organic section technical lead your code = POCGLUC) patient crit ically ill, the Magdalene Accu- Chek InformII meters hould not be used for Glu cose determinations. Draw a venous Glucose and send to the Main Lab for Analysis. POC Glucose, [id number] 11:21:00 Test Item Value Reference Range Interpretation Comments POC Glucose (test 108 mg/dL 70-115 N If you con organic section technical lead your code = POCGLUC) patient crit ically ill, the Magdalene Accu- Chek InformII meters hould not be used for Glu cose determinations. Draw a venous Glucose and send to the Main Lab for Analysis. POC Glucose, [id number] 08:13:00 Test Item Value Reference Range Interpretation Comments POC Glucose (test 170 mg/dL 70-115 H If you con organic section technical lead your code = POCGLUC) patient crit ically ill, the Magdalene Accu- Chek InformII meters hould not be used for Glu cose determinations. Draw a venous Glucose and send to the Main Lab for Analysis. POC Glucose, [id number] 21:10:00 Test Item Value Reference Range Interpretation Comments POC Glucose (test 169 mg/dL 70-115 H If you con organic section technical lead your code = POCGLUC) patient crit ically ill, the Magdalene Accu- Chek InformII meters hould not be used for Glu cose determinations. Draw a venous Glucose and send to the Main Lab for Analysis. POC Glucose, [id number] 16:25:00 Test Item Value Reference Range Interpretation Comments POC Glucose (test 115 mg/dL 70-115 N If you con organic section technical lead your code = POCGLUC) patient crit ically ill, the Magdalene Accu- Chek InformII meters hould not be used for Glu cose determinations. Draw a venous Glucose and send to the Main Lab for Analysis. POC Glucose, [id number] 12:41:00 Test Item Value Reference Range Interpretation Comments POC Glucose (test 117 mg/dL 70-115 H If you con organic section technical lead your code = POCGLUC) patient crit ically ill, the Magdalene Accu- Chek InformII meters hould not be used for Glu cose determinations. Draw a venous Glucose and send to the Main Lab for Analysis. POC Glucose, [id number] 09:32:00 Test Item Value Reference Range Interpretation Comments POC Glucose (test 115 mg/dL 70-115 N If you con organic section technical lead your code = POCGLUC) patient crit ically ill, the Magdalene Accu- Chek InformII meters hould not be used for Glu cose determinations. Draw a venous Glucose and send to the Main Lab for Analysis. POC Glucose, [id number] 05:20:00 Test Item Value Reference Range Interpretation Comments POC Glucose (test 106 mg/dL 70-115 N If you con organic section technical lead your code = POCGLUC) patient crit ically ill, the Magdalene Accu- Chek InformII meters hould not be used for Glu cose determinations. Draw a venous Glucose and send to the Main Lab for Analysis. POC Glucose, [id number] 15:32:00 Test Item Value Reference Range Interpretation Comments POC Glucose (test 83 mg/dL 70-115 N If you con organic section technical lead your code = POCGLUC) patient crit ically ill, the Magdalene Accu- Chek InformII meters hould not be used for Glu cose determinations. Draw a venous Glucose and send to the Main Lab for Analysis.
[2022-03-12] MEDS ORDERED: BUPIVACAINE 0.5% PF 10 ML VIAL ONE (15:22)
[2022-03-12] MEDS ORDERED: LIDOCAINE 1% 20 ML MDV ONE (15:23)
--- NOTE | 2022-03-12 16:38 | RAD REPORT ---
EXAM DESCRIPTION: CT - C Spine Wo Con - 03/12/2022 4:09 pm CLINICAL HISTORY: PAIN COMPARISON: <Comparisons> TECHNIQUE: CT Scan was obtained of the cervical spine without contrast. Reformats were provided in t he sagittal and coronal plane. FINDINGS: No acute fracture of the cervical spine. No traumatic malalignment. No prevertebral edema. Mild multilevel cervical spondylosis. No suspicious thyroid nodules or lymphadenopathy. The lung api gris are clear. IMPRESSION: No fracture or traumatic malalignment of the cervical spine.
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
[2022-03-12 18:02] VITALS: TEMP 98
[2022-03-12 18:03] VITALS: BP 130/90; O2SAT 97
== END 2022-03-12 17:40 | disposition home or self-care (01) ==
LOC: ER 14:05
DX: S01.312A Laceration without foreign body of left ear, initial encounter (principal); S09.90XA Unspecified injury of head, initial encounter; W22.8XXA Striking against or struck by other objects, initial encounter; Z87.820 Personal history of traumatic brain injury; I10 Essential (primary) hypertension; F41.9 Anxiety disorder, unspecified; Z72.0 Tobacco use
CPT/HCPCS: 70450; 72125; 99284

== ENCOUNTER 2022-07-20 13:51 | Emergency (ER) | payer OTHER ==
--- OUTSIDE RECORDS SUMMARY | 2022-07-20 13:57 | XMS REPORT | Continuity of Care Document ---
:1965 Author Organization [facility] t Address [address] [place] [address] Care Team Providers Name Role Phone UNKNOWN, REFFERING Primary Care Physician Unavailable Hector LO, Cecille Grier Attending Clinician Unavailable Pcp, Patient Does Not Have A Attending Clinician [phone] CHAY BLACKBURN Attending Clinician Unavailable Doctor Unassigned, [place] Attending Clinician Unavailable Lab, Adc Fam Pob I Attending Clinician Unavailable Shalonda Carter Attending Clinician SHALONDA CORMIER Attending Clinician Unavailable Lab, Pcp Covid Attending Clinician Unavailable Lolis Rob MD Attending Clinician LOLIS ROB Attending Clinician Unavailable ANNE JARVIS Attending Clinician Unavailable MARIA DOLORES GUILLEN M.D., Daniel WHITTEN Attending Clinician UnavailANNE Qiu Admitting Clinician Unavailable MARIA DOLORES GUILLEN M.D., MARIA DOLORES Admitting Clinician Unavailable Payers Payer Name Policy Type Policy Number Effective Date Expiration Date S [facility] [place]ICARE PART A [id number] 2021 \T\ B 00:00:00 Problems Condition Condition Condition Status Onset Resolution Last Treating Co mments Source Name Details Category Date Date Treatment Clinician Date S/P flap S/P flap Disease Active Unive rs graft graft 3-08 ity of 00:00: [address] Decreased Decreased Disease Active Uni vers range [...] y of d type d type 00:00: [place] [facility] Hand pain, Hand pain, Disease Active U nivers left left 3-08 ity of 00:00: [place] [facility] ENCEPHALOP ENCEPHALO Diagnosis Active 2015-112016-11-02 Memoria ATHY JEREMIAH 2 12:35:00 l Active 00:00: Cheng 10/28/2016 00 [facility] D/C FOLLOW D/C Diagnosis Active 2015-112016-10-28 Memoria UP FOLLOW UP 0-12 10:29:00 l Active 00:00: Cheng 09/07/2016 00 [facility] LEUKOENCEP LEUKOENCE Diagnosis Active 2016-08-26 Memoria HALOPATHY PHALOPATHY 08-24 20:06:00 l Active 00:00: Cheng 08/24/2016 00 [facility] Altered Altered Disease Active Univers mental mental 9-26 ity of state state 00:00: [place] [facility] Confusion Confusion Disease Active Uni vers 9-23 ity of 00:00: [place] [facility] Obesity Obesity Disease Active Univers 9-02 ity of 00:00: [place] [facility] Acute Acute Disease Active Univers kidney kidney 8-26 ity of injury injury 00:00: [place] [facility] Non-trauma Non-trauma Disease Active U nivers tic tic 8-26 ity of rhabdomyol [place]hab[place]yol [place] NSTEMI NSTEMI Disease Active Univers (non-ST (non-ST 8-26 ity of elevated elevated 00:00: [place] myocardial myocardial 00 Me dical infarction infarction Br anch ) ) Leukocytos Leukocytos Disease Active U nivers is is 8-26 ity of 00:00: [place] [facility] Hyponatrem Hyponatrem Disease Active U nivers ia ia 8-26 ity of 00:00: [place] 00 Medical Branch NSTEMI NSTEMI Disease Active Univers (non-ST (non-ST 8- ity of elevated elevated 00:00: [place] myocardial myocardial 00 Me dical infarction infarction Br anch ) ) Winter Winter Disease Active Univers classified classified - it y of according according 00:[place] 00 Medi bettye of body of body Branch surface surface involved involved Mixed Mixed Problem Active 2018-10-19 Memor ia hyperlipid hyperlipid 05:37:01 l emia emia Cheng Active Problem 10/19/2018 eCW: Denise Birch MD, PA Brain Brain Problem Active 2018-10-19 Memor ia damage damage 05:37:01 l Active Cheng Problem 10/19/2018 eCW: Denise Birch MD, PA 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 05:11:04 l , , [facility] unspecifie unspecifie d d Active Diagnosis 10/10/2018 eCW: Denise Birch MD, PA Chronic Chronic Problem Active 2016-12-02 Me moria drug abuse drug abuse 01:26:03 l (disorder) (disorder) He rmann Active Problem 12/02/2016 [facility], [facility] Dysphagia Dysphagia Problem Active 2016-12-02 Memoria (disorder) (disorder) 01:26:03 l Active Cheng Problem 12/02/2016 [facility], [facility] Impaired Impaired Problem Active 2016-12-02 Memoria cognition cognition 01:26:03 l (finding) (finding) Herm tianna Active Problem 12/02/2016 [facility], [facility] Impaired Impaired Problem Active 2016-12-02 Memoria mobility mobility 01:26:03 l (finding) (finding) Herm tianna Active Problem 12/02/2016 [facility], [facility] Leukoencep Leukoence Problem Active 2016-12-02 Memoria halopathy phalopathy 01:26:03 l (disorder) (disorder) He rmann Active Problem 12/02/2016 [facility], [facility] ENCEPHALOP ENCEPHALO Diagnosis Active 2016-08-26 Memoria ATHY, JEREMIAH, 20:06:00 l UNSPECIFIE UNSPECIFIE He rmann D D Active [facility] Final: Final: Problem 2016-09-11 Hasmukh shereen Encephalop Encephalop 00:40:18 l torres, Cheng macdonald unspecifie unspecifie d d 09/11/2016 [facility] Constipati Constipat Problem Active 2018-10-19 Memoria on, ion, 05:37:01 l unspecifie unspecifie He rmann d d constipati constipati on type on type Active Problem 10/19/2018 eCW: Denise Birch MD, PA History of History Problem Active 2018-10-19 Memoria myocardial of 05:37:01 l infarction myocardial He rmann infarction Active Problem 10/19/2018 eCW: Denise Birch MD, PA Allergies, Adverse Reactions, Alerts Allergy Allergy Status Severity Reaction(s) Onset Inactive Treating Comm ents Source Name Type Date Date Clinician NO KNOWN Allergy Active [facility] NO KNOWN Drug Active [facility] ALLERG Class ity of S [facility] Social History Social Habit Start Date Stop Date Quantity Comments Source Exposure to Yes [place] of SARS-CoV-2 (event) [facility] Cigarettes smoked 2019-08-16 2019-08-16 Univers ity of current (pack per 00:00:00 00:00:00 ) - Reported Branch Alcohol intake 2019-08-16 2019-08-16 Current drinker Unive rsity of 00:00:00 00:00:00 of alcohol [facility] (finding) Branch Tobacco use and 2019-08-16 2019-08-16 Never used Universit y of exposure 00:00:00 00:00:00 [facility] Tobacco Comment 2016-10-11 2016-10-11 ex states Unive rsity of 00:00:00 00:00:00 pt is not [facility] smoking [place] Sex Ass[birth year] At [birth year] Universit y of 00:00:00 00:00:00 [facility] Smoking Status Start Date Stop Date Source Current every day smoker 2019-08-16 00:00:00 Uni versity of [facility] Social History 2016-08-27 02:08:37 [facility] Medications Ordered Filled Start Stop [...] by mouth ity of tablet 18:51: daily. [place] [address] Medical Branch metoprolol 0 Yes 25mg Take [...] by mouth ity of tablet 18:51: daily. [place] [address] Medical Branch metoprolol 0 Yes 25mg Take [...] by mouth ity of tablet 18:51: daily. [place] [address] Medical Branch metoprolol 0 Yes 25mg Take [...] by mouth ity of tablet 18:51: daily. [place] [address] Medical Branch metoprolol 0 Yes 25mg Take 25 mg U nivers succinate 9-20 by mouth ity of XL 25 mg 24 18:51: [place]. [place] [facility] lisinopril 2019-0 Yes 2.5mg Take 2.5 Un rg 2.5 mg 9-20 mg by ity of tablet 18:51: mouth [place] 41 daily. Medical Branch clopidogrel 2019-0 Yes 75mg Take 75 mg Univers 75 mg 9-20 by mouth ity of tablet 18:51: daily. [place] [address] Medical Branch metoprolol 2018-0 Yes 25mg Take [...] by mouth ity of tablet 18:51: daily. [place] [address] Medical Branch metoprolol 2018-0 Yes 25mg Take [...] by mouth ity of tablet 18:51: daily. [place] [address] Medical Branch metoprolol 2018-0 Yes 25mg Take 25 mg U nivers succinate 9-20 by mouth ity of XL 25 mg 24 18:51: [place]. [place] 41 [facility] lisinopril 0 Yes 2.5mg Take 2.5 Un rg 2.5 mg 9-20 mg by ity of tablet 18:51: mouth [place] 41 daily. Medical Branch clopidogrel 2019-0 Yes 75mg Take 75 mg Univers 75 mg 9-20 by mouth ity of tablet 18:51: daily. [place] [address] Medical Branch metoprolol 2018-0 Yes 25mg Take 25 mg U nivers succinate 9-20 by mouth ity of XL 25 mg 24 18:51: [place]. [place] 41 [facility] lisinopril 0 Yes 2.5mg Take 2.5 Un rg 2.5 mg 9-20 mg by ity of tablet 18:51: mouth [place] [address] daily. Medical Branch clopidogrel Yes 75mg Take 75 mg Univers 75 mg 9-20 by mouth ity of tablet 18:51: daily. [place] 41 Medical Branch atorvastati Yes [id number] 80mg Take 1 Univers n 80 mg 9-20 tablet by ity of tablet 00:00: mouth at [place] 00 bedtime. Medical Branch atorvastati Yes [id number] 80mg Take 1 Univers n 80 mg 9-20 tablet by ity of tablet 00:00: mouth at [place] 00 bedtime. Medical Branch atorvastati Yes [id number] 80mg Take 1 Univers n 80 mg 9-20 tablet by ity of tablet 00:00: mouth at [place] [address] bedtime. Medical Branch atorvastati Yes [id number] 80mg Take 1 Univers n 80 mg 9-20 tablet by ity of tablet 00:00: mouth at [place] [address] bedtime. Medical Branch atorvastati Yes [id number] 80mg Take 1 Univers n 80 mg 9-20 07 tablet by ity of tablet 00:00: mouth at [place] [address] bedtime. Medical Branch atorvastati Yes [id number] 80mg Take 1 Univers n 80 mg 9-20 tablet by ity of tablet 00:00: mouth at [place] [address] bedtime. Medical Branch atorvastati Yes [id number] 80mg Take 1 Univers n 80 mg 9-20 tablet by ity of tablet 00:00: mouth at [place] [address] bedtime. Medical Branch atorvastati Yes [id number] 80mg Take 1 Univers n 80 mg 9-20 tablet by ity of tablet 00:00: mouth at [place] [address] bedtime. Medical Branch atorvastati Yes [id number] 80mg Take 1 Univers n 80 mg 9-20 tablet by ity of tablet 00:00: mouth at [place] [address] bedtime. Medical Branch metoprolol Yes 25mg Take 25 mg U nivers succinate 7-18 by mouth ity of XL 25 mg 24 13:33: [place]. [place] 12 [facility] Branch lisinopril Yes 2.5mg Take 2.5 Un rg 2.5 mg 7-18 mg by ity of tablet 13:33: mouth [place] [address] daily. Medical Branch clopidogrel 2019-0 Yes 75mg Take 75 mg Univers 75 mg 7-18 by mouth ity of tablet 13:33: daily. [place] [address] Medical Branch atorvastati 2019-0 Yes 80mg Take 80 mg Univers n 80 mg 7-18 by mouth ity of tablet 13:33: at [place] [address] bedtime. Medical Branch metFORMIN 2019-0 Yes [id number] 500mg Take 1 U nivers 500 mg 7-02 tablet by ity of tablet 00:00: mouth [address] [place] [address] (two) Medical times Branch daily with meals. metFORMIN 2019-0 Yes [id number] 500mg Take 1 U nivers 500 mg 7-02 tablet by ity of tablet 00:00: mouth [address] [place] [address] ([facility]) Medical times Branch daily with meals. metFORMIN 2019-0 Yes [id number] 500mg Take 1 U nivers 500 mg 7-02 tablet by ity of tablet 00:00: mouth [address] [place] [address] ([facility]) Medical times Branch daily with meals. metFORMIN 2019-0 Yes [id number] 500mg Take 1 U nivers 500 mg 7-02 tablet by ity of tablet 00:00: mouth [address] [place] [address] ([facility]) Medical times Branch daily with meals. metFORMIN 2019-0 Yes [id number] 500mg Take 1 U nivers 500 mg 7-02 tablet by ity of tablet 00:00: mouth [address] [place] [address] ([facility]) Medical times Branch daily with meals. metFORMIN 2019-0 Yes [id number] 500mg Take 1 U nivers 500 mg 7-02 tablet by ity of tablet 00:00: mouth [address] [place] [address] ([facility]) Medical times Branch daily with meals. metFORMIN 2019-0 Yes [id number] 500mg Take 1 U nivers 500 mg 7-02 tablet by ity of tablet 00:00: mouth [place] (two) Medical times Branch daily with meals. metFORMIN 2019-0 Yes [id number] 500mg Take 1 U nivers 500 mg 7-02 tablet by ity of tablet 00:00: mouth [address] [place] [address] ([facility]) Medical times Branch daily with meals. metFORMIN 2019-0 Yes [id number] 500mg Take 1 U nivers 500 mg 7-02 tablet by ity of tablet 00:00: mouth [address] [place] [address] ([facility]) Medical times Branch daily with meals. metFORMIN 2019-0 Yes [id number] 500mg Take 1 U nivers 500 mg 7-02 tablet by ity of tablet 00:00: mouth 2 [place] 00 (two) Medical times Branch daily with meals. Carvedilol 2017-11 Yes KAYY 1 tablet Memoria 1-14 MARMOLEJO l 05:11: Simvastatin 2017- Yes KAYY 1 tablet Memoria 1-14 MARMOLEJO in the l 05:11: evening ASA 2017- Yes KAYY 1 tab Memoria 1-14 MARMOLEJO l 05:11: Fenofibrate 2017- Yes KAYY 1 tablet Memoria 1-14 MARMOLEJO l 05:11: Clopidogrel 2017- Yes KAYY 1 tablet Memoria Bisulfate 1-14 MARMOLEJO l 05:11: Donepezil 2017- Yes KAYY 1 tablet M emoria Hydrochlori 1-14 MARMOLEJO at bedtime l de 05:11: Senna 2017-0 Yes KAYY 2 tablets Hasmukh shereen Concentrate 6-11 MARMOLEJO at bedtime l 00:00: as needed Docusate 2017-0 Yes KAYY 1 capsule M emoria Sodium 6-11 MARMOLEJO as needed l 00:00: Thiamine 2017-0 Yes KAYY 1 tablet Me moria HCl 6-11 MARMOLEJO l 00:00: Ritalin 2017-0 Yes KAYY 1 tablet Mem oria 3-13 [...] tab, PO, l tablet 21:26: Daily, # 00 30 tab, 1 Refill(s) carvedilol 2015-11 [...] tab, PO, l tablet 21:26: Daily, # [facility] 00 30 tab, 1 Refill(s) Docusate 2015-11 Yes 100 mg = 1 Mem oria Sodium 100 0-12 cap, PO, l MG Oral 21:26: BID, # 60 Kirstin nn Capsule 00 cap, 1 Refill(s) donepezil 2015-11 No Notes: Memori a 0-11 (Same as: l 13:30: Aricept) phenol 2015-11 No Notes: Memoria 0-09 Chlorasept l 17:34: ic [place] (Same as: Chlorasept ic, Sore Throat [place]) WASTE: F/P - Black; E - [employer] Ativan 2015-11 No Notes: Memoria 0-08 (Same as: l 14:00: Ativan) Hydralazine 2015-11 No Notes: Hasmukh shereen Hydrochlori 0-08 (Same as: l de 10 MG 13:02: Apresoline Her zhu Oral Tablet ) March interfere w/enteral feedings. Take With Food Ativan 2015-11 No Notes: Memoria 0-08 (Same as: l 13:00: Ativan) [facility] 00 Methylpheni 2015-11 No Notes: Hasmukh shereen date 0-07 (Same l 13:00: as:Ritalin Cheng ) Flonase 2015-11 No Notes: Memoria 0.05 mg/inh 0-06 (Same as: l nasal spray 20:55: Flonase) He rmann Flonase 2015-11 No 2 spray, Memori a 0.05 mg/inh 0-06 Route: l nasal spray 20:45: Each Tommy n 00 Affected Nostril, Drug Form: SPRY, Dosing Weight 60.227, kg, Daily, PRN Secretions , Start date: 09/01/16 15:45:00 CDT, Duration: 30 day, Stop date: 10/01/16 15:44:00 CDT Thiamine 2015-11 No Notes: Memoria 0-05 (Same As: l 13:30: Vitamin Cheng B1) Lovenox 2015-11 No Notes: Memoria 0-05 (Same as: l 02:00: Lovenox) Cheng 00 Zocor 2015-11 No Notes: Memoria 0-05 (Same as: l 02:00: Zocor) [facility] 00 Melatonin 2015-11 No Notes: Memori a 0-04 (Same as: l 22:00: Melatonin) Tylenol 2015-11 No Notes: Do Memor ia 0-04 not exceed l 14:19: 4 gm/day. Cheng (Same as: Tylenol) Methylpheni 2015-11 No Notes: Hasmukh shereen date 0-04 (Same l 13:00: as:Ritalin Cheng 00 ) Tricor 2015-11 No Notes: Memoria 0-03 (Same as: l 22:00: Tricor) Cheng 00 Prinivil 2015-11 No Notes: Memoria 0-02 (Same as: l 02:00: Prinivil, Cheng 00 Zestril) Lisinopril 2015-11 No Notes: Memor ia 0-01 (Same as: l 22:00: Prinivil, [facility] 00 Zestril) sennosides, 2015-11 No Notes: Hasmukh shereen JAIL 0-01 (Same as: l 17:00: Senokot) Cheng 00 Furosemide 2015-11 No 80 mg = 1 Me moria 80 MG Oral 0-01 tab, PO, l Tablet 14:15: Daily, 0 Cheng [Lasix] 00 Refill(s) heparin 2015-11 No 5,000 Memoria 0-01 unit, l 14:00: Route: [facility] 00 SUB-Q, Q12H, Dosing Weight 60.227, kg, Start date: 08/27/16 9:00:00 CDT, Duration: 30 day, Stop date: 09/25/16 21:00:00 CDT clopidogrel 2015-11 No 75 mg = 1 M emoria 75 MG Oral 0-01 tab, PO, l Tablet 14:00: Daily, 0 Cheng [Plavix] 00 Refill(s) Thiamine 2015-11 No Notes: Memoria 0-01 (Same As: l 13:30: Vitamin [facility] 00 B1) Docusate 2015-11 No Notes: Memoria 0-01 (Same as: l 13:30: Colace) Cheng 00 (Do Not Crush) SENOKOT-S 2015-11 No Notes: Memori a 0-01 (Same as l 13:30: Senokot-S) [facility] 00 Equiv. to Deepika-Colac e. Plavix 2015-11 No Notes: Memoria 0-01 (Same As: l 13:30: Plavix) Cheng Aspirin 2015-11 No Notes: Memoria 0-01 Take with l 13:30: food. Cheng Coreg 2015-11 No Notes: Memoria 0-01 Give with l 13:30: food. [facility] 00 (Same As: Coreg) Bacitracin 2015-11 No Route: Memor ia 0-01 TOP, BID, l 13:30: Dosing Weight 60.227, kg, Start date: 08/27/16 8:30:00 CDT, Duration: 30 day, Stop date: 09/25/16 21:00:00 CDT bacitracin 2015-11 No 1 appl, Hasmukh shereen topical 0-01 Route: l 13:30: TOP, BID, Drug form: OINT, Start date: 08/27/16 8:30:00 CDT, Duration: 60 day, Stop date: 10/25/16 21:00:00 [employer] Tylenol 2015-11 No Notes: Do Memor ia 0-01 not exceed l 05:00: 4 gm/day. Cheng 00 (Same as: Tylenol) Midazolam 2015-11 No 40 kg Memori a 0-01 l 04:29: Cheng 00 Levetiracet 2015-11 No Notes: Hasmukh shereen am 0-01 Same as l 04:29: Keppra Mix [facility] 00 with 100 mL NS, LR or D5W MEDICATION WASTE Product Size: 500 mg Product Wasted: __0_ mg Bisacodyl 2015-11 No Notes: Memori a 0-01 (Same As: l 04:29: Dulcolax, [facility] Bisco-Lax) Milk of 2015-11 No Notes: Memoria Magnesia 0-01 (Same as: l 04:29: Milk of Magnesia, MOM) Saline 2015-11 No Notes: Memoria Flush 0.9% 0-01 (Same as: l 04:29: BD Posiflush) thiamine 2015-11 Yes 100mg Take 1 Univer s (VITAMIN 0-01 tablet by ity of B1) 100 mg 00:00: mouth [place] tablet 00 daily. Medical Branch thiamine 2015-11 Yes 100mg Take 1 Univer s (VITAMIN 0-01 tablet by ity of B1) 100 mg 00:00: mouth [place] tablet 00 daily. [facility] Branch thiamine 2015-11 Yes 100mg Take 1 Univer s (VITAMIN 0-01 tablet by ity of B1) 100 mg 00:00: mouth [place] tablet 00 daily. [facility] Branch thiamine 2015-11 Yes 100mg Take 1 Univer s (VITAMIN 0-01 tablet by ity of B1) 100 mg 00:00: mouth [place] tablet 00 daily. [facility] Branch thiamine 2015-11 Yes 100mg Take 1 Univer s (VITAMIN 0-01 tablet by ity of B1) 100 mg 00:00: mouth [place] tablet 00 daily. [facility] Branch thiamine 2015-11 Yes 100mg Take 1 Univer s (VITAMIN 0-01 tablet by ity of B1) 100 mg 00:00: mouth [place] tablet 00 daily. [facility] Branch thiamine 2015-11 Yes 100mg Take 1 [...] mouth [place] tablet 00 daily. Medical Branch carvedilol No 25 mg = 1 Me moria 25 MG Oral 30 tab, PO, l Tablet 21:08: BID, # 60 Tommy n [Coreg] 00 tab, 0 Refill(s) Bacitracin No 500 units, M emoria 30 TOP, BID, l 21:08: 0 Cheng 00 Refill(s) SENOKOT-S No 1 tab, PO, Me moria 30 Daily, 0 l 21:08: Refill(s) Cheng heparin No 5,000 Memoria 9-30 unit, l 21:08: SUB-Q, [facility] 00 Q12H, 0 Refill(s) Tylenol No 650 mg, Memoria -30 PO, Q6H, 0 l 21:08: Refill(s) [facility] 00 Aspirin No 81 mg, PO, Hasmukh shereen 930 Daily, 0 l 21:08: Refill(s) Cheng 00 Thiamine No 250 mg, Memori a 30 IV, Daily, l 21:08: 0 [facility] 00 Refill(s) Immunizations Ordered Filled Immunization Date Status Comments [facility] e Immunization Name Name Pneumococcal 2016-08-26 Completed [place] o f Polysaccharide, 00:00:00 [place] Med ical PPSV23 (PNEUMOVAX) Branch Influenza Virus 2016-08-26 Completed Universit y of Vaccine Quad IM 3+ 00:00:00 [facility] Branch Pneumococcal 2016-08-26 Completed [place] o f Polysaccharide, 00:00:00 [place] Med ical PPSV23 (PNEUMOVAX) Branch Influenza Virus 2016-08-26 Completed Universit y of Vaccine Quad IM 3+ 00:00:00 [facility] Pneumococcal 2016-08-26 Completed University o f Polysaccharide, 00:00:00 [place] Med ical PPSV23 (PNEUMOVAX) Branch Influenza Virus 2016-08-26 Completed Universit y of Vaccine Quad IM 3+ 00:00:00 [facility] Pneumococcal 2016-08-26 Completed University o f Polysaccharide, 00:00:00 [place] Med ical PPSV23 (PNEUMOVAX) Branch Influenza Virus 2016-08-26 Completed Universit y of Vaccine Quad IM 3+ 00:00:00 [facility] Pneumococcal 2016-08-26 Completed University o f Polysaccharide, 00:00:00 [place] Med ical PPSV23 (PNEUMOVAX) Branch Influenza Virus 2016-08-26 Completed Universit y of Vaccine Quad IM 3+ 00:00:00 [facility] Pneumococcal 2016-08-26 Completed University o f Polysaccharide, 00:00:00 [place] Med ical PPSV23 (PNEUMOVAX) Branch Influenza Virus 2016-08-26 Completed Universit y of Vaccine Quad IM 3+ 00:00:00 [facility] Pneumococcal 2016-08-26 Completed University o f Polysaccharide, 00:00:00 [place] Med ical PPSV23 (PNEUMOVAX) Branch Influenza Virus 2016-08-26 Completed Universit y of Vaccine Quad IM 3+ 00:00:00 [facility] Pneumococcal 2016-08-26 Completed University o f Polysaccharide, 00:00:00 [place] Med ical PPSV23 (PNEUMOVAX) Branch Influenza Virus 2016-08-26 Completed Universit y of Vaccine Quad IM 3+ 00:00:00 [facility] Pneumococcal 2016-08-26 Completed University o f Polysaccharide, 00:00:00 [place] Med ical PPSV23 (PNEUMOVAX) Branch Influenza Virus 2016-08-26 Completed Universit y of Vaccine Quad IM 3+ 00:00:00 [facility] Pneumococcal 2016-08-26 Completed University o f Polysaccharide, 00:00:00 [place] Med ical PPSV23 (PNEUMOVAX) Branch Influenza Virus 2016-08-26 Completed Universit y of Vaccine Quad IM 3+ 00:00:00 [facility] Vital Signs Vital Name Observation Time Observation Value Comments Source Diastolic (mm Hg) 2016-11-08 20:30:00 Mem orimeghna [facility] Systolic (mm Hg) 2016-11-08 20:30:00 Hasmukh rial [facility] Temperature Oral (F) 2016-11-08 20:30:00 98.5 F [facility] Weight 2016-11-08 20:30:00 [facility] Height 2016-11-08 20:30:00 [facility] Heart Rate 2016-09-08 12:30:00 [facility] Cheng Respitory Rate 2016-09-08 12:30:00 Memori al Cheng Diastolic (mm Hg) 2016-09-08 12:30:00 Mem orial [facility] Systolic (mm Hg) 2016-09-08 12:30:00 Hasmukh rial Cheng Systolic (mm Hg) 2016-09-08 00:30:00 Hasmukh rial [facility] Diastolic (mm Hg) 2016-09-08 00:30:00 Mem orial Cheng Respitory Rate 2016-09-08 00:30:00 Memori al [facility] Heart Rate 2016-09-08 00:30:00 Memorial Cheng Heart Rate 2016-09-07 18:30:00 [facility] Systolic (mm Hg) 2016-09-07 18:30:00 Hasmukh rial Cheng Diastolic (mm Hg) 2016-09-07 18:30:00 Mem orial [facility] Respitory Rate 2016-09-07 18:30:00 Memori al [facility] Weight 2016-09-02 20:37:00 [facility] Height 2016-08-27 05:00:00 170.18 cm [facility] BMI Calculated 2016-08-27 01:16:00 Memori al Cheng Weight 2016-08-27 01:16:00 [facility] Height 2016-08-27 01:16:00 [facility]18 [facility] Procedure Date / Time Performing Clinician Source Performed ASSIGNMENT OF BENEFITS 2021-07-13 21:04:28 Doctor Unassigned, [facility] [place] [facility] NO SHOW OR MISSED 2019-08-16 18:25:32 Doctor Unassigned, [facility] APPOINTMENT POLICY [place] Medical [facility] ACKNOWLEDGEMENT Hernia repair 2001-11-27 06:00:00 Denise zhu Biopsy of vocal cord 1997-11-27 06:00:00 Susan Anand Encounters Start End Encounter Admission Attending Care Care Encounter Source Date/Time Date/Time Type Type Clinicians Facility Department ID 2021-07-15 2021-07-15 Evie Young FILIBERTO [id number] Univers 00:00:00 00:00:00 Cecillecorinne CASTILLOY [id number] i ty of [facility] [id number] Manish as [id number] [facility] 019 [place] 2021-07-15 2021-07-15 Telephone [facility], [facility] [id number] Univers 00:00:00 00:00:00 Patient Health [id number] it y of Does Not Surgical [id number] [place] Specialti [id number] [place] dical es 370 Branch [place] 2021-07-13 2021-07-13 Outpatient R BERE [facility] [id number] Univers 16:00:00 16:28:38 CHAY [facility] 2021-07-13 2021-07-13 Outpatient R [facility] [id number] Univers 16:00:00 16:00:00 [id number] ity [facility] 2021-07-13 2021-07-13 Orders Doctor FILIBERTO [id number] Univers 00:00:00 00:00:00 Only Unassigned, JENNIFER [id number] ity of [place] [facility] [id number] Manish as [id number] [facility] 009 [place] 2021-07-12 2021-07-12 Outpatient [facility] [id number] Univers 12:00:00 12:00:00 [id number] ity [facility] 2021-07-09 2021-07-09 Outpatient [facility] [id number] -20 Univers 12:00:00 12:00:00 [id number] ity [facility] 2021-01-01 2021-01-01 Laboratory Lab, [facility] 1.2.840.114 [id number] 14:02:43 14:22:43 Only Fam Pob I Health [id number] [place] 42.7.2.686 Professio [phone] nal [address] One 2021-01-01 2021-01-01 Laboratory Lab, Adc Fam Pob I [facility] 1.2. 840.114 [id number] Univers 14:02:43 14:22:43 Only Shalonda Corm[facility] Health 350.1.13.10 ity of [place] 4.2.7.2.686 Manish as Professio [phone] [address] Office [facility] One 2021-01-01 2021-01-01 Outpatient [facility] [id number] Univers 13:20:00 13:20:00 [id number] ity of [facility] 2021-01-01 2021-01-01 Outpatient R ARLEEN, [facility] [id number] Univers 13:20:00 13:20:00 SHALONDA ity [facility] 2021-01-01 2021-01-01 Letter Doctor FILIBERTO 1.2.840.114 [id number] 00:00:00 00:00:00 (Out) Unassigned, JENNIFER 350.1.13.10 [place] [facility] 4.2.7.2.686 [phone] [facility] 2021-01-01 2021-01-01 Letter Lab, Pcp [facility] 1.2.840.114 [id number] 00:00:00 00:00:00 (Out) Covid Health 350.1.13.10 [place] 4.2.7.2.686 Professio [phone] [address] One 2021-01-01 2021-01-01 Letter Lab, Pcp [facility] 1.2.840.114 [id number] Univers 00:00:00 00:00:00 (Out) Covid Health 350.1.13.10 it y of [place] 4.2.7.2.686 Manish as Professio [phone] [address] Office Building One 2021-01-01 2021-01-01 Letter Doctor FILIBERTO 1.2.840.114 [id number] Univers 00:00:00 00:00:00 (Out) Unassigned, JENNIFER 350.1.13.10 ity of [place] [facility] 4.2.7.2.686 Manish as [phone] [address] 2020-06-08 2020-06-08 Letter Lab, Pcp [facility] 1.2.840.114 [id number] 00:00:00 00:00:00 (Out) Covid Health 350.1.13.10 [place] 4.2.7.2.686 Professio [phone] [place] [address] Office [address] One 2020-06-08 2020-06-08 Letter Lab, Pcp [facility] 1.2.840.114 [id number] Univers 00:00:00 00:00:00 (Out) Covid Health 350.1.13.10 it y of [place] 4.2.7.2.686 Manish as Professio [phone] [place] [address] Office [facility] 2020-06-04 2020-06-04 Laboratory Lab, [facility] 1.2.840.114 [id number] 11:06:05 11:26:05 Only Fam Pob I Health 350.1.13.10 [place] 4.2.7.2.686 Professio [phone] [place] [address] Office [address] One 2020-06-04 2020-06-04 Laboratory Lab, [facility] Fam Pob I [facility] 1.2. 840.114 [id number] [facility] 11:06:05 11:26:05 Only Anene, Shalonda Health 350.1.13.10 ity of [place] 4.2.7.2.686 Manish as Professio [phone] [address] 2020-06-04 2020-06-04 Outpatient R [facility] [id number] -[id number] Univers 11:00:00 11:00:00 ity [facility] 2020-06-04 2020-06-04 Outpatient R [facility] [id number] Univers 11:00:00 11:00:00 ity [facility] 2020-02-17 2020-02-17 Mahas Rob [facility] 1.2.840.114 [id number] 09:00:00 09:20:00 ne Visit Lolis Sherwin 350.1.13.10 [place] 4.2.7.2.686 Professio [phone] nal 9 [facility] 2020-02-17 2020-02-17 Telemrigo Rob [facility] 1..840.114 [id number] Univers 09:00:00 09:20:00 ne Visit Lolis Simps[place]on 350.1.13.10 ity of [place] 4.2.7.2.686 Elmer s essio [phone] Ks dical nal 059 [facility] 2020-02-17 2020-02-17 Outpatient Aggie ROB [facility] [id number] -[id number] Univers 09:00:00 09:00:00 JTTHOMAS [id number] ity o khadijah [facility] 2020-02-17 2020-02-17 [facility] [id number] [facility] 09:00:00 09:00:00 LOLIS guerreroy o f [facility] 2019-08-16 2019-08-16 Orders Doctor FILIBERTO 1.2.840.114 [id number] 00:00:00 00:00:00 Only Unassigned, JENNIFER 350.1.13.10 [place] [facility] 4.2.7.2.[phone] [facility] 2019-08-16 2019-08-16 Orders Doctor FILIBERTO 1.2.840.114 [id number] [facility] 00:00:00 00:00:00 Only Unassigned, JENNIFER 350.1.13.10 ity of [place] [facility] 4.2.7.2.686 Manish as [phone] [address] 2018-01-03 2018-01-07 Inpatient MARIA DOLORES [facility] [id number] 14:29:00 09:32:00 , [facility] 2018-01-01 2018-01-01 Inpatient MARIA DOLORES GUILLEN [facility] [id number] 11:16:00 11:16:00 , [facility] 2016-10-31 2016-11-30 OP Therapy [facility] [id number] Memoria 19:03:00 05:59:00 Patients aggie Anand [facility] 2016-08-27 2016-09-08 Inpatient nullFlavo TIRR [id number] Memoria 01:04:00 15:44:00 Rehab [facility] 00 adonay Anand Results Test Description Test Time Test Comments Results Result Comments Source POCT-GLUCOSE METER 2019-01-22 11:26:00 Test Item Value Reference Range Interpretation Comme nts POC-GLUCOSE METER (BEAKER) (test 127 mg/dL 70-[address] [facility] [address] [employer] [facility] [employer] [facility] code = 1538) [facility] 7703 0 BLOOD [id number] 11:01:00 Test Item Value Reference Range Interpretation Comments CULTURE (BEAKER) (test No growth in 5 days code = 1095) BLOOD [id number] 11:01:00 Test Item Value Reference Range Interpretation Comments CULTURE (BEAKER) (test No growth in 5 days code = 1095) RAD, CHEST, 1 VIEW, NON [id number] 09:30:00Reason for exam:- >vetned/stemiShould this be performed at the bedside?->YesFINAL REPORT Clinical History: vetned/stemi Comparison Study: January 21, 2019Findings: The heart and lungs are within normal limits. The pleural spaces are clear. No significantbony or soft tissue abnormalities are seen. Impression: No active cardiopulmonary disease. Signed: Endy Wilson MDReport Verified Date/Time: 01/22/2019 09:30:48 Reading Location: [facility] Reading Room POCT-GLUCOSE [id number] 08:44:00 Test Item Value Reference Range Interpretation Comments POC-GLUCOSE METER 157 mg/dL 70-[address] [facility] 6720 (BEAKER) (test code = MARCEL Marcial [facility] 1538) [address] BASIC METABOLIC [id number] 05:27:00 Test Item Value Reference Range Interpretation [...] m DATA TO CALCULA TE ESTIMATED GFR. [id number] 05:24:00 Test Item Value Reference Range Interpretation Comments MAGNESIUM (BEAKER) (test code = 1.7 mg/dL 1.6-2.6 627) CBC W/PLT COUNT & AUTO [id number] 04:53:00 Test Item Value Reference Range Interpretation [...] NEUTROPHILS ABSOLUTE COUNT 3.36 K/ L 1.78-5.38 (AKER) (test code = 670) LYMPHOCYTES ABSOLUTE COUNT 2.22 K/ L 1.32-3.57 (BEAKER) (test code = 414) MONOCYTES ABSOLUTE COUNT (BEAKER) 0.41 K/ L 0.30-0.82 (test code = 415) EOSINOPHILS ABSOLUTE COUNT 0.47 K/ L 0.04-0.54 (BEAKER) (test code = 416) BASOPHILS ABSOLUTE COUNT (BEAKER) 0.03 K/ L 0.01-0.08 (test code = 417) IMMATURE GRANULOCYTES-RELATIVE 1 % 0-1 PERCENT ([facility]) (test code = 2801) POCT-GLUCOSE [id number] 21:23:00 Test Item Value Reference Range Interpretation Comments POC-GLUCOSE METER 172 mg/dL 70-110 H TESTED AT [place] [address] ([facility]) (test code = [facility] Aggie [facility] 1538) [address] POCT-GLUCOSE [id number] 17:36:00 Test Item Value Reference Range Interpretation Comments POC-GLUCOSE METER 124 mg/dL 70-110 H TESTED AT [place] [address] ([facility]) (test code = [facility] Pristones [facility] 1538) [address] POCT-GLUCOSE [id number] 11:45:00 Test Item Value Reference Range Interpretation Comments POC-GLUCOSE METER 137 mg/dL 70-110 H TESTED AT [place] [address] ([facility]) (test code = [facility] Aggie [facility] 1538) [address]99 RAD, CHEST, 1 VIEW, NON [id number] 08:00:00Reason for exam:- >vetned/stemiShould this be performed at the bedside?->YesFINAL REPORT TECHNIQUE: Frontal view of the chest. INDICATION: 53-year-old man with ST elevation myocardial infarction. COMPARISON: 01/20/2019. FINDINGS: LINES/TUBES: None. LUNGS: Mild linear atelectasis in the left upper and lower lung zones. PLEURA: No pneumothorax or significantpleural effusion. HEART AND MEDIASTINUM: The cardiomediastinal silhouette is within normal limits. Coronary artery stent. SOFT TISSUES AND BONES: Unremarkable. IMPRESSION:No acute cardiopulmonary abnormalities. Signed: Leigh Larson MDReport Verified Date/Time: 01/21/2019 08:00:55 Reading Location: [facility] Radiology Reading Room 08:00 AM POCT-GLUCOSE [id number] 07:12:00 Test Item Value Reference Range Interpretation Comments POC-GLUCOSE METER 142 mg/dL 70-[address] [facility] 6720 (BEAKER) (test code = [facility] [place] 1538) [address] BASIC METABOLIC [id number] 06:18:00 Test Item Value Reference Range Interpretation [...] m DATA TO CALCULA TE ESTIMATED GFR. [id number] 06:14:00 Test Item Value Reference Range Interpretation Comments MAGNESIUM (BEAKER) (test code = 1.5 mg/dL 1.6-2.6 L 627) CBC W/PLT COUNT & AUTO [id number] 05:24:00 Test Item Value Reference Range Interpretation [...] PERCENT (BEAKER) (test code = 2801) POCT-GLUCOSE [id number] 22:46:00 Test Item Value Reference Range Interpretation Comments POC-GLUCOSE METER 123 mg/dL 70-[address] [facility] 6720 ([facility]) (test code = MARCEL CUBA 1538) [address]58[address] SPUTUM CULTURE + GRAM [id number] 20:40:00 Test Item Value Reference Range Interpretation Comments CULTURE (BEAKER) 4+ Normal respiratory (test code = 1095) stevie present GRAM STAIN RESULT 4+ WBCs (BEAKER) (test code = 1123) GRAM STAIN RESULT 0-5 epithelial cells (BEAKER) (test code = 34675) GRAM STAIN RESULT 1+ gram positive cocci (BEAKER) (test code = in pairs 30309) GRAM STAIN RESULT 4+ gram positive cocci (BEAKER) (test code = in chains 479270) GRAM STAIN RESULT 2+ gram positive cocci (BEAKER) (test code = in clusters 573906) POCT-GLUCOSE [id number] 18:11:00 Test Item Value Reference Range Interpretation Comments POC-GLUCOSE METER 217 mg/dL 70-110 H TESTED AT [place] [address] (BEAKER) (test code = [facility] 1538) [address] POCT-GLUCOSE [id number] 13:04:00 Test Item Value Reference Range Interpretation Comments POC-GLUCOSE METER 140 mg/dL 70-110 H TESTED AT [place] [address] ([facility] (test code = [facility] 1538) [address] POCT-GLUCOSE [id number] 08:23:00 Test Item Value Reference Range Interpretation Comments POC-GLUCOSE METER 176 mg/dL 70-110 H TESTED AT [place] [address] ([facility]) (test code = [facility] 1538) [address] BASIC METABOLIC [id number] 05:41:00 Test Item Value Reference Range Interpretation [...] m DATA TO CALCULA TE ESTIMATED GFR. [id number] 05:40:00 Test Item Value Reference Range Interpretation Comments MAGNESIUM (BEAKER) (test code = 1.7 mg/dL 1.6-2.6 627) HEPATIC FUNCTION [id number] 05:40:00 Test Item Value Reference Range Interpretation [...] H 347) RAD, CHEST, 1 VIEW, NON [id number] 05:37:00Reason for exam:- >vetned/stemiShould this be performed at the bedside?->YesFINAL REPORT RAD, CHEST, 1 VIEW, NON DEPT INDICATION: vetned/stemi COMPARISON: Prior day's exam FINDINGS: Portable frontal view of the chest. IMPRESSION: Lungs and pleura: Unchanged airspace and pleural opacities. No pneumothorax.Heart and mediastinum: Stable contours. Additional findings: None. Signed: Beck Odonnell Verified Date/Time: 01/20/2019 05:37:46 ReadingLocation: [facility] B1 C013T Transitional Reading Room CBC W/PLT COUNT & AUTO [id number] 05:06:00 Test Item Value Reference Range Interpretation [...] % 0-1 PERCENT (BEAKER) (test code = 4051) POCT-GLUCOSE [id number] 22:24:00 Test Item Value Reference Range Interpretation Comments POC-GLUCOSE METER 127 mg/dL 70-110 H TESTED AT [place] [address] ([facility]) (test code = MARCEL Marcial [facility] 1538) [address] POCT-GLUCOSE [id number] 16:58:00 Test Item Value Reference Range Interpretation Comments POC-GLUCOSE METER 130 mg/dL 70-110 H TESTED AT [place] [address] ([facility]) (test code = CARMENOR Aggie [facility] 1538) [address] [id number] 15:24:00 Test Item Value Reference Range Interpretation Comments MAGNESIUM ([facility]) 1.7 mg/dL 1.6-2.6 Specimen slightly (test code = 627) hemolyzed RAD, CHEST, 1 VIEW, NON [id number] 12:40:00Reason for exam:- >vetned/stemiShould this be performed at the bedside?->YesFINAL REPORT Comparison: 01/18/2019 TECHNIQUE: Single view of the chest FINDINGS: Lung volumes are low. Cardiac silhouette is prominent. Soft tissues and bones are unremarkable. Signed: Kelby Balleport Verified Date/Time: 01/19/2019 12:40:50 Reading Location: [address] Transitional Reading Room POCT-GLUCOSE [id number] 12:33:00 Test Item Value Reference Range Interpretation Comments POC-GLUCOSE METER 120 mg/dL 70-110 H TESTED AT [place] [address] ([facility]) (test code = CARMEN[facility] Aggie [facility] 1538) 6[address]99 EEG MONITORING WITH VIDEO RECORDING EACH 24 [id number] 10:46:00morning read for REPORT: [facility] Date of EEDate of report: start time: 09:33EEG end time: 20:55EEG #: [id number] No: [id number] ICD Code: #: R41.82 Altered mental status, unspecified (ICD 9: 780.97)CPT Code: #: 47603: Monitori ng for localization of seizure focPROCEDURE: EEG HISTORY: [...] or other etiology. Please correlate clinically.Clinical Fellow: Alan Milnerurophysiologist: Melinda Tan BASIC METABOLIC [id number] 05:51:00 Test Item Value Reference Range Interpretation [...] 0-0 (BEAKER) (test code = 413) POCT-GLUCOSE [id number] 23:44:00 Test Item Value Reference Range Interpretation Comments POC-GLUCOSE METER 119 mg/dL 70-[address] [facility] 6720 ([facility]) (test code = [facility] 1538) [address] POCT-GLUCOSE [id number] 16:16:00 Test Item Value Reference Range Interpretation Comments POC-GLUCOSE METER 123 mg/dL 70-[address] 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 Reason for exam:->for 24 hrs while on euthermia protocol, unjresponsive post arrestEEG REPORT: [facility] Date of EEDate of report: Test location: Inpatient - ICUEEG start time: 01/17 at 9:33amEEG end time:01/18 at 9:33amEEG #: [id number] No: [id number] ICD Code: #: R41.82 Altered mental status, unspeci fied (ICD 9: 780.97)CPT Code: #: 56488: Monitoring for localization of seizure focPROCEDURE: EEG HISTORY: unresponsive s/p arrestMEDICATIONS AFFECTING EEG: MidazolamTECHNICAL SUMMARY: This is a digitalEEG performed using disc electrodes placed according to [...] epileptiform discharges were noted. No clinical or electrogra phic seizures were noted. SLEEP Stage II sleep [...] correlate clinically.Clinical Fellow: Nilsa Vargasrophysiologist: Melinda Tan CHLORIDE, RANDOM [id number] 11:39:00 Test Item Value Reference Range Interpretation Comments CHLORIDE URINE (BEAKER) (test code = 49 meq/L 682) Reference Range: No NormalsPOTASSIUM, RANDOM [id number] 11:39:00 Test Item Value Reference Range Interpretation Comments POTASSIUM URINE (BEAKER) (test 43.9 meq/L code = 195) Reference Range: No NormalsSODIUM, RANDOM [id number] 11:39:00 Test Item Value Reference Range Interpretation Comments SODIUM URINE (BEAKER) (test code = 141 meq/L 243) Reference Range: No NormalsLACTIC ACID, ARTERIAL, WHOLE [id number] 11:08:00 Test Item Value Reference Range Interpretation Comments LACTATE BLOOD ARTERIAL (2) 0.8 mmol/L 0.5-2.2 (BEAKER) (test code = 2874) KETONE, [id number] 10:50:00 Test Item Value Reference Range Interpretation Comments KETONES, BLOOD (BEAKER) (test code 4.4 mmol/L <0.4 H = 1103) RAD, CHEST, 1 VIEW, NON [id number] 10:41:00Reason for exam:- >vented/stemiShould this be performed at the bedside?->YesFINAL REPORT Chest one view. Clinical history: vented/stemi Comparison: 01/17/2019 Discussion: A frontal chest is provided. Cardiomediastinal contours are unchanged. Lines and tubesare in stable position. Low lung volume. No definite consolidation is identified. There is stable blunting of the left costophrenic angle. No pneumothorax. Question mild interstitial edema. Signed: Tianna Chanort Verified Date/Time: 01/18/2019 10:41:02 Reading Location: [facility] Radiology Reading Room POCT-GLUCOSE [id number] 10:11:00 Test Item Value Reference Range Interpretation Comments POC-GLUCOSE METER 80 mg/dL 70-[address] [facility] 6720 (BEAKER) (test code = MARCEL Marcial [facility] [address] 1538) [id number] 07:36:00 Test Item Value Reference Range Interpretation Comments MAGNESIUM (BEAKER) 2.0 mg/dL 1.6-2.6 Specimen slightly (test code = 627) hemolyzed BLOOD GAS, [id number] 04:48:00 Test Item Value Reference Range Interpretation [...] (test code = 1819) 40.0 % TROPONIN [id number] 04:32:00 Test Item Value Reference Range Interpretation [...] acute neurological disease, and persistent tachyarrhythmia.BASIC METABOLIC [id number] 04:31:00 Test Item Value Reference Range Interpretation [...] 0-0 (BEAKER) (test code = 413) POCT-GLUCOSE [id number] 00:18:00 Test Item Value Reference Range Interpretation Comments POC-GLUCOSE METER 117 mg/dL 70-110 H TESTED AT [place] [address] ([facility]) (test code = [facility] Aggie [facility] 1538) [address] POCT-GLUCOSE [id number] 21:48:00 Test Item Value Reference Range Interpretation Comments POC-GLUCOSE METER 89 mg/dL 70-110 TESTED AT [place] [address] ([facility]) (test code = [facility] [address] 1538) [id number] 21:02:00 Test Item Value Reference Range Interpretation Comments POTASSIUM (BEAKER) (test code = 4.5 meq/L 3.5-5.1 379) [id number] 21:02:00 Test Item Value Reference Range Interpretation Comments MAGNESIUM (BEAKER) (test code = 2.1 mg/dL 1.6-2.6 627) POCT-GLUCOSE [id number] 15:54:00 Test Item Value Reference Range Interpretation Comments POC-GLUCOSE METER 107 mg/dL 70-[address] [facility] 6720 (BEAKER) (test code = MARCEL [place] 1538) [address] COMPREHENSIVE METABOLIC [id number] 15:24:00 Test Item Value Reference Range Interpretation [...] CALCULATE ESTIM ATED GFR. EEG AWAKE AND [id number] 14:53:00Reason for exam:->unresponsive post arrestEEG REPORT: Melita Lopez[facility] Date of EEDate of report: Test location: Inpatient - ICUEEG start time: 8:46EEG end time: 9:08EEG #: [id number] No: [id number] ICD Code: #: R41.82 Altered mental status, unspecified (ICD 9: 780.97) CPT Code: #: 28668: 01. EEG awake and drowsy; 20-40 minPROCEDURE: [...] clinical or electrographic seizures were noted. SLEEP Sleep stages were not seen.HYPERVENTILATION: Hyperventilation [...] Melinda Tan CBC W/PLT COUNT & AUTO DIFFERENTIAL 2019-01-17 14:52:00 Test Item Value Reference Range Interpretation [...] code = 2801) URINALYSIS W/ REFLEX URINE [id number] 10:28:00 Test Item Value Reference Range Interpretation [...] code = 1584) SOURCE(BEAKER) (test code = 0595) [id number] 10:23:00 Test Item Value Reference Range Interpretation Comments PROTIME (BEAKER) (test code = 16.1 seconds 11.7-14.7 H 759) INR (BEAKER) (test code = 370) 1.3 <=5.9 PARTIAL THROMBOPLASTIN TIME 31.3 seconds 22.5-36.0 (BEAKER) (test code = 760) RECOMMENDED COUMADIN/WARFARIN INR THERAPY RANGESSTANDARD DOSE: 2.0 - 3.0 Includes: PROPHYLAXIS for venous thrombosis, systemic embolization; TREATMENT for venous thrombosis and/or pulmonary embolus.HIGH RISK: Target INR is 2.5-3.5 for patients with mechanical heart valves.HEMOGLOBIN [id number] 10:12:00 Test Item Value Reference Range Interpretation Comments HEMOGLOBIN A1C (BEAKER) (test code = 6.6 % 4.3-6.1 H 368) POCT-GLUCOSE [id number] 09:01:00 Test Item Value Reference Range Interpretation Comments POC-GLUCOSE METER 141 mg/dL 70-[address] [facility] 6720 (BEAKER) (test code = [facility]EL [place] 1538) [address] TROPONIN [id number] 08:57:00 Test Item Value Reference Range Interpretation Comments TROPONIN I (BEAKER) (test code = 165.28 ng/mL 0.00-0.03 397) [...] contrast CLINICAL HISTORY: ams s/p tPA TECHNIQUE: C ontiguous axial images through the head without contrast [...] There is generalized parenchymal volume loss . Thereare no extra-axial fluid collections. The skull is [...] tolerate for further evaluation.. Signed: Beck Odonnell MDRkimi Verified Date/Time:01/17/2019 07:03:53 Reading Location: [address] Transitional Reading Room RAD, CHEST, 1 VIEW, NON [id number] 03:53:00Reason for exam:->s/p intubationShould this be performed at the bedside?->YesFINAL REPORT EXAMINATION: AP PORTABLE CHEST RADIOGRAPH CLINICAL INDICATION: Intubation IMPRESSION: No comparison studies are available. The tip of the endotracheal tube projects over the midline approximately 5 cm superior to [...] evaluation if clinically warranted. Signed: Josias Wilson MDReport Verified Date/Time: 01/17/2019 03:53:21 Reading Location: [address] Reading Room BLOOD GAS, [id number] 03:13:00 Test Item Value Reference Range Interpretation [...] (test code = 1819) 60.0 % TROPONIN [id number] 03:13:00 Test Item Value Reference Range Interpretation [...] failure, acidosis, acute neurological disease, and persistent tachyarrhythmia.[id number] 02:59:00 Test Item Value Reference Range Interpretation Comments PROTIME (BEAKER) (test code = 17.7 seconds 11.7-14.7 H 759) INR (BEAKER) (test code = 370) 1.5 <=5.9 PARTIAL THROMBOPLASTIN TIME > seconds 22.5-36.0 HH (BEAKER) (test code = 760) RECOMMENDED COUMADIN/WARFARIN INR THERAPY RANGESSTANDARD DOSE: 2.0 - 3.0 Includes: PROPHYLAXIS for venous thrombosis, systemic embolization; TREATMENT for venous thrombosis and/or pulmonary embolus.HIGH RISK: Target INR is 2.5-3.5 for patients with mechanical heart valves.BASIC METABOLIC [id number] 02:52:00 Test Item Value Reference Range Interpretation [...] TO CALCULA TE ESTIMATED GFR. COMPREHENSIVE METABOLIC [id number] 02:52:00 Test Item Value Reference Range Interpretation [...] < pg/mL 0-100 (test code = 700) [id number] 02:45:00 Test Item Value Reference Range Interpretation Comments MAGNESIUM (BEAKER) 2.0 mg/dL 1.6-2.6 Specimen slightly (test code = 627) hemolyzed LIPID [id number] 02:45:00 Test Item Value Reference Range Interpretation Comments TRIGLYCERIDES (BEAKER) 154 mg/dL Speci men slightly (test code = 540) hemolyzed CHOLESTEROL (BEAKER) 204 mg/dL Specime n slightly (test code = 631) hemolyzed HDL CHOLESTEROL (BEAKER) 38 mg/dL (test code = 976) LDL CHOLESTEROL 135 mg/dL CALCULATED (BEAKER) (test code = 633) Triglyceride Reference Range: Low Risk <150 Borderline 150-199 High Risk 200- 499 Very High Risk >=500Cholesterol Reference Range: Low Risk <200 Borderline 200-239 High Risk >240HDL Cholesterol Reference Range: Low Risk >=60 High Risk <40LDL Cholesterol Reference Range: Optimal <100 Near Optimal 100-129 Borderline 130-159 High 160-189 Very High >=190PROTHROMBIN TIME/[id number] 02:40:00 Test Item Value Reference Range Interpretation Comments PROTIME (BEAKER) (test code = 17.7 seconds 11.7-14.7 H 759) INR (BEAKER) (test code = 370) 1.5 <=5.9 RECOMMENDED COUMADIN/WARFARIN INR THERAPY RANGESSTANDARD DOSE: 2.0 - 3.0 Includes: PROPHYLAXIS for venous thrombosis, systemic embolization; TREATMENT for venous thrombosis and/or pulmonary embolus.HIGH RISK: Target INR is 2.5-3.5 for patients with mechanical heart valves.CBC W/PLT COUNT & AUTO [id number] 02:32:00 Test Item Value Reference Range Interpretation [...] WBC 0-0 (BEAKER) (test code = 413) [id number] 01:16:00 Test Item Value Reference Range Interpretation Comments ACTIVATED CLOTTING TIME 301 sec TEST ED AT [place] [address] ([facility]) (test code = [place] [address]) [id number] 01:16:00 Test Item Value Reference Range Interpretation Comments ACTIVATED CLOTTING TIME 131 sec TEST ED AT [place] [address] ([facility]) (test code = [place] [address]) [address] BLOOD GAS, [id number] 00:54:00 Test Item Value Reference Range Interpretation [...] code = 1819) 100.0 % POC Glucose, [id number] 08:58:00 Test Item Value Reference Range Interpretation Comments POC Glucose (test 146 mg/dL 70-115 H If you con filter washer your code = POCGLUC) patient crit ically ill, the [facility] Accu- Chek InformII meters hould not be used for Glu cose determinations. Draw a venous Glucose and send to the Main Lab for Analysis. POC Glucose, [id number] 20:29:00 Test Item Value Reference Range Interpretation Comments POC Glucose (test 146 mg/dL 70-115 H If you con filter washer your code = POCGLUC) patient crit ically ill, the [place] Accu- Chek InformII meters hould not be used for Glu cose determinations. Draw a venous Glucose and send to the Main Lab for Analysis. POC Glucose, [id number] 15:23:00 Test Item Value Reference Range Interpretation Comments POC Glucose (test 135 mg/dL 70-115 H If you con filter washer your code = POCGLUC) patient crit ically ill, the [place] Accu- Chek InformII meters hould not be used for Glu cose determinations. Draw a venous Glucose and send to the Main Lab for Analysis. POC Glucose, [id number] 11:52:00 Test Item Value Reference Range Interpretation Comments POC Glucose (test 123 mg/dL 70-115 H If you con filter washer your code = POCGLUC) patient crit ically ill, the [place] Accu- Chek InformII meters hould not be used for Glu cose determinations. Draw a venous Glucose and send to the Main Lab for Analysis. POC Glucose, [id number] 08:01:00 Test Item Value Reference Range Interpretation Comments POC Glucose (test 121 mg/dL 70-115 H If you con filter washer your code = POCGLUC) patient crit ically ill, the [place] Accu- Chek InformII meters hould not be used for Glu cose determinations. Draw a venous Glucose and send to the Main Lab for Analysis. POC Glucose, [id number] 21:22:00 Test Item Value Reference Range Interpretation Comments POC Glucose (test 112 mg/dL 70-115 N If you con filter washer your code = POCGLUC) patient crit ically ill, the [place] Accu- Chek InformII meters hould not be used for Glu cose determinations. Draw a venous Glucose and send to the Main Lab for Analysis. POC Glucose, [id number] 17:06:00 Test Item Value Reference Range Interpretation Comments POC Glucose (test 148 mg/dL 70-115 H If you con filter washer your code = POCGLUC) patient crit ically ill, the [place] Accu- Chek InformII meters hould not be used for Glu cose determinations. Draw a venous Glucose and send to the Main Lab for Analysis. POC Glucose, [id number] 11:21:00 Test Item Value Reference Range Interpretation Comments POC Glucose (test 108 mg/dL 70-115 N If you con filter washer your code = POCGLUC) patient crit ically ill, the [place] Accu- Chek InformII meters hould not be used for Glu cose determinations. Draw a venous Glucose and send to the Main Lab for Analysis. POC Glucose, [id number] 08:13:00 Test Item Value Reference Range Interpretation Comments POC Glucose (test 170 mg/dL 70-115 H If you con filter washer your code = POCGLUC) patient crit ically ill, the [place] Accu- Chek InformII meters hould not be used for Glu cose determinations. Draw a venous Glucose and send to the Main Lab for Analysis. POC Glucose, [id number] 21:10:00 Test Item Value Reference Range Interpretation Comments POC Glucose (test 169 mg/dL 70-115 H If you con filter washer your code = POCGLUC) patient crit ically ill, the [place] Accu- Chek InformII meters hould not be used for Glu cose determinations. Draw a venous Glucose and send to the Main Lab for Analysis. POC Glucose, [id number] 16:25:00 Test Item Value Reference Range Interpretation Comments POC Glucose (test 115 mg/dL 70-115 N If you con filter washer your code = POCGLUC) patient crit ically ill, the [place] Accu- Chek InformII meters hould not be used for Glu cose determinations. Draw a venous Glucose and send to the Main Lab for Analysis. POC Glucose, [id number] 12:41:00 Test Item Value Reference Range Interpretation Comments POC Glucose (test 117 mg/dL 70-115 H If you con filter washer your code = POCGLUC) patient crit ically ill, the [place] Accu- Chek InformII meters hould not be used for Glu cose determinations. Draw a venous Glucose and send to the Main Lab for Analysis. POC Glucose, [id number] 09:32:00 Test Item Value Reference Range Interpretation Comments POC Glucose (test 115 mg/dL 70-115 N If you con filter washer your code = POCGLUC) patient crit ically ill, the [place] Accu- Chek InformII meters hould not be used for Glu cose determinations. Draw a venous Glucose and send to the Main Lab for Analysis. POC Glucose, [id number] 05:20:00 Test Item Value Reference Range Interpretation Comments POC Glucose (test 106 mg/dL 70-115 N If you con filter washer your code = POCGLUC) patient crit ically ill, the [facility] Accu- Chek InformII meters hould not be used for Glu cose determinations. Draw a venous Glucose and send to the Main Lab for Analysis. POC Glucose, [id number] 15:32:00 Test Item Value Reference Range Interpretation Comments POC Glucose (test 83 mg/dL 70-115 N If you con filter washer your code = POCGLUC) patient crit ically ill, the [facility] Accu- Chek InformII meters hould not be used for Glu cose determinations. Draw a venous Glucose and send to the Main Lab for Analysis. URINE AND [id number] 22:16:00 Test Item Value Reference Range Interpretation Comments UA Blood (test code = Negative (08/27/16 5:16 UA Blood) PM) [facility] AND [id number] 22:16:00 Test Item Value Reference Range Interpretation Comments UA Ketones (test code = UA Negative mg/dL Ketones) [facility] AND [id number] 22:16:00 Test Item Value Reference Range Interpretation Comments UA Bili (test code = Negative *NA*(08/27/16 UA Bili) 5:16 PM) [facility] AND [id number] 22:16:00 Test Item Value Reference Range Interpretation Comments UA Protein (test code = UA Protein) 20 mg/dL [facility] AND [id number] 22:16:00 Test Item Value Reference Range Interpretation Comments UA Glucose (test code = UA Negative mg/dL Glucose) [facility] AND [id number] 22:16:00 Test Item Value Reference Range Interpretation Comments UA pH (test code = UA pH) 5.5 5.0-8.0 [facility] AND [id number] 22:16:00 Test Item Value Reference Range Interpretation Comments UA Turbidity (test code = Clear (08/27/16 5:16 UA Turbidity) PM) [facility] AND [id number] 22:16:00 Test Item Value Reference Range Interpretation Comments UA Color (test code = Yellow *NA*(08/27/16 UA Color) 5:16 PM) [facility] AND [id number] 22:16:00 Test Item Value Reference Range Interpretation Comments UA Spec Grav (test code = UA Spec Grav) 1.022 [facility] AND [id number] 22:16:00 Test Item Value Reference Range Interpretation Comments UA Urobilinogen (test code = UA <=1.0 mg/dL 0.1-1.0 Urobilinogen) [facility] AND [id number] 22:16:00 Test Item Value Reference Range Interpretation Comments UA Sq Epi (test code = UA Sq Epi) None Seen [facility] AND [id number] 22:16:00 Test Item Value Reference Range Interpretation Comments UA Mucus (test code = UA Mucus) Few /LPF [facility] AND [id number] 22:16:00 Test Item Value Reference Range Interpretation Comments UA WBC (test code = 2 See_Comment [Automa gloria message] The UA WBC) system which ge nerated this result transmit gloria reference range : <=5. The reference range was not used to interpr et this result as laura l/abnormal. [facility] AND [id number] 22:16:00 Test Item Value Reference Range Interpretation Comments UA Leuk Est (test Negative (08/27/16 5:16 code = UA Leuk Est) PM) [facility] AND [id number] 22:16:00 Test Item Value Reference Range Interpretation Comments UA Nitrite (test code Negative (08/27/16 5:16 = UA Nitrite) PM) [id number] 09:53:00 Test Item Value Reference Range Interpretation Comments Chol (test code = Chol) 123 [id number] 09:53:00 Test Item Value Reference Range Interpretation Comments Trig (test code = Trig) 276 [id number] 09:53:00 Test Item Value Reference Range Interpretation Comments HDL (test code = HDL) 33 [facility]EidwktwXLRWHK2519-09-52 09:53:00 Test Item Value Reference Range Interpretation Comments CHD Risk (test code = CHD Risk) 3.73 4.00-7.30 [facility] [id number] 09:53:00 Test Item Value Reference Range Interpretation Comments Hgb A1C (test code = Hgb A1C) 5.3 [facility]2016-10-01 09:53:00 Test Item Value Reference Range Interpretation Comments A/G Ratio (test code = A/G Ratio) 1.1 0.7-1.6 [facility]2016-10-01 09:53:00 Test Item Value Reference Range Interpretation Comments B/C Ratio (test code = B/C Ratio) 20 6-25 [facility]2016-10-01 09:53:00 Test Item Value Reference Range Interpretation Comments AGAP (test code = AGAP) 13.7 10.0-20.0 [facility]2016-10-01 09:53:00 Test Item Value Reference Range Interpretation Comments Globulin (test code = Globulin) 3.6 2.7-4.2 [facility]2016-10-01 09:53:00 Test Item Value Reference Range Interpretation Comments eGFR (test code = eGFR) 71 [facility]2016-10-01 09:53:00 Test Item Value Reference Range Interpretation Comments Alk Phos (test code = Alk Phos) 92 39-136 [facility]2016-10-01 09:53:00 Test Item Value Reference Range Interpretation Comments Bili Total (test code = Bili Total) 0.5 0.2-1.3 [facility]2016-10-01 09:53:00 Test Item Value Reference Range Interpretation Comments Creatinine Lvl (test code = Creatinine 1.20 0.50-1.40 Lvl) [facility]2016-10-01 09:53:00 Test Item Value Reference Range Interpretation Comments BUN (test code = BUN) 24 7-22 [facility]2016-10-01 09:53:00 Test Item Value Reference Range Interpretation Comments Glucose Lvl (test code = Glucose Lvl) 105 70-99 [facility]2016-10-01 09:53:00 Test Item Value Reference Range Interpretation Comments Potassium Lvl (test code = Potassium 3.7 3.5-5.1 Lvl) [facility]2016-10-01 09:53:00 Test Item Value Reference Range Interpretation Comments Sodium Lvl (test code = Sodium Lvl) 142 135-145 [facility]2016-10-01 09:53:00 Test Item Value Reference Range Interpretation Comments Chloride Lvl (test code = Chloride Lvl) 106 95-109 [facility]2016-10-01 09:53:00 Test Item Value Reference Range Interpretation Comments CO2 (test code = CO2) 26 24-32 [facility]2016-10-01 09:53:00 Test Item Value Reference Range Interpretation Comments ALT (test code = ALT) 32 See_Comment [Auto mated message] The system which ge nerated this result transmit gloria reference range : <=65. The reference range was not used to interpr et this result as laura l/abnormal. [facility]2016-10-01 09:53:00 Test Item Value Reference Range Interpretation Comments Albumin Lvl (test code = Albumin Lvl) 3.9 3.5-5.0 [facility]2016-10-01 09:53:00 Test Item Value Reference Range Interpretation Comments Total Protein (test code = Total 7.5 6.4-8.4 Protein) [facility]2016-10-01 09:53:00 Test Item Value Reference Range Interpretation Comments Calcium Lvl (test code = Calcium Lvl) 8.9 8.5-10.5 [facility]2016-10-01 09:53:00 Test Item Value Reference Range Interpretation Comments AST (test code = AST) 12 See_Comment [Auto mated message] The system which ge nerated this result transmit gloria reference range : <=37. The reference range was not used to interpr et this result as laura l/abnormal. [facility]2016-10-01 09:53:00 Test Item Value Reference Range Interpretation Comments Magnesium Lvl (test code = Magnesium 2.0 1.8-2.4 Lvl) [facility]2016-10-01 09:53:00 Test Item Value Reference Range Interpretation Comments Phosphorus (test code = Phosphorus) 3.7 2.5-4.5 [id number] 09:53:00 Test Item Value Reference Range Interpretation Comments Basophils # (test code 0.1 See_Comment [Aut omated message] The = Basophils #) system which generated this result tra nsmitted reference range : <=0.2. The reference r ameya was not used to int erpret this result as normal/abnormal . [facility] CenterKvnzaimPMNEMUGCEU7579-04-01 09:53:00 Test Item Value Reference Range Interpretation Comments Eosinophils # (test code 0.2 See_Comment [A utomated message] The = Eosinophils #) system whic h generated this result tra nsmitted reference range : <=0.5. The reference r ameya was not used to int erpret this result as normal/abnormal . [facility] Cent[id number] 09:53:00 Test Item Value Reference Range Interpretation Comments Monocytes # (test code 0.5 See_Comment [Aut omated message] The = Monocytes #) system which generated this result tra nsmitted reference range : <=0.8. The reference r ameya was not used to int erpret this result as normal/abnormal . [facility] C[id number] 09:53:00 Test Item Value Reference Range Interpretation Comments Lymphocytes # (test code = Lymphocytes 2.2 1.0-5.5 #) [facility] CenterHygbwiqXPTNMJRQTK5496-04-88 09:53:00 Test Item Value Reference Range Interpretation Comments Segs-Bands # (test code = Segs-Bands #) 5.4 1.5-8.1 [facility] CenterBxgauwwFOSEUHTBAL6253-22-03 09:53:00 Test Item Value Reference Range Interpretation Comments Basophils (test code = 0.7 See_Comment [Aut omated message] The Basophils) system which ge nerated this result tra nsmitted reference range : <=1.0. The reference r ameya was not used to int erpret this result as normal/abnormal . [facility] CenterTxnxpjeUUCGMNCGIO1854-51-25 09:53:00 Test Item Value Reference Range Interpretation Comments Eosinophils (test code = 2.4 See_Comment [A utomated message] The Eosinophils) system which ge nerated this result tra nsmitted reference range : <=4.0. The reference r ameya was not used to int erpret this result as normal/abnormal . [facility] CenterQjpcliqKOCJVLWSOQ9206-26-85 09:53:00 Test Item Value Reference Range Interpretation Comments Monocytes (test code = Monocytes) 5.8 2.0-12.0 [facility] CenterHcupnbbXPNSDELPTH8739-63-69 09:53:00 Test Item Value Reference Range Interpretation Comments Lymphocytes (test code = Lymphocytes) 26.0 20.0-40.0 [facility] CenterMfsxawsNMTHEJBKBL4991-94-12 09:53:00 Test Item Value Reference Range Interpretation Comments Segs (test code = Segs) 65.1 45.0-75.0 [facility] CenterPddziztLPYWAIANTL8919-53-59 09:53:00 Test Item Value Reference Range Interpretation Comments INR (test code = INR) 1.04 0.85-1.17 [facility] CenterLtggpdpXMYUZPGBNI4032-67-80 09:53:00 Test Item Value Reference Range Interpretation Comments PTT (test code = PTT) 27.3 s 22.9-35.8 [facility] CenterCvkmyhjEVWMKBBCEJ1299-17-67 09:53:00 Test Item Value Reference Range Interpretation Comments PT (test code = PT) 13.8 s 12.0-14.7 [facility] CenterGncjaheGDLWAGCFXX4462-16-98 09:53:00 Test Item Value Reference Range Interpretation Comments MCHC (test code = MCHC) 34.2 32.0-36.0 [facility] CenterRblsekuQHMZWRGLYN6002-48-69 09:53:00 Test Item Value Reference Range Interpretation Comments RDW (test code = RDW) 13.6 11.5-14.5 [facility] CenterZrhvvtgYWHIQWDXVG6973-51-87 09:53:00 Test Item Value Reference Range Interpretation Comments Platelet (test code = Platelet) 322 133-450 [facility] CenterMbqeazqQHJDAYFNRM3300-64-81 09:53:00 Test Item Value Reference Range Interpretation Comments MPV (test code = MPV) 9.1 7.4-10.4 [facility] CenterCuhgusmKUJPSFUSNT6954-38-82 09:53:00 Test Item Value Reference Range Interpretation Comments MCH (test code = MCH) 30.3 pg 27.0-31.0 [facility] CenterExmflbcEBSGPDFDEM8593-97-01 09:53:00 Test Item Value Reference Range Interpretation Comments WBC (test code = WBC) 8.3 3.7-10.4 [facility] CenterWezhcvrDOYVRWUQMV9652-47-91 09:53:00 Test Item Value Reference Range Interpretation Comments Hct (test code = Hct) 36.3 42.0-54.0 [facility]nefZQUZMMNPVA1182-81-84 09:53:00 Test Item Value Reference Range Interpretation Comments MCV (test code = MCV) 88.8 80.0-94.0 [facility] CenterRcludmoBXGVVTIFCZ0026-95-95 09:53:00 Test Item Value Reference Range Interpretation Comments RBC (test code = RBC) 4.09 4.70-6.10 [facility] CenterObfcddfXWSQMTLIDO0703-98-14 09:53:00 Test Item Value Reference Range Interpretation Comments Hgb (test code = Hgb) 12.4 14.0-18.0 [facility]IqnzofxJPSIBAYPSA7630-70-28 09:53:00 Test Item Value Reference Range Interpretation Comments Prealbumin (test code = Prealbumin) 35.6 18.0-45.0 [facility] UptownLtwhoheUERURP9726-85-61 09:53:00 Test Item Value Reference Range Interpretation Comments VLDL (test code = VLDL) 55 [facility] UptownSavurikZLZJSY4825-48-78 09:53:00 Test Item Value Reference Range Interpretation Comments LDL (Calculated) (test code = LDL 35 (Calculated)) [facility]
--- NOTE | 2022-07-20 16:48 | RAD REPORT ---
EXAM DESCRIPTION: RAD - Foot Right 3 View - 07/20/2022 4:42 pm CLINICAL HISTORY: SWELLING COMPARISON: Foot Right 3 View dated 05/16/2019 FINDINGS/IMPRESSION: No acute fracture. No malalignment. Calcaneal spurring
--- NOTE | 2022-07-20 16:49 | RAD REPORT ---
EXAM DESCRIPTION: RAD - Ankle Right 3 View - 07/20/2022 4:42 pm CLINICAL HISTORY: SWELLING COMPARISON: No comparisons FINDINGS/IMPRESSION: No acute fracture. No malalignment. Osteochondral defect along the medial talar dome. Nonemergent MRI could better assess if clinically indicated. Calcaneal spurring.
[2022-07-20 17:29] LABS: Hematocrit 44.1 % (39.6-49.0); Lymphocytes % 23.5 % (15.3-44.8); MCV 91.7 fL (80-100); MPV 8.2 fL (7.6-11.3)
[2022-07-20 17:44] LABS: Potassium 3.7 mmol/L (3.5-5.1)
[2022-07-20 17:45] LABS: Albumin 3.7 g/dL (3.4-5.0); Bilirubin Total 0.3 mg/dL (0.2-1.0); Protein, Total 7.3 g/dL (6.4-8.2)
--- NOTE | 2022-07-20 18:04 | RAD REPORT ---
EXAM DESCRIPTION: US - Extremity Venous Uni Ltd - 07/20/2022 5:53 pm CLINICAL HISTORY: Swelling COMPARISON: None. TECHNIQUE: Real-time sonographic evaluation of the right lower extremity deep venous system was perf ormed. FINDINGS: Normal compressibility, flow augmentation, phasic flow and spontaneous flow is identified in the right lower extremity deep venous system. No intraluminal filling defects seen. IMPRESSION: No DVT in the right lower extremity.
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
[2022-07-20 20:51] VITALS: TEMP 97.1
[2022-07-20 21:01] VITALS: BP 115/70; O2SAT 99
== END 2022-07-20 19:00 | disposition home or self-care (01) ==
LOC: ER 13:51
DX: L03.031 Cellulitis of right toe (principal); I10 Essential (primary) hypertension; F17.210 Nicotine dependence, cigarettes, uncomplicated; Z87.820 Personal history of traumatic brain injury
CPT/HCPCS: 36415; 80053; 83605; 85025; 87040; 93971

== ENCOUNTER 2023-06-06 18:21 | Emergency (ER) | payer OTHER ==
--- OUTSIDE RECORDS SUMMARY | 2023-06-06 18:31 | XMS REPORT | Continuity of Care Document ---
:1965 Author Organization [facility] t Address [address] [facility]. [address] [place] [address] Care Team Providers Name Role Phone UNKNOWN, REFFERING Primary Care Physician Unavailable REGINO LIVINGSTON Attending Clinician Unavailable Regino Livingston MD Attending Clinician Elliot Bell Attending Clinician Unavailable Hector LO, Cecille Grier Attending Clinician Unavailable Pcp, Patient Does Not Have A Attending Clinician [phone] CHAY BLACKBURN Attending Clinician Unavailable Doctor Unassigned, [place] Attending Clinician Unavailable Lab, Adc Fam Pob I Attending Clinician Unavailable Reji Carter Attending Clinician REJI BACON Attending Clinician Unavailable Lab, Pcp Covid Attending Clinician Unavailable Lolis Taylor MD Attending Clinician LOLIS TAYLOR Attending Clinician Unavailable ANNE JARVIS Attending Clinician Unavailable MARIA DOLORES KNOWLES M.D., Moncho WHITTEN. Attending Clinician UnavailSergei Anderson Attending Clinician [phone] Ethan Wellington Attending Clinician Elliot Bell Admitting Clinician Unavailable ANNE JARVIS Admitting Clinician Unavailable MARIA DOLORES KNOWLES M.D., MARIA DOLORES Admitting Clinician Unavailable Ethan Wellington Admitting Clinician [phone] Payers Payer Name Policy Type Policy Number Effective Date Expiration Date Ralph [facility] DUAL [id number] 2022 ACCESS OPEN PPO 00:00:00 [facility] [id number] 2020 PLUS 00:00:00 MEDICARE PART A [id number] 2021 \T\ B 00:00:00 MEDICAID [facility] [id number] 2021 00:00:00 Problems Condition Condition Condition Status Onset Resolution Last Treating Co mments Source Name Details Category Date Date Treatment Clinician Date STEMI (ST STEMI (ST Disease [facility]urre [facility] elevation elevation nce 01-17 Luke [facility] myocardial myocardial 00:00: Me dical infarction infarction 00 Ce nter ) ) Cardiac Cardiac Disease Recurre [facility] arrest arrest [facility] [place] [id number] [facility] Edema, Edema, Disease Active Univers unspecifie unspecifie 3-08 it y of d type d type 00:00: [place] 00 Medical Branch S/P flap S/P flap Disease Active Unive rs graft graft 3-08 ity of 00:00: 00 Medical Branch Decreased Decreased Disease Active [...] y of d type d type 00:00: [place] [facility] Hand pain, Hand pain, Disease Active U nivers left left 3-08 ity of 00:00: [place] [facility] ENCEPHALOP ENCEPHALO Diagnosis Active 2015-112016-11-02 Memoria ATHY JEREMIAH 12-29 12:35:00 l Active 00:00: [place] 10/28/2016 00 [facility] D/C FOLLOW D/C Diagnosis Active 2015-112016-10-28 Memoria UP FOLLOW UP 0 10:29:00 l Active 00:00: [place] 09/07/2016 00 [facility] LEUKOENCEP LEUKOENCE Diagnosis Active 2016-08-26 Memoria HALOPATHY PHALOPATHY 08-24 20:06:00 l Active 00:00: [place] 08/24/2016 00 [facility] Altered Altered Disease Active Univers mental mental 9 ity of state state 00:00: [place] [facility] Confusion Confusion Disease Active Uni vers 9 ity of 00:00: [place] [facility] Obesity Obesity Disease Active Univers 07-29 ity of 00:00: [place] 00 Medical [facility] Acute Acute Disease Active Univers [...] is is 8-26 ity of 00:00: [place] 00 Medical Branch Hyponatrem Hyponatrem Disease Active U [...] Memor ia damage damage 05:37:01 l Active [place] Problem 10/19/2018 eCW: Denise Birch MD, PA 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 05:11:04 l , , [place] unspecifie unspecifie d d Active Diagnosis 10/10/2018 eCW: Denise Birch MD, PA Chronic Chronic Problem Active 2016-12-02 Me moria drug abuse drug abuse 01:26:03 l (disorder) (disorder) He rmann Active Problem 12/02/2016 [facility], [facility] Dysphagia Dysphagia Problem Active 2016-12-02 Memoria (disorder) (disorder) 01:26:03 l Active [place] Problem 12/02/2016 [facility], [facility] Impaired Impaired [...] [facility] ENCEPHALOP ENCEPHALO Diagnosis Active 2016-08-26 Memoria JEREMIAH MACDONALD, 20:06:00 l UNSPECIFIE UNSPECIFIE He rmann D D Active [facility] Final: Final: Problem 2016-09-11 Hasmukh shereen Encephalop Encephalop 00:40:18 l torres macdonald Hermann unspecifie unspecifie d d 09/11/2016 [facility] Constipati Constipat Problem Active 2018-10-19 Memoria [...] ents Source Name Type Date Date Clinician No Known DA Active U [facility] Allergie 07-26 s 00:00: [address] N.K.D.A. N.K.D.A. Active Info Not 2015-11 Hasmukh shereen Available 2-13 l 00:00: [place] 00 NO KNOWN Drug Active [facility] ALLERGIE Class ity of S [facility] NO KNOWN Allergy Active [facility] Social History Social Habit Start Date Stop Date Quantity Comments Source History of tobacco Cigarette Smoker University of use [facility] Exposure to 2022-11-23 2022-12-03 Not sure University SARS-CoV-2 (event) 00:00:00 12:25:00 [facility] Alcohol intake 2022-12-03 2022-12-03 .86 /d University of 00:00:00 00:00:00 [facility] Cigarettes smoked 2019-05-23 2019-05-23 Univers ity of current (pack per 00:00:00 00:00:00 ) - Reported Branch Tobacco use and 2019-05-23 2019-05-23 Smokeless Universit y of exposure 00:00:00 00:00:00 tobacco non-user [facility] Tobacco Comment 2016-10-11 2016-10-11 ex states Unive rsity of 00:00:00 00:00:00 pt is not [facility] Sex Ass[birth year] At [birth year] [facility] 00:00:00 00:00:00 [facility] Smoking Status Start Date Stop Date Source Smokes tobacco daily 2019-05-23 00:00:00 Univers ity of [facility] Social History 2016-08-27 02:08:37 [facility] Medications Ordered Filled Start Stop Current Ordering Indication Dosage Frequency Signature Comments Components Source Medication Medication Date Date Medication? Clinician (SIG) Name Name cephALEXin 2022- No [id number] 500mg Take 1 Univers 500 mg 12-03 capsule by ity of capsule 00:00: 05:59 mouth 4 [place] 00 :00 (four) Medical times Branch daily for 10 days. mupirocin 2 2022-0 2022- No [id number] Apply to Univers % ointment 12-03 area(s) 3 ity of 00:00: 05:59 (three) [place] 00 :00 times Medical daily for Branch 10 days. metoprolol 2018-0 Yes 25mg Take 25 mg [...] by mouth ity of tablet 18:51: daily. [address] Branch metoprolol 2018-0 Yes 25mg Take 25 [...] by mouth ity of tablet 18:51: daily. [address] Branch metoprolol 2018-0 Yes 25mg Take 25 [...] by mouth ity of tablet 18:51: daily. [address] Branch metoprolol 2018-0 Yes 25mg Take 25 mg U nivers succinate 9-20 by mouth ity of XL 25 mg 24 18:51: [place]. [place] [facility] lisinopril 2018-0 Yes 2.5mg Take 2.5 Un gr 2.5 mg 9-20 mg by ity of tablet 18:51: mouth [place] 41 daily. Medical Branch clopidogrel 2019-0 Yes 75mg Take 75 mg Univers 75 mg 9-20 by mouth ity of tablet 18:51: daily. [place] [address] Medical Branch metoprolol 2018-0 Yes 25mg Take 25 mg U nivers succinate 9-20 by mouth ity of XL 25 mg 24 18:51: [place]. [place] 41 [facility] lisinopril 2018-0 Yes 2.5mg Take 2.5 Un rg 2.5 mg 9-20 mg by ity of tablet 18:51: mouth [place] 41 daily. Medical Branch clopidogrel 2019-0 Yes 75mg Take 75 mg Univers 75 mg 9-20 by mouth ity of tablet 18:51: daily. [place] [address] Medical Branch metoprolol 0 Yes 25mg Take [...] by mouth ity of tablet 18:51: daily. [address] Branch metoprolol 2018-0 Yes 25mg Take 25 [...] by mouth ity of tablet 18:51: daily. [place] [address] Medical Branch metoprolol 2018-0 Yes 25mg Take [...] by mouth ity of tablet 18:51: daily. [place] [address] Medical Branch metoprolol Yes 25mg Take 25 mg U nivers succinate 9-20 by mouth ity of XL 25 mg 24 18:51: [place]. [place] 41 [facility] lisinopril Yes 2.5mg Take 2.5 Un rg 2.5 mg 9-20 mg by ity of tablet 18:51: mouth [place] [address] daily. Medical Branch clopidogrel Yes 75mg Take 75 mg Univers 75 mg 9-20 by mouth ity of tablet 18:51: daily. [place] [address] Medical Branch metoprolol Yes 25mg Take 25 mg U nivers succinate 9-20 by mouth ity of XL 25 mg 24 13:51: [place]. [place] [facility] lisinopril Yes 2.5mg Take 2.5 Un rg 2.5 mg 9-20 mg by ity of tablet 13:51: mouth [place] [address] daily. Medical Branch clopidogrel Yes 75mg Take 75 mg Univers 75 mg 9-20 by mouth ity of tablet 13:51: daily. [place] [address] Medical Branch atorvastati Yes [id number] 80mg Take 1 Univers n 80 mg 9-20 tablet by ity of tablet 00:00: mouth at [place] [address] bedtime. Medical Branch atorvastati Yes [id number] 80mg Take 1 Univers n 80 mg 9-20 tablet by ity of tablet 00:00: mouth at [place] [address] bedtime. Medical Branch atorvastati Yes [id number] 80mg Take 1 Univers n 80 mg 9-20 tablet by ity of tablet 00:00: mouth at [place] [address] bedtime. Medical Branch atorvastati Yes [id number] 80mg Take 1 Univers n 80 mg 9-20 tablet by ity of tablet 00:00: mouth at [place] [address] bedtime. Medical Branch atorvastati Yes [id number] 80mg Take 1 Univers n 80 mg 9-20 tablet by ity of tablet 00:00: mouth at [place] [address] bedtime. Medical Branch atorvastati Yes [id number] 80mg Take 1 Univers n 80 mg 9-20 07 tablet by ity of tablet 00:00: mouth at [place] [address] bedtime. Medical Branch atorvastati Yes [id number] 80mg Take 1 Univers n 80 mg 9-20 tablet by ity of tablet 00:00: mouth at [place] [address] bedtime. Medical Branch atorvastati 0 Yes [id number] 80mg Take 1 Univers n 80 mg 9-20 tablet by ity of tablet 00:00: mouth at [place] [address] bedtime. Medical Branch atorvastati Yes [id number] 80mg Take 1 Univers n 80 mg 9-20 tablet by ity of tablet 00:00: mouth at [place] [address] bedtime. Medical Branch atorvastati Yes [id number] 80mg Take 1 Univers n 80 mg 9-20 tablet by ity of tablet 00:00: mouth at [place] [address] bedtime. Medical Branch metoprolol 2018- Yes 25mg Take 25 mg U nivers succinate 7-18 by mouth ity of XL 25 mg 24 13:33: [place]. [place] [facility] lisinopril Yes 2.5mg Take 2.5 Un rg 2.5 mg 7-18 mg by ity of tablet 13:33: mouth [place] [address] daily. Medical Branch clopidogrel 2018- Yes 75mg Take 75 mg Univers 75 mg 7-18 by mouth ity of tablet 13:33: daily. [place] [address] Medical Branch atorvastati Yes 80mg Take 80 mg Univers n 80 mg 7-18 by mouth ity of tablet 13:33: at [place] [address] bedtime. Medical Branch metFORMIN Yes [id number] 500mg Take 1 U nivers 500 mg 7-02 tablet by ity of tablet 00:00: mouth 2 [place] [address] (two) Medical times Branch daily with meals. metFORMIN Yes [id number] 500mg Take 1 U nivers 500 mg 7-02 tablet by ity of tablet 00:00: mouth 2 [place] [address] (two) Medical times Branch daily with meals. metFORMIN Yes [id number] 500mg Take 1 U nivers 500 mg 7-02 tablet by ity of tablet 00:00: mouth 2 [place] (two) Medical times Branch daily with meals. metFORMIN 2018-0 Yes [id number] 500mg Take 1 U nivers 500 mg 7-02 tablet by ity of tablet 00:00: mouth 2 [place] [address] (two) Medical times Branch daily with meals. metFORMIN Yes [id number] 500mg Take 1 U nivers 500 mg 7-02 tablet by ity of tablet 00:00: mouth 2 (two) Medical times Branch daily with meals. metFORMIN 2019-0 Yes [id number] 500mg Take 1 U nivers 500 mg 7-02 tablet by ity of tablet 00:00: mouth 2 (two) Medical times Branch daily with meals. metFORMIN 2019-0 Yes [id number] 500mg Take 1 U nivers 500 mg 7-02 tablet by ity of tablet 00:00: mouth 2 (two) Medical times Branch daily with meals. metFORMIN 2019-0 Yes [id number] 500mg Take 1 U nivers 500 mg 7-02 tablet by ity of tablet 00:00: mouth 2 (two) Medical times Branch daily with meals. metFORMIN 2019-0 Yes [id number] 500mg Take 1 U nivers 500 mg 7-02 tablet by ity of tablet 00:00: mouth 2 (two) Medical times Branch daily with meals. metFORMIN 2019-0 Yes [id number] 500mg Take 1 U nivers 500 mg 7-02 tablet by ity of tablet 00:00: mouth 2 (two) Medical times Branch daily with meals. metFORMIN 2018-0 Yes [id number] 500mg Take 1 U nivers 500 mg 7-02 tablet by ity of tablet 00:00: mouth 2 (two) Medical times Branch daily with meals. [...] 1-14 MARMOLEJO at bedtime l de 05:11: Carvedilol 2017- Yes KAYY 1 tablet Memoria 1-14 MARMOLEJO l 05:11: Simvastatin 2017- Yes KAYY 1 tablet Memoria 1-14 MARMOLEJO in the l 05:11: evening [place] ASA 2018- Yes KAYY 1 tab Memoria 1-14 MARMOLEJO l 05:11: Fenofibrate 2018- Yes KAYY 1 tablet Memoria 1-14 MARMOLEJO l 05:11: Clopidogrel 2018- Yes KAYY 1 tablet Memoria Bisulfate 1-14 MARMOLEJO l 05:11: [place] Donepezil 2018- Yes KAYY 1 tablet M emoria Hydrochlori 1-14 MARMOLEJO at bedtime l de 05:11: [place] 04 Carvedilol 2018- Yes KAYY 1 tablet Memoria 1-14 MARMOLEJO l 05:11: [place] Simvastatin 2018- Yes KAYY 1 tablet Memoria 1-14 MARMOLEJO in the l 05:11: evening [place] 04 ASA 2018- Yes KAYY 1 tab Memoria 1-14 MARMOLEJO l 05:11: [place] 04 Fenofibrate 2018- Yes KAYY 1 tablet Memoria 1-14 MARMOLEJO l 05:11: [place] Clopidogrel 2018- Yes KAYY 1 tablet Memoria Bisulfate 1-14 MARMOLEJO l 05:11: [place] 04 Donepezil 2018- Yes KAYY 1 tablet M emoria Hydrochlori 1-14 MARMOLEJO at bedtime l de 05:11: [place] Carvedilol 2018- Yes KAYY 1 tablet Memoria 1-14 MARMOLEJO l 05:11: [place] Simvastatin 2018- Yes KAYY 1 tablet Memoria 1-14 MARMOLEJO in the l 05:11: evening [place] 04 ASA 2018- Yes KAYY 1 tab Memoria 1-14 MARMOLEJO l 05:11: [place] 04 Fenofibrate 2018- Yes KAYY 1 tablet Memoria 1-14 MARMOLEJO l 05:11: [place] Clopidogrel 2018- Yes KAYY 1 tablet Memoria Bisulfate 1-14 MARMOLEJO l 05:11: [place] 04 Donepezil 2018- Yes KAYY 1 tablet M emoria Hydrochlori 1-14 MARMOLEJO at bedtime l de 05:11: [place] Carvedilol 2018- Yes KAYY 1 tablet Memoria 1-14 MARMOLEJO l 05:11: [place] Simvastatin 2018- Yes KAYY 1 tablet Memoria 1-14 MARMOLEJO in the l 05:11: evening ASA 2018-1 Yes KAYY 1 tab Memoria 1-14 MARMOLEJO l 05:11: Fenofibrate 2018-1 Yes KAYY 1 tablet Memoria 1-14 MARMOLEJO l 05:11: Clopidogrel 2018-1 Yes KAYY 1 tablet Memoria Bisulfate 1-14 MARMOLEJO l 05:11: Donepezil 2018-1 Yes KAYY 1 tablet M emoria Hydrochlori 1-14 MARMOLEJO at bedtime l de 05:11: Senna 2017-0 Yes KAYY 2 tablets Hasmukh shereen Concentrate 6-11 MARMOLEJO at bedtime l 00:00: as needed Docusate 20170 Yes KAYY 1 capsule M emoria Sodium 6-11 MARMOLEJO as needed l 00:00: Thiamine 2017-0 Yes KAYY 1 tablet Me moria HCl 6-11 MARMOLEJO l 00:00: Senna 20170 Yes KAYY 2 tablets Hasmukh shereen Concentrate 6-11 MARMOLEJO at bedtime l 00:00: as needed Docusate 20170 Yes KAYY 1 capsule M emoria Sodium 6-11 MARMOLEJO as needed l 00:00: Thiamine 2017-0 Yes KAYY 1 tablet Me moria HCl 6-11 MARMOLEJO l 00:00: Senna 20170 Yes KAYY 2 tablets Hasmukh shereen Concentrate 6-11 MARMOLEJO at bedtime l 00:00: as needed Docusate 2017-0 Yes KAYY 1 capsule M emoria Sodium 6-11 MARMOLEJO as needed l 00:00: Thiamine 2017-0 Yes KAYY 1 tablet Me moria HCl 6-11 MARMOLEJO l 00:00: Senna 2017-0 Yes KAYY 2 tablets Hasmukh shereen Concentrate 6-11 MARMOLEJO at bedtime l 00:00: as needed Docusate 20170 Yes KAYY 1 capsule M emoria Sodium 6-11 MARMOLEJO as needed l 00:00: Thiamine 2017-0 Yes KAYY 1 tablet Me moria HCl 6-11 MARMOLEJO l 00:00: Senna 2017-0 Yes KAYY 2 tablets Hasmukh shereen Concentrate 6-11 MARMOLEJO at bedtime l 00:00: as needed Docusate 2017-0 Yes KAYY 1 capsule M emoria Sodium 6-11 MARMOLEJO as needed l 00:00: Thiamine 2017-0 Yes KAYY 1 tablet Me moria HCl 6-11 MARMOLEJO l 00:00: Ritalin 0 Yes KAYY 1 tablet Mem oria 3-13 MARMOLEJO l 00:00: Ritalin 20170 Yes KAYY 1 tablet Mem oria 3-13 MARMOLEJO l 00:00: Ritalin 0 Yes KAYY 1 tablet Mem oria 3-13 MARMOLEJO l 00:00: Ritalin 20170 Yes KAYY 1 tablet Mem oria 3-13 MARMOLEJO l 00:00: Ritalin 0 Yes KAYY 1 tablet Mem oria 3-13 MARMOLEJO l 00:00: Aspirin 2015- Yes KAYY 1 tablet Mem oria 2-13 MARMOLEJO l 00:00: Aspirin 2015- Yes KAYY 1 tablet Mem oria 2-13 MARMOLEJO l 00:00: Aspirin 2015-11 Yes KAYY 1 tablet Mem oria 2-13 MARMOLEJO l 00:00: Aspirin 2015- Yes AKYY 1 tablet Mem oria 2-13 MARMOLEJO l 00:00: Aspirin 2015- Yes KAYY 1 tablet Mem oria 2-13 MARMOLEJO l 00:00: thiamine 2015- Yes 100 mg = 1 Mem oria 100 mg oral 0-12 tab, PO, l tablet 21:26: Daily, X [place] 30 day, # 30 tab, 1 Refill(s) clopidogrel 2015-11 Yes 75 mg = 1 M emoria 75 mg oral 0-12 tab, PO, l tablet 21:26: Daily, # Cheng 00 30 tab, 1 Refill(s) carvedilol 2015-11 Yes 25 mg = 1 Me moria 25 mg oral 0-12 tab, PO, l tablet 21:26: BID, # 60 Tommy n 00 tab, 1 Refill(s) Aspirin 81 2015-11 Yes 81 mg = 1 Me moria MG Chewable 0-12 tab, PO, l Tablet 21:26: Daily, # [place] 00 30 tab, 1 Refill(s) simvastatin 2015-11 Yes 10 mg = 1 M emoria 10 mg oral 0-12 tab, PO, l tablet 21:26: Bedtime, # Kirstin nn 00 30 tab, 1 Refill(s) senna 8.6 2015-11 Yes 17.2 mg = Mem oria mg oral 0-12 2 tab, PO, l tablet 21:26: QNoon, X [place] 00 30 day, # 60 tab, 1 Refill(s) methylpheni 2015-11 Yes 15 mg = 3 M emoria date 5 mg 0-12 tab, PO, l oral tablet 21:26: BID-07-09, [place] 00 # 180 tab, 0 Refill(s) melatonin 3 2015-11 Yes 3 mg = 1 Me moria mg oral 0-12 tab, PO, l tablet 21:26: After [place] 00 Dinner, X 14 day, # 14 tab, 1 Refill(s) Fenofibrate 2015-11 Yes 48 mg = 1 M emoria 48 MG Oral 0-12 tab, PO, l Tablet 21:26: Dinner, # Tommy n 00 30 tab, 1 Refill(s) donepezil 5 2015-11 Yes 5 mg = 1 Me moria mg oral 0-12 tab, PO, l tablet 21:26: Daily, # [place] 00 30 tab, 1 Refill(s) Docusate 2015-11 Yes 100 mg = 1 Mem oria Sodium 100 0-12 cap, PO, l MG Oral 21:26: BID, # 60 Kirstin nn Capsule 00 cap, 1 Refill(s) thiamine 2015-11 Yes 100 mg = 1 Mem oria 100 mg oral 0-12 tab, PO, l tablet 21:26: Daily, X [place] 30 day, # 30 tab, 1 Refill(s) clopidogrel 2015-11 Yes 75 mg = 1 M emoria 75 mg oral 0-12 tab, PO, l tablet 21:26: Daily, # [place] 00 30 tab, 1 Refill(s) carvedilol 2015-11 Yes 25 mg = 1 Me moria 25 mg oral 0-12 tab, PO, l tablet 21:26: BID, # 60 Tommy n 00 tab, 1 Refill(s) Aspirin 81 2015-11 Yes 81 mg = 1 Me moria MG Chewable 0-12 tab, PO, l Tablet 21:26: Daily, # [place] 00 30 tab, 1 Refill(s) simvastatin 2015-11 Yes 10 mg = 1 M emoria 10 mg oral 0-12 tab, PO, l tablet 21:26: Bedtime, # Kirstin nn 00 30 tab, 1 Refill(s) senna 8.6 2015-11 Yes 17.2 mg = Mem oria mg oral 0-12 2 tab, PO, l tablet 21:26: QNoon, X [place] 30 day, # 60 tab, 1 Refill(s) methylpheni 2015-11 Yes 15 mg = 3 M emoria date 5 mg 0-12 tab, PO, l oral tablet 21:26: BID-07-09, Cheng 00 # 180 tab, 0 Refill(s) melatonin 3 2015-11 Yes 3 mg = 1 Me moria mg oral 0-12 tab, PO, l tablet 21:26: After Cheng 00 Dinner, X 14 day, # 14 tab, 1 Refill(s) Fenofibrate 2015-11 Yes 48 mg = 1 M emoria 48 MG Oral 0-12 tab, PO, l Tablet 21:26: Dinner, # Tommy n 00 30 tab, 1 Refill(s) donepezil 5 2015-11 Yes 5 mg = 1 Me moria mg oral 0-12 tab, PO, l tablet 21:26: Daily, # [place] 00 30 tab, 1 Refill(s) Docusate 2015-11 Yes 100 mg = 1 Mem oria Sodium 100 0-12 cap, PO, l MG Oral 21:26: BID, # 60 Kirstin nn Capsule 00 cap, 1 Refill(s) thiamine 2015-11 Yes 100 mg = 1 Mem oria 100 mg oral 0-12 tab, PO, l tablet 21:26: Daily, X [place] 30 day, # 30 tab, 1 Refill(s) clopidogrel 2015-11 Yes 75 mg = 1 M emoria 75 mg oral 0-12 tab, PO, l tablet 21:26: Daily, # [place] 00 30 tab, 1 Refill(s) carvedilol 2015-11 [...] PO, l tablet 21:26: QNoon, X Cheng 30 day, # 60 tab, 1 Refill(s) methylpheni 2015-11 Yes 15 mg = 3 M emoria date 5 mg 0-12 tab, PO, l oral tablet 21:26: BID-07-09, [place] 00 # 180 tab, 0 Refill(s) melatonin 3 2015-11 Yes 3 mg = 1 Me moria mg oral 0-12 tab, PO, l tablet 21:26: After [place] 00 Dinner, X 14 day, # 14 tab, [...] Kirstin nn Capsule 00 cap, 1 Refill(s) thiamine 2015-11 Yes 100 mg = 1 Mem oria 100 mg oral 0-12 tab, PO, l tablet 21:26: Daily, X [place] 30 day, # 30 tab, 1 Refill(s) clopidogrel 2015-11 Yes 75 mg = 1 M emoria 75 mg oral 0-12 tab, PO, l tablet 21:26: Daily, # [place] 00 30 tab, 1 Refill(s) carvedilol 2015-11 Yes 25 mg = 1 Me moria 25 mg oral 0-12 tab, PO, l tablet 21:26: BID, # 60 Tommy n 00 tab, 1 Refill(s) Aspirin 81 2015-11 Yes 81 mg = 1 Me moria MG Chewable 0-12 tab, PO, l Tablet 21:26: Daily, # [place] 00 30 tab, 1 Refill(s) simvastatin 2015-11 Yes 10 mg = 1 M emoria 10 mg oral 0-12 tab, PO, l tablet 21:26: Bedtime, # Kirstin nn 00 30 tab, 1 Refill(s) senna 8.6 2015-11 Yes 17.2 mg = Mem oria mg oral 0-12 2 tab, PO, l tablet 21:26: QNoon, X Cheng 30 day, # 60 tab, 1 Refill(s) methylpheni 2015-11 Yes 15 mg = 3 M emoria date 5 mg 0-12 tab, PO, l oral tablet 21:26: BID-07-09, Cheng 00 # 180 tab, 0 Refill(s) melatonin 3 2015-11 Yes 3 mg = 1 Me moria mg oral 0-12 tab, PO, l tablet 21:26: After [place] 00 Dinner, X 14 day, # 14 tab, [...] Kirstin nn Capsule 00 cap, 1 Refill(s) thiamine 2015-11 Yes 100 mg = 1 Mem oria 100 mg oral 0-12 tab, PO, l tablet 21:26: Daily, X [place] 00 30 day, # 30 tab, 1 Refill(s) clopidogrel 2015-11 Yes 75 mg = 1 M emoria 75 mg oral 0-12 tab, PO, l tablet 21:26: Daily, # [place] 00 30 tab, 1 Refill(s) carvedilol 2015-11 [...] tab, PO, l tablet 21:26: QNoon, X [place] 00 30 day, # 60 tab, 1 [...] tab, PO, l tablet 21:26: Daily, # [place] 00 30 tab, 1 Refill(s) Docusate 2015-11 Yes 100 mg = 1 Mem oria Sodium 100 0-12 cap, PO, l MG Oral 21:26: BID, # 60 Kirstin nn Capsule 00 cap, 1 Refill(s) donepezil 2015-11 No Notes: Memori a 0-11 (Same as: l 13:30: Aricept) donepezil 2015-11 No Notes: Memori a 0-11 (Same as: l 13:30: Aricept) donepezil 2015-11 No Notes: Memori a 0-11 (Same as: l 13:30: Aricept) Cheng 00 donepezil 2015-11 No Notes: Memori a 0-11 (Same as: l 13:30: Aricept) Cheng 00 donepezil 2015-11 No Notes: Memori a 0-11 (Same as: l 13:30: Aricept) Cheng 00 phenol 2015-11 No Notes: Memoria 0-09 Chlorasept l 17:34: ic [place]man [place] 00 (Same as: Chlorasept ic, Sore Throat Zortman) WASTE: F/P - Black; E - [facility] phenol 2015-11 No Notes: Memoria 0-09 Chlorasept l 17:34: ic [place] 00 (Same as: Chlorasept ic, Sore Throat [place]) WASTE: F/P - Black; E - [facility] phenol 2015-11 No Notes: Memoria 0-09 Chlorasept l 17:34: ic [place] 00 (Same as: Chlorasept ic, Sore Throat [place]) WASTE: F/P - Black; E - [facility] phenol 2015-11 No Notes: Memoria 0-09 Chlorasept l 17:34: ic [place] 00 (Same as: Chlorasept ic, Sore Throat [place]) WASTE: F/P - Black; E - [facility] phenol 2015-11 No Notes: Memoria 0-09 Chlorasept l 17:34: ic [place]man (Same as: Chlorasept ic, Sore Throat [place]man) WASTE: F/P - Black; E - [facility] Ativan 2015-11 No Notes: Memoria 0-08 (Same as: l 14:00: Ativan) [place] 00 Ativan 2015-11 No Notes: Memoria 0-08 (Same as: l 14:00: Ativan) [place] 00 Ativan 2015-11 No Notes: Memoria 0-08 (Same as: l 14:00: Ativan) Cheng 00 Ativan 2015-11 No Notes: Memoria 0-08 (Same as: l 14:00: Ativan) [place] 00 Ativan 2015-11 No Notes: Memoria 0-08 (Same as: l 14:00: Ativan) [place] 00 Hydralazine 2015-11 No Notes: Hasmukh shereen Hydrochlori 0-08 (Same as: l de 10 MG 13:02: Apresoline Her zhu Oral Tablet 00 ) May interfere w/enteral feedings. Take With Food Hydralazine 2015-11 No Notes: Hasmukh shereen Hydrochlori 0-08 (Same as: l de 10 MG 13:02: Apresoline Her zhu Oral Tablet 00 ) May interfere w/enteral feedings. Take With Food Hydralazine 2015-11 No Notes: Hasmukh shereen Hydrochlori 0-08 (Same as: l de 10 MG 13:02: Apresoline Her zhu Oral Tablet 00 ) May interfere w/enteral feedings. Take With Food Hydralazine 2015-11 No Notes: Hasmukh shereen Hydrochlori 0-08 (Same as: l de 10 MG 13:02: Apresoline Her zhu Oral Tablet 00 ) May interfere w/enteral feedings. Take With Food Hydralazine 2015-11 No Notes: Hasmukh shereen Hydrochlori 0-08 (Same as: l de 10 MG 13:02: Apresoline Her zhu Oral Tablet 00 ) May interfere w/enteral feedings. Take With Food Ativan 2015-11 No Notes: Memoria 0-08 (Same as: l 13:00: Ativan) Cheng Ativan 2015-11 No Notes: Memoria 0-08 (Same as: l 13:00: Ativan) [place] Ativan 2015-11 No Notes: Memoria 0-08 (Same as: l 13:00: Ativan) Cheng Ativan 2015-11 No Notes: Memoria 0-08 (Same as: l 13:00: Ativan) [place] Ativan 2015-11 No Notes: Memoria 0-08 (Same as: l 13:00: Ativan) [place] Methylpheni 2015-11 No Notes: Hasmukh shereen date 0-07 (Same l 13:00: as:Ritalin [place] ) Methylpheni 2015-11 No Notes: Hasmukh shereen date 0-07 (Same l 13:00: as:Ritalin Cheng 00 ) Methylpheni 2015-11 No Notes: Hasmukh shereen date 0-07 (Same l 13:00: as:Ritalin Cheng 00 ) Methylpheni 2015-11 No Notes: Hasmukh shereen date 0-07 (Same l 13:00: as:Ritalin ) Methylpheni 2015-11 No Notes: Hasmukh shereen date 007 (Same l 13:00: as:Ritalin ) Flonase 2015-11 No Notes: Memoria 0.05 mg/inh 0-06 (Same as: l nasal spray 20:55: Flonase) He Flonase 2015-11 No Notes: Memoria 0.05 mg/inh 0-06 (Same as: l nasal spray 20:55: Flonase) He Flonase 2015-11 No Notes: Memoria 0.05 mg/inh 0-06 (Same as: l nasal spray 20:55: Flonase) He Flonase 2015-11 No Notes: Memoria 0.05 mg/inh 0-06 (Same as: l nasal spray 20:55: Flonase) He Flonase 2015-11 No Notes: Memoria 0.05 mg/inh 0-06 (Same as: l nasal spray 20:55: Flonase) He nase 2015-11 No 2 spray, Memori a 0.05 mg/inh 0-06 Route: l nasal spray 20:45: Each Tommy n 00 Affected Nostril, Drug Form: SPRY, Dosing Weight 60.227, kg, Daily, PRN Secretions , Start date: 09/01/16 15:45:00 CDT, Duration: 30 day, Stop date: 10/01/16 15:44:00 CDT Flonase 2015-11 No 2 spray, Memori a 0.05 mg/inh 0-06 Route: l nasal spray 20:45: Each Tommy n 00 Affected Nostril, Drug Form: SPRY, Dosing Weight 60.227, kg, Daily, PRN Secretions , Start date: 09/01/16 15:45:00 CDT, Duration: 30 day, Stop date: 10/01/16 15:44:00 CDT Flonase 2015-11 No 2 spray, Memori a 0.05 mg/inh 0-06 Route: l nasal spray 20:45: Each Tommy n 00 Affected Nostril, Drug Form: SPRY, Dosing Weight 60.227, kg, Daily, PRN Secretions , Start date: 09/01/16 15:45:00 CDT, Duration: 30 day, Stop date: 10/01/16 15:44:00 CDT Flonase 2015-11 No 2 spray, Memori a 0.05 mg/inh 0-06 Route: l nasal spray 20:45: Each Tommy n 00 Affected Nostril, Drug Form: SPRY, Dosing Weight 60.227, kg, Daily, PRN Secretions , Start date: 09/01/16 15:45:00 CDT, Duration: 30 day, Stop date: 10/01/16 15:44:00 CDT Flonase 2015-11 No 2 spray, Memori a 0.05 mg/inh 0-06 Route: l nasal spray 20:45: Each Tommy n 00 Affected Nostril, Drug Form: SPRY, Dosing Weight 60.227, kg, Daily, PRN Secretions , Start date: 09/01/16 15:45:00 CDT, Duration: 30 day, Stop date: 10/01/16 15:44:00 CDT Thiamine 2015-11 No Notes: Memoria 0-05 (Same As: l 13:30: Vitamin [place] 00 B1) Thiamine 2015-11 No Notes: Memoria 0-05 (Same As: l 13:30: Vitamin [place] 00 B1) Thiamine 2015-11 No Notes: Memoria 0-05 (Same As: l 13:30: Vitamin [place] 00 B1) Thiamine 2015-11 No Notes: Memoria 0-05 (Same As: l 13:30: Vitamin [place] 00 B1) Thiamine 2015-11 No Notes: Memoria 0-05 (Same As: l 13:30: Vitamin [place] 00 B1) Lovenox 2015-11 No Notes: Memoria 0-05 (Same as: l 02:00: Lovenox) Cheng 00 Zocor 2015-11 No Notes: Memoria 0-05 (Same as: l 02:00: Zocor) Cheng 00 Lovenox 2015-11 No Notes: Memoria 0-05 (Same as: l 02:00: Lovenox) Monroe 00 Zocor 2015-11 No Notes: Memoria 0-05 (Same as: l 02:00: Zocor) Cheng 00 Lovenox 2015-11 No Notes: Memoria 0-05 (Same as: l 02:00: Lovenox) Zocor 2015-11 No Notes: Memoria 0-05 (Same as: l 02:00: Zocor) Lovenox 2015-11 No Notes: Memoria 0-05 (Same as: l 02:00: Lovenox) Zocor 2015-11 No Notes: Memoria 0-05 (Same as: l 02:00: Zocor) Lovenox 2015-11 No Notes: Memoria 0-05 (Same as: l 02:00: Lovenox) Zocor 2015-11 No Notes: Memoria 0-05 (Same as: l 02:00: Zocor) Melatonin 2015-11 No Notes: Memori a 0-04 (Same as: l 22:00: Melatonin) Melatonin 2015-11 No Notes: Memori a 0-04 (Same as: l 22:00: Melatonin) Melatonin 2015-11 No Notes: Memori a 0-04 (Same as: l 22:00: Melatonin) Melatonin 2015-11 No Notes: Memori a 0-04 (Same as: l 22:00: Melatonin) Melatonin 2015-11 No Notes: Memori a 0-04 (Same as: l 22:00: Melatonin) Tylenol 2015-11 No Notes: Do Memor ia 0-04 not exceed l 14:19: 4 gm/day. (Same as: Tylenol) Tylenol 2015-11 No Notes: Do Memor ia 0-04 not exceed l 14:19: 4 gm/day. (Same as: Tylenol) Tylenol 2015-11 No Notes: Do Memor ia 0-04 not exceed l 14:19: 4 gm/day. (Same as: Tylenol) Tylenol 2015-11 No Notes: Do Memor ia 0-04 not exceed l 14:19: 4 gm/day. (Same as: Tylenol) Tylenol 2015-11 No Notes: Do Memor ia 0-04 not exceed l 14:19: 4 gm/day. (Same as: Tylenol) Methylpheni 2015-11 No Notes: Hasmukh shereen date 0-04 (Same l 13:00: as:Ritalin Cheng 00 ) Methylpheni 2015-11 No Notes: Hasmukh shereen date 0-04 (Same l 13:00: as:Ritalin Cheng 00 ) Methylpheni 2015-11 No Notes: Hasmukh shereen date 0-04 (Same l 13:00: as:Ritalin [place] 00 ) Methylpheni 2015-11 No Notes: Hasmukh shereen date 0-04 (Same l 13:00: as:Ritalin Cheng 00 ) Methylpheni 2015-11 No Notes: Hasmukh shereen date 0-04 (Same l 13:00: as:Ritalin Cheng 00 ) Tricor 2015-11 No Notes: Memoria 0-03 (Same as: l 22:00: Tricor) Cheng 00 Tricor 2015-11 No Notes: Memoria 0-03 (Same as: l 22:00: Tricor) Monroe 00 Tricor 2015-11 No Notes: Memoria 0-03 (Same as: l 22:00: Tricor) Cheng 00 Tricor 2015-11 No Notes: Memoria 0-03 (Same as: l 22:00: Tricor) [place] 00 Tricor 2015-11 No Notes: Memoria 0-03 (Same as: l 22:00: Tricor) [place] 00 Prinivil 2015-11 No Notes: Memoria 0-02 (Same as: l 02:00: Prinivil, Cheng 00 Zestril) Prinivil 2015-11 No Notes: Memoria 0-02 (Same as: l 02:00: Prinivil, [place] 00 Zestril) Prinivil 2015-11 No Notes: Memoria 0-02 (Same as: l 02:00: Prinivil, Cheng 00 Zestril) Prinivil 2015-11 No Notes: Memoria 0-02 (Same as: l 02:00: Prinivil, Cheng 00 Zestril) Prinivil 2015-11 No Notes: Memoria 0-02 (Same as: l 02:00: Prinivil, [place] 00 Zestril) Lisinopril 2015-11 No Notes: Memor ia 0-01 (Same as: l 22:00: Prinivil, Cheng 00 Zestril) Lisinopril 2015-11 No Notes: Memor ia 0-01 (Same as: l 22:00: Prinivil, [place] 00 Zestril) Lisinopril 2015-11 No Notes: Memor ia 0-01 (Same as: l 22:00: Prinivil, [place] 00 Zestril) Lisinopril 2015-11 No Notes: Memor ia 0-01 (Same as: l 22:00: Prinivil, Cheng 00 Zestril) Lisinopril 2015-11 No Notes: Memor ia 0-01 (Same as: l 22:00: Prinivil, Cheng 00 Zestril) sennosides, 2015-11 No Notes: Hasmukh shereen HALFWAY 0-01 (Same as: l 17:00: Senokot) Cheng sennosides, 2015-11 No Notes: Hasmukh shereen HALFWAY 0-01 (Same as: l 17:00: Senokot) Monroe sennosides, 2015-11 No Notes: Hasmukh shereen HALFWAY 0-01 (Same as: l 17:00: Senokot) [place] sennosides, 2015-11 No Notes: Hasmukh shereen HALFWAY 0-01 (Same as: l 17:00: Senokot) Cheng sennosides, 2015-11 No Notes: Hasmukh shereen HALFWAY 0-01 (Same as: l 17:00: Senokot) Cheng 00 Furosemide 2015-11 No 80 mg = 1 Me moria 80 MG Oral 0-01 tab, PO, l Tablet 14:15: Daily, 0 Cheng [Lasix] 00 Refill(s) Furosemide 2015-11 No 80 mg = 1 Me moria 80 MG Oral 0-01 tab, PO, l Tablet 14:15: Daily, 0 Cheng [Lasix] 00 Refill(s) Furosemide 2015-11 No 80 mg = 1 Me moria 80 MG Oral 0-01 tab, PO, l Tablet 14:15: Daily, 0 Cheng [Lasix] 00 Refill(s) Furosemide 2015-11 No 80 mg = 1 Me moria 80 MG Oral 0-01 tab, PO, l Tablet 14:15: Daily, 0 Cheng [Lasix] 00 Refill(s) Furosemide 2015-11 No 80 mg = 1 Me moria 80 MG Oral 0-01 tab, PO, l Tablet 14:15: Daily, 0 [place] [Lasix] 00 Refill(s) heparin 2015-11 No 5,000 Memoria 0-01 unit, l 14:00: Route: Cheng 00 SUB-Q, Q12H, Dosing Weight 60.227, kg, Start date: 08/27/16 9:00:00 CDT, Duration: 30 day, Stop date: 09/25/16 21:00:00 CDT clopidogrel 2015-11 No 75 mg = 1 M emoria 75 MG Oral 0-01 tab, PO, l Tablet 14:00: Daily, 0 Cheng [Plavix] 00 Refill(s) heparin 2015-11 No 5,000 Memoria 0-01 unit, l 14:00: Route: Cheng 00 SUB-Q, Q12H, Dosing Weight 60.227, kg, Start date: 08/27/16 9:00:00 CDT, Duration: 30 day, Stop date: 09/25/16 21:00:00 CDT clopidogrel 2015-11 No 75 mg = 1 M emoria 75 MG Oral 0-01 tab, PO, l Tablet 14:00: Daily, 0 [place] [Plavix] 00 Refill(s) heparin 2015-11 No 5,000 Memoria 0-01 unit, l 14:00: Route: Cheng 00 SUB-Q, Q12H, Dosing Weight 60.227, kg, Start date: 08/27/16 9:00:00 CDT, Duration: 30 day, Stop date: 09/25/16 21:00:00 CDT clopidogrel 2015-11 No 75 mg = 1 M emoria 75 MG Oral 0-01 tab, PO, l Tablet 14:00: Daily, 0 Cheng [Plavix] 00 Refill(s) heparin 2015-11 No 5,000 Memoria 0-01 unit, l 14:00: Route: [place] 00 SUB-Q, Q12H, Dosing Weight 60.227, kg, Start date: 08/27/16 9:00:00 CDT, Duration: 30 day, Stop date: 09/25/16 21:00:00 CDT clopidogrel 2015-11 No 75 mg = 1 M emoria 75 MG Oral 0-01 tab, PO, l Tablet 14:00: Daily, 0 Cheng [Plavix] 00 Refill(s) heparin 2015-11 No 5,000 Memoria 0-01 unit, l 14:00: Route: [place] 00 SUB-Q, Q12H, Dosing Weight 60.227, kg, Start date: 08/27/16 9:00:00 CDT, Duration: 30 day, Stop date: 09/25/16 21:00:00 CDT clopidogrel 2015-11 No 75 mg = 1 M emoria 75 MG Oral 0-01 tab, PO, l Tablet 14:00: Daily, 0 Cheng [Plavix] 00 Refill(s) Thiamine 2015-11 No Notes: Memoria 0-01 (Same As: l 13:30: Vitamin [place] 00 B1) Docusate 2015-11 No Notes: Memoria 0-01 (Same as: l 13:30: Colace) Cheng 00 (Do Not Crush) SENOKOT-S 2015-11 No Notes: Memori a 0-01 (Same as l 13:30: Senokot-S) Cheng 00 Equiv. to Deepika-Colac e. Plavix 2015-11 No Notes: Memoria 0-01 (Same As: l 13:30: Plavix) Cheng 00 Aspirin 2015-11 No Notes: Memoria 0-01 Take with l 13:30: food. Cheng 00 Coreg 2015-11 No Notes: Memoria 0-01 Give with l 13:30: food. Cheng 00 (Same As: Coreg) Bacitracin 2015-11 No Route: Memor ia 0-01 TOP, BID, l 13:30: Dosing [place] 00 Weight 60.227, kg, Start date: 08/27/16 8:30:00 CDT, Duration: 30 day, Stop date: 09/25/16 21:00:00 CDT bacitracin 2015-11 No 1 appl, Hasmukh shereen topical 0-01 Route: l 13:30: TOP, BID, Monroe 00 Drug form: OINT, Start date: 08/27/16 8:30:00 CDT, Duration: 60 day, Stop date: 10/25/16 21:00:00 DIRECTOR PLANS Thiamine 2015-11 No Notes: Memoria 0-01 (Same As: l 13:30: Vitamin [place] 00 B1) Docusate 2015-11 No Notes: Memoria 0-01 (Same as: l 13:30: Colace) Cheng (Do Not Crush) SENOKOT-S 2015-11 No Notes: Memori a 0-01 (Same as l 13:30: Senokot-S) Cheng 00 Equiv. to Deepika-Colac e. Plavix 2015-11 No Notes: Memoria 0-01 (Same As: l 13:30: Plavix) Cheng 00 Aspirin 2015-11 No Notes: Memoria 0-01 [...] Duration: 60 day, Stop date: 10/25/16 21:00:00 DIRECTOR PLANS Thiamine 2015-11 No Notes: Memoria 0-01 (Same As: l 13:30: Vitamin B1) Docusate 2015-11 No Notes: Memoria 0-01 (Same as: l 13:30: Colace) (Do Not Crush) SENOKOT-S 2015-11 No Notes: Memori a 0-01 (Same as l 13:30: Senokot-S) Monroe 00 Equiv. to Deepika-Colac e. Plavix 2015-11 No Notes: Memoria 0-01 (Same As: l 13:30: Plavix) Aspirin 2015-11 No Notes: Memoria 0-01 Take with l 13:30: food. Coreg 2015-11 No Notes: Memoria 0-01 Give with l 13:30: food. (Same As: Coreg) Bacitracin 2015-11 No Route: Memor ia 0-01 TOP, BID, l 13:30: Dosing [place] 00 Weight 60.227, kg, Start date: 08/27/16 8:30:00 CDT, Duration: 30 day, Stop date: 09/25/16 21:00:00 CDT bacitracin 2015-11 No 1 appl, Hasmukh shereen topical 0-01 Route: l 13:30: TOP, BID, Cheng Drug form: OINT, Start date: 08/27/16 8:30:00 CDT, Duration: 60 day, Stop date: 10/25/16 21:00:00 DIRECTOR PLANS Thiamine 2015-11 No Notes: Memoria 0-01 (Same As: l 13:30: Vitamin [place] 00 B1) Docusate 2015-11 No Notes: Memoria 0-01 (Same as: l 13:30: Colace) Cheng (Do Not Crush) SENOKOT-S 2015-11 No Notes: Memori a 0-01 (Same as l 13:30: Senokot-S) Cheng Equiv. to Deepika-Colac e. Plavix 2015-11 No Notes: Memoria 0-01 (Same As: l 13:30: Plavix) [place] Aspirin 2015-11 No Notes: Memoria 0-01 Take with l 13:30: food. [place] Coreg 2015-11 No Notes: Memoria 0-01 Give with l 13:30: food. Monroe 00 (Same As: Coreg) Bacitracin 2015-11 No Route: Memor ia 0-01 TOP, BID, l 13:30: Dosing Cheng 00 Weight 60.227, kg, Start date: 08/27/16 8:30:00 CDT, Duration: 30 day, Stop date: 09/25/16 21:00:00 CDT bacitracin 2015-11 No 1 appl, Hasmukh shereen topical 0-01 Route: l 13:30: TOP, BID, Monroe 00 Drug form: OINT, Start date: 08/27/16 8:30:00 CDT, Duration: 60 day, Stop date: 10/25/16 21:00:00 DIRECTOR PLANS Thiamine 2015-11 No Notes: Memoria 0-01 (Same As: l 13:30: Vitamin [place] 00 B1) Docusate 2015-11 No Notes: Memoria [...] Duration: 60 day, Stop date: 10/25/16 21:00:00 DIRECTOR PLANS Tylenol 2015-11 No Notes: Do Memor ia 0-01 not exceed l 05:00: 4 gm/day. (Same as: Tylenol) Tylenol 2015-11 No Notes: Do Memor ia 0-01 not exceed l 05:00: 4 gm/day. (Same as: Tylenol) Tylenol 2015-11 No Notes: Do Memor ia 0-01 not exceed l 05:00: 4 gm/day. (Same as: Tylenol) Tylenol 2015-11 No Notes: Do Memor ia 0-01 not exceed l 05:00: 4 gm/day. (Same as: Tylenol) Tylenol 2015-11 No Notes: Do Memor ia 0-01 not exceed l 05:00: 4 gm/day. (Same as: Tylenol) Midazolam 2015-11 No 40 kg Memori a 0-01 l 04:29: Levetiracet 2015-11 No Notes: Hasmukh shereen am 0-01 Same as l 04:29: Keppra Mix Cheng 00 with 100 mL NS, LR or D5W MEDICATION WASTE Product Size: 500 mg Product Wasted: __0_ mg Bisacodyl 2015-11 No Notes: Memori a 0-01 (Same As: l 04:29: Dulcolax, Monroe 00 Bisco-Lax) Milk of 2015-11 No Notes: Memoria Magnesia 0-01 (Same as: l 04:29: Milk of Monroe 00 Magnesia, MOM) Saline 2015-11 No Notes: Memoria Flush 0.9% 0-01 (Same as: l 04:29: BD Cheng 00 Posiflush) Midazolam 2015-11 No 40 kg Memori a 0-01 l 04:29: Cheng 00 Levetiracet 2015-11 No Notes: Hasmukh shereen am 0-01 Same as l 04:29: Keppra Mix [place] 00 with 100 mL NS, LR or D5W MEDICATION WASTE Product Size: 500 mg Product Wasted: __0_ mg Bisacodyl 2015-11 No Notes: Memori a 0-01 (Same As: l 04:29: Dulcolax, [place] 00 Bisco-Lax) Milk of 2015-11 No Notes: Memoria Magnesia 0-01 (Same as: l 04:29: Milk of Cheng 00 Magnesia, MOM) Saline 2015-11 No Notes: Memoria Flush 0.9% 0-01 (Same as: l 04:29: BD [place] 00 Posiflush) Midazolam 2015-11 No 40 kg Memori a 0-01 l 04:29: Cheng 00 Levetiracet 2015-11 No Notes: Hasmukh shereen am 0-01 Same as l 04:29: Keppra Mix [place] 00 with 100 mL NS, LR or D5W MEDICATION WASTE Product Size: 500 mg Product Wasted: __0_ mg Bisacodyl 2015-11 No Notes: Memori a 0-01 (Same As: l 04:29: Dulcolax, Cheng 00 Bisco-Lax) Milk of 2015-11 No Notes: Memoria Magnesia 0-01 (Same as: l 04:29: Milk of Cheng 00 Magnesia, MOM) Saline 2015-11 No Notes: Memoria Flush 0.9% 0-01 (Same as: l 04:29: BD [place] 00 Posiflush) Midazolam 2015-11 No 40 kg Memori a 0-01 l 04:29: [place] 00 Levetiracet 2015-11 No Notes: Hasmukh shereen am 0-01 Same as l 04:29: Keppra Mix Cheng 00 with 100 mL NS, LR or D5W MEDICATION WASTE Product Size: 500 mg Product Wasted: __0_ mg Bisacodyl 2015-11 No Notes: Memori a 0-01 (Same As: l 04:29: Dulcolax, Cheng 00 Bisco-Lax) Milk of 2015-11 No Notes: Memoria Magnesia 0-01 (Same as: l 04:29: Milk of Cheng 00 Magnesia, MOM) Saline 2015-11 No Notes: Memoria Flush 0.9% 0-01 (Same as: l 04:29: BD Cheng 00 Posiflush) Midazolam 2015-11 No 40 kg Memori a 0-01 l 04:29: Cheng 00 Levetiracet 2015-11 No Notes: Hasmukh shereen am 0-01 Same as l 04:29: Keppra Mix [place] 00 with 100 mL NS, LR or D5W MEDICATION WASTE Product Size: 500 mg Product Wasted: __0_ mg Bisacodyl 2015-11 No Notes: Memori a 0-01 (Same As: l 04:29: Dulcolax, Cheng 00 Bisco-Lax) Milk of 2015-11 No Notes: Memoria Magnesia 0-01 (Same as: l 04:29: Milk of Cheng 00 Magnesia, MOM) Saline 2015-11 No Notes: Memoria Flush 0.9% 0-01 (Same as: l 04:29: BD Cheng 00 Posiflush) thiamine 2015-11 Yes 100mg Take 1 [...] mg 00:00: mouth [place] tablet 00 daily. [facility] thiamine 2015-11 Yes 100mg Take 1 Univer s (VITAMIN 0-01 tablet by ity of B1) 100 mg 00:00: mouth [place] tablet 00 daily. [facility] thiamine 2015-11 Yes 100mg Take 1 Univer s (VITAMIN 0-01 tablet by ity of B1) 100 mg 00:00: mouth [place] tablet 00 daily. [facility] thiamine 2015-11 Yes 100mg Take 1 Univer s (VITAMIN 0-01 tablet by ity of B1) 100 mg 00:00: mouth [place] tablet 00 daily. [facility] thiamine 2015-11 Yes 100mg Take 1 Univer s (VITAMIN 0-01 tablet by ity of B1) 100 mg 00:00: mouth [place] tablet 00 daily. [facility] thiamine 2015-11 Yes 100mg Take 1 Univer s (VITAMIN 0-01 tablet by ity of B1) 100 mg 00:00: mouth [place] tablet 00 daily. [facility] thiamine 2015-11 Yes 100mg Take 1 Univer s (VITAMIN 0-01 tablet by ity of B1) 100 mg 00:00: mouth [place] tablet 00 daily. [facility] thiamine 2015-11 Yes 100mg Take 1 Univer s (VITAMIN 0-01 tablet by ity of B1) 100 mg 00:00: mouth [place] tablet 00 daily. [facility] thiamine 2015-11 Yes 100mg Take 1 [...] emoria 9-30 TOP, BID, l 21:08: 0 Cheng 00 Refill(s) SENOKOT-S No 1 tab, PO, Me moria 9-30 Daily, 0 l 21:08: Refill(s) Cheng 00 heparin No 5,000 Memoria 9-30 unit, l 21:08: SUB-Q, [place] 00 Q12H, 0 Refill(s) Tylenol No 650 mg, Memoria 9-30 PO, Q6H, 0 l 21:08: Refill(s) Aspirin 0 No 81 mg, PO, Hasmukh shereen 9-30 Daily, 0 l 21:08: Refill(s) Thiamine 0 No 250 mg, Memori a 9-30 IV, Daily, l 21:08: 0 Cheng 00 Refill(s) carvedilol No 25 mg = 1 Me moria 25 MG Oral 9-30 tab, PO, l Tablet 21:08: BID, # 60 Tommy n [Coreg] 00 tab, 0 Refill(s) Bacitracin No 500 units, M emoria 9-30 TOP, BID, l 21:08: 0 [place] 00 Refill(s) SENOKOT-S No 1 tab, PO, Me moria 9-30 Daily, 0 l 21:08: Refill(s) heparin No 5,000 Memoria 9-30 unit, l 21:08: SUB-Q, Cheng 00 Q12H, 0 Refill(s) Tylenol No 650 mg, Memoria 9-30 PO, Q6H, 0 l 21:08: Refill(s) Aspirin No 81 mg, PO, Hasmukh shereen 9-30 Daily, 0 l 21:08: Refill(s) Thiamine 0 No 250 mg, Memori a 9-30 IV, Daily, l 21:08: 0 Cheng 00 Refill(s) carvedilol No 25 mg = 1 Me moria 25 MG Oral 9-30 tab, PO, l Tablet 21:08: BID, # 60 Tommy n [Coreg] 00 tab, 0 Refill(s) Bacitracin No 500 units, M emoria 9-30 TOP, BID, l 21:08: 0 [place] 00 Refill(s) SENOKOT-S 0 No 1 tab, PO, Me moria 9-30 Daily, 0 l 21:08: Refill(s) [place] heparin 0 No 5,000 Memoria 9-30 unit, l 21:08: SUB-Q, Cheng 00 Q12H, 0 Refill(s) Tylenol No 650 mg, Memoria 9-30 PO, Q6H, 0 l 21:08: Refill(s) Aspirin 0 No 81 mg, PO, Hasmukh shereen 9-30 Daily, 0 l 21:08: Refill(s) Thiamine 0 No 250 mg, Memori a 9-30 IV, Daily, l 21:08: 0 [place] 00 Refill(s) carvedilol No 25 mg = 1 Me moria 25 MG Oral 9-30 tab, PO, l Tablet 21:08: BID, # 60 Tommy n [Coreg] 00 tab, 0 Refill(s) Bacitracin No 500 units, M emoria 9-30 TOP, BID, l 21:08: 0 Cheng 00 Refill(s) SENOKOT-S 0 No 1 tab, PO, Me moria 9-30 Daily, 0 l 21:08: Refill(s) heparin No 5,000 Memoria 9-30 unit, l 21:08: SUB-Q, Cheng 00 Q12H, 0 Refill(s) Tylenol No 650 mg, Memoria 9-30 PO, Q6H, 0 l 21:08: Refill(s) Aspirin 0 No 81 mg, PO, Hasmukh shereen 9-30 Daily, 0 l 21:08: Refill(s) Thiamine 0 No 250 mg, Memori a 9-30 IV, Daily, l 21:08: 0 Cheng 00 Refill(s) carvedilol No 25 mg = 1 Me moria 25 MG Oral 9-30 tab, PO, l Tablet 21:08: BID, # 60 Tommy n [Coreg] 00 tab, 0 Refill(s) Bacitracin 0 No 500 units, M emoria 9-30 TOP, BID, l 21:08: 0 Cheng 00 Refill(s) SENOKOT-S 0 No 1 tab, PO, Me moria 9-30 Daily, 0 l 21:08: Refill(s) heparin 0 No 5,000 Memoria 9-30 unit, l 21:08: SUB-Q, Cheng 00 Q12H, 0 Refill(s) Tylenol No 650 mg, Memoria 930 PO, Q6H, 0 l 21:08: Refill(s) Aspirin No 81 mg, PO, Hasmukh shereen 9-30 Daily, 0 l 21:08: Refill(s) Thiamine No 250 mg, Memori a 930 IV, Daily, l 21:08: 0 Refill(s) Immunizations Ordered Filled Immunization Date Status Comments [facility] e Immunization Name Name Pneumococcal 2016-08-26 Completed [facility] Polysaccharide, 00:00:00 [place] [facility] PPSV[facility] (PNEUMOVAX) [facility] Influenza Virus 2016-08-26 Completed [facility] Vaccine Quad IM 3+ 00:00:00 [facility] Pneumococcal 2016-08-26 Completed [facility] o f Polysaccharide, 00:00:00 [place] [facility] PPSV23 (PNEUMOVAX) Branch Influenza Virus 2016-08-26 Completed [facility] Vaccine [facility] IM 3+ 00:00:00 [facility] Pneumococcal 2016-08-26 Completed [facility] o f Polysaccharide, 00:00:00 [place] [facility] PPSV23 (PNEUMOVAX) Branch Influenza Virus 2016-08-26 Completed [facility] of Vaccine Quad IM 3+ 00:00:00 [facility] Pneumococcal 2016-08-26 Completed [facility] o f Polysaccharide, 00:00:00 [place] [facility] PPSV23 (PNEUMOVAX) Branch Influenza Virus 2016-08-26 Completed [facility] of Vaccine Quad IM 3+ 00:00:00 [facility] Pneumococcal 2016-08-26 Completed [facility] o f Polysaccharide, 00:00:00 [place] [facility] PPSV23 (PNEUMOVAX) Branch Influenza Virus 2016-08-26 Completed [facility]it [facility] of Vaccine Quad IM 3+ 00:00:00 [facility] Pneumococcal 2016-08-26 Completed [facility] o f Polysaccharide, 00:00:00 [place] [facility] PPSV23 (PNEUMOVAX) Branch Influenza Virus 2016-08-26 Completed [facility]it [facility] of Vaccine Quad IM 3+ 00:00:00 [facility] Pneumococcal 2016-08-26 Completed University o f Polysaccharide, 00:00:00 [place] [facility] PPSV23 (PNEUMOVAX) Branch Influenza Virus 2016-08-26 Completed [facility]it [facility] of Vaccine Quad IM 3+ 00:00:00 [facility] Pneumococcal 2016-08-26 Completed [facility] o f Polysaccharide, 00:00:00 [place] [facility] PPSV23 (PNEUMOVAX) Branch Influenza Virus 2016-08-26 Completed [facility]it [facility] of Vaccine Quad IM 3+ 00:00:00 [facility] Pneumococcal 2016-08-26 Completed [facility] o f Polysaccharide, 00:00:00 [place] [facility] PPSV23 (PNEUMOVAX) Branch Influenza Virus 2016-08-26 Completed [facility]it [facility] of Vaccine Quad IM 3+ 00:00:00 [facility] Pneumococcal 2016-08-26 Completed [facility] o f Polysaccharide, 00:00:00 [place] [facility] PPSV23 (PNEUMOVAX) Branch Influenza Virus 2016-08-26 Completed [facility]it [facility] of Vaccine Quad IM 3+ 00:00:00 [facility] Pneumococcal 2016-08-26 Completed [facility] o f Polysaccharide, 00:00:00 [place] [facility] PPSV23 (PNEUMOVAX) Branch Influenza Virus 2016-08-26 Completed [facility]it [facility] of Vaccine Quad IM 3+ 00:00:00 [facility] Vital Signs Vital Name Observation Time Observation Value Comments Source Systolic blood 2022-12-03 18:27:00 162 mm[Hg] Univer sity of pressure [facility] [place] [facility] Diastolic blood 2022-12-03 18:27:00 96 mm[Hg] [facility] Heart rate 2022-12-03 18:27:00 104 /min [facility] Body temperature 2022-12-03 18:27:00 36.5 [facility] Respiratory rate 2022-12-03 18:27:00 18 /min [facility] Body height 2022-12-03 18:27:00 170.2 cm [facility] Body weight 2022-12-03 18:27:00 72.576 kg [facility] BMI 2022-12-03 18:27:00 25.06 kg/m2 [facility] Oxygen saturation in 2022-12-03 18:27:00 98 /min [facility] blood by [facility] Pulse oximetry [place] Diastolic (mm Hg) 2016-11-08 20:30:00 Mem orial [facility] Systolic (mm Hg) 2016-11-08 20:30:00 Hasmukh rial Cheng Temperature Oral (F) 2016-11-08 20:30:00 98.5 F [facility] Weight 2016-11-08 20:30:00 [facility] Height 2016-11-08 20:30:00 [facility] Heart Rate 2016-09-08 12:30:00 [facility] Respitory Rate 2016-09-08 12:30:00 [facility] Diastolic (mm Hg) 2016-09-08 12:30:00 [facility] Systolic (mm Hg) 2016-09-08 12:30:00 Hasmukh [facility] Systolic (mm Hg) 2016-09-08 00:30:00 [facility]mukh [facility] Diastolic (mm Hg) 2016-09-08 00:30:00 [facility] Respitory Rate 2016-09-08 00:30:00 [facility] Heart Rate 2016-09-08 00:30:00 [facility] Heart Rate 2016-09-07 18:30:00 [facility] Systolic (mm Hg) 2016-09-07 18:30:00 [facility] Diastolic (mm Hg) 2016-09-07 18:30:00 [facility] Respitory Rate 2016-09-07 18:30:00 [facility] Weight 2016-09-02 20:37:00 [facility] Height 2016-08-27 05:00:00 170.18 cm [facility] BMI Calculated 2016-08-27 01:16:00 [facility] Weight 2016-08-27 01:16:00 [facility] Height 2016-08-27 01:16:00 [facility] Procedure Date / Time Performing Clinician Source Performed CONSENT/REFUSAL FOR 2022-12-03 18:17:43 Doctor Unassigned, [facility] DIAGNOSIS AND TREATMENT [facility] ASSIGNMENT OF BENEFITS 2021-07-13 21:04:28 Doctor Unassigned, [facility] NO SHOW OR MISSED 2019-08-16 18:25:32 Doctor Unassigned, [facility] APPOINTMENT POLICY [facility] ACKNOWLEDGEMENT Hernia repair 2001-11-27 06:00:00 [facility] Alice zhu Biopsy of vocal cord 1997-11-27 06:00:00 Susan Anand Encounters Start End Encounter Admission Attending Care Care Encounter Source Date/Time Date/Time Type Type Clinicians Facility Department ID 2023-03-29 2023-03-29 Outpatient SFA ROXY [id number] Regino 11:20:47 11:20:47 0503 F Yan 2022-12-03 2022-12-03 Emergency X MORRICAL, [facility] ERT [id number] Univers 12:28:00 13:07:00 REGINO ity [facility] 2022-12-03 2022-12-03 Emergency Morrical, [facility] 1.2.840.114 [id number] Univers 12:28:00 13:07:00 Regino GARCIA 350.1.13.10 ity of [place] 4.2.7.2.686 [facility] [phone] [facility] 084 Branch 2022-07-26 2022-07-27 Inpatient NIDA Smiley JONAHSOPHIA TELE [id number] [facility] 18:14:00 16:28:[address] [place] [address] 2021-07-15 2021-07-15 Telephone FILIBERTO Young 1.2.214.891 [id number] Univers 00:00:00 00:00:00 Cecille RODRIGUEZ 350.1.13.10 i ty of [facility] 4.2.7.2.686 [facility] [phone] [facility] 019 Branch 2021-07-15 2021-07-15 Telephone Pcp, [facility] 1.2.777.119 [id number] Univers 00:00:00 00:00:00 Patient Health 350.1.13.10 it y of Does Not Surgical 4.2.7.2.686 [place] Special[place] [phone] In dical es [address] Sherwin 2021-07-13 2021-07-13 Outpatient Aggie BLACKBURN [facility] [id number] Univers 16:00:00 16:28:38 CHAY norton [facility] 2021-07-13 2021-07-13 Orders Doctor DE LOS SANTOS 1.2.840.114 [id number] Univers 00:00:00 00:00:00 Only UnassignedJENNIFER 350.1.13.10 ity of [facility] 4.2.7.2.686 Manish as [phone] [facility] 009 Edna 2021-01-01 2021-01-01 Laboratory Lab, [facility] Fam Pob I [facility] 1.2. 840.114 [id number] Univers 14:02:43 14:22:43 Only Casa, [facility] 350.1.13.10 ity of [place] 4.2.7.2.686 Manish as Professio [phone] [address] Office Building One 2021-01-01 2021-01-01 Laboratory Lab, [facility] 1.2840.114 [id number] 14:02:43 14:22:43 Only [facility] Pob I Health 350.1.13.10 [place] 4.2.7.2.686 Professio [phone] [place] [address] Office [address] One 2021-01-01 2021-01-01 Outpatient R CASA [facility] [id number] Univers 13:20:00 13:20:00 REJI ity of [facility] 2021-01-01 2021-01-01 Letter Lab, Pcp [facility] 1.2.840.114 [id number] Univers 00:00:00 00:00:00 (Out) [facility] 350.1.13.10 it y of [place] 4.2.7.2.686 Manish as Professio [phone] [address] Office Building One 2021-01-01 2021-01-01 Letter Doctor DE LOS SANTOS 1.2.840.114 [id number] Univers 00:00:00 00:00:00 (Out) Unassigned, JENNIFER 350.1.13.10 ity of [facility] 4.2.7.2.686 Manish as [phone] [facility] 044 Edna 2021-01-01 2021-01-01 Letter Doctor DE LOS SANTOS 1.2.840.114 [id number] 00:00:00 00:00:00 (Out) Unassigned, JENNIFER 350.1.13.10 [facility] 4.2.7.2.686 [id number] [facility] 2021-01-01 2021-01-01 Letter Lab, Pcp [facility] 1.2.840.114 [id number] 00:00:00 00:00:00 (Out) Cov[facility] Health 350.1.13.10 [place] 4.2.7.2.686 Professio [phone] [place] [address] [address] One 2020-06-08 2020-06-08 Letter Lab, Pcp [facility] 1.2.840.114 [id number] Univers 00:00:00 00:00:00 (Out) Covid Health 350.1.13.10 it y of [place] 4.2.7.2.686 Manish as Professio [phone] [address] Office Building One 2020-06-08 2020-06-08 Letter Lab, Pcp [facility] 1.2.840.114 [id number] 00:00:00 00:00:00 (Out) Covid Health 350.1.13.10 [place] 4.2.7.2.686 Professio [phone] [place] [address] Office [address] One 2020-06-04 2020-06-04 Laboratory Lab, [facility] Fam Pob I [facility] 1.2. 840.114 [id number] [facility] 11:06:05 11:26:05 Only Anene, [facility] 350.1.13.10 ity of [place] 4.2.7.2.686 Manish as Professio [phone] [address] Office Building One 2020-06-04 2020-06-04 Laboratory Lab, [facility] 1.2.840.114 [id number] 11:06:05 11:26:05 Only Fam Pob I Health 350.1.13.10 [place] 4.2.7.2.686 Professio [phone] [place] [address] Office [address] One 2020-06-04 2020-06-04 Outpatient R [facility] [id number] Univers 11:00:00 11:00:00 ity of [facility] 2020-02-17 2020-02-17 [facility] 1.2.840.114 [id number] Univers 09:00:00 09:20:00 ne Visit Lolis [place] 350.1.13.10 ity of [place]2.[place].2.[place] [phone] In dical nal 059 [facility] 2020-02-17 2020-02-17 [facility] 1.2.840.114 [id number] 09:00:00 09:20:00 ne Visit Lolis Garcia 350.1.13.10 Sri 4.2.7.2.686 Professio [phone] [facility]9 [facility] 2020-02-17 2020-02-17 [facility] [id number] [facility] 09:00:00 09:00:00 LOLIS ity o f [facility] 2019-08-16 2019-08-16 Orders Doctor FILIBERTO 1.2.840.114 [id number] Univers 00:00:00 00:00:00 Only Unassigned, JENNIFER 350.1.13.10 ity of [facility] 4.2.7.2.686 Manish as [phone] [address] 2019-08-16 2019-08-16 Orders Doctor FILIBERTO 1.2.840.114 [id number] 00:00:00 00:00:00 Only Unassigned, JENNIFER 350.1.13.10 [place] [facility] 4.2.7.2.686 [id number] 009 2018-01-03 2018-01-07 Inpatient C MARIA DOLORES KNOWLES [facility] [id number] 14:29:00 09:32:00 , Daniel [facility] 2018-01-04 2018-01-04 Outpatient Denise Denise [id number] eClinic 14:10:00 14:10:00 Queta Villasenor MD 2018-01-01 2018-01-01 Inpatient MARIA DOLORES KNOWLES [facility] [id number] 11:16:00 11:16:00 , Daniel [facility] 2016-12-07 2016-12-07 Outpatient Denise Denise [id number] eClinic 14:15:00 14:15:00 Queta Villasenor MD 2016-10-31 2016-11-30 OP Therapy [facility] [id number] Memoria 19:03:00 05:59:00 Patients aggie Anand 01 l Psychiatric 2016-10-31 2016-11-30 OP Therapy [facility] [id number] Memoria 19:03:00 05:59:00 Patients r [place] 01 l Psychiatric 2016-10-31 2016-11-29 Outpatient Leilani, 2.16.840. 2.16.840.1. 4 [id number] 13:03:00 23:59:00 Sergei Holland 1.038891. [id number] 01 3.615.15 5.15 2016-11-08 2016-11-08 Outpatient Denise Denise [id number] eClinic 14:30:00 14:30:00 Queta Villasenor MD 2016-08-27 2016-09-08 Inpatient nullFlavo T[facility] [id number] Memoria 01:04:00 15:44:00 Rehab r [facility] 00 l Cheng Alvarezann 2016-08-27 2016-09-08 Inpatient nullFlavo [facility] [id number] Memoria 01:04:00 15:44:00 Rehab r [facility] 00 l [facility] 2016-08-26 2016-09-08 Outpatient [facility] MHTIRR MHTIRR [id number] 20:04:00 10:44:00 Christian Saez Results Test Description Test Time Test Comments Results Result [facility] e Comments - XR CHEST 1V 2022-07-26 18:53:00 [facility] : 1965 Sex: M Patient Name: ANTELMO LOPEZIO Unit No: [id number] EXAMS: CPT CODE: [id number] XR CHEST 1V [id number] EXAM: XR Chest 1 View INDICATION: S/P ICD LOCATION CODE: H50 COMPARISON: None available. TECHNIQUE: Frontal view of the chest was obtained. FINDINGS: Left 2-lead AICD/pacemaker has been placed with one lead overlying the right atrium and 2nd lead overlying the right ventricle. The lungs are clear. There is no pleural effusion or pneumothorax. The cardiomediastinal silhouette is unremarkable. No acute osseous abnormality is identified. IMPRESSION: Interval placement of left 2-lead AICD/pacemaker as above. Otherwise no cardiopulmonary abnormality. at 1853 Reported and signed by: Karen Fink MD CC: Elliot Bell Technologist: Mroena NEUMANN R Transcrpt Date/Tm/Trnsp: 07/26/2022 (1852) t.SDR.EB14 Orig Print D/T: S: 07/26/2022 (1855) [facility] NAME: LOPEZANTELMO [address] [place] PHYS: [place] [address] : 1965 AGE: 56 SEX: M LOC: Z.351 A PHONE #: [phone] EXAM DATE: 07/26/2022 STATUS: ADM IN FAX #: [phone] RADIOLOGY NO: PAGE 1 Signed Report BASIC METABOLIC PANEL 2022-07-26 12:02:00 Test Item Value Reference Range Interpretation Comme nts SODIUM (test code = NA) 141 MMOL/L 137-145 N POTASSIUM (test code = K) 4.2 MMOL/L 3.5-5.1 N CHLORIDE (test code = CL) 105 MMOL/L 98-107 N CARBON DIOXIDE (test code = CO2) 28 MMOL/L 22-30 N GLUCOSE (test code = GLU) 116 MG/DL 74-106 H BLOOD UREA NITROGEN (test code = 17 MG/DL 9-20 N BUN) GLOMERULAR FILTRATION RATE (test > 60 Reporting units: ml/min/1.73 code = GFR) m2 (Modified RD Formula)Referen ce Range: > or = 60 ml/min/1.7 3 m2 CREATININE (test code = CREAT) 0.90 MG/DL 0.66-1.25 N CALCIUM (test code = CA) 9.4 MG/DL 8.4-10.2 N [id number] 12:02:00 Test Item Value Reference Range Interpretation Comments MAGNESIUM (test code = MAG) 2.1 MG/DL 1.6-2.3 N PROTHROMBIN [id number] 12:02:00 Test Item Value Reference Range Interpretation Comments PROTHROMBIN TIME 11.9 SECONDS 9.4-12.7 N PATIENT (test code = PTP) INTERNATIONAL NORMAL 1.1 0.86-1.14 N The INR is to be RATIO (test code = used only for INR) monitoring oral anticoagulantth erap y. INDICATION I NR VALUE ---- ---- ---- -------1. Prophylaxis, de ep venous thrombos is, including high risk surgery. 2.0 - 3.0 2. Prophylaxis, deep venous thrombosis, hip surgery, treatm ent for deep venous thrombosis or pulmonary prevention of systemic emboli sm in patients wit h valvular heart disease, atrial fibrillation, tissue heart va lve, or acute myocar dial infarction. 2.0 - 3.0 3. Cleat Feeder al prosthesis hear t valves, recurre nt systemic emboli sm. 3.0 - 4.5 PTT [id number] 12:02:00 Test Item Value Reference Range Interpretation Comments PTT ACTIVATED (test code = APTT) 34.3 SECONDS 26.2-35.4 N CBC W/AUTO [id number] 11:48:00 Test Item Value Reference Range Interpretation Comments WHITE BLOOD CELL (test code = 8.9 K/MM3 3.8-9.8 N WBC) RED BLOOD CELL (test code = 5.13 M/MM3 3.95-5.67 N RBC) HEMOGLOBIN (test code = HGB) 15.7 G/DL 12.4-16.7 N HEMATOCRIT (test code = HCT) 48.6 % 35.9-49.5 N MEAN CELL VOLUME (test code = 95 fL 81.7-96.1 N MCV) MEAN CELL HGB (test code = MCH) 30.6 pg 27.6-33.2 N MEAN CELL HGB CONCETRATION 32.3 % 32.9-35.5 L (test code = MCHC) RED CELL DISTRIBUTION WIDTH 12.8 % 12.1-15.2 N (test code = RDW) PLATELET COUNT (test code = 315 K/MM3 129-368 N PLT) MEAN PLATELET VOLUME (test code 9.7 fl 7.4-10.4 N = MPV) NEUTROPHIL % (test code = NT%) 64.2 % 43-75 N IMMATURE GRANULOCYTE % (test 0.6 % 0.0-2.0 N code = IG%) LYMPHOCYTE % (test code = LY%) 24.7 % 14-44 N MONOCYTE % (test code = MO%) 6.1 % 4-13 N EOSINOPHIL % (test code = EO%) 3.7 % 0-6 N BASOPHIL % (test code = BA%) 0.7 % 0-2 N NUCLEATED RBC % (test code = 0.0 % 0-1.0 N NRBC%) NEUTROPHIL # (test code = NT#) 5.69 K/mm3 2.0-7.6 N IMMATURE GRANULOCYTE # (test 0.05 x10 3/uL 0-0.03 H code = IG#) LYMPHOCYTE # (test code = LY#) 2.19 K/mm3 1.0-3.8 N MONOCYTE # (test code = MO#) 0.54 K/mm3 0.1-0.8 N EOSINOPHIL # (test code = EO#) 0.33 K/mm3 0.0-0.2 H BASOPHIL # (test code = BA#) 0.06 K/mm3 0.0-0.2 N NUCLEATED RBC # (test code = 0.00 K/mm3 0.0-0.1 N NRBC#) POCT-GLUCOSE [id number] 11:26:00 Test Item Value Reference Range Interpretation Comments POC-GLUCOSE METER 127 mg/dL 70-[address] [facility] 67 ([employer]) (test code = MARCEL Aggie CU[place] 1538) [address] BLOOD [id number] 11:01:00 Test Item Value Reference Range Interpretation Comments CULTURE ([employer]) (test No growth in 5 days code = 1095) BLOOD [id number] 11:01:00 Test Item Value Reference Range Interpretation Comments CULTURE (BEAKER) (test No growth in 5 days code = 1095) RAD, CHEST, 1 VIEW, NON [id number] 09:30:00Reason for exam:- >vetned/stemiShould this be performed at the bedside?->YesFINAL REPORT Clinical History: vetned/stemi Comparison Study: January 21, 2019Findings: The heart and lungs are within normal limits. The pleural spaces are clear. No significantbony or soft tissue abnormalities are seen. Impression: No active cardiopulmonary disease. Signed: Marisol Agarwal MDReport Verified Date/Time: 01/22/2019 09:30:48 Reading [facility] Reading Room POCT-GLUCOSE [id number] 08:44:00 Test Item Value Reference Range Interpretation Comments POC-GLUCOSE METER 157 mg/dL 70-[address] [facility] 6720 [facility] (test code = MARCEL Marcial [facility] 1538) [address] BASIC METABOLIC [id number] 05:27:00 Test Item Value Reference Range Interpretation [...] m DATA TO CALCULA TE ESTIMATED GFR. [id number] 05:24:00 Test Item Value Reference Range Interpretation Comments MAGNESIUM (BEAKER) (test code = 1.7 mg/dL 1.6-2.6 627) CBC W/PLT COUNT & AUTO [id number] 04:53:00 Test Item Value Reference Range Interpretation [...] EOSINOPHILS ABSOLUTE COUNT 0.47 K/ L 0.04-0.54 ([facility]) (test code = 416) BASOPHILS ABSOLUTE COUNT ([facility]) 0.03 K/ L 0.01-0.08 (test code = 417) IMMATURE GRANULOCYTES-RELATIVE 1 % 0-1 PERCENT ([facility]) (test code = 2801) POCT-GLUCOSE [id number] 21:23:00 Test Item Value Reference Range Interpretation Comments POC-GLUCOSE METER 172 mg/dL 70-110 H TESTED AT [place] [address] ([facility]) (test [facility] = [facility] Marcial [facility] 1538) [address] POCT-GLUCOSE [id number] 17:36:00 Test Item Value Reference Range Interpretation Comments POC-GLUCOSE METER 124 mg/dL 70-110 H TESTED AT [place] [address] ([facility]) (test code = [facility] Aggie [facility] 1538) [address] POCT-GLUCOSE [id number] 11:45:00 Test Item Value Reference Range Interpretation Comments POC-GLUCOSE METER 137 mg/dL 70-110 H TESTED AT [place] [address] ([facility]) (test code = [facility] 1538) [address] RAD, CHEST, 1 VIEW, NON [id number] 08:00:00Reason for exam:- >vetned/stemiShould this be performed [...] IMPRESSION:No acute cardiopulmonary abnormalities. Signed: Leigh Larson Verified Date/Time: 01/21/2019 08:00:55 Reading Location: [facility] Radiology Reading Room 08:00 AM POCT-GLUCOSE [id number] 07:12:00 Test Item Value Reference Range Interpretation Comments POC-GLUCOSE METER 142 mg/dL 70-[address] [facility] 6720 (BEAKER) (test code = MARCEL [place] 1534) [address] BASIC METABOLIC [id number] 06:18:00 Test Item Value Reference Range Interpretation [...] m DATA TO CALCULA TE ESTIMATED GFR. [id number] 06:14:00 Test Item Value Reference Range Interpretation Comments MAGNESIUM (BEAKER) (test code = 1.5 mg/dL 1.6-2.6 L 627) CBC W/PLT COUNT & AUTO [id number] 05:24:00 Test Item Value Reference Range Interpretation [...] PERCENT (BEAKER) (test code = 2801) POCT-GLUCOSE [id number] 22:46:00 Test Item Value Reference Range Interpretation Comments POC-GLUCOSE METER 123 mg/dL 70-[address] [facility] 6720 (BEAKER) (test code = MARCEL [place] 1538) [address] SPUTUM CULTURE + GRAM [id number] 20:40:00 Test Item Value Reference Range Interpretation Comments CULTURE (BEAKER) 4+ Normal respiratory (test code = 1095) stevie present GRAM STAIN RESULT 4+ WBCs (BEAKER) (test code = 1123) GRAM STAIN RESULT 0-5 epithelial cells (BEAKER) (test code = 66951) GRAM STAIN RESULT 1+ gram positive cocci (BEAKER) (test code = in pairs 62058) GRAM STAIN RESULT 4+ gram positive cocci (BEAKER) (test code = in chains 707053) GRAM STAIN RESULT 2+ gram positive cocci (BEAKER) (test code = in clusters 768964) POCT-GLUCOSE [id number] 18:11:00 Test Item Value Reference Range Interpretation Comments POC-GLUCOSE METER 217 mg/dL 70-[address] [facility] 6720 (BEAKER) (test code = MARCEL Marcial [place] 1538) [address] POCT-GLUCOSE [id number] 13:04:00 Test Item Value Reference Range Interpretation Comments POC-GLUCOSE METER 140 mg/dL 70-[address] [facility] 6720 (BEAKER) (test code = MARCEL Marcial [place] 1538) [address] POCT-GLUCOSE [id number] 08:23:00 Test Item Value Reference Range Interpretation Comments POC-GLUCOSE METER 176 mg/dL 70-110 H TESTED AT [place] 5848420 (BEAKER) (test code = MARCEL Marcial [facility] 1538) [address] BASIC METABOLIC [id number] 05:41:00 Test Item Value Reference Range Interpretation [...] m DATA TO CALCULA TE ESTIMATED GFR. [id number] 05:40:00 Test Item Value Reference Range Interpretation Comments MAGNESIUM (BEAKER) (test code = 1.7 mg/dL 1.6-2.6 627) HEPATIC FUNCTION [id number] 05:40:00 Test Item Value Reference Range Interpretation [...] H 347) RAD, CHEST, 1 VIEW, NON [id number] 05:37:00Reason for exam:- >vetned/stemiShould this be performed at the bedside?->YesFINAL REPORT RAD, CHEST, 1 VIEW, NON DEPT INDICATION: vetned/stemi COMPARISON: Prior day's exam FINDINGS: Portable frontal view of the chest. IMPRESSION: Lungs and pleura: Unchanged airspace and pleural opacities. No pneumothorax.Heart and mediastinum: Stable contours. Additional findings: None. Signed: Nellie Odonnell Verified Date/Time: 01/20/2019 05:37:46 Reading Location: [address] Transitional Reading Room CBC W/PLT COUNT & AUTO [id number] 05:06:00 Test Item Value Reference Range Interpretation [...] PERCENT (BEAKER) (test code = 2801) POCT-GLUCOSE [id number] 22:24:00 Test Item Value Reference Range Interpretation Comments POC-GLUCOSE METER 127 mg/dL 70-[address] [facility] 6720 (BEAKER) (test code = CARMENJUDITH [place] 1538) [address] POCT-GLUCOSE [id number] 16:58:00 Test Item Value Reference Range Interpretation Comments POC-GLUCOSE METER 130 mg/dL 70-[address] [facility] 6720 ([facility]) (test code = MARCEL Marcial [facility] 1538) [address] [id number] 15:24:00 Test Item Value Reference Range Interpretation Comments MAGNESIUM ([facility]) 1.7 mg/dL 1.6-2.6 Specimen slightly (test code = 627) hemolyzed RAD, CHEST, 1 VIEW, NON [id number] 12:40:00Reason for exam:- >vetned/stemiShould this be performed at the bedside?->YesFINAL REPORT Comparison: 01/18/2019 TECHNIQUE: Single view of the chest FINDINGS: Lung volumes are low. Cardiac silhouette is prominent. Soft tissues and bones are unremarkable. Signed: Kelby Ball Verified Date/Time: 01/19/2019 12:40:50 Reading Location: [address] Reading Room POCT-GLUCOSE [id number] 12:33:00 Test Item Value Reference Range Interpretation Comments POC-GLUCOSE METER 120 mg/dL 70-110 H TESTED AT [place] [address] ([facility]) (test code = MARCEL Marcial [facility] 1538) [address] EEG MONITORING WITH VIDEO RECORDING EACH 24 [id number] 10:46:00morning read for REPORT: [facility] Date of EEDate of report: start time: 09:33EEG end time: 20:55EEG #: [id number] No: [id number] ICD Code: #: R41.82 Altered mental status, unspecified (ICD 9: 780.97)CPT Code: #: 03717: Monitori ng for localization of seizure focPROCEDURE: [...] etiology. Please correlate clinically.Clinical Fellow: Alan Milnerurophysiologist: Mars Flowers BASIC METABOLIC [id number] 05:51:00 Test Item Value Reference Range Interpretation [...] (BEAKER) (test code = 412) PLATELET COUNT ([facility]) (test 248 K/CU MM 150-450 code = 756) MEAN PLATELET VOLUME (AKER) 10.8 fL 9.4-12.4 (test code = 754) NUCLEATED RED BLOOD CELLS 0 /100 WBC 0-0 ([facility]) (test code = 413) POCT-GLUCOSE [id number] 23:44:00 Test Item Value Reference Range Interpretation Comments POC-GLUCOSE METER 119 mg/dL 70-110 H TESTED AT [place] [address] ([facility]) (test code = MARCEL Marcial [facility] 1538) [address] POCT-GLUCOSE [id number] 16:16:00 Test Item Value Reference Range Interpretation Comments POC-GLUCOSE METER 123 mg/dL 70-110 H TESTED AT [place] [address] ([facility]) (test code = MARCEL Marcial [facility] 1538) [address] EEG MONITORING WITH VIDEO RECORDING EACH 24 [id number] 11:47:00For STAT EEG- after 5 PM weekdays, weekends and holidays, page the 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 Please correlate clinically.Clinical Fellow: Nilsa Vargasrophysiologist: Mars Flowers CHLORIDE, RANDOM [id number] 11:39:00 Test Item Value Reference Range Interpretation Comments CHLORIDE URINE (BEAKER) (test code = 49 meq/L 682) Reference Range: No NormalsPOTASSIUM, RANDOM [id number] 11:39:00 Test Item Value Reference Range Interpretation Comments POTASSIUM URINE (BEAKER) (test 43.9 meq/L code = 195) Reference Range: No NormalsSODIUM, RANDOM [id number] 11:39:00 Test Item Value Reference Range Interpretation Comments SODIUM URINE (BEAKER) (test code = 141 meq/L 243) Reference Range: No NormalsLACTIC ACID, ARTERIAL, WHOLE [id number] 11:08:00 Test Item Value Reference Range Interpretation Comments LACTATE BLOOD ARTERIAL (2) 0.8 mmol/L 0.5-2.2 (BEAKER) (test code = 2874) KETONE, [id number] 10:50:00 Test Item Value Reference Range Interpretation Comments KETONES, BLOOD (BEAKER) (test code 4.4 mmol/L <0.4 H = 1103) RAD, CHEST, 1 VIEW, NON [id number] 10:41:00Reason for exam:- >vented/stemiShould this be performed [...] 10:41:02 Reading Location: [facility] Radiology Reading Room POCT-GLUCOSE [id number] 10:11:00 Test Item Value Reference Range Interpretation Comments POC-GLUCOSE METER 80 mg/dL 70-[address] [facility] 67[address] (BEAKER) (test code = [place] [address] 1538) [id number] 07:36:00 Test Item Value Reference Range Interpretation Comments MAGNESIUM (BEAKER) 2.0 mg/dL 1.6-2.6 Specimen slightly (test code = 627) hemolyzed BLOOD GAS, [id number] 04:48:00 Test Item Value Reference Range Interpretation [...] (test code = 1819) 40.0 % TROPONIN [id number] 04:32:00 Test Item Value Reference Range Interpretation [...] acute neurological disease, and persistent tachyarrhythmia.BASIC METABOLIC [id number] 04:31:00 Test Item Value Reference Range Interpretation [...] 43.3 % 40.1-51.0 411) MEAN CORPUSCULAR VOLUME ([facility]) 92.1 fL 79.0-92.2 (test code = 753) MEAN CORPUSCULAR HEMOGLOBIN 30.0 pg 25.7-32.2 (AKER) (test code = 751) MEAN CORPUSCULAR HEMOGLOBIN CONC 32.6 GM/DL 32.3-36.5 ([facility]) (test code = 752) RED CELL DISTRIBUTION WIDTH 13.9 % 11.6-14.4 ([facility]) (test code = 412) PLATELET COUNT ([facility]) (test 215 K/CU MM 150-450 code = 756) MEAN PLATELET VOLUME ([facility]) 10.7 fL 9.4-12.4 (test code = 754) NUCLEATED RED BLOOD CELLS 0 /100 WBC 0-0 ([facility]) (test code = 413) POCT-GLUCOSE [id number] 00:18:00 Test Item Value Reference Range Interpretation Comments POC-GLUCOSE METER 117 mg/dL 70-110 H TESTED AT [place] [address] ([facility]) (test code = [facility] 1538) [address] POCT-GLUCOSE [id number] 21:48:00 Test Item Value Reference Range Interpretation Comments POC-GLUCOSE METER 89 mg/dL 70-110 TESTED AT [place] [address] ([facility]) (test code = [facility] [address] 1538) [id number] 21:02:00 Test Item Value Reference Range Interpretation Comments POTASSIUM ([facility]) (test code = 4.5 meq/L 3.5-5.1 379) [id number] 21:02:00 Test Item Value Reference Range Interpretation Comments MAGNESIUM ([facility]) (test code = 2.1 mg/dL 1.6-2.6 627) POCT-GLUCOSE [id number] 15:54:00 Test Item Value Reference Range Interpretation Comments POC-GLUCOSE METER 107 mg/dL 70-110 TESTED AT [place] [address] ([facility]) (test code = [facility] 1538) [address] COMPREHENSIVE METABOLIC [id number] 15:24:00 Test Item Value Reference Range Interpretation Comments TOTAL PROTEIN 6.6 gm/dL 6.0-8.3 ([facility]) (test code = 770) ALBUMIN ([facility]) 4.0 g/dL 3.5-5.0 (test code = 1145) [...] CALCULATE ESTIM ATED GFR. EEG AWAKE AND [id number] 14:53:00Reason for exam:->unresponsive post arrestEEG REPORT: [facility]aimundo Lopezen[facility] Date of EEDate of report: Test location: Inpatient - ICUEEG start time: 8:46EEG end time: 9:08EEG #: [id number] No: [id number] ICD Code: #: R41.82 Altered mental status, unspecified (ICD 9: 780.97) CPT Code: #: 86746: 01. EEG awake and drowsy; 20-40 minPROCEDURE: [...] etiology. Please correlate clinically.Clinical Fellow: Nilsa Vargasrophysiologist: Mars Flowers CBC W/PLT COUNT & AUTO DIFFERENTIAL 2019-01-17 [...] code = 2801) URINALYSIS W/ REFLEX URINE [id number] 10:28:00 Test Item Value Reference Range Interpretation [...] code = 1584) SOURCE(BEAKER) (test code = 2565) [id number] 10:23:00 Test Item Value Reference Range Interpretation [...] 2.5-3.5 for patients with mechanical heart valves.HEMOGLOBIN [id number] 10:12:00 Test Item Value Reference Range Interpretation Comments HEMOGLOBIN A1C (BEAKER) (test code = 6.6 % 4.3-6.1 H 368) POCT-GLUCOSE [id number] 09:01:00 Test Item Value Reference Range Interpretation Comments POC-GLUCOSE METER 141 mg/dL 70-[address] [facility] 6720 (BEAKER) (test code = MARCEL Marcial [facility] 1538) [address] TROPONIN [id number] 08:57:00 Test Item Value Reference Range Interpretation Comments TROPONIN I (BEAKER) (test code = 165.28 ng/mL 0.00-0.03 HH 397) Troponin I (TnI) [...] able to tolerate for further evaluation.. Signed: Nellie Odonnell Verified Date/Time:01/17/2019 07:03:53 Reading Location: [address] Reading Room RAD, CHEST, 1 VIEW, NON [id number] 03:53:00Reason for exam:->s/p intubationShould this be performed [...] acute osseous abnormality. There is nonspecific gaseous distentionof the visualized stomach and segments of bowel in the upper abdomen. Dedicated abdominal imaging could be performed for further evaluation if clinically warranted. Signed: David Guerrero MDReport Verified Date/Time: 01/17/2019 03:53:21 Reading Location: [address] Reading Room BLOOD GAS, [id number] 03:13:00 Test Item Value Reference Range Interpretation [...] (test code = 1819) 60.0 % TROPONIN [id number] 03:13:00 Test Item Value Reference Range Interpretation [...] failure, acidosis, acute neurological disease, and persistent tachyarrhythmia.[id number] 02:59:00 Test Item Value Reference Range Interpretation [...] for patients with mechanical heart valves.BASIC METABOLIC [id number] 02:52:00 Test Item Value Reference Range Interpretation [...] TO CALCULA TE ESTIMATED GFR. COMPREHENSIVE METABOLIC [id number] 02:52:00 Test Item Value Reference Range Interpretation [...] < pg/mL 0-100 (test code = 700) [id number] 02:45:00 Test Item Value Reference Range Interpretation Comments MAGNESIUM (BEAKER) 2.0 mg/dL 1.6-2.6 Specimen slightly (test code = 627) hemolyzed LIPID [id number] 02:45:00 Test Item Value Reference Range Interpretation [...] Borderline 130-159 High 160-189 Very High >=190PROTHROMBIN [id number] 02:40:00 Test Item Value Reference Range Interpretation [...] mechanical heart valves.CBC W/PLT COUNT & AUTO [id number] 02:32:00 Test Item Value Reference Range Interpretation [...] WBC 0-0 (BEAKER) (test code = 413) [id number] 01:16:00 Test Item Value Reference Range Interpretation Comments ACTIVATED CLOTTING TIME 301 sec TEST ED AT [place] [address] ([facility]) (test code = MARCEL Marcial [place] [address]) [address] [id number] 01:16:00 Test Item Value Reference Range Interpretation Comments ACTIVATED CLOTTING TIME 131 sec TEST ED AT [place] [address] ([facility]) (test code = [facility] Aggie [place] [address]) [address] BLOOD GAS, [id number] 00:54:00 Test Item Value Reference Range Interpretation [...] code = 1819) 100.0 % POC Glucose, [id number] 08:58:00 Test Item Value Reference Range Interpretation Comments POC Glucose (test 146 mg/dL 70-115 H If you con studio operations manager your code = POCGLUC) patient crit ically ill, the Magdalene Accu- Chek InformII meters hould not be used for Glu cose determinations. Draw a venous Glucose and send to the Main Lab for Analysis. POC Glucose, [id number] 20:29:00 Test Item Value Reference Range Interpretation Comments POC Glucose (test 146 mg/dL 70-115 H If you con studio operations manager your code = POCGLUC) patient crit ically ill, the Magdalene Accu- Chek InformII meters hould not be used for Glu cose determinations. Draw a venous Glucose and send to the Main Lab for Analysis. POC Glucose, [id number] 15:23:00 Test Item Value Reference Range Interpretation Comments POC Glucose (test 135 mg/dL 70-115 H If you con studio operations manager your code = POCGLUC) patient crit ically ill, the Magdalene Accu- Chek InformII meters hould not be used for Glu cose determinations. Draw a venous Glucose and send to the Main Lab for Analysis. POC Glucose, [id number] 11:52:00 Test Item Value Reference Range Interpretation Comments POC Glucose (test 123 mg/dL 70-115 H If you con studio operations manager your code = POCGLUC) patient crit ically ill, the Magdalene Accu- Chek InformII meters hould not be used for Glu cose determinations. Draw a venous Glucose and send to the Main Lab for Analysis. POC Glucose, [id number] 08:01:00 Test Item Value Reference Range Interpretation Comments POC Glucose (test 121 mg/dL 70-115 H If you con studio operations manager your code = POCGLUC) patient crit ically ill, the Magdalene Accu- Chek InformII meters hould not be used for Glu cose determinations. Draw a venous Glucose and send to the Main Lab for Analysis. POC Glucose, [id number] 21:22:00 Test Item Value Reference Range Interpretation Comments POC Glucose (test 112 mg/dL 70-115 N If you con studio operations manager your code = POCGLUC) patient crit ically ill, the Magdalene Accu- Chek InformII meters hould not be used for Glu cose determinations. Draw a venous Glucose and send to the Main Lab for Analysis. POC Glucose, [id number] 17:06:00 Test Item Value Reference Range Interpretation Comments POC Glucose (test 148 mg/dL 70-115 H If you con studio operations manager your code = POCGLUC) patient crit ically ill, the Magdalene Accu- Chek InformII meters hould not be used for Glu cose determinations. Draw a venous Glucose and send to the Main Lab for Analysis. POC Glucose, [id number] 11:21:00 Test Item Value Reference Range Interpretation Comments POC Glucose (test 108 mg/dL 70-115 N If you con studio operations manager your code = POCGLUC) patient crit ically ill, the Magdalene Accu- Chek InformII meters hould not be used for Glu cose determinations. Draw a venous Glucose and send to the Main Lab for Analysis. POC Glucose, [id number] 08:13:00 Test Item Value Reference Range Interpretation Comments POC Glucose (test 170 mg/dL 70-115 H If you con studio operations manager your code = POCGLUC) patient crit ically ill, the Magdalene Accu- Chek InformII meters hould not be used for Glu cose determinations. Draw a venous Glucose and send to the Main Lab for Analysis. POC Glucose, [id number] 21:10:00 Test Item Value Reference Range Interpretation Comments POC Glucose (test 169 mg/dL 70-115 H If you con studio operations manager your code = POCGLUC) patient crit ically ill, the Magdalene Accu- Chek InformII meters hould not be used for Glu cose determinations. Draw a venous Glucose and send to the Main Lab for Analysis. POC Glucose, [id number] 16:25:00 Test Item Value Reference Range Interpretation Comments POC Glucose (test 115 mg/dL 70-115 N If you con studio operations manager your code = POCGLUC) patient crit ically ill, the Magdalene Accu- Chek InformII meters hould not be used for Glu cose determinations. Draw a venous Glucose and send to the Main Lab for Analysis. POC Glucose, [id number] 12:41:00 Test Item Value Reference Range Interpretation Comments POC Glucose (test 117 mg/dL 70-115 H If you con studio operations manager your code = POCGLUC) patient crit ically ill, the Magdalene Accu- Chek InformII meters hould not be used for Glu cose determinations. Draw a venous Glucose and send to the Main Lab for Analysis. POC Glucose, [id number] 09:32:00 Test Item Value Reference Range Interpretation Comments POC Glucose (test 115 mg/dL 70-115 N If you con studio operations manager your code = POCGLUC) patient crit ically ill, the Magdalene Accu- Chek InformII meters hould not be used for Glu cose determinations. Draw a venous Glucose and send to the Main Lab for Analysis. POC Glucose, [id number] 05:20:00 Test Item Value Reference Range Interpretation Comments POC Glucose (test 106 mg/dL 70-115 N If you con studio operations manager your code = POCGLUC) patient crit ically ill, the Magdalene Accu- Chek InformII meters hould not be used for Glu cose determinations. Draw a venous Glucose and send to the Main Lab for Analysis. POC Glucose, [id number] 15:32:00 Test Item Value Reference Range Interpretation Comments POC Glucose (test 83 mg/dL 70-115 N If you con studio operations manager your code = POCGLUC) patient crit ically ill, the Magdalene Accu- Chek InformII meters hould not be used for Glu cose determinations. Draw a venous Glucose and send to the Main Lab for Analysis. URINE AND [id number] 22:16:00 Test Item Value Reference Range Interpretation Comments UA Urobilinogen (test code = UA <=1.0 mg/dL 0.1-1.0 Urobilinogen) [facility] AND [id number] 22:16:00 Test Item Value Reference Range Interpretation Comments UA Sq Epi (test code = UA Sq Epi) None Seen [facility] AND [id number] 22:16:00 Test Item Value Reference Range Interpretation Comments UA Mucus (test code = UA Mucus) Few /LPF [facility] AND [id number] 22:16:00 Test Item Value Reference Range Interpretation Comments UA WBC (test code = 2 See_Comment [Automa gloria message] The UA WBC) system which ge nerated this result transmit gloria reference range : <=5. The reference range was not used to interpr et this result as laura l/abnormal. [facility] AND [id number] 22:16:00 Test Item Value Reference Range Interpretation Comments UA Leuk Est (test Negative (08/27/16 5:16 code = UA Leuk Est) PM) [facility] AND [id number] 22:16:00 Test Item Value Reference Range Interpretation Comments UA Nitrite (test code Negative (08/27/16 5:16 = UA Nitrite) PM) [facility] AND [id number] 22:16:00 Test Item Value Reference Range Interpretation Comments UA Blood (test code = Negative (08/27/16 5:16 UA Blood) PM) [facility] AND [id number] 22:16:00 Test Item Value Reference Range Interpretation Comments UA Ketones (test code = UA Negative mg/dL Ketones) [facility] AND [id number] 22:16:00 Test Item Value Reference Range Interpretation Comments UA Bili (test code = Negative *NA*(08/27/16 UA Bili) 5:16 PM) [facility] AND [id number] 22:16:00 Test Item Value Reference Range Interpretation Comments UA Protein (test code = UA Protein) 20 mg/dL [facility] AND [id number] 22:16:00 Test Item Value Reference Range Interpretation Comments UA Glucose (test code = UA Negative mg/dL Glucose) [facility] AND [id number] 22:16:00 Test Item Value Reference Range Interpretation Comments UA pH (test code = UA pH) 5.5 5.0-8.0 [facility] AND [id number] 22:16:00 Test Item Value Reference Range Interpretation Comments UA Turbidity (test code = Clear (08/27/16 5:16 UA Turbidity) PM) [facility] AND [id number] 22:16:00 Test Item Value Reference Range Interpretation Comments UA Color (test code = Yellow *NA*(08/27/16 UA Color) 5:16 PM) [facility] AND [id number] 22:16:00 Test Item Value Reference Range Interpretation Comments UA Urobilinogen (test code = UA <=1.0 mg/dL 0.1-1.0 Urobilinogen) [facility] AND [id number] 22:16:00 Test Item Value Reference Range Interpretation Comments UA Sq Epi (test code = UA Sq Epi) None Seen [facility] AND [id number] 22:16:00 Test Item Value Reference Range Interpretation Comments UA Mucus (test code = UA Mucus) Few /LPF [facility] AND [id number] 22:16:00 Test Item Value Reference Range Interpretation Comments UA WBC (test code = 2 See_Comment [Automa gloria message] The UA WBC) system which ge nerated this result transmit gloria reference range : <=5. The reference range was not used to interpr et this result as laura l/abnormal. [facility] AND [id number] 22:16:00 Test Item Value Reference Range Interpretation Comments UA Leuk Est (test Negative (08/27/16 5:16 code = UA Leuk Est) PM) [facility] AND [id number] 22:16:00 Test Item Value Reference Range Interpretation Comments UA Nitrite (test code Negative (08/27/16 5:16 = UA Nitrite) PM) [facility] AND [id number] 22:16:00 Test Item Value Reference Range Interpretation Comments UA Blood (test code = Negative (08/27/16 5:16 UA Blood) PM) [facility] AND [id number] 22:16:00 Test Item Value Reference Range Interpretation Comments UA Ketones (test code = UA Negative mg/dL Ketones) [facility] AND [id number] 22:16:00 Test Item Value Reference Range Interpretation Comments UA Bili (test code = Negative *NA*(08/27/16 UA Bili) 5:16 PM) [facility] AND [id number] 22:16:00 Test Item Value Reference Range Interpretation Comments UA Protein (test code = UA Protein) 20 mg/dL [facility] AND [id number] 22:16:00 Test Item Value Reference Range Interpretation Comments UA Glucose (test code = UA Negative mg/dL Glucose) [facility] AND [id number] 22:16:00 Test Item Value Reference Range Interpretation Comments UA pH (test code = UA pH) 5.5 5.0-8.0 [facility] AND [id number] 22:16:00 Test Item Value Reference Range Interpretation Comments UA Turbidity (test code = Clear (08/27/16 5:16 UA Turbidity) PM) [facility] AND [id number] 22:16:00 Test Item Value Reference Range Interpretation Comments UA Color (test code = Yellow *NA*(08/27/16 UA Color) 5:16 PM) [facility] AND [id number] 22:16:00 Test Item Value Reference Range Interpretation Comments UA Spec Grav (test code = UA Spec Grav) 1.022 [facility] AND [id number] 22:16:00 Test Item Value Reference Range Interpretation Comments UA Urobilinogen (test code = UA <=1.0 mg/dL 0.1-1.0 Urobilinogen) [facility] AND [id number] 22:16:00 Test Item Value Reference Range Interpretation Comments UA Sq Epi (test code = UA Sq Epi) None Seen [facility] AND [id number] 22:16:00 Test Item Value Reference Range Interpretation Comments UA Mucus (test code = UA Mucus) Few /LPF [facility] AND [id number] 22:16:00 Test Item Value Reference Range Interpretation Comments UA WBC (test code = 2 See_Comment [Automa gloria message] The UA WBC) system which ge nerated this result transmit gloria reference range : <=5. The reference range was not used to interpr et this result as laura l/abnormal. [facility] AND [id number] 22:16:00 Test Item Value Reference Range Interpretation Comments UA Leuk Est (test Negative (08/27/16 5:16 code = UA Leuk Est) PM) [facility] AND [id number] 22:16:00 Test Item Value Reference Range Interpretation Comments UA Nitrite (test code Negative (08/27/16 5:16 = UA Nitrite) PM) [facility] AND [id number] 22:16:00 Test Item Value Reference Range Interpretation Comments UA Blood (test code = Negative (08/27/16 5:16 UA Blood) PM) [facility] AND [id number] 22:16:00 Test Item Value Reference Range Interpretation Comments UA Ketones (test code = UA Negative mg/dL Ketones) [facility] AND [id number] 22:16:00 Test Item Value Reference Range Interpretation Comments UA Bili (test code = Negative *NA*(08/27/16 UA Bili) 5:16 PM) [facility] AND [id number] 22:16:00 Test Item Value Reference Range Interpretation Comments UA Protein (test code = UA Protein) 20 mg/dL [facility] AND [id number] 22:16:00 Test Item Value Reference Range Interpretation Comments UA Glucose (test code = UA Negative mg/dL Glucose) [facility] AND [id number] 22:16:00 Test Item Value Reference Range Interpretation Comments UA pH (test code = UA pH) 5.5 5.0-8.0 [facility] AND [id number] 22:16:00 Test Item Value Reference Range Interpretation Comments UA Turbidity (test code = Clear (08/27/16 5:16 UA Turbidity) PM) [facility] AND [id number] 22:16:00 Test Item Value Reference Range Interpretation Comments UA Color (test code = Yellow *NA*(08/27/16 UA Color) 5:16 PM) [facility] AND [id number] 22:16:00 Test Item Value Reference Range Interpretation Comments UA Spec Grav (test code = UA Spec Grav) 1.022 [facility] AND [id number] 22:16:00 Test Item Value Reference Range Interpretation Comments UA Urobilinogen (test code = UA <=1.0 mg/dL 0.1-1.0 Urobilinogen) [facility] AND [id number] 22:16:00 Test Item Value Reference Range Interpretation Comments UA Sq Epi (test code = UA Sq Epi) None Seen [facility] AND [id number] 22:16:00 Test Item Value Reference Range Interpretation Comments UA Mucus (test code = UA Mucus) Few /LPF [facility] AND [id number] 22:16:00 Test Item Value Reference Range Interpretation Comments UA WBC (test code = 2 See_Comment [Automa gloria message] The UA WBC) system which ge nerated this result transmit gloria reference range : <=5. The reference range was not used to interpr et this result as laura l/abnormal. [facility] AND [id number] 22:16:00 Test Item Value Reference Range Interpretation Comments UA Leuk Est (test Negative (08/27/16 5:16 code = UA Leuk Est) PM) [facility] AND [id number] 22:16:00 Test Item Value Reference Range Interpretation Comments UA Nitrite (test code Negative (08/27/16 5:16 = UA Nitrite) PM) [facility] AND [id number] 22:16:00 Test Item Value Reference Range Interpretation Comments UA Blood (test code = Negative (08/27/16 5:16 UA Blood) PM) [facility] AND [id number] 22:16:00 Test Item Value Reference Range Interpretation Comments UA Ketones (test code = UA Negative mg/dL Ketones) [facility] AND [id number] 22:16:00 Test Item Value Reference Range Interpretation Comments UA Bili (test code = Negative *NA*(08/27/16 UA Bili) 5:16 PM) [facility] AND [id number] 22:16:00 Test Item Value Reference Range Interpretation Comments UA Protein (test code = UA Protein) 20 mg/dL [facility] AND [id number] 22:16:00 Test Item Value Reference Range Interpretation Comments UA Glucose (test code = UA Negative mg/dL Glucose) [facility] AND [id number] 22:16:00 Test Item Value Reference Range Interpretation Comments UA pH (test code = UA pH) 5.5 5.0-8.0 [facility] AND [id number] 22:16:00 Test Item Value Reference Range Interpretation Comments UA Turbidity (test code = Clear (08/27/16 5:16 UA Turbidity) PM) [facility] AND [id number] 22:16:00 Test Item Value Reference Range Interpretation Comments UA Color (test code = Yellow *NA*(08/27/16 UA Color) 5:16 PM) [facility] AND [id number] 22:16:00 Test Item Value Reference Range Interpretation Comments UA Spec Grav (test code = UA Spec Grav) 1.022 [facility] AND [id number] 22:16:00 Test Item Value Reference Range Interpretation Comments UA Urobilinogen (test code = UA <=1.0 mg/dL 0.1-1.0 Urobilinogen) [facility] AND [id number] 22:16:00 Test Item Value Reference Range Interpretation Comments UA Sq Epi (test code = UA Sq Epi) None Seen [facility] AND [id number] 22:16:00 Test Item Value Reference Range Interpretation Comments UA Mucus (test code = UA Mucus) Few /LPF [facility] AND [id number] 22:16:00 Test Item Value Reference Range Interpretation Comments UA WBC (test code = 2 See_Comment [Automa gloria message] The UA WBC) system which ge nerated this result transmit gloria reference range : <=5. The reference range was not used to interpr et this result as laura l/abnormal. [facility] AND [id number] 22:16:00 Test Item Value Reference Range Interpretation Comments UA Leuk Est (test Negative (08/27/16 5:16 code = UA Leuk Est) PM) [facility] AND [id number] 22:16:00 Test Item Value Reference Range Interpretation Comments UA Nitrite (test code Negative (08/27/16 5:16 = UA Nitrite) PM) [facility] AND [id number] 22:16:00 Test Item Value Reference Range Interpretation Comments UA Blood (test code = Negative (08/27/16 5:16 UA Blood) PM) [facility] AND [id number] 22:16:00 Test Item Value Reference Range Interpretation Comments UA Ketones (test code = UA Negative mg/dL Ketones) [facility] AND [id number] 22:16:00 Test Item Value Reference Range Interpretation Comments UA Bili (test code = Negative *NA*(08/27/16 UA Bili) 5:16 PM) [facility] AND [id number] 22:16:00 Test Item Value Reference Range Interpretation Comments UA Protein (test code = UA Protein) 20 mg/dL [facility] AND [id number] 22:16:00 Test Item Value Reference Range Interpretation Comments UA Glucose (test code = UA Negative mg/dL Glucose) [facility] AND [id number] 22:16:00 Test Item Value Reference Range Interpretation Comments UA pH (test code = UA pH) 5.5 5.0-8.0 [facility] AND [id number] 22:16:00 Test Item Value Reference Range Interpretation Comments UA Turbidity (test code = Clear (08/27/16 5:16 UA Turbidity) PM) [facility] AND [id number] 22:16:00 Test Item Value Reference Range Interpretation Comments UA Color (test code = Yellow *NA*(08/27/16 UA Color) 5:16 PM) [facility] AND [id number] 22:16:00 Test Item Value Reference Range Interpretation Comments UA Spec Grav (test code = UA Spec Grav) 1.022 [facility] AND [id number] 22:16:00 Test Item Value Reference Range Interpretation Comments UA Spec Grav (test code = UA Spec Grav) 1.022 [facility] CenterIqlxjvnWZBFVMQRHH0609-23-35 09:53:00 Test Item Value Reference Range Interpretation Comments MCHC (test code = MCHC) 34.2 32.0-36.0 [facility]qypWJHYMTMCIU2723-39-38 09:53:00 Test Item Value Reference Range Interpretation Comments RDW (test code = RDW) 13.6 11.5-14.5 [facility] MichiganZppvmbwBKVWYKDROX4892-77-72 09:53:00 Test Item Value Reference Range Interpretation Comments Platelet (test code = Platelet) 322 133-450 [facility] MichiganZcmsqpuSJMYXZMTLY3165-37-96 09:53:00 Test Item Value Reference Range Interpretation Comments MPV (test code = MPV) 9.1 7.4-10.4 [facility] MichiganLixouphRLGJPYHIBS4460-74-31 09:53:00 Test Item Value Reference Range Interpretation Comments MCH (test code = MCH) 30.3 pg 27.0-31.0 [facility] CenterRixuopxEPSARGWNPU9943-24-89 09:53:00 Test Item Value Reference Range Interpretation Comments WBC (test code = WBC) 8.3 3.7-10.4 [facility] MichiganFfhriswBCSXDXSSAG7315-66-58 09:53:00 Test Item Value Reference Range Interpretation Comments Hct (test code = Hct) 36.3 42.0-54.0 [facility] MichiganQtmqymuFDLNQHZQZA5668-95-83 09:53:00 Test Item Value Reference Range Interpretation Comments MCV (test code = MCV) 88.8 80.0-94.0 [facility] CenterCkpzzuhDGNYELRECN0762-98-83 09:53:00 Test Item Value Reference Range Interpretation Comments RBC (test code = RBC) 4.09 4.70-6.10 [facility]UvacmphYOEUTGWLIZ6739-08-98 09:53:00 Test Item Value Reference Range Interpretation Comments Hgb (test code = Hgb) 12.4 14.0-18.0 [facility] CenterNcpeuwfOMJVNKDYJA9574-03-60 09:53:00 Test Item Value Reference Range Interpretation Comments Prealbumin (test code = Prealbumin) 35.6 18.0-45.0 [facility] CenterGxcpsdiOSINQN6072-96-08 09:53:00 Test Item Value Reference Range Interpretation Comments VLDL (test code = VLDL) 55 [facility] CenterUvfugsgVQFKFG1055-37-68 09:53:00 Test Item Value Reference Range Interpretation Comments LDL (Calculated) (test code = LDL 35 (Calculated)) [facility] CenterHkatgvpVIDGFW9042-95-97 09:53:00 Test Item Value Reference Range Interpretation Comments Chol (test code = Chol) 123 [facility] CenterGnamranGUXXJD8000-91-84 09:53:00 Test Item Value Reference Range Interpretation Comments Trig (test code = Trig) 276 [facility] CenterGsiahwrHXATWA0009-38-85 09:53:00 Test Item Value Reference Range Interpretation Comments HDL (test code = HDL) 33 [facility] CenterWqwkvuwMHYYRO4320-14-75 09:53:00 Test Item Value Reference Range Interpretation Comments CHD Risk (test code = CHD Risk) 3.73 4.00-7.30 [facility] KGUJRUVWF0600-73-76 09:53:00 Test Item Value Reference Range Interpretation Comments Hgb A1C (test code = Hgb A1C) 5.3 [facility] [id number] 09:53:00 Test Item Value Reference Range Interpretation Comments A/G Ratio (test code = A/G Ratio) 1.1 0.7-1.6 [facility] [id number] 09:53:00 Test Item Value Reference Range Interpretation Comments B/C Ratio (test code = B/C Ratio) 20 6-25 [facility] [id number] 09:53:00 Test Item Value Reference Range Interpretation Comments AGAP (test code = AGAP) 13.7 10.0-20.0 [facility] [place] [id number] 09:53:00 Test Item Value Reference Range Interpretation Comments Globulin (test code = Globulin) 3.6 2.7-4.2 [facility] [id number] 09:53:00 Test Item Value Reference Range Interpretation Comments eGFR (test code = eGFR) 71 [facility] CenterMeeting To You [id number] 09:53:00 Test Item Value Reference Range Interpretation Comments Alk Phos (test code = Alk Phos) 92 39-136 [facility] [id number] 09:53:00 Test Item Value Reference Range Interpretation Comments Bili Total (test code = Bili Total) 0.5 0.2-1.3 [facility]2016-10-01 09:53:00 Test Item Value Reference Range Interpretation Comments Creatinine Lvl (test code = Creatinine 1.20 0.50-1.40 Lvl) [facility]2016-10-01 09:53:00 Test Item Value Reference Range Interpretation Comments BUN (test code = BUN) 24 7-22 [facility]2016-10-01 09:53:00 Test Item Value Reference Range Interpretation Comments Glucose Lvl (test code = Glucose Lvl) 105 70-99 [place] 900206-10-01 09:53:00 Test Item Value Reference Range Interpretation Comments Potassium Lvl (test code = Potassium 3.7 3.5-5.1 Lvl) [facility]2016-10-01 09:53:00 Test Item Value Reference Range Interpretation Comments Sodium Lvl (test code = Sodium Lvl) 142 135-145 [facility]2016-10-01 09:53:00 Test Item Value Reference Range Interpretation Comments Chloride Lvl (test code = Chloride Lvl) 106 95-109 [facility]2016-10-01 09:53:00 Test Item Value Reference Range Interpretation Comments CO2 (test code = CO2) 26 24-32 [facility]2016-10-01 09:53:00 Test Item Value Reference Range Interpretation Comments ALT (test code = ALT) 32 See_Comment [Auto mated message] The system which ge nerated this result transmit gloria reference range : <=65. The reference range was not used to interpr et this result as laura l/abnormal. [facility]2016-10-01 09:53:00 Test Item Value Reference Range Interpretation Comments Albumin Lvl (test code = Albumin Lvl) 3.9 3.5-5.0 [facility]2016-10-01 09:53:00 Test Item Value Reference Range Interpretation Comments Total Protein (test code = Total 7.5 6.4-8.4 Protein) [facility]2016-10-01 09:53:00 Test Item Value Reference Range Interpretation Comments Calcium Lvl (test code = Calcium Lvl) 8.9 8.5-10.5 [facility]2016-10-01 09:53:00 Test Item Value Reference Range Interpretation Comments AST (test code = AST) 12 See_Comment [Auto mated message] The system which ge nerated this result transmit gloria reference range : <=37. The reference range was not used to interpr et this result as laura l/abnormal. [facility]2016-10-01 09:53:00 Test Item Value Reference Range Interpretation Comments Magnesium Lvl (test code = Magnesium 2.0 1.8-2.4 Lvl) [facility]2016-10-01 09:53:00 Test Item Value Reference Range Interpretation Comments Phosphorus (test code = Phosphorus) 3.7 2.5-4.5 [facility]VqyotkrLAIQZQYIQQ6118-75-19 09:53:00 Test Item Value Reference Range Interpretation Comments Basophils # (test code 0.1 See_Comment [Aut omated message] The = Basophils #) system which generated this result tra nsmitted reference range : <=0.2. The reference r ameya was not used to int erpret this result as normal/abnormal . [facility] CenterYvaqgnxTKVAZJGBQI4902-10-74 09:53:00 Test Item Value Reference Range Interpretation Comments Eosinophils # (test code 0.2 See_Comment [A utomated message] The = Eosinophils #) system whic h generated this result tra nsmitted reference range : <=0.5. The reference r ameya was not used to int erpret this result as normal/abnormal . [facility] CenterWldzcfjAFWFZIGSRX6250-20-56 09:53:00 Test Item Value Reference Range Interpretation Comments Monocytes # (test code 0.5 See_Comment [Aut omated message] The = Monocytes #) system which generated this result tra nsmitted reference range : <=0.8. The reference r ameya was not used to int erpret this result as normal/abnormal . [facility] CenterNshklirEWZFJACUFZ9598-42-17 09:53:00 Test Item Value Reference Range Interpretation Comments Lymphocytes # (test code = Lymphocytes 2.2 1.0-5.5 #) [facility] CenterXodebqqQBNBILBQDS7936-64-43 09:53:00 Test Item Value Reference Range Interpretation Comments Segs-Bands # (test code = Segs-Bands #) 5.4 1.5-8.1 [facility] CenterRaduxorFXTLTDKLFI7655-31-64 09:53:00 Test Item Value Reference Range Interpretation Comments Basophils (test code = 0.7 See_Comment [Aut omated message] The Basophils) system which ge nerated this result tra nsmitted reference range : <=1.0. The reference r ameya was not used to int erpret this result as normal/abnormal . [facility] CenterRwbkglaOJFULOIDVU7552-74-93 09:53:00 Test Item Value Reference Range Interpretation Comments Eosinophils (test code = 2.4 See_Comment [A utomated message] The Eosinophils) system which ge nerated this result tra nsmitted reference range : <=4.0. The reference r ameya was not used to int erpret this result as normal/abnormal . [facility] CenterKhdwdvrUTXKOBZTMM4432-58-48 09:53:00 Test Item Value Reference Range Interpretation Comments Monocytes (test code = Monocytes) 5.8 2.0-12.0 [facility] CenterUpvlqtqQPQHXGKJBX8616-45-27 09:53:00 Test Item Value Reference Range Interpretation Comments Lymphocytes (test code = Lymphocytes) 26.0 20.0-40.0 [facility] CenterIbkljhiAYENTSWMPQ1310-11-80 09:53:00 Test Item Value Reference Range Interpretation Comments Segs (test code = Segs) 65.1 45.0-75.0 [facility] CenterTmalfkxKDFHCEUZDF7602-69-03 09:53:00 Test Item Value Reference Range Interpretation Comments INR (test code = INR) 1.04 0.85-1.17 [facility] CenterNuoetlwBTAQFZBDZP9091-06-91 09:53:00 Test Item Value Reference Range Interpretation Comments PTT (test code = PTT) 27.3 s 22.9-35.8 [facility] CenterQfnkodnMMBRXBOODR5665-84-70 09:53:00 Test Item Value Reference Range Interpretation Comments PT (test code = PT) 13.8 s 12.0-14.7 [facility] CenterPrfejtoYSLOOLZGVD0008-01-60 09:53:00 Test Item Value Reference Range Interpretation Comments MCHC (test code = MCHC) 34.2 32.0-36.0 [facility] CenterFwfissvUMXAKQDKYC9822-21-45 09:53:00 Test Item Value Reference Range Interpretation Comments RDW (test code = RDW) 13.6 11.5-14.5 [facility] CenterZhmppasZICNZSEQQP4799-59-20 09:53:00 Test Item Value Reference Range Interpretation Comments Platelet (test code = Platelet) 322 133-450 [facility] CenterMgpocngSQWZVNQFSL4881-05-38 09:53:00 Test Item Value Reference Range Interpretation Comments MPV (test code = MPV) 9.1 7.4-10.4 [facility] CenterEnxpweyFSHCQJIWZJ7492-76-36 09:53:00 Test Item Value Reference Range Interpretation Comments MCH (test code = MCH) 30.3 pg 27.0-31.0 [facility] CenterHufeavsMADWPEMINP9544-25-81 09:53:00 Test Item Value Reference Range Interpretation Comments WBC (test code = WBC) 8.3 3.7-10.4 [facility] CenterZnagmcaSYQXCNJLPY8043-87-83 09:53:00 Test Item Value Reference Range Interpretation Comments Hct (test code = Hct) 36.3 42.0-54.0 [facility] CenterUjaoshrOASZQVRTCR7359-14-06 09:53:00 Test Item Value Reference Range Interpretation Comments MCV (test code = MCV) 88.8 80.0-94.0 [facility] CenterSwolghiYRFKQFLFQV6495-34-94 09:53:00 Test Item Value Reference Range Interpretation Comments RBC (test code = RBC) 4.09 4.70-6.10 [facility] CenterOmbidagWJQMRYHDUK7121-86-02 09:53:00 Test Item Value Reference Range Interpretation Comments Hgb (test code = Hgb) 12.4 14.0-18.0 [facility] CenterRgdbuanDVLIFDSWAU0147-87-81 09:53:00 Test Item Value Reference Range Interpretation Comments Prealbumin (test code = Prealbumin) 35.6 18.0-45.0 [facility] CenterZutilsgGBKHTO3538-53-66 09:53:00 Test Item Value Reference Range Interpretation Comments VLDL (test code = VLDL) 55 [facility] CenterJmhtzhePOACSY7850-21-70 09:53:00 Test Item Value Reference Range Interpretation Comments LDL (Calculated) (test code = LDL 35 (Calculated)) [facility] CenterHtnkacsMJQVZK0275-89-44 09:53:00 Test Item Value Reference Range Interpretation Comments Chol (test code = Chol) 123 [facility]GMDMDP4920[facility] 09:53:00 Test Item Value Reference Range Interpretation Comments Trig (test code = Trig) 276 [facility]AlkxgrwNMITRQ3757-33-68 09:53:00 Test Item Value Reference Range Interpretation Comments HDL (test code = HDL) 33 [facility]YkggfnoJKMKVQ2652-43-29 09:53:00 Test Item Value Reference Range Interpretation Comments CHD Risk (test code = CHD Risk) 3.73 4.00-7.30 [facility] XSEORKMMF1168-55-97 09:53:00 Test Item Value Reference Range Interpretation Comments Hgb A1C (test code = Hgb A1C) 5.3 [facility]2016-10-01 09:53:00 Test Item Value Reference Range Interpretation Comments A/G Ratio (test code = A/G Ratio) 1.1 0.7-1.6 [facility]2016-10-01 09:53:00 Test Item Value Reference Range Interpretation Comments B/C Ratio (test code = B/C Ratio) 20 6-25 [facility]2016-10-01 09:53:00 Test Item Value Reference Range Interpretation Comments AGAP (test code = AGAP) 13.7 10.0-20.0 [facility]2016-10-01 09:53:00 Test Item Value Reference Range Interpretation Comments Globulin (test code = Globulin) 3.6 2.7-4.2 [facility]2016-10-01 09:53:00 Test Item Value Reference Range Interpretation Comments eGFR (test code = eGFR) 71 [facility]2016-10-01 09:53:00 Test Item Value Reference Range Interpretation Comments Alk Phos (test code = Alk Phos) 92 39-136 [facility]2016-10-01 09:53:00 Test Item Value Reference Range Interpretation Comments Bili Total (test code = Bili Total) 0.5 0.2-1.3 [facility]2016-10-01 09:53:00 Test Item Value Reference Range Interpretation Comments Creatinine Lvl (test code = Creatinine 1.20 0.50-1.40 Lvl) [facility]2016-10-01 09:53:00 Test Item Value Reference Range Interpretation Comments BUN (test code = BUN) 24 7-22 [facility]2016-10-01 09:53:00 Test Item Value Reference Range Interpretation Comments Glucose Lvl (test code = Glucose Lvl) 105 70-99 [facility]2016-10-01 09:53:00 Test Item Value Reference Range Interpretation Comments Potassium Lvl (test code = Potassium 3.7 3.5-5.1 Lvl) [facility]2016-10-01 09:53:00 Test Item Value Reference Range Interpretation Comments Sodium Lvl (test code = Sodium Lvl) 142 135-145 [facility]2016-10-01 09:53:00 Test Item Value Reference Range Interpretation Comments Chloride Lvl (test code = Chloride Lvl) 106 95-109 [facility]2016-10-01 09:53:00 Test Item Value Reference Range Interpretation Comments CO2 (test code = CO2) 26 24-32 [place] 900206-10-01 09:53:00 Test Item Value Reference Range Interpretation Comments ALT (test code = ALT) 32 See_Comment [Auto mated message] The system which ge nerated this result transmit gloria reference range : <=65. The reference range was not used to interpr et this result as laura l/abnormal. [facility]2016-10-01 09:53:00 Test Item Value Reference Range Interpretation Comments Albumin Lvl (test code = Albumin Lvl) 3.9 3.5-5.0 [facility]2016-10-01 09:53:00 Test Item Value Reference Range Interpretation Comments Total Protein (test code = Total 7.5 6.4-8.4 Protein) [facility]2016-10-01 09:53:00 Test Item Value Reference Range Interpretation Comments Calcium Lvl (test code = Calcium Lvl) 8.9 8.5-10.5 [facility]2016-10-01 09:53:00 Test Item Value Reference Range Interpretation Comments AST (test code = AST) 12 See_Comment [Auto mated message] The system which ge nerated this result transmit gloria reference range : <=37. The reference range was not used to interpr et this result as laura l/abnormal. [facility]2016-10-01 09:53:00 Test Item Value Reference Range Interpretation Comments Magnesium Lvl (test code = Magnesium 2.0 1.8-2.4 Lvl) [facility]2016-10-01 09:53:00 Test Item Value Reference Range Interpretation Comments Phosphorus (test code = Phosphorus) 3.7 2.5-4.5 [facility]NmylayeTWBKGZJMDV9709-60-57 09:53:00 Test Item Value Reference Range Interpretation Comments Basophils # (test code 0.1 See_Comment [Aut omated message] The = Basophils #) system which generated this result tra nsmitted reference range : <=0.2. The reference r ameya was not used to int erpret this result as normal/abnormal . [facility] CenterQlxalteVVVYVFHQLT1449-22-23 09:53:00 Test Item Value Reference Range Interpretation Comments Eosinophils # (test code 0.2 See_Comment [A utomated message] The = Eosinophils #) system whic h generated this result tra nsmitted reference range : <=0.5. The reference r ameya was not used to int erpret this result as normal/abnormal . [facility] CenterLehzfznNBXEOSOJFA5441-64-03 09:53:00 Test Item Value Reference Range Interpretation Comments Monocytes # (test code 0.5 See_Comment [Aut omated message] The = Monocytes #) system which generated this result tra nsmitted reference range : <=0.8. The reference r ameya was not used to int erpret this result as normal/abnormal . [facility] CenterOvumexaOSSFFTARWB6613-29-44 09:53:00 Test Item Value Reference Range Interpretation Comments Lymphocytes # (test code = Lymphocytes 2.2 1.0-5.5 #) [facility] CenterNysbpdqCICCEHEOJJ0113-82-62 09:53:00 Test Item Value Reference Range Interpretation Comments Segs-Bands # (test code = Segs-Bands #) 5.4 1.5-8.1 [facility] CenterBghgovpHVPLGGYYWB7270-51-02 09:53:00 Test Item Value Reference Range Interpretation Comments Basophils (test code = 0.7 See_Comment [Aut omated message] The Basophils) system which ge nerated this result tra nsmitted reference range : <=1.0. The reference r ameya was not used to int erpret this result as normal/abnormal . [facility] CenterCihjhgmWEDGRARGWF3809-93-30 09:53:00 Test Item Value Reference Range Interpretation Comments Eosinophils (test code = 2.4 See_Comment [A utomated message] The Eosinophils) system which ge nerated this result tra nsmitted reference range : <=4.0. The reference r ameya was not used to int erpret this result as normal/abnormal . [facility] CenterXjpoevhHZGICGIKZT8169-15-05 09:53:00 Test Item Value Reference Range Interpretation Comments Monocytes (test code = Monocytes) 5.8 2.0-12.0 [facility] CenterKrwjnyvKVTOLGWUPO2453-91-35 09:53:00 Test Item Value Reference Range Interpretation Comments Lymphocytes (test code = Lymphocytes) 26.0 20.0-40.0 [facility] CenterZhtdhpaYQOYFDABBD6985-37-30 09:53:00 Test Item Value Reference Range Interpretation Comments Segs (test code = Segs) 65.1 45.0-75.0 [facility] CenterVhoyruiZSQZOTCVYX6821-99-70 09:53:00 Test Item Value Reference Range Interpretation Comments INR (test code = INR) 1.04 0.85-1.17 [facility] CenterJoyyumqQDGXRKLJJM8890-64-66 09:53:00 Test Item Value Reference Range Interpretation Comments PTT (test code = PTT) 27.3 s 22.9-35.8 [facility] CenterPijcxjnPOHIDEDXVQ8806-33-06 09:53:00 Test Item Value Reference Range Interpretation Comments PT (test code = PT) 13.8 s 12.0-14.7 [facility] CenterLncwfqqTFNKOWAMVX6884-31-67 09:53:00 Test Item Value Reference Range Interpretation Comments MCHC (test code = MCHC) 34.2 32.0-36.0 [facility] CenterKlnhiwcDJYCZVXOCR5975-04-41 09:53:00 Test Item Value Reference Range Interpretation Comments RDW (test code = RDW) 13.6 11.5-14.5 [facility] CenterIddmyoqQHEAVYAYWQ8631-01-02 09:53:00 Test Item Value Reference Range Interpretation Comments Platelet (test code = Platelet) 322 133-450 [facility] CenterToddyaiDSVMEKMRRG6039-88-11 09:53:00 Test Item Value Reference Range Interpretation Comments MPV (test code = MPV) 9.1 7.4-10.4 [facility] CenterLbuoocsZXFDSCAJQV4974-17-75 09:53:00 Test Item Value Reference Range Interpretation Comments MCH (test code = MCH) 30.3 pg 27.0-31.0 [facility] CenterDkyujtyQJUYOOTXJS9492-05-44 09:53:00 Test Item Value Reference Range Interpretation Comments WBC (test code = WBC) 8.3 3.7-10.4 [facility] CenterOhcmkcrLNFGTCDGCR5218-39-63 09:53:00 Test Item Value Reference Range Interpretation Comments Hct (test code = Hct) 36.3 42.0-54.0 [facility] CenterAsfcxlcOOAPLZJUIZ0394-89-42 09:53:00 Test Item Value Reference Range Interpretation Comments MCV (test code = MCV) 88.8 80.0-94.0 [facility] CenterTrfchneDVQMLDMFBH7794-21-33 09:53:00 Test Item Value Reference Range Interpretation Comments RBC (test code = RBC) 4.09 4.70-6.10 [facility]NgqnbkaTSKMAJQWAF3668-71-37 09:53:00 Test Item Value Reference Range Interpretation Comments Hgb (test code = Hgb) 12.4 14.0-18.0 [facility] CenterFagcuhzTQMUIHEIAA6206-48-43 09:53:00 Test Item Value Reference Range Interpretation Comments Prealbumin (test code = Prealbumin) 35.6 18.0-45.0 [facility] HospitalEbiqpwdEWZQEO5327-94-00 09:53:00 Test Item Value Reference Range Interpretation Comments VLDL (test code = VLDL) 55 [facility] HospitalMbgthzaLSJPSU8577-52-57 09:53:00 Test Item Value Reference Range Interpretation Comments LDL (Calculated) (test code = LDL 35 (Calculated)) [facility] CenterZjnnhzsMFHBRS3091-35-40 09:53:00 Test Item Value Reference Range Interpretation Comments Chol (test code = Chol) 123 [facility] HospitalLuegdktPNSBUD8441-27-56 09:53:00 Test Item Value Reference Range Interpretation Comments Trig (test code = Trig) 276 [facility] HospitalXcskedhXBZOBT4810-82-12 09:53:00 Test Item Value Reference Range Interpretation Comments HDL (test code = HDL) 33 [facility] HospitalNyhzoxaSWKAZG6969-28-27 09:53:00 Test Item Value Reference Range Interpretation Comments CHD Risk (test code = CHD Risk) 3.73 4.00-7.30 [facility] CenterSPECIAL OVKRQEJJU1430-49-56 09:53:00 Test Item Value Reference Range Interpretation Comments Hgb A1C (test code = Hgb A1C) 5.3 [facility] CenterCHEM SWAFQ2324-57-78 09:53:00 Test Item Value Reference Range Interpretation Comments A/G Ratio (test code = A/G Ratio) 1.1 0.7-1.6 [facility] CenterCHEM IGKNW3889-20-74 09:53:00 Test Item Value Reference Range Interpretation Comments B/C Ratio (test code = B/C Ratio) 20 6-25 [facility]2016-10-01 09:53:00 Test Item Value Reference Range Interpretation Comments AGAP (test code = AGAP) 13.7 10.0-20.0 [facility]2016-10-01 09:53:00 Test Item Value Reference Range Interpretation Comments Globulin (test code = Globulin) 3.6 2.7-4.2 [facility]2016-10-01 09:53:00 Test Item Value Reference Range Interpretation Comments eGFR (test code = eGFR) 71 [facility]2016-10-01 09:53:00 Test Item Value Reference Range Interpretation Comments Alk Phos (test code = Alk Phos) 92 39-136 [facility]2016-10-01 09:53:00 Test Item Value Reference Range Interpretation Comments Bili Total (test code = Bili Total) 0.5 0.2-1.3 [facility]2016-10-01 09:53:00 Test Item Value Reference Range Interpretation Comments Creatinine Lvl (test code = Creatinine 1.20 0.50-1.40 Lvl) [facility]2016-10-01 09:53:00 Test Item Value Reference Range Interpretation Comments BUN (test code = BUN) 24 7-22 [facility]2016-10-01 09:53:00 Test Item Value Reference Range Interpretation Comments Glucose Lvl (test code = Glucose Lvl) 105 70-99 [facility]2016-10-01 09:53:00 Test Item Value Reference Range Interpretation Comments Potassium Lvl (test code = Potassium 3.7 3.5-5.1 Lvl) [facility]2016-10-01 09:53:00 Test Item Value Reference Range Interpretation Comments Sodium Lvl (test code = Sodium Lvl) 142 135-145 [facility]2016-10-01 09:53:00 Test Item Value Reference Range Interpretation Comments Chloride Lvl (test code = Chloride Lvl) 106 95-109 [facility]2016-10-01 09:53:00 Test Item Value Reference Range Interpretation Comments CO2 (test code = CO2) 26 24-32 [facility]2016-10-01 09:53:00 Test Item Value Reference Range Interpretation Comments ALT (test code = ALT) 32 See_Comment [Auto mated message] The system which ge nerated this result transmit gloria reference range : <=65. The reference range was not used to interpr et this result as laura l/abnormal. [facility]2016-10-01 09:53:00 Test Item Value Reference Range Interpretation Comments Albumin Lvl (test code = Albumin Lvl) 3.9 3.5-5.0 [facility]2016-10-01 09:53:00 Test Item Value Reference Range Interpretation Comments Total Protein (test code = Total 7.5 6.4-8.4 Protein) [facility]2016-10-01 09:53:00 Test Item Value Reference Range Interpretation Comments Calcium Lvl (test code = Calcium Lvl) 8.9 8.5-10.5 [facility]2016-10-01 09:53:00 Test Item Value Reference Range Interpretation Comments AST (test code = AST) 12 See_Comment [Auto mated message] The system which ge nerated this result transmit gloria reference range : <=37. The reference range was not used to interpr et this result as laura l/abnormal. [facility]2016-10-01 09:53:00 Test Item Value Reference Range Interpretation Comments Magnesium Lvl (test code = Magnesium 2.0 1.8-2.4 Lvl) [facility]2016-10-01 09:53:00 Test Item Value Reference Range Interpretation Comments Phosphorus (test code = Phosphorus) 3.7 2.5-4.5 [facility]kk[facility]yixUSYDEVDWNI5991-37-55 09:53:00 Test Item Value Reference Range Interpretation Comments Basophils # (test code 0.1 See_Comment [Aut omated message] The = Basophils #) system which generated this result tra nsmitted reference range : <=0.2. The reference r ameya was not used to int erpret this result as normal/abnormal . [facility]UkzrkkcVGQDVFFPVU0283-90-03 09:53:00 Test Item Value Reference Range Interpretation Comments Eosinophils # (test code 0.2 See_Comment [A utomated message] The = Eosinophils #) system whic h generated this result tra nsmitted reference range : <=0.5. The reference r ameya was not used to int erpret this result as normal/abnormal . [place] [address]-10-01 09:53:00 Test Item Value Reference Range Interpretation Comments Monocytes # (test code 0.5 See_Comment [Aut omated message] The = Monocytes #) system which generated this result tra nsmitted reference range : <=0.8. The reference r ameya was not used to int erpret this result as normal/abnormal . [facility] CenterDihhbxtGTWQDLOKLG9110-91-20 09:53:00 Test Item Value Reference Range Interpretation Comments Lymphocytes # (test code = Lymphocytes 2.2 1.0-5.5 #) [facility] CenterLsfeunoXCDGKDFDDY8232-91-36 09:53:00 Test Item Value Reference Range Interpretation Comments Segs-Bands # (test code = Segs-Bands #) 5.4 1.5-8.1 [facility] CenterXyefmfeEMFIEURLCN9025-23-04 09:53:00 Test Item Value Reference Range Interpretation Comments Basophils (test code = 0.7 See_Comment [Aut omated message] The Basophils) system which ge nerated this result tra nsmitted reference range : <=1.0. The reference r ameya was not used to int erpret this result as normal/abnormal . [facility] CenterMckbghlSFASMDTJGG0253-81-72 09:53:00 Test Item Value Reference Range Interpretation Comments Eosinophils (test code = 2.4 See_Comment [A utomated message] The Eosinophils) system which ge nerated this result tra nsmitted reference range : <=4.0. The reference r ameya was not used to int erpret this result as normal/abnormal . [facility] CenterItyhtwiCVCTRQFHXF7195-74-99 09:53:00 Test Item Value Reference Range Interpretation Comments Monocytes (test code = Monocytes) 5.8 2.0-12.0 [facility] CenterJgscmptGJQHULFMCW8250-28-94 09:53:00 Test Item Value Reference Range Interpretation Comments Lymphocytes (test code = Lymphocytes) 26.0 20.0-40.0 [facility] CenterMwcocjaJQJBCHYJED3471-76-77 09:53:00 Test Item Value Reference Range Interpretation Comments Segs (test code = Segs) 65.1 45.0-75.0 [facility] CenterCevjqvaGWXAFIGCUS2304-13-28 09:53:00 Test Item Value Reference Range Interpretation Comments INR (test code = INR) 1.04 0.85-1.17 [facility] CenterVkthsdnGCKLLEBRIE9059-80-34 09:53:00 Test Item Value Reference Range Interpretation Comments PTT (test code = PTT) 27.3 s 22.9-35.8 [facility] CenterMwhbkilJWPKHJYKXV7549-05-99 09:53:00 Test Item Value Reference Range Interpretation Comments PT (test code = PT) 13.8 s 12.0-14.7 [facility] CenterNtuxndkZKVZQYMIBK1146-43-98 09:53:00 Test Item Value Reference Range Interpretation Comments MCHC (test code = MCHC) 34.2 32.0-36.0 [facility] CenterDrztpepCSTWFBIEVY4174-12-01 09:53:00 Test Item Value Reference Range Interpretation Comments RDW (test code = RDW) 13.6 11.5-14.5 [facility] CenterVmtuzitBUHNGNQCOI3347-52-35 09:53:00 Test Item Value Reference Range Interpretation Comments Platelet (test code = Platelet) 322 133-450 [facility] CenterWefjozfPNAQNRFZTZ4231-47-77 09:53:00 Test Item Value Reference Range Interpretation Comments MPV (test code = MPV) 9.1 7.4-10.4 [facility] CenterWxsqpzqGOSNAAMQMQ0841-25-38 09:53:00 Test Item Value Reference Range Interpretation Comments MCH (test code = MCH) 30.3 pg 27.0-31.0 [facility] CenterBwsobsmDAUJIZHYXM5831-40-40 09:53:00 Test Item Value Reference Range Interpretation Comments WBC (test code = WBC) 8.3 3.7-10.4 [facility] CenterDcetocuEXEODYTGPE8544-31-16 09:53:00 Test Item Value Reference Range Interpretation Comments Hct (test code = Hct) 36.3 42.0-54.0 [facility] CenterFrxhzyuMZDTXBBDEF3605-21-89 09:53:00 Test Item Value Reference Range Interpretation Comments MCV (test code = MCV) 88.8 80.0-94.0 [facility] CenterAbspxptTRGDRQHQLD9527-74-94 09:53:00 Test Item Value Reference Range Interpretation Comments RBC (test code = RBC) 4.09 4.70-6.10 [facility] CenterGqosozpWVPBCBAPWI2628-41-61 09:53:00 Test Item Value Reference Range Interpretation Comments Hgb (test code = Hgb) 12.4 14.0-18.0 [facility] CenterAymkeglBHOZCTEVUN5838-26-69 09:53:00 Test Item Value Reference Range Interpretation Comments Prealbumin (test code = Prealbumin) 35.6 18.0-45.0 [facility] CenterWbtkuvxZPMSZW3696-52-73 09:53:00 Test Item Value Reference Range Interpretation Comments VLDL (test code = VLDL) 55 [facility] CenterGhuvpvuOJVGNR6415-49-35 09:53:00 Test Item Value Reference Range Interpretation Comments LDL (Calculated) (test code = LDL 35 (Calculated)) [facility] CenterDyccihqKMJSZH7947-06-14 09:53:00 Test Item Value Reference Range Interpretation Comments Chol (test code = Chol) 123 [facility] CenterBqomwiyAVWQJN5295-06-78 09:53:00 Test Item Value Reference Range Interpretation Comments Trig (test code = Trig) 276 [facility] CenterMdfrxrxGIWXZQ4570-97-17 09:53:00 Test Item Value Reference Range Interpretation Comments HDL (test code = HDL) 33 [facility] 09:53:00 Test Item Value Reference Range Interpretation Comments CHD Risk (test code = CHD Risk) 3.73 4.00-7.30 [facility] VFS[facility]ODY0069-38-27 09:53:00 Test Item Value Reference Range Interpretation Comments Hgb A1C (test code = Hgb A1C) 5.3 [facility] [id number] 09:53:00 Test Item Value Reference Range Interpretation Comments A/G Ratio (test code = A/G Ratio) 1.1 0.7-1.6 [facility] CenterMeeting To You [id number] 09:53:00 Test Item Value Reference Range Interpretation Comments B/C Ratio (test code = B/C Ratio) 20 6-25 [facility] [id number] 09:53:00 Test Item Value Reference Range Interpretation Comments AGAP (test code = AGAP) 13.7 10.0-20.0 [facility] [id number] 09:53:00 Test Item Value Reference Range Interpretation Comments Globulin (test code = Globulin) 3.6 2.7-4.2 [facility] [id number] 09:53:00 Test Item Value Reference Range Interpretation Comments eGFR (test code = eGFR) 71 [facility] CenterMeeting To You [id number] 09:53:00 Test Item Value Reference Range Interpretation Comments Alk Phos (test code = Alk Phos) 92 39-136 [facility]2016-10-01 09:53:00 Test Item Value Reference Range Interpretation Comments Bili Total (test code = Bili Total) 0.5 0.2-1.3 [facility]2016-10-01 09:53:00 Test Item Value Reference Range Interpretation Comments Creatinine Lvl (test code = Creatinine 1.20 0.50-1.40 Lvl) [facility]2016-10-01 09:53:00 Test Item Value Reference Range Interpretation Comments BUN (test code = BUN) 24 7-22 [facility]2016-10-01 09:53:00 Test Item Value Reference Range Interpretation Comments Glucose Lvl (test code = Glucose Lvl) 105 70-99 [facility]2016-10-01 09:53:00 Test Item Value Reference Range Interpretation Comments Potassium Lvl (test code = Potassium 3.7 3.5-5.1 Lvl) [facility]2016-10-01 09:53:00 Test Item Value Reference Range Interpretation Comments Sodium Lvl (test code = Sodium Lvl) 142 135-145 [facility]2016-10-01 09:53:00 Test Item Value Reference Range Interpretation Comments Chloride Lvl (test code = Chloride Lvl) 106 95-109 [facility]2016-10-01 09:53:00 Test Item Value Reference Range Interpretation Comments CO2 (test code = CO2) 26 24-32 [facility]2016-10-01 09:53:00 Test Item Value Reference Range Interpretation Comments ALT (test code = ALT) 32 See_Comment [Auto mated message] The system which ge nerated this result transmit gloria reference range : <=65. The reference range was not used to interpr et this result as laura l/abnormal. [facility]2016-10-01 09:53:00 Test Item Value Reference Range Interpretation Comments Albumin Lvl (test code = Albumin Lvl) 3.9 3.5-5.0 [facility]2016-10-01 09:53:00 Test Item Value Reference Range Interpretation Comments Total Protein (test code = Total 7.5 6.4-8.4 Protein) [facility]2016-10-01 09:53:00 Test Item Value Reference Range Interpretation Comments Calcium Lvl (test code = Calcium Lvl) 8.9 8.5-10.5 [facility]2016-10-01 09:53:00 Test Item Value Reference Range Interpretation Comments AST (test code = AST) 12 See_Comment [Auto mated message] The system which ge nerated this result transmit gloria reference range : <=37. The reference range was not used to interpr et this result as laura l/abnormal. [facility]2016-10-01 09:53:00 Test Item Value Reference Range Interpretation Comments Magnesium Lvl (test code = Magnesium 2.0 1.8-2.4 Lvl) [facility]2016-10-01 09:53:00 Test Item Value Reference Range Interpretation Comments Phosphorus (test code = Phosphorus) 3.7 2.5-4.5 [facility] CenterBywpwnbJEUGTDCQRB2886-26-25 09:53:00 Test Item Value Reference Range Interpretation Comments Basophils # (test code 0.1 See_Comment [Aut omated message] The = Basophils #) system which generated this result tra nsmitted reference range : <=0.2. The reference r ameya was not used to int erpret this result as normal/abnormal . [facility] CenterIbdenbmHVLVFWRJTK9357-78-65 09:53:00 Test Item Value Reference Range Interpretation Comments Eosinophils # (test code 0.2 See_Comment [A utomated message] The = Eosinophils #) system whic h generated this result tra nsmitted reference range : <=0.5. The reference r ameya was not used to int erpret this result as normal/abnormal . [facility] CenterWjzyldnYUAZLQZBAA2768-70-15 09:53:00 Test Item Value Reference Range Interpretation Comments Monocytes # (test code 0.5 See_Comment [Aut omated message] The = Monocytes #) system which generated this result tra nsmitted reference range : <=0.8. The reference r ameya was not used to int erpret this result as normal/abnormal . [facility] CenterNdxucwfAONZSBXOXP0375-56-97 09:53:00 Test Item Value Reference Range Interpretation Comments Lymphocytes # (test code = Lymphocytes 2.2 1.0-5.5 #) [facility] CenterFydkngkTZVCWCAGHC7023-72-01 09:53:00 Test Item Value Reference Range Interpretation Comments Segs-Bands # (test code = Segs-Bands #) 5.4 1.5-8.1 [facility] CenterIuwwrmhLHWNANSIYD8619-08-85 09:53:00 Test Item Value Reference Range Interpretation Comments Basophils (test code = 0.7 See_Comment [Aut omated message] The Basophils) system which ge nerated this result tra nsmitted reference range : <=1.0. The reference r ameya was not used to int erpret this result as normal/abnormal . [facility] CenterUqvyaimSBQWPEDZVA6260-11-92 09:53:00 Test Item Value Reference Range Interpretation Comments Eosinophils (test code = 2.4 See_Comment [A utomated message] The Eosinophils) system which ge nerated this result tra nsmitted reference range : <=4.0. The reference r ameya was not used to int erpret this result as normal/abnormal . [facility] CenterQhfxaimOZCMIMXBBH7639-73-78 09:53:00 Test Item Value Reference Range Interpretation Comments Monocytes (test code = Monocytes) 5.8 2.0-12.0 [facility] CenterAaqotfuLZLSKAYEEL8855-39-88 09:53:00 Test Item Value Reference Range Interpretation Comments Lymphocytes (test code = Lymphocytes) 26.0 20.0-40.0 [facility] CenterJvvinkgOGSSITWRJM4905-37-72 09:53:00 Test Item Value Reference Range Interpretation Comments Segs (test code = Segs) 65.1 45.0-75.0 [facility] CenterFqxizesXXHMDRHERZ3487-88-84 09:53:00 Test Item Value Reference Range Interpretation Comments INR (test code = INR) 1.04 0.85-1.17 [facility] CenterHizapbuHBWAPBDGSB5148-79-64 09:53:00 Test Item Value Reference Range Interpretation Comments PTT (test code = PTT) 27.3 s 22.9-35.8 [facility] CenterCelhalmRLRJWXLRTG7449-77-66 09:53:00 Test Item Value Reference Range Interpretation Comments PT (test code = PT) 13.8 s 12.0-14.7 [facility] CenterDvkmcrnKGRCBSHWAJ0787-18-12 09:53:00 Test Item Value Reference Range Interpretation Comments MCHC (test code = MCHC) 34.2 32.0-36.0 [facility] CenterCbjbqadFVJYPZQARH5547-68-26 09:53:00 Test Item Value Reference Range Interpretation Comments RDW (test code = RDW) 13.6 11.5-14.5 [facility] CenterLgbayoaINZDDQVLIN5867-90-70 09:53:00 Test Item Value Reference Range Interpretation Comments Platelet (test code = Platelet) 322 133-450 [facility] CenterIsbtwveIFVLKPVOVC9749-32-56 09:53:00 Test Item Value Reference Range Interpretation Comments MPV (test code = MPV) 9.1 7.4-10.4 [facility] CenterBlvcayoMVICMGEQAM0173-51-04 09:53:00 Test Item Value Reference Range Interpretation Comments MCH (test code = MCH) 30.3 pg 27.0-31.0 [facility] CenterIxzvtcnZKBOFIDEWX6780-47-92 09:53:00 Test Item Value Reference Range Interpretation Comments WBC (test code = WBC) 8.3 3.7-10.4 [facility] CenterRhghqxgLPFPXRKZSI1566-43-10 09:53:00 Test Item Value Reference Range Interpretation Comments Hct (test code = Hct) 36.3 42.0-54.0 [facility] CenterQaezjiwEHKJAVHGBM9239-14-47 09:53:00 Test Item Value Reference Range Interpretation Comments MCV (test code = MCV) 88.8 80.0-94.0 [facility] CenterPontwiiPUGZCZALJJ5037-67-50 09:53:00 Test Item Value Reference Range Interpretation Comments RBC (test code = RBC) 4.09 4.70-6.10 [facility]TgstexoZYXEPOJPOZ1861-90-95 09:53:00 Test Item Value Reference Range Interpretation Comments Hgb (test code = Hgb) 12.4 14.0-18.0 [facility] CenterSehqcykFLZCRLAODP0517-01-34 09:53:00 Test Item Value Reference Range Interpretation Comments Prealbumin (test code = Prealbumin) 35.6 18.0-45.0 [facility] CenterNxdbhbuZAKSDV9726-35-07 09:53:00 Test Item Value Reference Range Interpretation Comments VLDL (test code = VLDL) 55 [facility] CenterAdhcijlIQCFND1210-91-62 09:53:00 Test Item Value Reference Range Interpretation Comments LDL (Calculated) (test code = LDL 35 (Calculated)) [facility]oibjzfAOWDDV0242[facility] 09:53:00 Test Item Value Reference Range Interpretation Comments Chol (test code = Chol) 123 [facility]EkoivvfMAJBBY2491-07-97 09:53:00 Test Item Value Reference Range Interpretation Comments Trig (test code = Trig) 276 [facility] CenterDnwbbdoZUYAEV5589-05-18 09:53:00 Test Item Value Reference Range Interpretation Comments HDL (test code = HDL) 33 [facility] CenterJxflcflKHWDFX4745-90-66 09:53:00 Test Item Value Reference Range Interpretation Comments CHD Risk (test code = CHD Risk) 3.73 4.00-7.30 [facility] UEQLUKODR1008-59-39 09:53:00 Test Item Value Reference Range Interpretation Comments Hgb A1C (test code = Hgb A1C) 5.3 [facility]2016-10-01 09:53:00 Test Item Value Reference Range Interpretation Comments A/G Ratio (test code = A/G Ratio) 1.1 0.7-1.6 [facility]2016-10-01 09:53:00 Test Item Value Reference Range Interpretation Comments B/C Ratio (test code = B/C Ratio) 20 6-25 [facility]2016-10-01 09:53:00 Test Item Value Reference Range Interpretation Comments AGAP (test code = AGAP) 13.7 10.0-20.0 [facility]2016-10-01 09:53:00 Test Item Value Reference Range Interpretation Comments Globulin (test code = Globulin) 3.6 2.7-4.2 [facility]2016-10-01 09:53:00 Test Item Value Reference Range Interpretation Comments eGFR (test code = eGFR) 71 [facility]2016-10-01 09:53:00 Test Item Value Reference Range Interpretation Comments Alk Phos (test code = Alk Phos) 92 39-136 [facility]2016-10-01 09:53:00 Test Item Value Reference Range Interpretation Comments Bili Total (test code = Bili Total) 0.5 0.2-1.3 [facility]2016-10-01 09:53:00 Test Item Value Reference Range Interpretation Comments Creatinine Lvl (test code = Creatinine 1.20 0.50-1.40 Lvl) [facility]2016-10-01 09:53:00 Test Item Value Reference Range Interpretation Comments BUN (test code = BUN) 24 7-22 [facility]2016-10-01 09:53:00 Test Item Value Reference Range Interpretation Comments Glucose Lvl (test code = Glucose Lvl) 105 70-99 [facility]2016-10-01 09:53:00 Test Item Value Reference Range Interpretation Comments Potassium Lvl (test code = Potassium 3.7 3.5-5.1 Lvl) [facility]2016-10-01 09:53:00 Test Item Value Reference Range Interpretation Comments Sodium Lvl (test code = Sodium Lvl) 142 135-145 [facility]2016-10-01 09:53:00 Test Item Value Reference Range Interpretation Comments Chloride Lvl (test code = Chloride Lvl) 106 95-109 [facility]2016-10-01 09:53:00 Test Item Value Reference Range Interpretation Comments CO2 (test code = CO2) 26 24-32 [facility]2016-10-01 09:53:00 Test Item Value Reference Range Interpretation Comments ALT (test code = ALT) 32 See_Comment [Auto mated message] The system which ge nerated this result transmit gloria reference range : <=65. The reference range was not used to interpr et this result as laura l/abnormal. [facility]2016-10-01 09:53:00 Test Item Value Reference Range Interpretation Comments Albumin Lvl (test code = Albumin Lvl) 3.9 3.5-5.0 [facility]2016-10-01 09:53:00 Test Item Value Reference Range Interpretation Comments Total Protein (test code = Total 7.5 6.4-8.4 Protein) [facility]2016-10-01 09:53:00 Test Item Value Reference Range Interpretation Comments Calcium Lvl (test code = Calcium Lvl) 8.9 8.5-10.5 [facility]2016-10-01 09:53:00 Test Item Value Reference Range Interpretation Comments AST (test code = AST) 12 See_Comment [Auto mated message] The system which ge nerated this result transmit gloria reference range : <=37. The reference range was not used to interpr et this result as laura l/abnormal. [facility]2016-10-01 09:53:00 Test Item Value Reference Range Interpretation Comments Magnesium Lvl (test code = Magnesium 2.0 1.8-2.4 Lvl) [facility]2016-10-01 09:53:00 Test Item Value Reference Range Interpretation Comments Phosphorus (test code = Phosphorus) 3.7 2.5-4.5 [facility] CenterAfvyhanOMGMJRSXWJ5635-47-88 09:53:00 Test Item Value Reference Range Interpretation Comments Basophils # (test code 0.1 See_Comment [Aut omated message] The = Basophils #) system which generated this result tra nsmitted reference range : <=0.2. The reference r ameya was not used to int erpret this result as normal/abnormal . [facility] CenterHdqxhtaDXCIRARVLT5197-98-23 09:53:00 Test Item Value Reference Range Interpretation Comments Eosinophils # (test code 0.2 See_Comment [A utomated message] The = Eosinophils #) system whic h generated this result tra nsmitted reference range : <=0.5. The reference r ameya was not used to int erpret this result as normal/abnormal . [facility] CenterMcggmyoQJZMBRBYIW0549-62-76 09:53:00 Test Item Value Reference Range Interpretation Comments Monocytes # (test code 0.5 See_Comment [Aut omated message] The = Monocytes #) system which generated this result tra nsmitted reference range : <=0.8. The reference r ameya was not used to int erpret this result as normal/abnormal . [facility] CenterZjgrsnmFVYCWIZVEH9092-45-32 09:53:00 Test Item Value Reference Range Interpretation Comments Lymphocytes # (test code = Lymphocytes 2.2 1.0-5.5 #) [facility] CenterYxhqzqbICRAKKBZYP2070-35-33 09:53:00 Test Item Value Reference Range Interpretation Comments Segs-Bands # (test code = Segs-Bands #) 5.4 1.5-8.1 [id number] 09:53:00 Test Item Value Reference Range Interpretation Comments Basophils (test code = 0.7 See_Comment [Aut omated message] The Basophils) system which ge nerated this result tra nsmitted reference range : <=1.0. The reference r ameya was not used to int erpret this result as normal/abnormal . [facility] [id number] 09:53:00 Test Item Value Reference Range Interpretation Comments Eosinophils (test code = 2.4 See_Comment [A utomated message] The Eosinophils) system which ge nerated this result tra nsmitted reference range : <=4.0. The reference r ameya was not used to int erpret this result as normal/abnormal . [facility] [id number] 09:53:00 Test Item Value Reference Range Interpretation Comments Monocytes (test code = Monocytes) 5.8 2.0-12.0 [facility] [id number] 09:53:00 Test Item Value Reference Range Interpretation Comments Lymphocytes (test code = Lymphocytes) 26.0 20.0-40.0 [facility] [id number] 09:53:00 Test Item Value Reference Range Interpretation Comments Segs (test code = Segs) 65.1 45.0-75.0 [facility] [id number] 09:53:00 Test Item Value Reference Range Interpretation Comments INR (test code = INR) 1.04 0.85-1.17 [facility] [id number] 09:53:00 Test Item Value Reference Range Interpretation Comments PTT (test code = PTT) 27.3 s 22.9-35.8 [facility] [id number] 09:53:00 Test Item Value Reference Range Interpretation Comments PT (test code = PT) 13.8 s 12.0-14.7 [facility] Notes Date/Time Note Provider Source 2022-07-27 06:40:00-00:00 [id number] [place] [address] patient name: antelmo lopez admit date: account no: [id number] room no: [facility] age: 56 report type: operative report sex: m admitting physician:elliot bell md attending physician:elliot bell md operation date: 07/26/2022 procedure note procedure: non-thoracotomy dual-chamber aicd zabrina cement. preoperative diagnoses: 1. ischemic cardiomyopathy -- left ventricular e jection fraction 33% by gated spect imaging. 2. [place] heart association class ii congestiv e heart failure. 3. medical therapy limited by bradycardia. postoperative diagnoses: 1. ischemic cardiomyopathy -- left ventricular e jection fraction 33% by gated spect imaging. 2. [place] heart association class ii congestiv e heart failure. 3. medical therapy limited by bradycardia. surgeon: elliot bell md office support assistant: none. anesthesia: procedure in detail: after informed consent was obtained explaining to the patient the risks, benefits, and alternatives, t he patient was brought to the cardiac catheterization lab in the fasting posta bsorptive state. following a left subclavian venogram, access to the left axi llary vein was obtained using modified seldinger technique with a micropunctur e kit. one wire was placed in low right atrium and secured proximally. additional 1% lidocaine was applied to the infraclavicular area. th e pocket was formed with sharp and blunt dissection as well as electrocautery. the wire was brought into the pocket. the pocket was flushed with antibiotic- containing solution. a 6-bangladeshi sheath was advanced over the wire into the left subclavian vein. the dilator was removed and wire retained. an additional wire was placed into the low right atrium. the sheath was removed, flushed, and reassembled. a 7-bangladeshi sheath was advanced over the original wire in the left subclavian vein. the d ilator and wire were removed. an active fixation right ventricular lead was ad vanced via the sheath under fluoroscopic guidance and secured in the right v entricular apex. adequate pacing and sensing parameters were confirmed. th e sheath was peeled away. the lead was secured in place wi th an 0 ethibond suture around the suture sleeve. a 6-bangladeshi sheath was advanced over the remaining wire into left subclavian vein. patient name: antelmo lopez account #: [id number] the dilator and wire were removed. an active fix ation right atrial lead was advanced via the sheath unde r fluoroscopic guidance and secured in right atrial appendage. adequate pacing and sensing parameter s were confirmed. the sheath was peeled away. the lead was secured in the poc ket with 0 ethibond suture around the suture sleeve. the pocket was flushed with antibiotic-containing solution. the generator was connected to the gatito ds. aliyah was applied to the pocket. the generator was pl aced in the pocket and secured in the pocket with 0 ethibond suture. the pocket was closed in 3 laye rs using 2-0 vicryl with subcutaneous layers and 4-0 vicryl for the skin. steri-strips were applied to wound externally. the patient tolerated the proc edure well with no complications. implant data: 1. pulse generator: [employer] meghan model [id number], se rial number is [id number]. 2. right atrial lead: [employer]. meghan model 2088pc/46, serial number is [id number]. 3. right ventricular lead: st. meghan, model 7122q /58, serial number is [id number]. stimulation threshold data: 1. right atrium 3.1 millivolt p waves, threshold 1.4 volts at 0.4 milliseconds. 2. right ventricle 11.4 millivolt r waves, impedance 685 ohms, and threshold 1.4 volts at 0.4 milliseconds. conclusions: successful non-thoracotomy dual-janelle mber aicd placement. estimated blood loss: 5 ml. complications: no complications. dictated by: elliot bell md wt: op:filipe/trnug/nts dd: 07/27/2022 06:40:25 dt: 07/27/2022 07:51:38 conf#: [id number]/did#: [id number] cc: naomi winslow md authenticated and edited by elliot bell md on 07/28/22 6:02:26 pm electronically signed by elliot bell md on 07/28/22 at 0603 patient name: antelmo lopez account #: [id number] 2022-07-27 06:06:00-00:00 [facility] ([facility] cardiology progress note report#:[id number] report status: signed date:07/27/22 time: 605 patient: antelmo lopez unit #: [id number] room/bed: [address] : [birth year] age: 56 sex: m attend: joseph bell md adm dt: 07/26/22 author: elliot bell md * all edits or amendments must be made on the [employer]/computer document * subjective chief complaint: chf patient reports: no: chest pain, palpitations, shortness of breat h. objective general vs/i o: 24 hour i o ending at 0700: 07/27 0700 07/26 1900 intake total output total 900 balance -900 output, urine 900 vital signs: date time temp pulse resp b/p b/p pulse o2 o2 flow fio2 mean ox delivery rate 07/27 0358 97.9 67 94 07/27 0300 60 124/67 88 97 07/27 0200 68 16 134/73 96 96 07/27 0100 71 17 146/78 104 95 07/27 0000 72 23 117/57 82 96 07/26 2341 98.2 07/26 2200 81 148/81 106 92 07/26 2147 23 07/26 2114 73 142/65 93 99 07/26 2001 78 16 123/58 84 98 07/26 1901 87 148/78 103 100 patient weight: weight (lb): weight (oz): weight (kg): medications: active meds + dc'd last 24 hrs atorvastatin calcium (lipitor) 40 mg daily po losartan potassium (cozaar) 25 mg daily po cefazolin sodium (ancef) 1 gm q8h iv sodium chloride (sodium chloride 0.9%) 10 ml amitriptyline hcl (elavil) 10 mg once one po (dc ) buspirone hcl (buspar) 10 mg bid po carvedilol (coreg) 12.5 mg bid po acetaminophen (tylenol) 650 mg q4h prn prn po fentanyl citrate (sublimaze (c-ii)) 0 .stk-med o ne .route (dc) midazolam hcl (versed (c-iv)) 0 .stk-med one .r oute (dc) sodium chloride (sodium chloride 0.9%) 250 ml .s tk-med one iv (dc) midazolam hcl (versed (c-iv)) 0 .stk-med one .ro [place] (dc) lidocaine hcl (xylocaine 1%) 10 ml .stk-med one iv (dc) lidocaine hcl (xylocaine 1%) 10 ml .stk-med one iv (dc) iopamidol (isovue-300) 0 .stk-med one .route (dc ) cefazolin sodium (ancef) 0 .stk-med one .route ( dc) fentanyl citrate (sublimaze (c-ii)) 0 .stk-med o ne .route (dc) lidocaine hcl (xylocaine 1%) 0 .stk-med one .rou te (dc) midazolam hcl (versed (c-iv)) 0 .stk-med one .ro [place] (dc) sodium chloride (sodium chloride 0.9%) 250 ml .s tk-med one iv (dc) physical exam general appearance: alert, awake, oriented head/eyes: atraumatic, normocephalic ent: moist mucosal membranes neck: no jvd cardiovascular: cv assessment: regular rate and rhythm respiratory: clear to auscultation, no distress lower extremity: le assessment: no edema musculoskeletal: full range of motion 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, oriented x 3, cn ii-xii intact skin: dry, intact psychiatry: normal affect, normal judgment/insig ht, normal mood results findings/data: laboratory tests 07/26 1144 chemistry sodium (137 - 145 mmol/l) 141 potassium (3.5 - 5.1 mmol/l) 4.2 chloride (98 - 107 mmol/l) 105 carbon dioxide (22 - 30 mmol/l) 28 bun (9 - 20 mg/dl) 17 creatinine (0.66 - 1.25 mg/dl) 0.90 glomerular filtr rate > 60 glucose (74 - 106 mg/dl) 116 h calcium (8.4 - 10.2 mg/dl) 9.4 magnesium (1.6 - 2.3 mg/dl) 2.1 laboratory tests 07/26 1144 coagulation inr (0.86 - 1.14) 1.1 aptt (26.2 - 35.4 seconds) 34.3 pt patient/control mix (9.4 - 12.7 seconds) 11. 9 laboratory tests 07/26 1144 hematology wbc (3.8 - 9.8 k/mm3) 8.9 rbc (3.95 - 5.67 m/mm3) 5.13 hgb (12.4 - 16.7 g/dl) 15.7 hct (35.9 - 49.5 %) 48.6 mcv (81.7 - 96.1 fl) 95 mch (27.6 - 33.2 pg) 30.6 mchc (32.9 - 35.5 %) 32.3 l rdw (12.1 - 15.2 %) 12.8 plt count (129 - 368 k/mm3) 315 mpv (7.4 - 10.4 fl) 9.7 neut % (auto) (43 - 75 %) 64.2 lymph % (auto) (14 - 44 %) 24.7 mono % (auto) (4 - 13 %) 6.1 eos % (auto) (0 - 6 %) 3.7 baso % (auto) (0 - 2 %) 0.7 neut # (auto) (2.0 - 7.6 k/mm3) 5.69 lymph # (auto) (1.0 - 3.8 k/mm3) 2.19 mono # (auto) (0.1 - 0.8 k/mm3) 0.54 eos # (auto) (0.0 - 0.2 k/mm3) 0.33 h baso # (auto) (0.0 - 0.2 k/mm3) 0.06 immature gran % (0.0 - 2.0 %) 0.6 nucleated rbc % (0 - 1.0 %) 0.0 nucleated rbcs # (man) (0.0 - 0.1 k/mm3) 0.00 laboratory tests 07/26 1144 chemistry magnesium (1.6 - 2.3 mg/dl) 2.1 laboratory tests 07/26 1144 coagulation aptt (26.2 - 35.4 seconds) 34.3 radiology data: recent impressions: radiology - xr chest 1v 07/26 1820 report impression - status: signed entered: 07/26/2022 1856 impression: interval placement of left 2-lead aicd/pacemaker as above. otherwise no cardiopulmonary abnormality. impression by: [email or web address] - karen fink md diagnosis, assessment plan free text dxa p notes free text dxa p notes: imp: chronic systolic heart failure s/p [facility] meghan aicd - dual 07/26/22. plan: aicd interrogation. d/c planning. electronically signed by elliot bell md on 07/28/22 at 1127 rpt #:[id number] end of report 2022-07-26 12:01:00-00:00 [id number] [address] patient name: antelmo lopez admit date: account no: [id number] room no: z.351 age: 56 report type: electrocardiogram sex: m admitting physician:elliot bell md attending physician:elliot bell md order: [id number] test reason : bradycardia test date/time stamp: monjul 26 2022 12:01:19 blood pressure : / mmhg vent. rate : 073 bpm atrial rate : 073 bpm p-r int : 142 ms qrs dur : 086 ms qt int : 368 ms p-r-t axes : -10 058 086 degree s qtc int : 405 ms normal sinus rhythm possible inferior infarct , age undetermined abnormal ecg no previous ecgs available confirmed by naomi winslow ([id number]) on 07/27/2022 4:24:06 pm referred by: elliot bell confirmed by:naomi alejo electronically signed by naomi pedraza md on 07/27/22 at 1624 patient name: antelmo lopez account #: [id number] 2018-01-09 07:51:47-00:00 [facility] Discharge Summary PATIENT NAME: ANTELMO LOPEZ PHYSICIAN: Maria Dolores pate MD Admitted: MR NUMBER: [id number] DISCHARGED: 01/07/2018 10:3 2:00 REASON FOR ADMISSION AND DISCHARGE: Left hand contracture as diagnosis. HOSPITAL COURSE: The patient was admitted through day surgery for planned elective surgery of left hand severe contracture, taken to the OR th at evening and underwent the intended procedure of an extensive first webspac e release,

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
[2023-06-06 19:57] VITALS: BP 172/103; TEMP 98.2; O2SAT 98
== END 2023-06-06 19:06 | disposition home or self-care (01) ==
LOC: ER 18:21
DX: L03.818 Cellulitis of other sites (principal); F17.210 Nicotine dependence, cigarettes, uncomplicated

== ENCOUNTER 2023-09-02 17:25 | Emergency (ER) | payer OTHER ==
--- OUTSIDE RECORDS SUMMARY | 2023-09-02 17:31 | XMS REPORT | Continuity of Care Document ---
:[address] [facility] [place], [place] Address [address] [place] [address] Care Team Providers Name Role Phone UNKNOWN, REFFERING Primary Care Physician Unavailable REGINO GRANADOS Attending Clinician Unavailable Regino Granados MD Attending Clinician Tan Reis Attending Clinician Unavailable Cecille Young RN Attending Clinician Unavailable Pcp, Patient Does Not Have A Attending Clinician [phone] CHAY BLACKBURN Attending Clinician Unavailable Doctor Unassigned, [place] Attending Clinician Unavailable Lab, Adc Fam Pob I Attending Clinician Unavailable Reji Carter Attending Clinician REJI CORMIER Attending Clinician Unavailable Lab, Pcp Covid Attending Clinician Unavailable Lolis Rob MD Attending Clinician LOLIS ROB Attending Clinician Unavailable ANNE JARVIS Attending Clinician Unavailable MARIA DOLORES GUILLEN M.D., Daniel WHITTEN Attending Clinician UnavailSergei Anderson Attending Clinician [phone] Ethan Wellington Attending Clinician Tan Reis Admitting Clinician Unavailable ANNE JARVIS Admitting Clinician Unavailable MARIA DOLORES GUILLEN M.D., MARIA DOLORES Admitting Clinician Unavailable Ethan Wellington Admitting Clinician [phone] Payers Payer Name Policy Type Policy Number Effective Date Expiration Date Ralph harmon [employer] DUAL [id number] 2022 ACCESS OPEN PPO 00:00:00 [facility] [id number] 2020 PLUS 00:00:00 MEDICARE PART A [id number] 2021 \T\ B 00:00:00 MEDICAID [facility] [id number] 2021 00:00:00 Problems Condition Condition Condition Status Onset Resolution Last Treating Co mments Source Name Details Category Date Date Treatment Clinician Date STEMI (ST STEMI (ST Disease Recurre [facility] elevation elevation nce 2 [facility] myocardial myocardial 00:00: Me dical infarction infarction 00 Ce nter ) ) Cardiac Cardiac Disease Recurre [facility] Edema, Edema, Disease Active Univers unspecifie unspecifie 3-08 it y of d type d type 00:00: Medical Branch S/P flap S/P flap Disease [...] y of d type d type 00:00: Medical Branch Hand pain, Hand pain, Disease Active U nivers left left 3-08 ity of 00:00: [place] 00 Medical Branch ENCEPHALOP ENCEPHALO Diagnosis Active 2015-112016-11-02 Memoria ATHY JEREMIAH 2 12:35:00 l Active 00:00: [place] 10/28/2016 00 [facility] D/C FOLLOW D/C Diagnosis Active 2015-112016-10-28 Memoria UP FOLLOW UP 0-12 10:29:00 l Active 00:00: [place] 09/07/2016 00 MH [facility] LEUKOENCEP LEUKOENCE Diagnosis Active 2016-08-26 Memoria HALOPATHY PHALOPATHY 08-24 20:06:00 l Active 00:00: [place] 08/24/2016 00 [facility] Altered Altered Disease Active Univers mental mental 9- ity of state state 00:00: [place] [facility] Confusion Confusion Disease Active Uni vers 9 ity of 00:00: [place] 00 Medical Branch Obesity Obesity Disease Active Univers 07-29 ity of 00:00: [place] [facility] Acute Acute Disease Active Univers [...] of body Branch surface surface involved involved Constipati Constipat Problem Active 2018-10-19 Memoria on, ion, 05:37:01 l unspecifie unspecifie He rmann d d constipati constipati on type on type Active Problem 10/19/2018 eCW: Denise Birch MD, PA History of History Problem Active 2018-10-19 Memoria myocardial of 05:37:01 l infarction myocardial He rmann infarction Active Problem 10/19/2018 eCW: Dneise Birch MD, PA Mixed Mixed Problem Active 2018-10-19 Memor ia hyperlipid hyperlipid 05:37:01 l emia emia [place] Active Problem 10/19/2018 eCW: Denise Birhc MD, PA Brain Brain Problem Active 2018-10-19 [...] (disorder) 01:26:03 l Active [place] Problem 12/02/2016 [facility], [facility] Impaired Impaired Problem Active 2016-12-02 [...] ENCEPHALOP ENCEPHALO Diagnosis Active 2016-08-26 Memoria JEREMIAH FARR, 20:06:00 l UNSPECIFIE UNSPECIFIE He rmann D D Active [facility] Final: Final: Problem 2016-09-11 Hasmukh shereen Encephalop Encephalop 00:40:18 l athy, torres, Cheng unspecifie unspecifie d d 09/11/2016 [facility] Allergies, Adverse Reactions, Alerts Allergy Allergy Status Severity Reaction(s) Onset Inactive Treating Comm ents Source Name Type Date Date Clinician No Known DA Active U [facility] All[facility]ie [facility] [place] 00:00: [address] N.K.D.A. N.K.D.A. Active Info Not 2015-11 Hasmukh shereen Available 2-13 l 00:00: [place] 00 NO KNOWN Drug Active [facility] All[facility] Active [facility] Social History Social Habit Start Date Stop Date Quantity Comments Source History of tobacco Cigarette Smoker [facility] use [facility] to 2022-11-23 2022-12-03 Not sure [facility] SARS-CoV-2 (event) 00:00:00 12:25:00 [facility] Alcohol intake 2019-08-16 2019-08-16 .86 /d University 00:00:00 00:00:00 [facility] History of Social 2019-06-13 2019-06-13 Univers ity of function 00:00:00 00:00:00 [facility] Cigarettes smoked 2019-05-23 2019-05-23 Univers ity of current (pack per 00:00:00 00:00:00 ) - Reported Branch Tobacco use and 2019-05-23 2019-05-23 Smokeless Universit y of exposure 00:00:00 00:00:00 tobacco non-user [facility] dical [place] Tobacco Comment 2016-10-11 2016-10-11 ex states Unive rsity of 00:00:00 00:00:00 pt is not [facility] Sex Assigned At [birth year] [facility] 00:00:00 00:00:00 [facility] Smoking Status Start Date Stop Date Source Smokes tobacco daily 2019-05-23 00:00:00 Univers ity [facility] Social History 2016-08-27 02:08:37 [facility] Medications Ordered Filled Start Stop Current Ordering Indication Dosage Frequency Signature Comments Components Source Medication Medication Date Date Medication? Clinician (SIG) Name Name cephALEXin 2022- No [id number] 500mg Take 1 Univers 500 mg 12-03 capsule by ity of capsule 00:00: 05:59 mouth 4 [place] 00 :00 (four) Medical times Branch daily for 10 days. mupirocin 2 2022- No [id number] Apply to Univers % ointment 12-03 area(s) 3 ity of 00:00: 05:59 (three) [place] 00 :00 times Medical daily for Branch 10 days. metoprolol Yes 25mg Take 25 mg U nivers succinate 9-20 by mouth ity of XL 25 mg 24 18:51: [place]. [place] hr tablet [place] lisinopril Yes 2.5mg Take 2.5 Un rg 2.5 mg 9-20 mg by ity of tablet 18:51: mouth [place] [address] daily. Medical Branch clopidogrel Yes 75mg Take 75 mg Univers 75 mg 9-20 by mouth ity of tablet 18:51: daily. [place] [address] Medical Branch metoprolol Yes 25mg Take 25 mg U nivers succinate 9-20 by mouth ity of XL 25 mg 24 18:51: [place]. [place] 41 [place] Branch lisinopril Yes 2.5mg Take 2.5 Un rg 2.5 mg 9-20 mg by ity of tablet 18:51: mouth [place] [address] daily. Medical Branch clopidogrel Yes 75mg Take 75 mg Univers 75 mg 9-20 by mouth ity of tablet 18:51: daily. [place] [address] Medical Branch metoprolol Yes 25mg Take 25 mg U nivers succinate 9-20 by mouth ity of XL 25 mg 24 18:51: [place]. [place] 41 [place] lisinopril Yes 2.5mg Take 2.5 Un rg 2.5 mg 9-20 mg by ity of tablet 18:51: mouth [place] [address] daily. Medical Branch clopidogrel Yes 75mg Take 75 mg Univers 75 mg 9-20 by mouth ity of tablet 18:51: daily. [address] Branch metoprolol Yes 25mg Take 25 [...] by mouth ity of tablet 18:51: daily. [place] [address] Medical Branch metoprolol 2018-0 Yes 25mg Take [...] by mouth ity of tablet 18:51: daily. [place] [address] Medical Branch metoprolol 0 Yes 25mg Take [...] by mouth ity of tablet 18:51: daily. [place] [address] Medical Branch metoprolol 0 Yes 25mg Take [...] by mouth ity of tablet 18:51: daily. [place] [address] Medical Branch metoprolol 0 Yes 25mg Take [...] by mouth ity of tablet 18:51: daily. [place] [address] Medical Branch metoprolol 0 Yes 25mg Take [...] by mouth ity of tablet 18:51: daily. [place] [address] Medical Branch metoprolol 0 Yes 25mg Take 25 mg U nivers succinate 9-20 by mouth ity of XL 25 mg 24 13:51: [place]. [place] lisinopril 0 Yes 2.5mg Take 2.5 Un rg 2.5 mg 9-20 mg by ity of tablet 13:51: mouth [place] 41 daily. Medical Branch clopidogrel 0 Yes 75mg Take 75 mg Univers 75 mg 9-20 by mouth ity of tablet 13:51: daily. [place] [address] Medical Branch metoprolol 0 Yes 25mg Take 25 mg U nivers succinate 9-20 by mouth ity of XL 25 mg 24 13:51: [place]. [place] 41 Medical Branch lisinopril Yes 2.5mg Take 2.5 Un rg 2.5 mg 9-20 mg by ity of tablet 13:51: mouth [place] 41 daily. Medical Branch clopidogrel 0 Yes 75mg Take 75 mg Univers 75 mg 9-20 by mouth ity of tablet 13:51: daily. [place] [address] Medical Branch atorvastati 0 Yes [id number] 80mg Take 1 Univers n 80 mg 9-20 tablet by ity of tablet 00:00: mouth at [place] 00 bedtime. Medical Branch atorvastati 0 Yes [id number] 80mg Take 1 Univers n 80 mg 9-20 tablet by ity of tablet 00:00: mouth at [place] 00 bedtime. Medical Branch atorvastati Yes [id number] 80mg Take 1 Univers n 80 mg 9-20 tablet by ity of tablet 00:00: mouth at [place] [address] bedtime. Medical Branch atorvastati Yes [id number] 80mg Take 1 Univers n 80 mg 9-20 tablet by ity of tablet 00:00: mouth at [place] [address] bedtime. Medical Branch atorvastati Yes [id number] 80mg Take 1 Univers n 80 mg 9-20 tablet by ity of tablet 00:00: mouth at [place] [address] bedtime. Medical Branch atorvastati Yes [id number] 80mg Take 1 Univers n 80 mg 9-20 tablet by ity of tablet 00:00: mouth at [place] [address] bedtime. Medical Branch atorvastati Yes [id number] 80mg Take 1 Univers n 80 mg 9-20 07 tablet by ity of tablet 00:00: mouth at [place] [address] bedtime. Medical Branch atorvastati Yes [id number] 80mg Take 1 Univers n 80 mg 9-20 tablet by ity of tablet 00:00: mouth at [place] [address] bedtime. Medical Branch atorvastati Yes [id number] 80mg Take 1 Univers n 80 mg 9-20 tablet by ity of tablet 00:00: mouth at [place] [address] bedtime. Medical Branch atorvastati Yes [id number] 80mg Take 1 Univers n 80 mg 9-20 tablet by ity of tablet 00:00: mouth at [place] [address] bedtime. Medical Branch atorvastati Yes [id number] 80mg Take 1 Univers n 80 mg 9-20 tablet by ity of tablet 00:00: mouth at [place] [address] bedtime. Medical Branch metoprolol Yes 25mg Take 25 mg U nivers succinate 7-18 by mouth ity of XL 25 mg 24 13:33: daily. [facility] s hr tablet 12 Medical Branch lisinopril Yes 2.5mg Take 2.5 Un rg 2.5 mg 7-18 mg by ity of tablet 13:33: mouth [place] 12 daily. Medical Branch clopidogrel Yes 75mg Take 75 mg Univers 75 mg 7-18 by mouth ity of tablet 13:33: daily. Medical Branch atorvastati 2019-0 Yes 80mg Take 80 mg Univers n 80 mg 7-18 by mouth ity of tablet 13:33: at [place] 12 bedtime. Medical Branch metFORMIN 2019-0 Yes [id number] 500mg Take 1 U nivers 500 mg 7-02 tablet by ity of tablet 00:00: mouth [place] (two) Medical times Branch daily with meals. metFORMIN 2019-0 Yes [id number] 500mg Take 1 U nivers 500 mg 7-02 tablet by ity of tablet 00:00: mouth [place] (two) Medical times Branch daily with meals. metFORMIN 2019-0 Yes [id number] 500mg Take 1 U nivers 500 mg 7-02 tablet by ity of tablet 00:00: mouth [place] (two) Medical times Branch daily with meals. metFORMIN 2019-0 Yes [id number] 500mg Take 1 U nivers 500 mg 7-02 tablet by ity of tablet 00:00: mouth [place] (two) Medical times Branch daily with meals. metFORMIN 2019-0 Yes [id number] 500mg Take 1 U nivers 500 mg 7-02 tablet by ity of tablet 00:00: mouth [place] (two) Medical times Branch daily with meals. metFORMIN 2019-0 Yes [id number] 500mg Take 1 U nivers 500 mg 7-02 tablet by ity of tablet 00:00: mouth [place] (two) Medical times Branch daily with meals. metFORMIN 2019-0 Yes [id number] 500mg Take 1 U nivers 500 mg 7-02 tablet by ity of tablet 00:00: mouth [place] (two) Medical times Branch daily with meals. metFORMIN 2019-0 Yes [id number] 500mg Take 1 U nivers 500 mg 7-02 tablet by ity of tablet 00:00: mouth [place] (two) Medical times Branch daily with meals. metFORMIN 2019-0 Yes [id number] 500mg Take 1 U nivers 500 mg 7-02 tablet by ity of tablet 00:00: mouth [place] (two) Medical times Branch daily with meals. metFORMIN 2019-0 Yes [id number] 500mg Take 1 U nivers 500 mg 7-02 tablet by ity of tablet 00:00: mouth [place] (two) Medical times Branch daily with meals. metFORMIN 2019-0 Yes [id number] 500mg Take 1 U nivers 500 mg 7-02 tablet by ity of tablet 00:00: mouth 2 (two) Medical times Branch daily with meals. metFORMIN 2019- Yes [id number] 500mg Take 1 U nivers 500 mg [...] tab, PO, l tablet 21:26: Daily, # [place] 00 30 tab, 1 Refill(s) carvedilol 2015-11 [...] tab, PO, l tablet 21:26: Daily, # [place] 00 30 tab, 1 Refill(s) Docusate 2015-11 Yes 100 mg = 1 Mem oria Sodium 100 0-12 cap, PO, l MG Oral 21:26: BID, # 60 Kirstin nn Capsule 00 cap, 1 Refill(s) donepezil 2015-11 No Notes: Memori a 0-11 (Same as: l 13:30: Aricept) phenol 2015-11 No Notes: Memoria 0-09 Chlorasept l 17:34: ic [place] (Same as: Chlorasept ic, Sore Throat [place]) WASTE: F/P - Black; E - [employer]ash [employer] Ativan 2015-11 No Notes: Memoria 0-08 (Same as: l 14:00: Ativan) Hydralazine 2015-11 No Notes: Hasmukh shereen Hydrochlori 0-08 (Same as: l de 10 MG 13:02: Apresoline Her zhu Oral Tablet ) May interfere w/enteral feedings. Take With [...] Memoria 0-05 (Same As: l 13:30: Vitamin B1) Lovenox 2015-11 No Notes: Memoria 0-05 (Same as: l 02:00: Lovenox) Zocor 2015-11 No Notes: Memoria 0-05 (Same as: l 02:00: Zocor) Melatonin 2015-11 No Notes: Memori a 0-04 (Same as: l 22:00: Melatonin) Tylenol 2015-11 No Notes: Do Memor ia 0-04 not exceed l 14:19: 4 gm/day. [place] (Same as: Tylenol) Methylpheni 2015-11 No Notes: Hasmukh shereen date 0-04 (Same l 13:00: as:Ritalin ) Tricor 2015-11 No Notes: Memoria 0-03 (Same as: l 22:00: Tricor) Prinivil 2015-11 No Notes: Memoria 0-02 (Same as: l 02:00: Prinivil, Zestril) Lisinopril 2015-11 No Notes: Memor ia 0-01 (Same as: l 22:00: Prinivil, [place] 00 Zestril) sennosides, 2015-11 No Notes: Hasmukh shereen MCFP 0-01 (Same as: l 17:00: Senokot) [place] 00 Furosemide 2015-11 No 80 mg = 1 Me moria 80 MG Oral 0-01 tab, PO, l Tablet 14:15: Daily, 0 [place] [Lasix] 00 Refill(s) heparin 2015-11 No 5,000 Memoria 0-01 unit, l 14:00: Route: [place] 00 SUB-Q, Q12H, Dosing Weight 60.227, kg, Start date: 08/27/16 9:00:00 CDT, Duration: 30 day, Stop date: 09/25/16 21:00:00 CDT clopidogrel 2015-11 No 75 mg = 1 M emoria 75 MG Oral 0-01 tab, PO, l Tablet 14:00: Daily, 0 [place] [Plavix] 00 Refill(s) Thiamine 2015-11 No Notes: Memoria 0-01 (Same As: l 13:30: Vitamin [place] B1) Docusate 2015-11 No Notes: Memoria 0-01 (Same as: l 13:30: Colace) [place] 00 (Do Not Crush) SENOKOT-S 2015-11 No Notes: Memori a 0-01 (Same as l 13:30: Senokot-S) [place] 00 Equiv. to Deepika-Colac e. Plavix 2015-11 No Notes: Memoria 0-01 (Same As: l 13:30: Plavix) [place] Aspirin 2015-11 No Notes: Memoria 0-01 Take with l 13:30: food. [place] 00 Coreg 2015-11 No Notes: Memoria 0-01 Give with l 13:30: food. [place] 00 (Same As: Coreg) Bacitracin 2015-11 No Route: Memor ia 0-01 TOP, BID, l 13:30: Dosing [place] Weight 60.227, kg, Start date: 08/27/16 8:30:00 CDT, Duration: 30 day, Stop date: 09/25/16 21:00:00 CDT bacitracin 2015-11 No 1 appl, Hasmukh shereen topical 0-01 Route: l 13:30: TOP, BID, 00 Drug form: OINT, Start date: 08/27/16 8:30:00 CDT, Duration: 60 day, Stop date: 10/25/16 21:00:00 [employer] Tylenol 2015-11 No Notes: Do Memor ia 0-01 not exceed l 05:00: 4 gm/day. [place] 00 (Same as: Tylenol) Midazolam 2015-11 No 40 kg Memori a 0-01 l 04:29: [place] 00 Levetiracet 2015-11 No Notes: Hasmukh shereen [...] mg 00:00: mouth [place] tablet 00 daily. [facility] Branch thiamine 2015-11 Yes 100mg Take 1 Univer s (VITAMIN 0-01 tablet by ity of B1) 100 mg 00:00: mouth [place] tablet 00 daily. [facility] thiamine 2015-11 Yes 100mg Take 1 Univer s (VITAMIN 0-01 tablet by ity of B1) 100 mg 00:00: mouth [place] tablet 00 daily. [facility] thiamine 2015-11 Yes 100mg Take 1 Univer s (VITAMIN 0-01 tablet by ity of B1) 100 mg 00:00: mouth [place] tablet 00 daily. [facility] thiamine 2015-11 Yes 100mg Take 1 Univer s (VITAMIN 0-01 tablet by ity of B1) 100 mg 00:00: mouth [place] tablet 00 daily. [facility] thiamine 2015-11 Yes 100mg Take 1 Univer s (VITAMIN 0-01 tablet by ity of B1) 100 mg 00:00: mouth [place] tablet 00 daily. [facility] thiamine 2015-11 Yes 100mg Take 1 Univer s (VITAMIN 0-01 tablet by ity of B1) 100 mg 00:00: mouth [place] tablet 00 daily. [facility] Branch carvedilol No 25 mg = 1 Me moria 25 MG Oral 30 tab, PO, l Tablet 21:08: BID, # 60 [place] n [Coreg] 00 tab, 0 Refill(s) Bacitracin No 500 units, M emoria 30 TOP, BID, l 21:08: 0 Refill(s) SENOKOT-S No 1 tab, PO, Me moria 30 Daily, 0 l 21:08: Refill(s) heparin No 5,000 Memoria 30 unit, l 21:08: SUB-Q, [place] 00 Q12H, 0 Refill(s) Tylenol No 650 mg, Memoria 30 PO, Q6H, 0 l 21:08: Refill(s) Aspirin No 81 mg, PO, Hasmukh shereen 9-30 Daily, 0 l 21:08: Refill(s) Thiamine No 250 mg, Memori a 9-30 IV, Daily, l 21:08: 0 [place] 00 Refill(s) Immunizations Ordered Filled Date Status Comments Source Immunization Name Immunization Name Pneumococcal 2016-08-26 Completed University o f Polysaccharide, 00:00:00 [place] Med ical PPSV23 (PNEUMOVAX) Branch Influenza Virus 2016-08-26 Completed Universit y of Vaccine Quad IM 3+ 00:00:00 [facility] Pneumococcal 2016-08-26 Completed University o f Polysaccharide, 00:00:00 [place] Med ical PPSV23 (PNEUMOVAX) Branch Influenza Virus 2016-08-26 Completed Universit y of Vaccine Quad IM 3+ 00:00:00 [facility] Pneumococcal 2016-08-26 Completed University o f Polysaccharide, 00:00:00 [place] Med ical PPSV23 (PNEUMOVAX) Branch Influenza Virus 2016-08-26 Completed Universit y of Vaccine Quad IM 3+ 00:00:00 [facility] Pneumococcal 2016-08-26 Completed University o f Polysaccharide, 00:00:00 [place] Med ical PPSV23 (PNEUMOVAX) [place] Influenza Virus 2016-08-26 Completed Universit y of Vaccine Quad IM 3+ 00:00:00 [facility] Pneumococcal 2016-08-26 Completed University o f Polysaccharide, 00:00:00 [place] Med ical PPSV23 (PNEUMOVAX) Branch Influenza Virus 2016-08-26 Completed Universit y of Vaccine Quad IM 3+ 00:00:00 [facility] Pneumococcal 2016-08-26 Completed University o f Polysaccharide, 00:00:00 [place] Med ical PPSV23 (PNEUMOVAX) Branch Influenza Virus 2016-08-26 Completed Universit y of Vaccine Quad IM 3+ 00:00:00 [facility] Pneumococcal 2016-08-26 Completed University o f Polysaccharide, 00:00:00 [place] Med ical PPSV23 (PNEUMOVAX) Branch Influenza Virus 2016-08-26 Completed Universit y of Vaccine Quad IM 3+ 00:00:00 [facility] Pneumococcal 2016-08-26 Completed University o f Polysaccharide, 00:00:00 [place] Med ical PPSV23 (PNEUMOVAX) Branch Influenza Virus 2016-08-26 Completed Universit y of Vaccine Quad IM 3+ 00:00:00 [facility] Pneumococcal 2016-08-26 Completed University o f Polysaccharide, 00:00:00 [place] Med ical PPSV23 (PNEUMOVAX) Branch Influenza Virus 2016-08-26 Completed Universit y of Vaccine Quad IM 3+ 00:00:00 [facility] Branch Pneumococcal 2016-08-26 Completed University o f Polysaccharide, 00:00:00 [place] Med ical PPSV23 (PNEUMOVAX) Branch Influenza Virus 2016-08-26 Completed Universit y of Vaccine Quad IM 3+ 00:00:00 [facility] Branch Pneumococcal 2016-08-26 Completed University o f Polysaccharide, 00:00:00 [place] Med ical PPSV23 (PNEUMOVAX) Branch Influenza Virus 2016-08-26 Completed Universit y of Vaccine Quad IM 3+ 00:00:00 [facility] Branch Pneumococcal Unknown Completed University o f Polysaccharide, [facility] ical PPSV23 (PNEUMOVAX) Branch Influenza Virus Unknown Completed Universit y of Vaccine Quad IM 3+ [facility] Vital Signs Vital Name Observation Time Observation Value Comments Source Systolic blood 2022-12-03 18:27:00 162 mm[Hg] Univer [facility]ity of [facility] Diastolic blood 2022-12-03 18:27:00 96 mm[facility]Hg] [facility] Heart rate 2022-12-03 18:27:00 104 /min [facility] Body temperature 2022-12-03 18:27:00 36.5 Manisha [facility] Respiratory rate 2022-12-03 18:27:00 18 /min [facility] Body height 2022-12-03 18:27:00 170.2 cm [facility] Body weight 2022-12-03 18:27:00 72.576 kg [facility] BMI 2022-12-03 18:27:00 25.06 kg/m2 [facility] Oxygen saturation in 2022-12-03 18:27:00 98 /min [facility] Arterial blood by [facility] Pulse oximetry [place] Diastolic (mm Hg) 2016-11-08 20:30:00 Jose Daniel Anand Systolic (mm Hg) 2016-11-08 20:30:00 Hasmukh Anand Temperature Oral (F) 2016-11-08 20:30:00 98.5 [facility] 2016-11-08 20:30:00 [facility] Height 2016-11-08 20:30:00 [facility] Heart Rate 2016-09-08 12:30:00 [facility] Respitory Rate 2016-09-08 12:30:00 Memori al [place] Diastolic (mm Hg) 2016-09-08 12:30:00 Mem orial [place] Systolic (mm Hg) 2016-09-08 12:30:00 Hasmukh rial [place] Systolic (mm Hg) 2016-09-08 00:30:00 Hasmukh rial [place] Diastolic (mm Hg) 2016-09-08 00:30:00 Mem orial [place] Respitory Rate 2016-09-08 00:30:00 Memori al [place] Heart Rate 2016-09-08 00:30:00 [facility] [place] Heart Rate 2016-09-07 18:30:00 [facility] [place] Systolic (mm Hg) 2016-09-07 18:30:00 Hasmukh rial [place] Diastolic (mm Hg) 2016-09-07 18:30:00 Mem orial [place] Respitory Rate 2016-09-07 18:30:00 Memori al [place] Weight 2016-09-02 20:37:00 [facility] [place] Height 2016-08-27 05:00:00 170.18 cm [facility] [place] BMI Calculated 2016-08-27 01:16:00 Memori al [place] Weight 2016-08-27 01:16:00 [facility] [place] Height 2016-08-27 01:16:00 170.18 cm [facility] [place] Procedures Procedure Date / Time Performing Clinician Source Performed CONSENT/REFUSAL FOR 2022-12-03 18:17:43 Doctor Unassigned, [facility] DIAGNOSIS AND TREATMENT [place] [facility] ASSIGNMENT OF BENEFITS 2021-07-13 21:04:28 Doctor Unassigned, [facility] [place] [facility] NO SHOW OR MISSED 2019-08-16 18:25:32 Doctor Unassigned, [facility] APPOINTMENT POLICY [place] [facility] h ACKNOWLEDGEMENT Hernia repair 2001-11-27 06:00:00 Denise zhu Biopsy of vocal cord 1997-11-27 06:00:00 Susan Anand Encounters Start End Encounter Admission Attending Care Care Encounter Source Date/Time Date/Time Type Type Clinicians Facility Department ID 2023-03-29 2023-03-29 Outpatient [facility]FA ROXY [id number] Regino 11:20:47 11:20:47 0503 F Yan 2022-12-03 2022-12-03 Emergency X MORRICAL, [facility] ERT [id number] Univers 12:28:00 13:07:00 REGINO ity [facility] 2022-12-03 2022-12-03 Emergency Morrical, [facility] [id number] Univers 12:28:00 13:07:00 Regino GARCIA [id number] ity of [place] [id number] [facility] [id number] [facility] 084 Branch 2022-07-26 2022-07-27 Inpatient JONAH RauschWU TELE [id number] [facility] 18:14:00 16:28:[address] [facility] 2021-07-15 2021-07-15 Telephone FILIBERTO Young [id number] Univers 00:00:00 00:00:00 Cecille RODRIGUEZ [id number] i ty of [facility] [id number] Manish as [id number] [facility] 019 [place] 2021-07-15 2021-07-15 Telephone Pcp, [facility] [id number] Univers 00:00:00 00:00:00 Patient Health [id number] it y of Does Not Surgical [id number] [place] Specialti [id number] Va dical es [address] [place] 2021-07-13 2021-07-13 Outpatient R BERE [facility] [id number] Univers 16:00:00 16:28:38 CHAY ity [facility] 2021-07-13 2021-07-13 Orders Doctor FILIBERTO 1.2.840.114 [id number] Univers 00:00:00 00:00:00 Only Unassigned, JENNIFER 350.1.13.10 ity of [place] [facility] 4.2.7.2.686 Manish as [phone] [facility] 009 Branch 2021-01-01 2021-01-01 Laboratory Lab, Adc Fam Pob I [facility] 1.2. 840.114 [id number] Univers 14:02:43 14:22:43 Only Josey [facility] 350.1.13.10 ity of [place] 4.2.7.2.686 Manish as Professio [phone] [address] Office Building One 2021-01-01 2021-01-01 Laboratory Lab, [facility] 1.2.840.114 [id number] 14:02:43 14:22:43 Only Fam Pob I Health 350.1.13.10 [place] 4.2.7.2.686 Professio [phone] [place] [address] Office [facility] One 2021-01-01 2021-01-01 Outpatient R ARLEEN, [facility] [id number] Univers 13:20:00 13:20:00 REJI cesarrio of [facility] 2021-01-01 2021-01-01 Letter Lab, Pcp [facility] 1.2.840.114 [id number] Univers 00:00:00 00:00:00 (Out) Covid Health 350.1.13.10 it y of [place] 4.2.7.2.686 Manish as Professio [phone] [address] Office [facility] One 2021-01-01 2021-01-01 Letter Doctor FILIBERTO 1.2.840.114 [id number] Univers 00:00:00 00:00:00 (Out) Unassigned, JENNIFER 350.1.13.10 ity of [place] [facility] 4.2.7.2.686 Manish as [phone] [address] 2021-01-01 2021-01-01 Letter Doctor FILIBERTO 1.2.840.114 [id number] 00:00:00 00:00:00 (Out) Unassigned, JENNIFER 350.1.13.10 [place] [facility] 4.2.7.2.686 [phone] [facility] 2021-01-01 2021-01-01 Letter Lab, Pcp [facility] 1.2.840.114 [id number] 00:00:00 00:00:00 (Out) Covid Health 350.1.13.10 [place] 4.2.7.2.686 Professio [phone] [place] [address] Office Building One 2020-06-08 2020-06-08 Letter Lab, Pcp [facility] 1.2.840.114 [id number] Univers 00:00:00 00:00:00 (Out) Covid Health 350.1.13.10 it y of [place] 4.2.7.2.686 Manish as Professio [phone] [address] Office Building One 2020-06-08 2020-06-08 Letter Lab, Pcp [facility] 1.2.840.114 [id number] 00:00:00 00:00:00 (Out) Covid Health 350.1.13.10 [place] 4.2.7.2.686 Professio [phone] [place] [address] Office Building One 2020-06-06 2020-06-06 Patient Doctor [facility] 1.2.840.114 [id number] Univers 00:00:00 00:00:00 Secure Msg Unassigned, LEAGUE 350.1.13.10 ity of [place] [facility] 4.2.7.2.686 [place] [phone] [facility] AND [address] [place] [address] [facility] 2020-06-04 2020-06-04 Laboratory Lab, [facility] Fam Pob I [facility] 1.2. 840.114 [id number] Univers 11:06:05 11:26:05 Only Anerufina, Reji Health 350.1.13.10 ity of [place] 4.2.7.2.686 Manish as Professio [phone] [address] Office Building One 2020-06-04 2020-06-04 Laboratory Lab, [facility] 1.2.840.114 [id number] 11:06:05 11:26:05 Only Fam Pob I Health 350.1.13.10 [place] 4.2.7.2.686 Professio [phone] [facility] Office Building One 2020-06-04 2020-06-04 Outpatient R [facility] [id number] Univers 11:00:00 11:00:00 ity of [facility] 2020-02-17 2020-02-17 Telemedici Brandon [facility] 1.2.840.114 [id number] Univers 09:00:00 09:20:00 ne Visit Lolis [place] 350.1.13.10 ity of [place]2.7.2.[place] Professio [phone] Va dical [facility] 2020-02-17 2020-02-17 [facility] 1.2.840.114 [id number] 09:00:00 09:20:00 ne Visit Lolis Garcia 350.1.13.10 [place] 4.2.7.2.686 Professio [phone] [address] 2020-02-17 2020-02-17 [facility] [id number] [facility] 09:00:00 09:00:00 LOLIS ity o f [facility] 2019-08-16 2019-08-16 Orders Doctor DE LOS SANTOS 1.2.840.114 [id number] [facility] 00:00:00 00:00:00 Only Unassigned, JENNIFER 350.1.13.10 ity of [place] [facility] 4.2.7.2.686 Manish as [phone] [address] 2019-08-16 2019-08-16 Orders Doctor DE [place] 1.2.840.114 [id number] 00:00:00 00:00:00 Only Unassigned, JENNIFER 350.1.13.10 [place] [facility] 4.2.7.2.686 [phone] [facility] 2018-01-03 2018-01-07 Inpatient C MARIA DOLORES GUILLEN [facility] MED [id number] 14:29:00 09:32:00 , [facility] 2018-01-04 2018-01-04 Outpatient Denise Denise [id number] eClinic 14:10:00 14:10:00 Queta Villasenor MD 2018-01-01 2018-01-01 Inpatient MARIA DOLORES GUILLEN [facility] MED [id number] 11:16:00 11:16:00 , [facility] 2016-12-07 2016-12-07 Outpatient Denise Denise [id number] eClinic 14:15:00 14:15:00 Queta Villasenor MD 2016-10-31 2016-11-30 OP Therapy [facility] [id number] Memoria 19:03:00 05:59:00 Patients r Cheng 01 l Odette Anand [facility] 2016-10-31 2016-11-29 Outpatient Leilani, 2.16.840. 2.16.840.1. 4 [id number] 13:03:00 23:59:00 Sergei Holland [id number]. [id number] 01 3.615.15 5.15 2016-11-08 2016-11-08 Outpatient Denise Denise [id number] eClinic 14:30:00 14:30:00 Queta Villasenor MD 2016-08-27 2016-09-08 Inpatient nullFlavo TIRR [id number] Memoria 01:04:00 15:44:00 Rehab r [facility] 00 l Cheng Cheng 2016-08-26 2016-09-08 [facility] [id number] 20:04:00 10:44:00 Se, 00 Ethan Hunt Results Test Description Test Time Test Comments Results Result [facility] e Comments - XR CHEST 1V 2022-07-26 18:53:00 [facility] 1965 Sex: M Patient Name: ANTELMO LOPEZ Unit No: [id number] EXAMS: CPT CODE: [id number] XR CHEST 1V [id number] EXAM: XR Chest 1 View INDICATION: S/P [...] at 1853 Reported and signed by: Karen Ott MD CC: Tan Reis Technologist: Morena NEUMANN R Transcrpt Date/Tm/Trnsp: 07/26/2022 (1852) t.SDR.EB14 Orig Print D/T: S: 07/26/2022 (1855) [facility] NAME: ANTELMO LOPEZ [address] [address] [place] PHYS: [place] [address] : 1965 AGE: 56 SEX: M LOC: Z.351 A PHONE #: [phone] EXAM DATE: 07/26/2022 STATUS: ADM IN FAX #: [phone] RADIOLOGY NO: PAGE 1 Signed Report BASIC [...] code = CA) 9.4 MG/DL 8.4-10.2 N [id number] 12:02:00 Test Item Value Reference Range Interpretation Comments MAGNESIUM (test code = MAG) 2.1 MG/DL 1.6-2.3 N PROTHROMBIN [id number] 12:02:00 Test Item Value Reference Range Interpretation [...] myocar dial infarction. 2.0 - 3.0 3. Manager Behavior al prosthesis hear t valves, recurre nt systemic emboli sm. 3.0 - 4.5 PTT [id number] 12:02:00 Test Item Value Reference Range Interpretation Comments PTT ACTIVATED (test code = APTT) 34.3 SECONDS 26.2-35.4 N CBC W/AUTO [id number] 11:48:00 Test Item Value Reference Range Interpretation [...] = 0.00 K/mm3 0.0-0.1 N NRBC#) POCT-GLUCOSE [id number] 11:26:00 Test Item Value Reference Range Interpretation Comments POC-GLUCOSE METER 127 mg/dL 70-110 H TESTED AT [facility] 67 (BEAKER) (test code = MARCEL Marcial [place] 1538) [address] BLOOD [id number] 11:01:00 Test Item Value Reference Range Interpretation Comments CULTURE (BEAKER) (test No growth in 5 days code = 1095) BLOOD [id number] 11:01:00 Test Item Value Reference Range Interpretation Comments CULTURE (BEAKER) (test No growth in 5 days code = 1095) RAD, CHEST, 1 VIEW, NON [id number] 09:30:00Reason for exam:- >vetned/stemiShould this be performed at the bedside?->YesFINAL REPORT Clinical History: vetned/stemi Comparison Study: January 21, 2019Findings: The heart and lungs are within normal limits. The pleural spaces are clear. No significantbony or soft tissue abnormalities are seen. Impression: No active cardiopulmonary disease. Signed: Marisol Wilson MDReport Verified Date/Time: 01/22/2019 09:30:48 Reading Location: [facility] Reading Room POCT-GLUCOSE [id number] 08:44:00 Test Item Value Reference Range Interpretation Comments POC-GLUCOSE METER 157 mg/dL 70-110 H TESTED AT [facility] 6720 ([facility] (test code = [place]A [place] 1538) [address] BASIC METABOLIC [id number] 05:27:00 Test Item Value Reference Range Interpretation [...] m DATA TO CALCULA TE ESTIMATED GFR. [id number] 05:24:00 Test Item Value Reference Range Interpretation Comments MAGNESIUM (BEAKER) (test code = 1.7 mg/dL 1.6-2.6 627) CBC W/PLT COUNT & AUTO [id number] 04:53:00 Test Item Value Reference Range Interpretation [...] PERCENT (BEAKER) (test code = 2801) POCT-GLUCOSE [id number] 21:23:00 Test Item Value Reference Range Interpretation Comments POC-GLUCOSE METER 172 mg/dL 70-110 H TESTED AT [place] [address] ([facility]) (test code = MARCEL [place] 1538) [address] POCT-GLUCOSE [id number] 17:36:00 Test Item Value Reference Range Interpretation Comments POC-GLUCOSE METER 124 mg/dL 70-110 H TESTED AT [place] [address] ([facility]) (test code = MARCEL Marcial [facility] 1538) [address] POCT-GLUCOSE [id number] 11:45:00 Test Item Value Reference Range Interpretation Comments POC-GLUCOSE METER 137 mg/dL 70-110 H TESTED AT [place] [address] ([facility]) (test code = MARCEL Marcial [facility] 1538) [address] RAD, CHEST, 1 VIEW, NON [id number] 08:00:00Reason for exam:- >vetned/stemiShould this be performed [...] MDReport Verified Date/Time: 01/21/2019 08:00:55 Reading Location: [facility] Radiology Reading Room 08:00 AM POCT-GLUCOSE [id number] 07:12:00 Test Item Value Reference Range Interpretation Comments POC-GLUCOSE METER 142 mg/dL 70-110 H TESTED AT [place] [id number] ([facility]) (test code = MARCEL Marcial [facility] 1538) [address] BASIC METABOLIC [id number] 06:18:00 Test Item Value Reference Range Interpretation [...] m DATA TO CALCULA TE ESTIMATED GFR. [id number] 06:14:00 Test Item Value Reference Range Interpretation Comments MAGNESIUM (BEAKER) (test code = 1.5 mg/dL 1.6-2.6 L 627) CBC W/PLT COUNT & AUTO [id number] 05:24:00 Test Item Value Reference Range Interpretation [...] PERCENT (BEAKER) (test code = 2801) POCT-GLUCOSE [id number] 22:46:00 Test Item Value Reference Range Interpretation Comments POC-GLUCOSE METER 123 mg/dL 70-110 H TESTED AT [facility] 6720 (BEAKER) (test code = MARCEL Marcial [facility] 1538) [address] SPUTUM CULTURE + GRAM [id number] 20:40:00 Test Item Value Reference Range Interpretation Comments CULTURE (BEAKER) 4+ Normal respiratory (test code = 1095) stevie present GRAM STAIN RESULT 4+ WBCs (BEAKER) (test code = 1123) GRAM STAIN RESULT 0-5 epithelial cells (BEAKER) (test code = 36860) GRAM STAIN RESULT 1+ gram positive cocci (BEAKER) (test code = in pairs 73415) GRAM STAIN RESULT 4+ gram positive cocci (BEAKER) (test code = in chains 406586) GRAM STAIN RESULT 2+ gram positive cocci (BEAKER) (test code = in clusters 797043) POCT-GLUCOSE [id number] 18:11:00 Test Item Value Reference Range Interpretation Comments POC-GLUCOSE METER 217 mg/dL 70-110 H TESTED AT [place] [address] (BEAKER) (test code = MARCEL Marcial [facility] [place] 1538) [address] POCT-GLUCOSE [id number] 13:04:00 Test Item Value Reference Range Interpretation Comments POC-GLUCOSE METER 140 mg/dL 70-110 H TESTED AT [place] [address] (BEAKER) (test code = MARCEL Marcial [facility] [place] 1538) [address] POCT-GLUCOSE [id number] 08:23:00 Test Item Value Reference Range Interpretation Comments POC-GLUCOSE METER 176 mg/dL 70-110 H TESTED AT [place] [address] (BEAKER) (test code = MARCEL Marcial [facility] [place] 1538) [address] BASIC METABOLIC [id number] 05:41:00 Test Item Value Reference Range Interpretation [...] m DATA TO CALCULA TE ESTIMATED GFR. [id number] 05:40:00 Test Item Value Reference Range Interpretation Comments MAGNESIUM (BEAKER) (test code = 1.7 mg/dL 1.6-2.6 627) HEPATIC FUNCTION [id number] 05:40:00 Test Item Value Reference Range Interpretation [...] H 347) RAD, CHEST, 1 VIEW, NON [id number] 05:37:00Reason for exam:- >vetned/stemiShould this be performed at the bedside?->YesFINAL REPORT RAD, CHEST, 1 VIEW, NON DEPT INDICATION: vetned/stemi COMPARISON: Prior day's exam FINDINGS: Portable frontal view of the chest. IMPRESSION: Lungs and pleura: Unchanged airspace and pleural opacities. No pneumothorax.Heart and mediastinum: Stable contours. Additional findings: None. Signed: Nellie Odonnell Verified Date/Time: 01/20/2019 05:37:46 Reading Location: [address] Transitional Reading Room CBC W/PLT COUNT & AUTO [id number] 05:06:00 Test Item Value Reference Range Interpretation [...] PERCENT (BEAKER) (test code = 2801) POCT-GLUCOSE [id number] 22:24:00 Test Item Value Reference Range Interpretation Comments POC-GLUCOSE METER 127 mg/dL 70-110 H TESTED AT [facility] 6720 ([facility]) (test code = [place]ARCEL [place] 1538) [address] POCT-GLUCOSE [id number] 16:58:00 Test Item Value Reference Range Interpretation Comments POC-GLUCOSE METER 130 mg/dL 70-110 H TESTED AT [facility] 6720 ([facility]) (test code = MARCEL Marcial [facility] 1538) [address] [id number] 15:24:00 Test Item Value Reference Range Interpretation Comments MAGNESIUM (BEAKER) 1.7 mg/dL 1.6-2.6 Specimen slightly (test code = 627) hemolyzed RAD, CHEST, 1 VIEW, NON [id number] 12:40:00Reason for exam:- >vetned/stemiShould this be performed at the bedside?->YesFINAL REPORT Comparison: 01/18/2019 TECHNIQUE: Single view of the chest FINDINGS: Lung volumes are low. Cardiac silhouette is prominent. Soft tissues and bones are unremarkable. Signed: Kelby Ball MDReport Verified Date/Time: 01/19/2019 12:40:50 Reading Location: [address] Transitional Reading Room POCT-GLUCOSE [id number] 12:33:00 Test Item Value Reference Range Interpretation Comments POC-GLUCOSE METER 120 mg/dL 70-110 H TESTED AT [place] [address] ([facility]) (test code = MARCEL Marcial [place] [address]6428) [address] EEG MONITORING WITH VIDEO RECORDING EACH 24 [id number] 10:46:00morning read for REPORT: LopezAntelmo arellano, [facility] Date of EEDate of report: start time: 09:33EEG end time: 20:55EEG #: [id number] No: [id number] ICD Code: #: R41.82 Altered mental status, unspecified (ICD 9: 780.97)CPT Code: #: 00914: Monitori ng for localization of seizure focPROCEDURE: [...] Please correlate clinically.Clinical Fellow: Alan Milnerurophysiologist: Mars Tan BASIC METABOLIC [id number] 05:51:00 Test Item Value Reference Range Interpretation [...] CORPUSCULAR HEMOGLOBIN CONC 31.1 GM/DL 32.3-36.5 L ([facility]) (test code = 752) RED CELL DISTRIBUTION WIDTH 13.8 % 11.6-14.4 ([facility]) (test code = 412) PLATELET COUNT ([facility]) (test 248 K/CU MM 150-450 code = 756) MEAN PLATELET VOLUME ([facility]) 10.8 fL 9.4-12.4 (test code = 754) NUCLEATED RED BLOOD CELLS 0 /100 WBC 0-0 ([facility]) (test code = 413) POCT-GLUCOSE [id number] 23:44:00 Test Item Value Reference Range Interpretation Comments POC-GLUCOSE METER 119 mg/dL 70-110 H TESTED AT [place] [address] ([facility]) (test code = MARCEL Marcial [facility] 1538) [address] POCT-GLUCOSE [id number] 16:16:00 Test Item Value Reference Range Interpretation Comments POC-GLUCOSE METER 123 mg/dL 70-110 H TESTED AT [place] [address] (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 Reason for exam:->for 24 hrs while on euthermia protocol, unjresponsive post arrestEEG REPORT: Antelmo Lopez, [facility] Date of EEDate of report: Test location: Inpatient - ICUEEG start time: 01/17 at 9:33amEEG end time:01/18 at 9:33amEEG #: [id number] No: [id number] ICD Code: #: R41.82 Altered mental status, unspeci fied (ICD 9: 780.97)CPT Code: #: 66801: Monitoring for localization of seizure focPROCEDURE: EEG [...] Please correlate clinically.Clinical Fellow: Nilsa Vargasrophysiologist: Mars Tan CHLORIDE, RANDOM [id number] 11:39:00 Test Item Value Reference Range Interpretation Comments CHLORIDE URINE (BEAKER) (test code = 49 meq/L 682) Reference Range: No NormalsPOTASSIUM, RANDOM [id number] 11:39:00 Test Item Value Reference Range Interpretation Comments POTASSIUM URINE (BEAKER) (test 43.9 meq/L code = 195) Reference Range: No NormalsSODIUM, RANDOM [id number] 11:39:00 Test Item Value Reference Range Interpretation Comments SODIUM URINE (BEAKER) (test code = 141 meq/L 243) Reference Range: No NormalsLACTIC ACID, ARTERIAL, WHOLE [id number] 11:08:00 Test Item Value Reference Range Interpretation Comments LACTATE BLOOD ARTERIAL (2) 0.8 mmol/L 0.5-2.2 (BEAKER) (test code = 2874) KETONE, [id number] 10:50:00 Test Item Value Reference Range Interpretation Comments KETONES, BLOOD (BEAKER) (test code 4.4 mmol/L <0.4 H = 1103) RAD, CHEST, 1 VIEW, NON [id number] 10:41:00Reason for exam:- >vented/stemiShould this be performed [...] Chanort Verified Date/Time: 01/18/2019 10:41:02 Reading Location: [facility] Radiology Reading Room POCT-GLUCOSE [id number] 10:11:00 Test Item Value Reference Range Interpretation Comments POC-GLUCOSE METER 80 mg/dL 70-110 TESTED AT [facility] 6720 (BEAKER) (test code = [place] [address] 1538) [id number] 07:36:00 Test Item Value Reference Range Interpretation Comments MAGNESIUM (BEAKER) 2.0 mg/dL 1.6-2.6 Specimen slightly (test code = 627) hemolyzed BLOOD GAS, [id number] 04:48:00 Test Item Value Reference Range Interpretation [...] (test code = 1819) 40.0 % TROPONIN [id number] 04:32:00 Test Item Value Reference Range Interpretation [...] acute neurological disease, and persistent tachyarrhythmia.BASIC METABOLIC [id number] 04:31:00 Test Item Value Reference Range Interpretation [...] 0-0 (BEAKER) (test code = 413) POCT-GLUCOSE [id number] 00:18:00 Test Item Value Reference Range Interpretation Comments POC-GLUCOSE METER 117 mg/dL 70-110 H TESTED AT [place] [address] ([facility]) (test code = [facility] 1538) [address] POCT-GLUCOSE [id number] 21:48:00 Test Item Value Reference Range Interpretation Comments POC-GLUCOSE METER 89 mg/dL 70-110 TESTED AT [place] [address] ([facility]) (test code = [facility] [address] 1538) [id number] 21:02:00 Test Item Value Reference Range Interpretation Comments POTASSIUM (BEAKER) (test code = 4.5 meq/L 3.5-5.1 379) [id number] 21:02:00 Test Item Value Reference Range Interpretation Comments MAGNESIUM (BEAKER) (test code = 2.1 mg/dL 1.6-2.6 627) POCT-GLUCOSE [id number] 15:54:00 Test Item Value Reference Range Interpretation Comments POC-GLUCOSE METER 107 mg/dL 70-110 TESTED AT [place] [address] ([facility]) (test code = [facility] 1538) [address] COMPREHENSIVE METABOLIC [id number] 15:24:00 Test Item Value Reference Range Interpretation [...] CALCULATE ESTIM ATED GFR. EEG AWAKE AND [id number] 14:53:00Reason for exam:->unresponsive post arrestEEG REPORT: Antelmo Lopez, [facility] Date of EEDate of report: Test location: Inpatient - ICUEEG start time: 8:46EEG end time: 9:08EEG #: [id number] No: [id number] ICD Code: #: R41.82 Altered mental status, unspecified (ICD 9: 780.97 )CPT Code: #: 79989: 01. EEG awake and drowsy; 20-40 minPROCEDURE: [...] noted. No clinical or electrographic seizures were noted.SLEEP Sleep stages were not seen.HYPERVENTILATION: Hyperventilation was not performed.PHOTIC STIMULATION: Photic stimulation did not result in any photoparoxysmal responses. EKG: The heart rate was 90/min.IMPRESSION: The EEG was abnormal due to mild diffuse slowing of the background rhythm. No seizures or epileptiform discharges were seen. COMMENT: Mild diffuse slowing is a nonspecific finding indicative of mild global cerebral dysfunction of metabolic, toxic, drug-induced or other etiology. Pleasecorrelate clinically.Clinical Fellow: Nilsa Vargasrophysiologist: Mars Tan CBC W/PLT COUNT & AUTO DIFFERENTIAL [...] code = 2801) URINALYSIS W/ REFLEX URINE [id number] 10:28:00 Test Item Value Reference Range Interpretation [...] CRYSTALS (BEAKER) Rare (test code = 1584) SOURCE(RYANNE) (test code = 2795) [id number] 10:23:00 Test Item Value Reference Range Interpretation Comments PROTIME (RYANNE) (test code = 16.1 seconds 11.7-14.7 H 759) INR (RYANNE) (test code = 370) 1.3 <=5.9 PARTIAL THROMBOPLASTIN TIME 31.3 seconds 22.5-36.0 (BEAKER) (test code = 760) RECOMMENDED COUMADIN/WARFARIN INR THERAPY RANGESSTANDARD DOSE: 2.0 - 3.0 Includes: PROPHYLAXIS for venous thrombosis, systemic embolization; TREATMENT for venous thrombosis and/or pulmonary embolus.HIGH RISK: Target INR is 2.5-3.5 for patients with mechanical heart valves.HEMOGLOBIN [id number] 10:12:00 Test Item Value Reference Range Interpretation Comments HEMOGLOBIN A1C (RYANNE) (test code = 6.6 % 4.3-6.1 H 368) POCT-GLUCOSE [id number] 09:01:00 Test Item Value Reference Range Interpretation Comments POC-GLUCOSE METER 141 mg/dL 70-110 H TESTED AT [facility] 6720 (RYANNE) (test code = MARCEL Marcial [facility] 1538) [address] TROPONIN [id number] 08:57:00 Test Item Value Reference Range Interpretation [...] tolerate for further evaluation.. Signed: Nellie Odonnell [facility] Verified Date/Time:01/17/2019 07:03:53 Reading Location: [facility] Transitional Reading Room RAD, CHEST, 1 VIEW, NON [id number] 03:53:00Reason for exam:->s/p intubationShould this be performed [...] further evaluation if clinically warranted. Signed: David Wilson MDReport Verified Date/Time: 01/17/2019 03:53:21 Reading Location: [address] Reading Room BLOOD GAS, [id number] 03:13:00 Test Item Value Reference Range Interpretation [...] (test code = 1819) 60.0 % TROPONIN [id number] 03:13:00 Test Item Value Reference Range Interpretation [...] failure, acidosis, acute neurological disease, and persistent tachyarrhythmia.[id number] 02:59:00 Test Item Value Reference Range Interpretation [...] for patients with mechanical heart valves.BASIC METABOLIC [id number] 02:52:00 Test Item Value Reference Range Interpretation [...] TO CALCULA TE ESTIMATED GFR. COMPREHENSIVE METABOLIC [id number] 02:52:00 Test Item Value Reference Range Interpretation [...] < pg/mL 0-100 (test code = 700) [id number] 02:45:00 Test Item Value Reference Range Interpretation Comments MAGNESIUM (BEAKER) 2.0 mg/dL 1.6-2.6 Specimen slightly (test code = 627) hemolyzed LIPID [id number] 02:45:00 Test Item Value Reference Range Interpretation [...] Borderline 130-159 High 160-189 Very High >=190PROTHROMBIN TIME/[id number] 02:40:00 Test Item Value Reference Range Interpretation [...] mechanical heart valves.CBC W/PLT COUNT & AUTO [id number] 02:32:00 Test Item Value Reference Range Interpretation [...] WBC 0-0 (BEAKER) (test code = 413) [id number] 01:16:00 Test Item Value Reference Range Interpretation Comments ACTIVATED CLOTTING TIME 301 sec TEST ED AT [place] [address] ([facility]) (test code = [facility] [place] [address]) [address] [id number] 01:16:00 Test Item Value Reference Range Interpretation Comments ACTIVATED CLOTTING TIME 131 sec TEST ED AT [place] [id number] ([facility]) (test code = [facility] [place] [address]) [address] BLOOD GAS, [id number] 00:54:00 Test Item Value Reference Range Interpretation [...] code = 1819) 100.0 % POC Glucose, [id number] 08:58:00 Test Item Value Reference Range Interpretation Comments POC Glucose (test 146 mg/dL 70-115 H If you con sugar cane farm manager your code = POCGLUC) patient crit ically ill, the [facility] Accu- Chek InformII meters hould not be used for Glu cose determinations. Draw a venous Glucose and send to the Main Lab for Analysis. POC Glucose, [id number] 20:29:00 Test Item Value Reference Range Interpretation Comments POC Glucose (test 146 mg/dL 70-115 H If you con sugar cane farm manager your code = POCGLUC) patient crit ically ill, the [place] Accu- Chek InformII meters hould not be used for Glu cose determinations. Draw a venous Glucose and send to the Main Lab for Analysis. POC Glucose, [id number] 15:23:00 Test Item Value Reference Range Interpretation Comments POC Glucose (test 135 mg/dL 70-115 H If you con sugar cane farm manager your code = POCGLUC) patient crit ically ill, the [place] Accu- Chek InformII meters hould not be used for Glu cose determinations. Draw a venous Glucose and send to the Main Lab for Analysis. POC Glucose, [id number] 11:52:00 Test Item Value Reference Range Interpretation Comments POC Glucose (test 123 mg/dL 70-115 H If you con sugar cane farm manager your code = POCGLUC) patient crit ically ill, the [facility] Accu- Chek InformII meters hould not be used for Glu cose determinations. Draw a venous Glucose and send to the Main Lab for Analysis. POC Glucose, [id number] 08:01:00 Test Item Value Reference Range Interpretation Comments POC Glucose (test 121 mg/dL 70-115 H If you con sugar cane farm manager your code = POCGLUC) patient crit ically ill, the [place] Accu- Chek InformII meters hould not be used for Glu cose determinations. Draw a venous Glucose and send to the Main Lab for Analysis. POC Glucose, [id number] 21:22:00 Test Item Value Reference Range Interpretation Comments POC Glucose (test 112 mg/dL 70-115 N If you con sugar cane farm manager your code = POCGLUC) patient crit ically ill, the [facility] Accu- Chek InformII meters hould not be used for Glu cose determinations. Draw a venous Glucose and send to the Main Lab for Analysis. POC Glucose, [id number] 17:06:00 Test Item Value Reference Range Interpretation Comments POC Glucose (test 148 mg/dL 70-115 H If you con sugar cane farm manager your code = POCGLUC) patient crit ically ill, the [facility] Accu- Chek InformII meters hould not be used for Glu cose determinations. Draw a venous Glucose and send to the Main Lab for Analysis. POC Glucose, [id number] 11:21:00 Test Item Value Reference Range Interpretation Comments POC Glucose (test 108 mg/dL 70-115 N If you con sugar cane farm manager your code = POCGLUC) patient crit ically ill, the [facility] Accu- Chek InformII meters hould not be used for Glu cose determinations. Draw a venous Glucose and send to the Main Lab for Analysis. POC Glucose, [id number] 08:13:00 Test Item Value Reference Range Interpretation Comments POC Glucose (test 170 mg/dL 70-115 H If you con sugar cane farm manager your code = POCGLUC) patient crit ically ill, the [place] Accu- Chek InformII meters hould not be used for Glu cose determinations. Draw a venous Glucose and send to the Main Lab for Analysis. POC Glucose, [id number] 21:10:00 Test Item Value Reference Range Interpretation Comments POC Glucose (test 169 mg/dL 70-115 H If you con sugar cane farm manager your code = POCGLUC) patient crit ically ill, the [place] Accu- Chek InformII meters hould not be used for Glu cose determinations. Draw a venous Glucose and send to the Main Lab for Analysis. POC Glucose, [id number] 16:25:00 Test Item Value Reference Range Interpretation Comments POC Glucose (test 115 mg/dL 70-115 N If you con sugar cane farm manager your code = POCGLUC) patient crit ically ill, the [facility] Accu- Chek InformII meters hould not be used for Glu cose determinations. Draw a venous Glucose and send to the Main Lab for Analysis. POC Glucose, [id number] 12:41:00 Test Item Value Reference Range Interpretation Comments POC Glucose (test 117 mg/dL 70-115 H If you con sugar cane farm manager your code = POCGLUC) patient crit ically ill, the [place] Accu- Chek InformII meters hould not be used for Glu cose determinations. Draw a venous Glucose and send to the Main Lab for Analysis. POC Glucose, [id number] 09:32:00 Test Item Value Reference Range Interpretation Comments POC Glucose (test 115 mg/dL 70-115 N If you con sugar cane farm manager your code = POCGLUC) patient crit ically ill, the [facility] Accu- Chek InformII meters hould not be used for Glu cose determinations. Draw a venous Glucose and send to the Main Lab for Analysis. POC Glucose, [id number] 05:20:00 Test Item Value Reference Range Interpretation Comments POC Glucose (test 106 mg/dL 70-115 N If you con sugar cane farm manager your code = POCGLUC) patient crit ically ill, the [facility] Accu- Chek InformII meters hould not be used for Glu cose determinations. Draw a venous Glucose and send to the Main Lab for Analysis. POC Glucose, [id number] 15:32:00 Test Item Value Reference Range Interpretation Comments POC Glucose (test 83 mg/dL 70-115 N If you con sugar cane farm manager your code = POCGLUC) patient crit ically ill, the [facility] Accu- Chek InformII meters hould not be used for Glu cose determinations. Draw a venous Glucose and send to the Main Lab for Analysis. URINE AND [id number] 22:16:00 Test Item Value Reference Range Interpretation Comments UA Spec Grav (test code = UA Spec Grav) 1.022 [facility] AND [id number] 22:16:00 Test Item Value Reference Range Interpretation Comments UA Urobilinogen (test code = UA <=1.0 mg/dL 0.1-1.0 Urobilinogen) [facility] AND [id number] 22:16:00 Test Item Value Reference Range Interpretation Comments UA Sq Epi (test code = UA Sq Epi) None Seen [facility] AND [id number] 22:16:00 Test Item Value Reference Range Interpretation Comments UA Mucus (test code = UA Mucus) Few /LPF [facility] AND [id number] 22:16:00 Test Item Value Reference Range Interpretation Comments UA WBC (test code = UA WBC) 2 <=5 [facility] AND [id number] 22:16:00 Test Item Value Reference Range Interpretation Comments UA Leuk Est (test Negative (08/27/16 5:16 code = UA Leuk Est) PM) [facility] AND [id number] 22:16:00 Test Item Value Reference Range Interpretation Comments UA Nitrite (test code Negative (08/27/16 5:16 = UA Nitrite) PM) [facility] AND [id number] 22:16:00 Test Item Value Reference Range Interpretation Comments UA Blood (test code = Negative (08/27/16 5:16 UA Blood) PM) [facility] AND [id number] 22:16:00 Test Item Value Reference Range Interpretation Comments UA Ketones (test code = UA Negative mg/dL Ketones) [facility] AND [id number] 22:16:00 Test Item Value Reference Range Interpretation Comments UA Bili (test code = Negative *NA*(08/27/16 UA Bili) 5:16 PM) [facility] AND [id number] 22:16:00 Test Item Value Reference Range Interpretation Comments UA Protein (test code = UA Protein) 20 mg/dL [facility] AND [id number] 22:16:00 Test Item Value Reference Range Interpretation Comments UA Glucose (test code = UA Negative mg/dL Glucose) [facility] AND [id number] 22:16:00 Test Item Value Reference Range Interpretation Comments UA pH (test code = UA pH) 5.5 5.0-8.0 [facility] AND [id number] 22:16:00 Test Item Value Reference Range Interpretation Comments UA Turbidity (test code = Clear (08/27/16 5:16 UA Turbidity) PM) [facility] AND [id number] 22:16:00 Test Item Value Reference Range Interpretation Comments UA Color (test code = Yellow *NA*(08/27/16 UA Color) 5:16 PM) [facility]2016-10-01 09:53:00 Test Item Value Reference Range Interpretation Comments A/G Ratio (test code = A/G Ratio) 1.1 0.7-1.6 [facility]2016-10-01 09:53:00 Test Item Value Reference Range Interpretation Comments B/C Ratio (test code = B/C Ratio) 20 6-25 [facility]2016-10-01 09:53:00 Test Item Value Reference Range Interpretation Comments AGAP (test code = AGAP) 13.7 10.0-20.0 [facility]2016-10-01 09:53:00 Test Item Value Reference Range Interpretation Comments Globulin (test code = Globulin) 3.6 2.7-4.2 [facility]2016-10-01 09:53:00 Test Item Value Reference Range Interpretation Comments eGFR (test code = eGFR) 71 [facility]2016-10-01 09:53:00 Test Item Value Reference Range Interpretation Comments Alk Phos (test code = Alk Phos) 92 39-136 [facility]2016-10-01 09:53:00 Test Item Value Reference Range Interpretation Comments Bili Total (test code = Bili Total) 0.5 0.2-1.3 [facility]2016-10-01 09:53:00 Test Item Value Reference Range Interpretation Comments Creatinine Lvl (test code = Creatinine 1.20 0.50-1.40 Lvl) [facility]2016-10-01 09:53:00 Test Item Value Reference Range Interpretation Comments BUN (test code = BUN) 24 7-22 [facility]2016-10-01 09:53:00 Test Item Value Reference Range Interpretation Comments Glucose Lvl (test code = Glucose Lvl) 105 70-99 [facility]2016-10-01 09:53:00 Test Item Value Reference Range Interpretation Comments Potassium Lvl (test code = Potassium 3.7 3.5-5.1 Lvl) [facility]2016-10-01 09:53:00 Test Item Value Reference Range Interpretation Comments Sodium Lvl (test code = Sodium Lvl) 142 135-145 [facility]2016-10-01 09:53:00 Test Item Value Reference Range Interpretation Comments Chloride Lvl (test code = Chloride Lvl) 106 95-109 [facility]2016-10-01 09:53:00 Test Item Value Reference Range Interpretation Comments CO2 (test code = CO2) 26 24-32 [facility]2016-10-01 09:53:00 Test Item Value Reference Range Interpretation Comments ALT (test code = ALT) 32 <=65 [facility]2016-10-01 09:53:00 Test Item Value Reference Range Interpretation Comments Albumin Lvl (test code = Albumin Lvl) 3.9 3.5-5.0 [facility]2016-10-01 09:53:00 Test Item Value Reference Range Interpretation Comments Total Protein (test code = Total 7.5 6.4-8.4 Protein) [facility]2016-10-01 09:53:00 Test Item Value Reference Range Interpretation Comments Calcium Lvl (test code = Calcium Lvl) 8.9 8.5-10.5 [facility]2016-10-01 09:53:00 Test Item Value Reference Range Interpretation Comments AST (test code = AST) 12 <=37 [facility]2016-10-01 09:53:00 Test Item Value Reference Range Interpretation Comments Magnesium Lvl (test code = Magnesium 2.0 1.8-2.4 Lvl) [facility]2016-10-01 09:53:00 Test Item Value Reference Range Interpretation Comments Phosphorus (test code = Phosphorus) 3.7 2.5-4.5 [id number] 09:53:00 Test Item Value Reference Range Interpretation Comments Basophils # (test code = Basophils #) 0.1 <=0.2 [facility]villeBusztggXEINLVJQGH1057-07-90 09:53:00 Test Item Value Reference Range Interpretation Comments Eosinophils # (test code = Eosinophils 0.2 <=0.5 #) [facility]vil[id number] 09:53:00 Test Item Value Reference Range Interpretation Comments Monocytes # (test code = Monocytes #) 0.5 <=0.8 [id number] 09:53:00 Test Item Value Reference Range Interpretation Comments Lymphocytes # (test code = Lymphocytes 2.2 1.0-5.5 #) [id number] 09:53:00 Test Item Value Reference Range Interpretation Comments Segs-Bands # (test code = Segs-Bands #) 5.4 1.5-8.1 [id number] 09:53:00 Test Item Value Reference Range Interpretation Comments Basophils (test code = Basophils) 0.7 <=1.0 [facility]villeHmolhetLWYQDQWRPY8823-14-93 09:53:00 Test Item Value Reference Range Interpretation Comments Eosinophils (test code = Eosinophils) 2.4 <=4.0 [facility]vil[id number] 09:53:00 Test Item Value Reference Range Interpretation Comments Monocytes (test code = Monocytes) 5.8 2.0-12.0 [id number] 09:53:00 Test Item Value Reference Range Interpretation Comments Lymphocytes (test code = Lymphocytes) 26.0 20.0-40.0 [id number] 09:53:00 Test Item Value Reference Range Interpretation Comments Segs (test code = Segs) 65.1 45.0-75.0 [facility]villeVltguwxDRBTJIHEHA8056-87-10 09:53:00 Test Item Value Reference Range Interpretation Comments INR (test code = INR) 1.04 0.85-1.17 [facility]villeIsczoscFYCHTXFBUN1765-65-04 09:53:00 Test Item Value Reference Range Interpretation Comments PTT (test code = PTT) 27.3 s 22.9-35.8 [facility]villeJhporlkDILMMSDQXW2359-92-43 09:53:00 Test Item Value Reference Range Interpretation Comments PT (test code = PT) 13.8 s 12.0-14.7 [facility]villeJgcziuqWUVHHENPGJ2058-38-41 09:53:00 Test Item Value Reference Range Interpretation Comments MCHC (test code = MCHC) 34.2 32.0-36.0 [id number] 09:53:00 Test Item Value Reference Range Interpretation Comments RDW (test code = RDW) 13.6 11.5-14.5 [facility]vil[id number] 09:53:00 Test Item Value Reference Range Interpretation Comments Platelet (test code = Platelet) 322 133-450 [facility]villeMfmarnjFPYWQJMDJW9724-09-01 09:53:00 Test Item Value Reference Range Interpretation Comments MPV (test code = MPV) 9.1 7.4-10.4 [facility]villeVlemhhjFMBECFUJYY1410-21-02 09:53:00 Test Item Value Reference Range Interpretation Comments MCH (test code = MCH) 30.3 pg 27.0-31.0 [facility]villeNhxoxptZFCLFFPNJW9467-61-65 09:53:00 Test Item Value Reference Range Interpretation Comments WBC (test code = WBC) 8.3 3.7-10.4 [facility]villeAfrbjitOLWOZVNJBR4506-25-33 09:53:00 Test Item Value Reference Range Interpretation Comments Hct (test code = Hct) 36.3 42.0-54.0 [facility] StephenvilleZfxraadUVWWCKMOOJ3623-01-79 09:53:00 Test Item Value Reference Range Interpretation Comments MCV (test code = MCV) 88.8 80.0-94.0 [facility]villeHohdcyqMGGZUOSKIM2989-59-14 09:53:00 Test Item Value Reference Range Interpretation Comments RBC (test code = RBC) 4.09 4.70-6.10 [facility]villeRvwvnkuEGJHDSUBFP8741-74-30 09:53:00 Test Item Value Reference Range Interpretation Comments Hgb (test code = Hgb) 12.4 14.0-18.0 [facility]ooofefDXQVXVDHBE9616-64-28 09:53:00 Test Item Value Reference Range Interpretation Comments Prealbumin (test code = Prealbumin) 35.6 18.0-45.0 [facility] CenterRbbzlitZYCHFT0530-53-44 09:53:00 Test Item Value Reference Range Interpretation Comments VLDL (test code = VLDL) 55 [facility] CenterMkxbdbrSSDEXF1842-74-32 09:53:00 Test Item Value Reference Range Interpretation Comments LDL (Calculated) (test code = LDL 35 (Calculated)) [facility] CenterYpghohzZUIZIL1302-69-91 09:53:00 Test Item Value Reference Range Interpretation Comments Chol (test code = Chol) 123 [facility]Uvhs[facility]eZRVSFR5078-55-58 09:53:00 Test Item Value Reference Range Interpretation Comments Trig (test code = Trig) 276 [facility] CenterWyrxbwuEALMVH1168-29-46 09:53:00 Test Item Value Reference Range Interpretation Comments HDL (test code = HDL) 33 [facility] CenterGncnjacWANVYZ1788-56-81 09:53:00 Test Item Value Reference Range Interpretation Comments CHD Risk (test code = CHD Risk) 3.73 4.00-7.30 [facility] SIQDIQXVC8371-95-01 09:53:00 Test Item Value Reference Range Interpretation Comments Hgb A1C (test code = Hgb A1C) 5.3 [facility]
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
[2023-09-02 18:18] VITALS: BP 127/89; TEMP 98.4; O2SAT 100
== END 2023-09-02 18:02 | disposition home or self-care (01) ==
LOC: ER 17:25
DX: E11.65 Type 2 diabetes mellitus with hyperglycemia (principal); E78.00 Pure hypercholesterolemia, unspecified; F41.9 Anxiety disorder, unspecified; I10 Essential (primary) hypertension; I25.2 Old myocardial infarction; Z91.148 Patient's other noncompliance with medication regimen for other reason; Z79.4 Long term (current) use of insulin; Z87.820 Personal history of traumatic brain injury
CPT/HCPCS: 82947; 99283

== ENCOUNTER → 2023-12-13 | Emergency (ER) | payer OTHER ==
[~2023-12-13] MED LIST: HYDROCODONE/APAP 7.5/325 MG TAB ONE; NA CHLORIDE 0.9% 1,000 ML ONE
[2023-12-13 18:55] LABS: Absolute Lymphocytes (CBC) 2.3 K/uL (0.7-4.9); Hematocrit 50.1 % (39.6-49.0); Lymphocytes % 11.9 % (15.3-44.8); MCV 90.1 fL (80-100); MPV 7.7 fL (7.6-11.3); Platelets 343 thou/uL (152-406); RBC Red Blood Cell Count 5.56 M/uL (4.33-5.43)
[2023-12-13 19:01] LABS: Specific Gravity 1.022 (1.005-1.030); Urine Bacteria None Seen /HPF (<20); Urine Bilirubin NEGATIVE (Negative); Urine Blood Negative (Negative); Urine Clarity Turbid (Clear); Urine Color Yellow (Yellow); Urine Crystals Unidentified Few /HPF (None Seen); Urine Glucose TRACE (Negative); Urine Mucus 1+ /HPF (None Seen); Urine Protein 1+ (Negative); Urine RBC <5 /HPF (None Seen); Urine Urobilinogen Normal (Normal); Urine pH 5.5 (5.0-7.0)
[2023-12-13 19:11] LABS: Albumin 4.2 g/dL (3.4-5.0); Bilirubin Total 0.7 mg/dL (0.2-1.0); Potassium 3.7 mEq/L (3.5-5.1); Protein, Total 8.9 g/dL (6.4-8.2)
--- NOTE | 2023-12-13 19:54 | RAD REPORT ---
EXAM DESCRIPTION: CTAbdomen Pelvis W Contrast - 12/13/2023 7:46 pm CLINICAL HISTORY: Abdominal pain. ABD PAIN COMPARISON: CT ABD PELVIS W CONTRAST dated 09/24/2015; Chest Abdomen Pelvis W Cont dated 05/04/2021 TECHNIQUE: Biphasic CT imaging of the abdomen and pelvis was performed with 100 ml non-ionic IV cont rast. All CT scans are performed using dose optimization technique as appropriate and may include automated exposure control or mA/KV adjustment according to patient size. FINDINGS: The lung bases are clear.Cholelithiasis. The liver, spleen, pancreas, adrenal glands and right kidney are within normal limits. Multiple wedge shaped hypodense defects is seen throughout the left kidney cortex compatible with multiple renal in farcts. No bowel obstruction, free air, free fluid or abscess. Moderate stool throughout the colon. The appen dandy is normal. No evidence of significant lymphadenopathy. Mild lower lumbar degenerative changes. IMPRESSION: Multiple left-sided renal infarcts noted. Cholelithiasis.
--- NOTE | 2023-12-13 21:02 | RAD REPORT ---
EXAM DESCRIPTION: RAD - Chest Single View - 12/13/2023 8:54 pm CLINICAL HISTORY: DYSPNEA Chest pain. COMPARISON: <Comparisons> FINDINGS: Portable technique limits examination quality. The lungs are grossly clear. The heart is normal in size. No displaced fractures.Two lead pacer/defib rillator device. IMPRESSION: No acute intrathoracic process suspected.
[2023-12-13 21:05] LABS: Protime INR 1.19
[2023-12-13 21:15] LABS: Troponin High Sensitivity 21.5 pg/mL (<58.9)
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
[2023-12-14 03:51] VITALS: TEMP 97.7; O2SAT 95
[2023-12-14 04:04] VITALS: BP 168/110
== END ==
LOC: ER 17:42
DX: R10.84 Generalized abdominal pain (principal); N28.0 Ischemia and infarction of kidney; D72.829 Elevated white blood cell count, unspecified; I10 Essential (primary) hypertension; E11.9 Type 2 diabetes mellitus without complications; Z87.820 Personal history of traumatic brain injury; Z95.810 Presence of automatic (implantable) cardiac defibrillator
CPT/HCPCS: 85025; 81001; 36415; 85610; 84484; 83690; 80053; 83880; 74177; 71045; Q9967; J7030; 93005